=== PATIENT | male | born 1955 | race Caucasian/White ===

== ENCOUNTER 2019-12-06 12:25 | Emergency (ER) | payer BC, OTHER ==
--- OUTSIDE RECORDS SUMMARY | 2019-12-06 12:28 | XMS REPORT ---
:1955 [facility] Address [address] [place] [address] Care Team Providers Name Role Phone Unavailable Unavailable Unavailable Payers Payer Name Policy Type Policy Number Effective Date Expiration Date Problems This patient has no known problems. Allergies, Adverse Reactions, Alerts Allergy Name Allergy Status Severity Reaction(s) Onset Inactive Treating Comments Type Date Date Clinician Penicillins DA Active 2019-04 00:00:0 0 codeine DA Active MD 2019-04 00:00:0 0 levofloxacin DA Active MD 2019-04 00:00:0 0 Penicillins DA Active 2018-12 00:00:0 0 codeine DA Active MD 2018-12 00:00:0 0 levofloxacin DA Active MD 2018-12 00:00:0 0 Penicillins DA Active 2018-12 00:00:0 0 codeine DA Active MD 2018-12 00:00:0 0 levofloxacin DA Active MD 2018-08 00:00:0 0 Penicillins DA Active 2018-08 00:00:0 0 codeine DA Active MD 2018-08 00:00:0 0 Penicillins DA Active 2016-10 00:00:0 0 codeine DA Active MD 2016-10 00:00:0 0 levofloxacin DA Active MD 2016-10 00:00:0 0 Medications This patient has no known medications. Results Test Description Test Time Test Comments Text Results Atomic Results Result Comments - MRI L-SPINE W WO CON 2019-05-01 09:33:00 Patient Name: TAMIKA OBREGON Unit No: [id number] EXAMS: CPT CODE: [id number] MRI L-SPINE W WO CON 67557 MRI OF THE LUMBAR SPINE WITH AND WITHOUT CONTRAST DIAGNOSIS: 1. At L1-2, mild disc degeneration. No central canal stenosis. Moderate foraminal stenosis. 2. At L2-3, disc desiccation. Mild central canal stenosis. Mild to moderate bilateral facet arthropathy. Moderate bilateral foraminal stenosis. 3. At L3-4, disc desiccation. Moderate central canal stenosis. Moderate bilateral facet arthropathy. Mild to moderate bilateral foraminal stenosis. 4. At L4-5, patient status post anterior discectomy and laminectomy. Mild enhancing epidural fibrosis. Moderate bilateral bony foraminal stenosis more severe on the right. 5. At L5-S1, disc desiccation. 2 mm disc bulge with small posterior central annular tear. No central canal stenosis. Moderate facet arthropathy. Mild to moderate bilateral foraminal stenosis. COMMENT: COMPARISON: The current exam is compared to a previous exam dated September 27, 2016. Sagittal and axial T1 weighted pre- and postcontrast, sagittal and axial T2, sagittal STIR and coronal T2 sequences are obtained of the lumbar spine. The lumbar vertebrae are within normal limits in signal. The findings are as above. The conus is in the expected location. at 0933 Reported and signed by: Gonzalo Silvestre MD CC: Angel Chaidez M.D. Technologist: RT Janel(R) Transcribed D/ (932) JanetGVG [facility] NAME: TAMIKA OBREGON [address] [facility] PHYS: Angel Shah MD : 1955 AGE: 63 SEX: M [place], [place] [address] LOC: Y.MRI PHONE #: [phone] EXAM DATE: 04/30/2019 STATUS: DEP CLI FAX #: [phone] RAD #: D/C DT PAGE 1 Signed Report Patient Name: TAMIKA OBREOGN Unit No: [id number] EXAMS: CPT CODE: [id number] MRI L-SPINE W WO CON 34005 <Continued> Orig Print D/T: S: 05/01/2019 (0936) [facility] NAME: TAMIKA OBREGON [address] [facility] PHYS: Angel Shah MD : 1955 AGE: 63 SEX: M [place], [place] [address] LOC: Y.MRI PHONE #: [phone] EXAM DATE: 04/30/2019 STATUS: ANASTASIIA CLI FAX #: [phone] RAD #: D/C DT PAGE 2 Signed Report BLOOD UREA NITROGEN 2019-04-30 11:19:00 Test Item Value Reference Range Comments BLOOD UREA NITROGEN (test code=BUN) 13 mg/dL 7-18 CREATININE W ESTIMATED [id number] 11:19:00 Test Item Value Reference Range Comments GLOMERULAR FILTRATION RATE 70.3 >60 Unit of measure: (test code=GFR) mL/min/1.73 [id number] Range:Healthy Adults >90 mL/min/1.73 m2 For Chronic Kidney Disease: Stage II Mild Decrease in GFR 60-90 Stage III Moderate Decrease in GFR 30-59 Stage IV Severe Decrease in GFR 15-29 Stage V Kidney Failure <15 CREATININE (test code=CREAT) 1.06 mg/dL 0.55-1.30 - CT L-SPINE W/O [id number] 09:53:00 Patient Name: TAMIKA OBREGON Unit No: [id number] EXAMS: CPT CODE : [id number] CT L-SPINE W/O CONTRAST 97555 CT SCAN OF THE LUMBAR SPINE WITH RECONSTRUCTION. DIAGNOSES:PAIN 1. At L1-2,mild disc degeneration. Mild central canal stenosis. Moderate left foraminal and mild right foraminal stenosis. 2. At L2-3,no disc bulge or herniation. Mild central canal stenosis. Moderate bilateral foraminal stenosis. 3. At L3-4,no disc bulge or herniation. Moderate central canal stenosis. Mild facet arthropathy. Mild bilateral foraminal stenosis. 4. At L4-5,patient status post anterior discectomy and laminectomy. Solid interbody fusion. Moderate left foraminal stenosis. Pedicle screws are in good position. 5. At L5-S1,mild disc degeneration. The L5-S1 disc is partially calcified. 2 mm disc bulge. No central canal stenosis. Mild facet arthropathy. Mild right foraminal stenosis. COMMENT: COMPARISON: No prior exams available. 3 mm axial slices are obtained of the lumbar spine with reconstruction. Findings are as above. at 0953 Reported and signed by: Gonzalo Silvestre MD CC: Angel Tabares M.D. Technologist: RT Mike(R) CTDI: DLP: Trnscrpt : 03/27/2019 (0953) t.SUSAN.GVG [facility] NAME: TAMIKA OBREGON [address] [facility] PHYS: Sagar Shah MD : 1955 AGE: 63 SEX: M [place], [place] [address] LOC: Y.RAD PHONE #: [phone] EXAMDATE: 03/26/2019 STATUS: DEP CLI FAX #: [phone] RAD # : D/C DT PAGE 1 Signed Report Patient Name:TAMIKA OBREGON Unit No : [id number] EXAMS: CPT CODE: [id number] CT L-SPINE W/O CONTRAST [address]52<Continued> Orig Print D/T: S: 2018 (0956) [facility] NAME: TAMIKA OBREGON[address] [facility] PHYS: Angel Shah MD : 1955 AGE: 63 SEX: M [place], [place] [address] LOC: Y.RAD PHONE #: EXAM DATE: 03/26/2019 STATUS: DEP [place] #: [phone] RAD #: D/C DT PAGE 2 Signed ReportURINALYSIS [id number] 07:16:00 Test Item Value Reference Range Comments UA COLOR (test code=COLU) YELLOW YELLOW UA APPEARANCE (test code=APPU) CLEAR CLEAR UA GLUCOSE DIPSTICK (test code=DGLUU) NEGATIVE NEGATIVE UA BILIRUBIN DIPSTICK (test code=BILU) NEGATIVE NEGATIVE UA KETONE DIPSTICK (test code=KETU) NEGATIVE mg/dL NEGATIVE UA SPECIFIC GRAVITY (test code=SGU) 1.020 1.003-1.035 UA BLOOD DIPSTICK (test code=ROSA) NEGATIVE NEGATIVE UA PH DIPSTICK (test code=CHELLE) 8.0 >6.5 UA PROTEIN DIPSTICK (test code=PROU) NEGATIVE mg/dL NEG UA UROBILINIOGEN DIPSTICK (test code=URO) 0.2 mg/dL NORM UA NITRITE DIPSTICK (test code=AASHISH) NEGATIVE NEG UA LEUKOCYTE ESTERASE DIPSTICK (test NEGATIVE NEGATIVE code=LEUU) UA WBC (test code=WBCU) 0-2 /HPF 0-2 UA RBC (test code=RBCU) 0-2 /HPF 0-2 UA EPITHELIAL CELLS (test code=EPIU) RARE /HPF 0-2 UA BACTERIA (test code=BACU) FEW /HPF NONE UA AMORPHOUS SEDIMENT (test code=AMORU) TRACE /LPF NONE SEEN HGB [id number] 05:50:00 Test Item Value Reference Range Comments HEMOGLOBIN (test code=HGB) 12.0 g/dL 12-16 HEMATOCRIT (test code=HCT) 34.8 % 37-47 CBC W/AUTO [id number] 05:49:00 Test Item Value Reference Range Comments WHITE BLOOD CELL (test code=WBC) 13.8 K/mm3 5.7-10.5 RED BLOOD CELL (test code=RBC) 4.00 M/mm3 4.2-5.4 HEMOGLOBIN (test code=HGB) 12.0 g/dL 12-16 HEMATOCRIT (test code=HCT) 34.3 % 37-47 MEAN CELL VOLUME (test code=MCV) 86 fL 80-98 MEAN CELL HGB (test code=MCH) 30.0 pg 27-34 MEAN CELL HGB CONCENTRATION (test code=MCHC) 35.0 g/dL 30.8-34.1 RED CELL DISTRIBUTION WIDTH (test code=RDW) 13.2 % 11-16 PLT (test code=PLT) 114 K/mm3 130-400 MEAN PLATELET VOLUME (test code=MPV) 11.4 fL 8.9-12.1 NEUTROPHIL % (test code=NT%) 87.9 % 45-70 LYMPHOCYTE % (test code=LY%) 6.2 % 20-40 MONOCYTE % (test code=MO%) 5.0 % 3-10 EOSINOPHIL % (test code=EO%) 0.0 % 1-5 BASOPHIL % (test code=BA%) 0.1 % 0.0-1.1 NEUTROPHIL # (test code=NT#) 12.09 K/mm3 2.00-7.50 LYMPHOCYTE # (test code=LY#) 0.85 K/mm3 1.50-4.00 MONOCYTE # (test code=MO#) 0.69 K/mm3 0.2-0.8 EOSINOPHIL # (test code=EO#) 0.00 K/mm3 0.04-0.4 BASOPHIL # (test code=BA#) 0.01 K/mm3 0.02-0.10 MANUAL DIFF REQUIRED (test code=MDIFF) NO MANUAL DIFF NUCLEATED RED BLOOD CELL (test code=NRBC) 0 % 0-0 - XR SPINE 1 V SPEC [id number] 11:33:00 Patient Name: TAMIKA OBREGNO Unit No: [id number] EXAMS: CPT CODE: [id number] XR SPINE 1 V SPEC LEVEL 70464 3 LATERAL INTRAOPERATIVE VIEWS OF THE LUMBAR SPINE Image 1: Surgical markers are at the L3-L4 and L4-L5 levels. Image 2: Surgical instrumentation is at the L4 level Image 3: In progress L4-L5 posterior instrumented fusion without evidence of immediate complication. Interbody graft is well-positioned on lateral view. Electronically Signed by Christine Garcia on12/31/2018 at 1132 Reported and signed by: Patric Garcia M.D. CC: Angel Chaidez M.D. Technologist: RT MARCO ANTONIO(R) Transcribed D/ (9800) tNAJMA [facility] NAME: TAMIKA OBREGON [facility] PHYS: Angel Shah MD : [birth year] AGE: 63 SEX: M [place], [place] [address] LOC: YKo A PHONE #: [phone] EXAM DATE: STATUS: ADM IN FAX #: [phone] RAD #: D/C DT PAGE 1 Signed Report Patient Name: TAMIKA OBREGON Unit No: [id number] EXAMS: CPT CODE : [id number] XR SPINE 1 V SPEC LEVEL 42438 <Continued> Orig Print D/T: S: 12/31/2018 (4540) [facility] NAME: TAMIKA OBREGON [facility] PHYS:Angel Shah MD : 1955 AGE: 63 SEX: M [place], [place] [address] LOC: Y.505 A PHONE #: [phone] EXAM DATE: 12/30/2018 STATUS: ADM IN FAX #: [phone] RAD # : D/C DT PAGE 2 Signed Report- XR SPINE 1 V SPEC [id number] 11:33:00 Patient Name: TAMIKA OBREGON Unit No: [id number] EXAMS: CPT CODE: [id number] XR SPINE 1 V SPEC LEVEL 28929 3 LATERAL INTRAOPERATIVE VIEWS OF THE LUMBAR SPINE Image 1 : Surgical markers are at the L3-L4 and L4-L5 levels. Image 2: Surgical instrumentation is at the L4 level Image 3: In progress L4-L5 posterior instrumented fusion without evidence of immediate complication. Interbody graft is well-positioned on lateral view. Electronically Signed by Christine Garcia on12/31/2018 at 1133 Reported and signed by: Patric Garcia M.D. CC: Angel Chaidez M.D. Technologist: SHARATH CIFUENTES (RT.R) Transcribed D/ (5046) Astrid [facility] NAME: TAMIKA OBREGON [facility] PHYS: Angel Shah MD : [birth year] AGE: 63 SEX: M [place], [place] [address] LOC: Y.505 A PHONE #: [phone] EXAM DATE: STATUS: ADM IN FAX #: [phone] RAD #: D/C DT PAGE 1 Signed Report Patient Name: TAMIKA OBREGON Unit No: [id number] EXAMS: CPT CODE : [id number] XR SPINE 1 V SPEC LEVEL 27583 <Continued> Orig Print D/T: S: 12/31/2018 (0956) [facility] NAME: TAMIKA OBREGON [address] [facility] PHYS:Angel Shah MD : 1955 AGE: 63 SEX: M [place], [place] [address] LOC: Y.505 A PHONE #: [phone] EXAM DATE: 12/30/2018 STATUS: ADM IN FAX #: [phone] RAD # : D/C DT PAGE 2 Signed Report- XR SPINE 1 V SPEC [id number] 11:33:00 Patient Name: TAMIKA OBREGON Unit No: [id number] EXAMS: CPT CODE: [id number] XR SPINE 1 V SPEC LEVEL 04732 3 LATERAL INTRAOPERATIVE VIEWS OF THE LUMBAR SPINE Image 1 : Surgical markers are at the L3-L4 and L4-L5 levels. Image 2: Surgical instrumentation is at the L4 level Image 3: In progress L4-L5 posterior instrumented fusion without evidence of immediate complication. Interbody graft is well-positioned on lateral view. Electronically Signed by Christine Garcia on12/31/2018 at 1133 Reported and signed by: Patric Garcia M.D. CC: Angel Chaidez M.D. Technologist: SHARATH CIFUENTES (RT.R) Transcribed D/ (9127) tNAN.[email or web address] [facility] NAME: TAMIKA OBREGON [address] [facility] PHYS: Angel Shah MD : [birth year] AGE: 63 SEX: M [place], [place] [address] LOC: Y.505 A PHONE #: [phone] EXAM DATE: STATUS: ADM IN FAX #: [phone] RAD #: D/C DT PAGE 1 Signed Report Patient Name: TAMIKA OBREGON Unit No: [id number] EXAMS: CPT CODE : [id number] XR SPINE 1 V SPEC LEVEL 01719 <Continued> Orig Print D/T: S: 12/31/2018 (1136) [facility] NAME: TAMIKA OBREGON [address] [facility] PHYS:Angel Shah MD : 1955 AGE: 63 SEX: M [place] [id number] LOC: Y.505 A PHONE #: [phone] EXAM DATE: 12/30/2018 STATUS: ADM IN FAX #: [phone] RAD # : D/C DT PAGE 2 Signed [id number] 10:43:00 Test Item Value Reference Range Comments PLT (test code=PLT) 119 K/mm3 130-400 BASIC METABOLIC [id number] 06:35:00 Test Item Value Reference Range Comments SODIUM (test code=NA) 142 mmol/L 136-145 POTASSIUM (test code=K) 4.7 mmol/L 3.5-5.1 CHLORIDE (test code=CL) 106.0 mmol/L 98-107 CARBON DIOXIDE (test 27.0 mmol/L 21-32 code=CO2) GLUCOSE (test code=GLU) 135 mg/dL 70-110 BLOOD UREA NITROGEN (test 10 mg/dL 7-18 code=BUN) GLOMERULAR FILTRATION RATE 92.0 >60 Unit of measure: (test code=GFR) mL/min/1.73 [id number] Range:Healthy Adults >90 mL/min/1.73 m2 For Chronic Kidney Disease: Stage II Mild Decrease in GFR 60-90 Stage III Moderate Decrease in GFR 30-59 Stage IV Severe Decrease in GFR 15-29 Stage V Kidney Failure <15 CREATININE (test code=CREAT) 0.84 mg/dL 0.55-1.30 CALCIUM (test code=CA) 9.2 mg/dL 8.2-10.1 HGB [id number] 05:40:00 Test Item Value Reference Range Comments HEMOGLOBIN (test code=HGB) 12.7 g/dL 12-16 HEMATOCRIT (test code=HCT) 36.0 % 37-47 ACUTE HEPATITIS [id number] 17:53:00 Test Item Value Reference Range Comments AB HEPATITIS A IGM (test code=HAVMAB) NONREACTIVE NONREACTIVE AG HEPATITIS B SURFACE (test code=HBSAG) NONREACTIVE NONREACTIVE AB HEPATITIS B CORE IGM (test code=HBCMAB) NONREACTIVE NONREACTIVE AB HEPATITIS C (test code=HCVAB) NONREACTIVE NONREACTIVE SIGNAL TO CUTOFF (test code=CUTOFF) 0.04 <0.80 AB HIV 17:53:00 Test Item Value Reference Range Comments AB HIV 1 (test code=HIV1AB) NONREACTIVE NONREACTIVE Done by [email or web address] Gen HIV Ag/Ab Combo Screen ACUTE HEPATITIS [id number] 17:52:00 Test Item Value Reference Range Comments AB HEPATITIS A IGM (test code=HAVMAB) NONREACTIVE NONREACTIVE AG HEPATITIS B SURFACE (test code=HBSAG) NONREACTIVE NONREACTIVE AB HEPATITIS B CORE IGM (test code=HBCMAB) NONREACTIVE NONREACTIVE AB HEPATITIS C (test code=HCVAB) NONREACTIVE NONREACTIVE SIGNAL TO CUTOFF (test code=CUTOFF) 0.04 <0.80 AB HIV 1 17:52:00 Test Item Value Reference Range Comments AB HIV 1 2 (test NONREACTIVE NONREACTIVE Done by [employer] 4th code=[id number]) Gen HIV Ag/Ab Combo Screen ACUTE HEPATITIS [id number] 17:52:00 Test Item Value Reference Range Comments AB HEPATITIS A IGM (test code=HAVMAB) NONREACTIVE NONREACTIVE AG HEPATITIS B SURFACE (test code=HBSAG) NONREACTIVE AB HEPATITIS B CORE IGM (test code=HBCMAB) NONREACTIVE NONREACTIVE AB HEPATITIS C (test code=HCVAB) NONREACTIVE NONREACTIVE SIGNAL TO CUTOFF (test code=CUTOFF) 0.04 <0.80 AB HIV 17:52:00 Test Item Value Reference Range Comments AB HIV 1 (test code=HIV1AB) NONREACTIVE NONREACTIVE Done by [employer] 4th Gen HIV Ag/Ab Combo Screen ACUTE HEPATITIS [id number] 17:51:00 Test Item Value Reference Range Comments AB HEPATITIS A IGM (test code=HAVMAB) NONREACTIVE NONREACTIVE AG HEPATITIS B SURFACE (test code=HBSAG) NONREACTIVE AB HEPATITIS B CORE IGM (test code=HBCMAB) NONREACTIVE NONREACTIVE AB HEPATITIS C (test code=HCVAB) NONREACTIVE NONREACTIVE SIGNAL TO CUTOFF (test code=CUTOFF) 0.04 <0.80 AB HIV 1 17:51:00 Test Item Value Reference Range Comments AB HIV 1 2 (test NONREACTIVE NONREACTIVE Done by [employer] 4th code=[email or web address]) Gen HIV Ag/Ab Combo Screen CBC W/AUTO [id number] 09:49:00 Test Item Value Reference Range Comments WHITE BLOOD CELL (test 3.9 K/mm3 5.7-10.5 code=WBC) RED BLOOD CELL (test 4.72 M/mm3 4.2-5.4 code=RBC) HEMOGLOBIN (test code=HGB) 14.1 g/dL 12-16 HEMATOCRIT (test code=HCT) 40.5 % 37-47 MEAN CELL VOLUME (test 86 fL 80-98 code=MCV) MEAN CELL HGB (test code=MCH) 29.9 pg 27-34 MEAN CELL HGB CONCENTRATION 34.8 g/dL 30.8-34.1 (test code=MCHC) RED CELL DISTRIBUTION WIDTH 13.3 % 11-16 (test code=RDW) PLT (test code=PLT) 128 K/mm3 130-400 PLT ESTIMATE FROM SLIDE REVIEW: ADEQUATESLIGHT PLT CLUMPING PRESENT ON SLIDE MEAN PLATELET VOLUME (test 10.3 fL 8.9-12.1 code=MPV) NEUTROPHIL % (test code=NT%) 52.5 % 45-70 LYMPHOCYTE % (test code=LY%) 35.2 % 20-40 MONOCYTE % (test code=MO%) 8.4 % 3-10 EOSINOPHIL % (test code=EO%) 2.6 % 1-5 BASOPHIL % (test code=BA%) 0.8 % 0.0-1.1 NEUTROPHIL # (test code=NT#) 2.06 K/mm3 2.00-7.50 LYMPHOCYTE # (test code=LY#) 1.38 K/mm3 1.50-4.00 MONOCYTE # (test code=MO#) 0.33 K/mm3 0.2-0.8 EOSINOPHIL # (test code=EO#) 0.10 K/mm3 0.04-0.4 BASOPHIL # (test code=BA#) 0.03 K/mm3 0.02-0.10 MANUAL DIFF REQUIRED (test NO MANUAL DIFF code=MDIFF) NUCLEATED RED BLOOD CELL 0 % 0-0 (test code=NRBC) PROTHROMBIN [id number] 09:32:00 Test Item Value Reference Range Comments PROTHROMBIN TIME PATIENT 12.4 secs 10.1-12.5 (test code=PTP) INTERNATIONAL NORMAL RATIO 1.10 <2.0 RECOMMENDED THERAPEUTIC RANGE (test code=INR) FOR ORAL ANTICOAGULANTTREATMENT: CONDITION INRProphylaxis of venous thrombosis in 2.0 - 3.0 high-risk medical or surgical patientsTreatment of venous thrombosis 2.0 - 3.0Prevention of embolism 2.0 - 3.0Prevention of recurrent embolism, or 3.0 - 4.5 patients with mechanical prosthetic intravascular valves IS PATIENT ON ANTICOAGULANTS ? [facility] been notified if Patient is on Heparin Drip? NOIf Yes, orderCBC, OCCULT BLOOD, PT every other day NTHROMBOPLASTIN TIME [id number] 09:32:00 Test Item Value Reference Range Comments PTT ACTIVATED (test code=APTT) 28.7 secs 24.9-37.0 IS PATIENT ON ANTICOAGULANTS ? [facility] been notified if Patient is on Heparin Drip? NOIf Yes, orderCBC, OCCULT BLOOD, PT every other day NBASIC METABOLIC [id number] 09:32:00 Test Item Value Reference Range Comments SODIUM (test code=NA) 142 mmol/L 136-145 POTASSIUM (test code=K) 4.2 mmol/L 3.5-5.1 CHLORIDE (test code=CL) 103.0 mmol/L 98-107 CARBON DIOXIDE (test 31.1 mmol/L 21-32 code=CO2) GLUCOSE (test code=GLU) 81 mg/dL 70-110 BLOOD UREA NITROGEN (test 17 mg/dL 7-18 code=BUN) GLOMERULAR FILTRATION RATE 75.2 >60 Unit of measure: (test code=GFR) mL/min/1.73 [id number] Range:Healthy Adults >90 mL/min/1.73 m2 For Chronic Kidney Disease: Stage II Mild Decrease in GFR 60-90 Stage III Moderate Decrease in GFR 30-59 Stage IV Severe Decrease in GFR 15-29 Stage V Kidney Failure <15 CREATININE (test code=CREAT) 1.00 mg/dL 0.55-1.30 CALCIUM (test code=CA) 9.1 mg/dL 8.2-10.1
[2019-12-06] MEDS ORDERED: NA CHLORIDE 0.9% 1,000 ML ONE ×2 (13:16→14:18)
[2019-12-06 13:40] LABS: Absolute Lymphocytes (CBC) 1.1 K/uL (0.7-4.9); Basophils % 0.4 % (0-1.3); Hematocrit 42.9 % (39.6-49.0); Lymphocytes % 16.5 % (15.3-44.8); MPV 8.8 fL (7.6-11.3); RBC Red Blood Cell Count 4.95 M/uL (4.33-5.43)
[2019-12-06 13:44] LABS: Protime INR 1.15
[2019-12-06 13:44] LABS: Urine Blood NEGATIVE (NEG); Urine Glucose NEGATIVE (NEG); Urine Protein NEGATIVE (NEG)
--- NOTE | 2019-12-06 13:51 | RAD REPORT ---
EXAM DESCRIPTION: CT - Head Brain Wo Cont - 12/06/2019 1:43 pm CLINICAL HISTORY: Dizziness COMPARISON: 2015 TECHNIQUE: Computed axial tomography of the head was obtained. IV contrast was not requested. All CT scans are performed using dose optimization technique as appropriate and may include automated exposure control or mA/KV adjustment according to patient size. FINDINGS: Postsurgical changes of a aneurysm clip for cerebral aneurysm noted. No acute intracranial bleed is seen. The ventricles are normal in caliber. No extra-axial fluid collection is noted. 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 IMPRESSION: No acute intracranial abnormality is seen.
[2019-12-06 13:59] LABS: ALT/SGPT 27 U/L (12-78); AST/SGOT 20 U/L (15-37); Albumin 4.1 g/dL (3.4-5.0); Alkaline Phosphatase 94 U/L (45-117); BUN Blood Urea Nitrogen 15 mg/dL (7-18); Bicarbonate 28 mmol/L (21-32); Bilirubin Direct 0.2 mg/dL (0-0.2); Bilirubin Total 0.5 mg/dL (0.2-1.0); Glucose Level 79 mg/dL (74-106); NT PRO-BNP 388 pg/mL (<125); Protein, Total 7.3 g/dL (6.4-8.2); Sodium Level 139 mmol/L (136-145); Troponin (Emerg Dept Use Only) < 0.02 ng/mL (0.0-0.045)
--- NOTE | 2019-12-06 14:14 | RAD REPORT ---
EXAM DESCRIPTION: Nikia Single View12/06/2019 1:59 pm CLINICAL HISTORY: cough COMPARISON: 2017 FINDINGS: The lungs appear clear of acute infiltrate. The heart is normal size Postsurgical changes involve the chest. IMPRESSION: No acute abnormalities displayed
--- NOTE | 2019-12-06 15:21 | RAD REPORT ---
EXAM DESCRIPTION: USCarotid Artery Bilateral12/06/2019 2:49 pm CLINICAL HISTORY: Syncope COMPARISON: None FINDINGS: The velocity of the right internal carotid artery equals 91 cm/sec. The right ICA/CCA rati o 1.9 The velocity of the left internal carotid artery equals 111 cm/sec. The left ICA/CCA ratio 1 Mild to moderate plaque is present within the left carotid bulb, left external carotid artery. Mild p laque seen within the common carotid arteries and right internal carotid artery The vertebral arteries demonstrate antegrade flow IMPRESSION: Mild to moderate plaque within the left carotid bulb without evidence of a hemodynamical ly significant stenosis NASCET criteria used. Mild 0-49% stenosis Moderate 50-69% stenosis Severe 70-99% stenosis
--- NOTE | 2019-12-06 15:34 | ER ---
Nurse's Notes [facility] Name: William Osuna Age: 64 yrs Sex: Male : 1955 Arrival Date: 12/06/2019 Time: 12:28 Bed 15 Private MD: Diagnosis: Dizziness and giddiness;Essential (primary) hypertension;Hypoglycemia, unspecified;Volume depletion Presentation: 12/06 12:30 Presenting complaint: states: Dizziness for the past week. Intermittent headache aj1 for the past week. Denies CP, SOB. States that his blood pressures have been running higher than normal. Transition of care: patient was not received from another setting of care. Onset of symptoms was November 2019. Risk Assessment: Do you want to hurt yourself or someone else? Patient reports no desire to harm self or others. Initial Sepsis Screen: Does the patient meet any 2 criteria? No. Patient's initial sepsis screen is negative. Does the patient have a suspected source of infection? No. Patient's initial sepsis screen is negative. Care prior to arrival: None. 12:30 Method Of Arrival: Ambulatory aj1 12:30 Acuity: FARHAD 3 aj1 Triage Assessment: 12:38 Headache History: Denies prior headaches. General: Appears in no apparent distress. aj1 comfortable, Behavior is calm, cooperative, appropriate for age. Pain: Complains of pain in forehead Pain currently is 5 out of 10 on a pain scale. Also complains of no other associated symptoms. Pain: Pain began one week ago. Neuro: Level of Consciousness is awake, alert, obeys commands, Oriented to person, place, time, situation, Gait is steady, Speech is normal. Cardiovascular: Patient's skin is warm and dry. Respiratory: Airway is patent Respiratory effort is even, unlabored, Respiratory pattern is regular, symmetrical. 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 - Coronavirus screen:: The patient has NOT traveled to [place] in the past 14 days. - Social history:: Smoking status: Patient/guardian denies using tobacco. - Family history:: not pertinent. - Ebola Screening: : Patient denies travel to an Ebola-affected area in the 21 days before illness onset. Screenin:00 Abuse screen: Denies threats or abuse. Denies injuries from another. Nutritional jl7 screening: No deficits noted. Tuberculosis screening: No symptoms or risk factors identified. Fall Risk IV access (20 points). Total Chavez Fall Scale indicates No Risk (0-24 pts). Assessment: 13:00 General: Appears in no apparent distress. uncomfortable, Behavior is calm, cooperative, jl7 appropriate for age. Pain: Complains of pain in MORE Pain currently is 5 out of 10 on a pain scale. Neuro: Level of Consciousness is awake, alert, obeys commands, Oriented to person, place, time, situation, Moves all extremities. Full function Gait is steady, Speech is normal, Facial symmetry appears normal. Cardiovascular: Patient's skin is warm and dry. Respiratory: Airway is patent Respiratory effort is even, unlabored, Respiratory pattern is regular, symmetrical. Derm: Skin is pink, warm \\T\\ dry. 14:00 Reassessment: Patient appears in no apparent distress at this time. No changes from jl7 previously documented assessment. Patient and/or family updated on plan of care and expected duration. Pain level reassessed. Patient is alert, oriented x 3, equal unlabored respirations, skin warm/dry/pink. 15:00 Reassessment: Patient appears in no apparent distress at this time. No changes from jl7 previously documented assessment. Patient and/or family updated on plan of care and expected duration. Pain level reassessed. Patient is alert, oriented x 3, equal unlabored respirations, skin warm/dry/pink. 15:45 Reassessment: Pt will be discharged once ERD gives results and POC. jl7 Vital Signs: 12:38 BP 177 / 92; Pulse 78; Resp 18; Temp 97.2; Pulse Ox 100% on R/A; Weight 88.45 kg (R); aj1 Height 6 ft. 3 in. (190.50 cm) (R); Pain 5/10; 13:50 BP 175 / 82 LA Supine (auto/reg); Pulse 69; Resp 11; Pulse Ox 100% on R/A; jp3 13:53 BP 176 / 82 LA Sitting (auto/reg); Pulse 69; Resp 13 S; Pulse Ox 100% on R/A; jp3 13:57 BP 148 / 82 LA Standing (auto/reg); Pulse 80; Resp 15 S; Pulse Ox 100% on R/A; jp3 14:30 BP 156 / 74; Pulse 67; Resp 16 S; Pulse Ox 100% on R/A; jl7 15:00 BP 149 / 82; Pulse 62; Resp 16 S; Pulse Ox 100% on R/A; jl7 15:30 BP 165 / 76; Pulse 60; Resp 16 S; Pulse Ox 100% on R/A; jl7 12:38 Body Mass Index 24.37 (88.45 kg, 190.50 cm) aj1 13:50 patient stated "feel normal" jp3 13:53 pt stated "I feel dizzy" jp3 13:57 pt stated "I feel same dizziness as when I was sitting" jp3 ED Course: 12:28 Patient arrived in ED. rg4 12:33 Triage completed. aj1 12:35 Devaughn Avila MD is Attending Physician. gregory 12:38 Arm band placed on Patient placed in an exam room. aj1 12:42 Lluvia Da Silva, BRADLY is Primary Nurse. jl7 12:47 EKG done, by ED staff, reviewed by Devaughn Avila MD. jb1 13:30 Initial lab(s) drawn, by me, sent to lab. Urine collected: clean catch specimen, clear. jl7 Inserted saline lock: 20 gauge in right forearm, using aseptic technique. Blood collected. 14:02 Safety checks: Family/friend present: yes. Bed in low position. Call light in reach. jp3 Side rails up X 1. Warm blanket given. Verbal reassurance given. monitoring and evaluation advisor on. Pulse ox on. NIBP on. 14:40 Ultrasound completed. Patient tolerated well. sg3 15:32 Talib Grover MD is Referral Physician. gregory 16:11 No provider procedures requiring assistance completed. IV discontinued, intact, jl7 bleeding controlled, No redness/swelling at site. Pressure dressing applied. Administered Medications: 13:25 Drug: NS 0.9% 500 ml Route: IV; Rate: bolus; Site: right forearm; jl7 14:00 Follow up: Response: No adverse reaction; IV Status: Completed infusion; IV Intake: jl7 500ml 13:25 Drug: NS 0.9% 1000 ml Route: IV; Rate: 125 ml/hr; Site: right forearm; jl7 16:06 Follow up: Response: No adverse reaction; IV Status: Completed infusion jl7 14:18 Drug: NS 0.9% 500 ml Route: IV; Rate: bolus; Site: right forearm; jl7 15:04 Follow up: Response: No adverse reaction; IV Status: Completed infusion; IV Intake: jl7 500ml 15:10 Drug: Aspirin 81 mg Route: PO; jl7 16:10 Follow up: Response: No adverse reaction jl7 Intake: 14:00 IV: 500ml; Total: 500ml. jl7 15:04 IV: 500ml; Total: 1000ml. jl7 Outcome: 15:32 Discharge ordered by . gregory 16:12 Discharged to home ambulatory. jl7 16:12 Condition: stable 16:12 Discharge instructions given to patient, family, Instructed on discharge instructions, follow up and referral plans. medication usage, Demonstrated understanding of instructions, follow-up care, medications, Prescriptions given X 1. 16:14 Patient left the ED. jl7 Signatures: Jaden Rasheed jb1 Katie Villalba, RN RN aj1 Devaughn Avila MD MD cha Garcia, Rubi rg4 Lluvia Da Silva RN RN jl7 Malika Palafox sg3 Adryan Salas jp3
--- NOTE | 2019-12-06 15:34 | EDPHYS ---
Physician Documentation [facility] Name: William Osuna Age: 64 yrs Sex: Male : 1955 Arrival Date: 12/06/2019 Time: 12:28 Bed 15 Private MD: ED Physician Devaughn Avila HPI: 12/06 13:13 This 64 yrs old Male presents to ER via Ambulatory with complaints of gregory Dizziness, Headache. 13:13 The patient presents with dizziness. Onset: The symptoms/episode began/occurred 2 gregory day(s) ago. Context: occurred at home, occurred while the patient was standing. Modifying factors: The symptoms are alleviated by lying down. Associated signs and symptoms: Pertinent positives: headache. Severity of symptoms: At their worst the symptoms were mild in the emergency department the symptoms are unchanged. Patient's baseline: Neuro: alert and fully oriented. The patient has experienced similar episodes in the past, a few times. 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 - Coronavirus screen:: The patient has NOT traveled to [place] in the past 14 days. - Social history:: Smoking status: Patient/guardian denies using tobacco. - Family history:: not pertinent. - Ebola Screening: : Patient denies travel to an Ebola-affected area in the 21 days before illness onset. ROS: 13:13 Constitutional: Negative for fever, chills, and weight loss, Eyes: Negative for injury, gregory pain, redness, and discharge, ENT: Negative for injury, pain, and discharge, Neck: Negative for injury, pain, and swelling, Cardiovascular: Negative for chest pain, palpitations, and edema, Respiratory: Negative for shortness of breath, cough, wheezing, and pleuritic chest pain, Abdomen/GI: Negative for abdominal pain, nausea, vomiting, diarrhea, and constipation, Back: Negative for injury and pain, : Negative for injury, bleeding, discharge, and swelling, MS/Extremity: Negative for injury and deformity, Skin: Negative for injury, rash, and discoloration, Neuro: Negative for headache, weakness, numbness, tingling, and seizure, Psych: Negative for depression, anxiety, suicide ideation, homicidal ideation, and hallucinations, Allergy/Immunology: Negative for hives, rash, and allergies, Endocrine: Negative for neck swelling, polydipsia, polyuria, polyphagia, and marked weight changes, Hematologic/Lymphatic: Negative for swollen nodes, abnormal bleeding, and unusual bruising. Exam: 13:15 Constitutional: This is a well developed, well nourished patient who is awake, alert, gregory and in no acute distress. Head/Face: Normocephalic, atraumatic. Eyes: Pupils equal round and reactive to light, extra-ocular motions intact. Lids and lashes normal. Conjunctiva and sclera are non-icteric and not injected. Cornea within normal limits. Periorbital areas with no swelling, redness, or edema. ENT: Nares patent. No nasal discharge, no septal abnormalities noted. Tympanic membranes are normal and external auditory canals are clear. Oropharynx with no redness, swelling, or masses, exudates, or evidence of obstruction, uvula midline. Mucous membranes moist. Neck: Trachea midline, no thyromegaly or masses palpated, and no cervical lymphadenopathy. Supple, full range of motion without nuchal rigidity, or vertebral point tenderness. No Meningismus. Chest/axilla: Normal chest wall appearance and motion. Nontender with no deformity. No lesions are appreciated. Cardiovascular: Regular rate and rhythm with a normal S1 and S2. No gallops, murmurs, or rubs. Normal PMI, no JVD. No pulse deficits. Respiratory: Lungs have equal breath sounds bilaterally, clear to auscultation and percussion. No rales, rhonchi or wheezes noted. No increased work of breathing, no retractions or nasal flaring. Abdomen/GI: Soft, non-tender, with normal bowel sounds. No distension or tympany. No guarding or rebound. No evidence of tenderness throughout. Back: No spinal tenderness. No costovertebral tenderness. Full range of motion. Skin: Warm, dry with normal turgor. Normal color with no rashes, no lesions, and no evidence of cellulitis. MS/ Extremity: Pulses equal, no cyanosis. Neurovascular intact. Full, normal range of motion. Neuro: Awake and alert, GCS 15, oriented to person, place, time, and situation. Cranial nerves II-XII grossly intact. Motor strength 5/5 in all extremities. Sensory grossly intact. Cerebellar exam normal. Normal gait. Psych: Awake, alert, with orientation to person, place and time. Behavior, mood, and affect are within normal limits. Vital Signs: 12:38 BP 177 / 92; Pulse 78; Resp 18; Temp 97.2; Pulse Ox 100% on R/A; Weight 88.45 kg (R); aj1 Height 6 ft. 3 in. (190.50 cm) (R); Pain 5/10; 13:50 BP 175 / 82 LA Supine (auto/reg); Pulse 69; Resp 11; Pulse Ox 100% on R/A; jp3 13:53 BP 176 / 82 LA Sitting (auto/reg); Pulse 69; Resp 13 S; Pulse Ox 100% on R/A; jp3 13:57 BP 148 / 82 LA Standing (auto/reg); Pulse 80; Resp 15 S; Pulse Ox 100% on R/A; jp3 14:30 BP 156 / 74; Pulse 67; Resp 16 S; Pulse Ox 100% on R/A; jl7 15:00 BP 149 / 82; Pulse 62; Resp 16 S; Pulse Ox 100% on R/A; jl7 15:30 BP 165 / 76; Pulse 60; Resp 16 S; Pulse Ox 100% on R/A; jl7 12:38 Body Mass Index 24.37 (88.45 kg, 190.50 cm) aj1 13:50 patient stated "feel normal" jp3 13:53 pt stated "I feel dizzy" jp3 13:57 pt stated "I feel same dizziness as when I was sitting" jp3 MDM: 12:41 [facility] 13:15 Data reviewed: vital signs, nurses notes, lab test result(s), EKG, radiologic studies, [facility] scan, doppler, plain films. 12/06 13:09 Order name: Basic Metabolic Panel [facility] 12/06 13:09 Order name: CBC with Diff [facility] 12/06 13:09 Order name: LFT's [facility] 12/06 13:09 Order name: Magnesium [facility] 12/06 13:09 Order name: NT PRO-BNP [facility] 12/06 13:09 Order name: PT-INR [facility] 12/06 13:09 Order name: Troponin (emerg Dept Use Only) [facility] 12/06 13:28 Order name: Urine Dipstick--Ancillary (enter results) 12/06 13:45 Order name: CBC with Automated Diff; Complete Time: 14:09 EDTX 12/06 13:45 Order name: Protime (+INR); Complete Time: 14:09 EDTX 12/06 13:45 Order name: Urine Dipstick-Ancillary; Complete Time: 14:09 EDTX 12/06 14:02 Order name: Basic Metabolic Panel; Complete Time: 14:09 EDTX 12/06 14:02 Order name: Liver (Hepatic) Function; Complete Time: 14:09 EDTX 12/06 14:02 Order name: Troponin (Emerg Dept Use Only); Complete Time: 14:09 EDTX 12/06 13:09 Order name: XRAY Chest (1 view) [facility] 12/06 13:09 Order name: EKG; Complete Time: 13:10 [facility] 12/06 13:09 Order name: Cardiac monitoring; Complete Time: 14:08 [facility] 12/06 13:09 Order name: EKG - Nurse/Tech; Complete Time: 14:08 [facility] 12/06 13:09 Order name: IV Saline Lock; Complete Time: 13:37 [facility] 12/06 13:09 Order name: US Carotid Artery Bilateral [facility] 12/06 13:12 Order name: CT Head Brain wo Cont [facility] 12/06 14:00 Order name: CT; Complete Time: 14:09 EDTX 12/06 14:02 Order name: NT PRO-BNP; Complete Time: 14:09 EDTX 12/06 14:02 Order name: Magnesium; Complete Time: 14:09 EDTX 12/06 14:34 Order name: RAD; Complete Time: 14:48 [facility] 12/06 15:28 Order name: US; Complete Time: 15:31 [facility] 12/06 13:09 Order name: Labs collected and sent; Complete Time: 13:36 [facility] 12/06 13:09 Order name: O2 Per Protocol; Complete Time: 13:36 [facility] 12/06 13:09 Order name: O2 Sat Monitoring; Complete Time: 13:36 [facility] 12/06 13:09 Order name: Urine Dipstick-Ancillary (obtain specimen); Complete Time: 13:34 [facility] 12/06 13:11 Order name: Orthostatics; Complete Time: 14:03 [facility] 12/06 13:32 Order name: PO challenge: JUICE; Complete Time: 13:34 [facility] Administered Medications: 13:25 Drug: NS 0.9% 500 ml Route: IV; Rate: bolus; Site: right forearm; jl7 14:00 Follow up: Response: No adverse reaction; IV Status: Completed infusion; IV Intake: jl7 500ml 13:25 Drug: NS 0.9% 1000 ml Route: IV; Rate: 125 ml/hr; Site: right forearm; jl7 16:06 Follow up: Response: No adverse reaction; IV Status: Completed infusion jl 14:18 Drug: NS 0.9% 500 ml Route: IV; Rate: bolus; Site: right forearm; jl7 15:04 Follow up: Response: No adverse reaction; IV Status: Completed infusion; IV Intake: jl7 500ml 15:10 Drug: Aspirin 81 mg Route: PO; jl7 16:10 Follow up: Response: No adverse reaction [facility] Disposition: 12/06/19 15:32 Discharged to Home. Impression: Dizziness and giddiness, Essential (primary) hypertension, Hypoglycemia, unspecified, Volume depletion. - Condition is Stable. - Discharge Instructions: Dehydration, Adult, Dizziness, Hypertension, Hypoglycemia, Hypertension, Itix-yl-Gcsh, How to Take Your Blood Pressure, Rtnp-az-Rmix, Dehydration, Adult, Isdp-wu-Icno, Aspirin and Your Heart, Hypoglycemia, Acbl-ny-Gfbz, Dizziness, Zvtx-of-Zruy, Managing Your Hypertension. - Prescriptions for Meclizine 25 mg Oral Tablet - take 1 tablet by ORAL route every 8 hours As needed; 30 tablet. Lisinopril 10 mg Oral Tablet - take 1 tablet by ORAL route once daily; 20 tablet. - Medication Reconciliation Form, Thank You Letter, Antibiotic Education, Prescription Opioid Use form. - Follow up: Private Physician; When: 2 - 3 days; Reason: Recheck today's complaints, Continuance of care, Re-evaluation by your physician. Follow up: Talib Grover; When: 2 - 3 days; Reason: Recheck today's complaints, Continuance of care, Re-evaluation by your physician. - Problem is new. - Symptoms have improved. Signatures: Dispatcher [employer] EDKatie Steward RN RN aj1 Devaughn Avila MD MD cha Leal, Jahala, RN RN jl7 Corrections: (The following items were deleted from the chart) 16:14 15:32 12/06/2019 15:32 Discharged to Home. Impression: Dizziness and giddiness; jl7 Essential (primary) hypertension; Hypoglycemia, unspecified; Volume depletion. Condition is Stable. Discharge Instructions: Dizziness, Hypertension, Hypertension, Qmwa-pj-Olzt, How to Take Your Blood Pressure, Cunz-fn-Hgxa, Aspirin and Your Heart, Dizziness, Utsf-dw-Dmsl, Managing Your Hypertension, Dehydration, Adult, Hypoglycemia, Dehydration, Adult, Iyex-ab-Infv, Hypoglycemia, Xnby-le-Ivsz. Prescriptions for Meclizine 25 mg Oral Tablet - take 1 tablet by ORAL route every 8 hours As needed; 30 tablet. and Forms are Medication Reconciliation Form, Thank You Letter, Antibiotic Education, Prescription Opioid Use. Follow up: Private Physician; When: 2 - 3 days; Reason: Recheck today's complaints, Continuance of care, Re-evaluation by your physician. Follow up: Talib Grover; When: 2 - 3 days; Reason: Recheck today's complaints, Continuance of care, Re-evaluation by your physician. Problem is new. Symptoms have improved. gregory
[2019-12-06] MEDS ORDERED: ASPIRIN 81 MG CHEWABLE TABLET ONE (15:45)
[2019-12-06 16:33] VITALS: TEMP 97.2; O2SAT 100
[2019-12-06 16:41] VITALS: BP 165/76
--- NOTE | 2019-12-07 08:11 | EKG ---
Test Date: 2019-12-06 Test Time: 12:47:36 Client Success Specialist: RADHA MEASUREMENT RESULTS: Intervals: Rate: 74 CA: 150 QRSD: 98 QT: 386 QTc: 428 [place]: P: 10 CA: 150 QRS: 39 T: 63 INTERPRETIVE STATEMENTS: Normal sinus rhythm Normal ECG Compared to ECG 04/25/2014 18:49:49 Sinus bradycardia no longer present Electronically Signed On 12-07-19 08:09:37 CLASSROOM INSTRUCTOR by Bunny Cerna
== END 2019-12-06 16:14 | disposition home or self-care (01) ==
LOC: ER 12:25
DX: E86.9 Volume depletion, unspecified (principal); I10 Essential (primary) hypertension; E16.2 Hypoglycemia, unspecified; Z79.01 Long term (current) use of anticoagulants; Z88.0 Allergy status to penicillin; Z88.5 Allergy status to narcotic agent; Z95.818 Presence of other cardiac implants and grafts
CPT/HCPCS: 96361; 93005; 85025; 80048; 36415; 83735; 85610; 82947; 80076; 81003; 84484; 83880; 70450; 71045; 93880; 96360; 99284; J7030 ×2

== ENCOUNTER 2022-03-11 18:55 | Emergency (ER) | payer OTHER, BC ==
--- OUTSIDE RECORDS SUMMARY | 2022-03-11 18:59 | XMS REPORT | Continuity of Care Document ---
:1955 Author Organization [facility] t Address [address] [place] [address] Care Team Providers Name Role Phone Oxana PARKER Primary Care Physician Unavailable Oxana READ Attending Clinician Unavailable Marquis Chaidez Attending Clinician Unavailable Bettina NELSON, [facility] Attending Clinician Oxana READ Admitting Clinician Unavailable Marquis Chaidez Admitting Clinician Unavailable Physician, Primary or Family Admitting Clinician Unavailabl e Payers Payer Name Policy Type Policy Number Effective Date Expiration Date S [facility] MEDICARE PART A \T\ [id number] 2019 B 00:00:00 BCBS TRADITIONAL [id number] 2019 00:00:00 Problems Condition Condition Condition Status Onset Resolution Last Treating Co mments Source Name Details Category Date Date Treatment Clinician Date No known No known Disease Unive rs active active ity of problems problems [facility] Allergies, Adverse Reactions, Alerts Allergy Allergy Status Severity Reaction(s) Onset Inactive Treating Comm ents Source Name Type Date Date Clinician Penicill DA Active SV RASHES 2020-10 [facility] ins 11-22 [place] [facility] codeine DA Active ID RASHES, 2020-10 [facility] [place]USE[place] [facility] Penicill DA Active SV 2019-0 [facility] ins 7-11 [place] 00:[facility] [facility] codeine DA Active ID 2019-0 [facility] 7-11 [place] 00:[facility] [facility] levoflox DA Active ID 2019-0 [facility] acin 7-11 [place] 00:[facility]: [facility] 00 [facility] Penicill DA Active SV RASHES 2019-0 [facility] ins 7-11 [place] 00:[facility] codeine DA Active ID RASHES, 2019-0 [facility] [place] [facility] levoflox DA Active ID NAUSEA 2019-0 [facility] acin 7-11 [place] 00:[facility] 00 [facility] Penicill DA Active SV 2019-0 [facility] ins 3-12 [facility] [place] codeine DA Active ID 2019-0 [facility] 3-12 [facility] [place] levoflox DA Active ID 2019-0 [facility] acin 3-12 [facility] [place] codeine DA Active ID 2019-0 [facility] 3-11 [facility] [place] Penicill DA Active SV 2019-0 [facility] ins 3-11 [facility] [place] levoflox DA Active ID 2018-1 [facility] acin 1-27 [facility] [place] Penicill DA Active SV 2018-1 [facility] ins 1-27 [place] 00:[facility] 00 [facility] codeine DA Active ID 2018-1 [facility] 1-27 [place] 00:00[facility] 00 [facility] LEVOFLOX DRUG Active N/V 2018-0 [facility] ACIN INGREDI 8- ity of 00:00: [place] 00 Medical Branch PENICILL Drug Active Rash 2018-0 [facility] INS Class 8- ity of 00:00: [place] 00 Medical Branch Levoflox Propensi Active Nausea 2018-0 Univer s acin ty to and/or 05-23 ity of adverse Vomiting 00:00: [place] reaction 00 Medical s Branch Penicill Propensi Active Rash 2018-0 Univer s ins ty to 05-23 ity of adverse 00:00: [place] reaction 00 Medical s Branch Penicill DA Active SV [facility] ins 11-01 [place] 00:00: [facility] 00 [facility] codeine DA Active ID [facility] [place] 00:[facility] 00 [facility] levoflox DA Active ID [facility] acin 11-01 [place] 00:00: [facility] 00 [facility] Social History Social Habit Start Date Stop Date Quantity Comments Source Sex Assigned At [birth year] [facility] 00:00:00 00:00:00 Medical Branch Smoking Status Start Date Stop Date Source Unknown if ever smoked [facility] Medications Ordered Filled Start Stop Current Ordering Indication Dosage Frequency Signature Comments Components Source Medication Medication Date Date Medication? Clinician (SIG) Name Name diazePAM 5 2020-10 Yes [id number] 5mg Take 1 Univers mg tablet 2-01 tablet by ity o f 00:00: mouth as needed for Medical Anxiety Branch (take on tablet 30 minutes before procedure and then 1 tablet, if needed, when waiting to have procedure) . aspirin 81 2020-10 Yes 81mg Take 81 mg U nivers mg chewable 0-12 by mouth. ity of tablet 08:16: [address] Branch tamsulosin 2020-10 Yes Take by Uni vers 0.4 mg 24 0-12 mouth ity of hr capsule 08:16: daily. [address] amLODIPine 2020-10 Yes 5mg Take 5 mg Un jagdeep 5 mg tablet 0-06 by mouth 2 it y of 00:00: (two) [place] times Medical daily. Branch clopidogreL 2020-10 Yes 75mg Take 75 mg Univers 75 mg 0-06 by mouth ity of tablet 00:00: daily. [place] [facility] traMADoL Yes TAKE ONE Unive rs 100 mg Tab 8-23 TABLET BY ity of 00:00: MOUTH [place] 00 EVERY 4 TO Medical 6 HOURS Branch NEEDED FOR PAIN Procedures This patient has no known procedures. Encounters Start End Encounter Admission Attending Care Care Encounter Source Date/Time Date/Time Type Type Clinicians Facility Department ID 2021-10-27 Outpatient R CAILIN [facility] [id number] Univers 15:53:41 CRISTOBAL Medina [facility] 2021-09-21 Outpatient JOHNNY ChaidezTO [id number] [facility] 13:15:31 Angel 27 [place] [facility] 2021-11-07 2021-11-07 Outpatient R [facility] [id number] Univers 08:30:00 08:30:[id number] [facility] 2021-11-07 2021-11-07 Outpatient R CAILIN [facility] [id number] Univers 08:30:00 08:30:00 CRISTOBAL [place] [facility] 2021-09-21 2021-09-21 Outpatient OJHNNY Choe RADI [id number] [facility] 08:45:00 08:45:00 Angel [id number] [place] [facility] 2021-09-11 2021-09-11 Telephone Bettina [facility] [id number] [facility] 00:00:00 00:00:00 [facility] [id number] [facility] [place] [id number] Michael as CARLOS A?BLEA [phone] [place] [address] MEDICAL OFFICE BUILDING 2020-09-26 2020-09-26 Outpatient JOHNNY Chaidez RADI [id number] [facility] 08:30:00 08:30:00 Angel [place] [facility] 2020-08-22 2020-08-22 Outpatient JOHNNY Chaidez RADI [id number] [facility] 10:00:00 10:00:00 Angel [place] [facility] Results Test Description Test Time Test Comments Results Result [facility] e Comments - XR L-SPINE 2021-09-25 W/BEND VIEW 19:48:00 [facility] 1955 Sex: M Patient Name: TAMIKA OBREGON Unit No: [id number] EXAMS: CPT CODE: [id number] XR L-SPINE W/BEND VIEW 44940 COMPARISON: Concurrent MRI. IMAGES PROVIDED: 8 views of the lumbar spine FINDINGS: L4-L5 posterior instrumented fusion is demonstrated with intact hardware. No acute fracture. No pathologic motion with flexion/extension. Mild scattered disc degeneration is greatest at L5-S1. Mild lower lumbar facet hypertrophy. Cholecystectomy clips are present. Mild bilateral hip joint degenerative change. IMPRESSION: Postoperative lumbar spine without evidence of dynamic instability. at 1948 Reported and signed by: Patric Garcia M.D. CC: Angel Chaidez M.D. Technologist: RT. Neetu(R) Transcribed D/ (1947) JanetSLJ [facility] NAME: TAMIKA OBREGON [address] [place] [address] PHYS: Angel Shah MD : 1955 AGE: 65 SEX: M [place] [address] LOC: Y.MRI PHONE #: [phone] EXAM DATE: 09/21/2021 STATUS: DEP CLI FAX #: [phone] RAD #: D/C DT PAGE 1 Signed Report Patient Name: TAMIKA OBREGON Unit No: [id number] EXAMS: CPT CODE: [id number] XR L-SPINE W/BEND VIEW 89427 <Continued> Orig Print D/T: S: 09/25/2021 (1951) [facility] NAME: TAMIKA OBREGON [address] [place] [address] PHYS: Angel Shah MD : 1955 AGE: 65 SEX: M [place] [address] LOC: Y.MRI PHONE #: [phone] EXAM DATE: 09/21/2021 STATUS: DEP CLI FAX #: [phone] RAD #: D/C DT PAGE 2 Signed Report - MRI L-SPINE W WO 2021-09-21 [facility]:12[facility] 1955 Sex: M Patient Name: TAMIKA OBREGON Unit No: [id number] EXAMS: CPT CODE: [id number] MRI L-SPINE W [place] CON 16995 DIAGNOSIS: 1. At L1-2 there is no evidence for disc bulge or herniation, bony canal or foraminal stenosis. Comparison is made with the previous examination of August 22, 2020. 2. At L2-3 there is endplate spur formation and mild disc bulging in the foramina with mild to moderate bilateral foraminal narrowing. Mild narrowing of the central canal is seen with facet hypertrophy. 3. At L3-4 there is mild disc bulging foramina with moderate right and kegj-qn-[id number] left foraminal narrowing. Moderate central canal stenosis is seen with facet and ligamentum hypertrophic and degenerative change. 4. At L4-5 the patient is status post discectomy and graft with endplate spur formation. Mild to moderate left foraminal narrowing is seen with mild right-sided stenosis. Decompression of the canal has been performed. 5. At L5-S1 there is a mild retrolisthesis and disc bulging with annular fissuring. Mild foraminal narrowing is seen with facet hypertrophy. No canal stenosis is identified. COMMENT: COMPARISON: August 22, 2020 Scans were performed in the sagittal and axial planes utilizing T1, T2 and inversion recovery images precontrast and T1-weighted images postcontrast. Endplate and disc degeneration is seen at L1-2. The L2-3 and L5-S1 discs are desiccated. Abnormal enhancement is seen in annular fissuring at L2-3 and L5-S1. Disc configurations are as described. Spondylitic changes are as noted. The conus is in the expected location. The description of the levels of these findings is consistent with the prior exam. at 1312 Reported and signed by: Angel Gao MD CC: Angel Chaidez M.D. Technologist: EDGARDO SANCHEZ MRI Transcribed D/ (1312) Susan [facility] NAME: TAMIKA OBREGON [address] [facility] PHYS: Angel Shah MD : 1955 AGE: 65 SEX: M [place] [address] LOC: Y.MRI PHONE #: [phone] EXAM DATE: 09/21/2021 STATUS: REG CLI FAX #: [phone] RAD #: D/C DT PAGE 1 Signed Report Patient Name: TAMIKA OBREGON Unit No: [id number] EXAMS: CPT CODE: [id number] MRI L-SPINE W WO CON 22446 <Continued> Orig Print D/T: S: 09/21/2021 (1315) [facility] NAME: TAMIKA OBREGON [address] [place] [address] PHYS: Angel Shah MD : 1955 AGE: 65 SEX: M [place] [address] LOC: Y.MRI PHONE #: [phone] EXAM DATE: 09/21/2021 STATUS: REG CLI FAX #: [phone] RAD #: D/C DT PAGE 2 Signed Report - CT L-SPINE W/O 2020-09-26 CONTRAST 10:23:00 [facility] 1955 Sex: M Patient Name: TAMIKA OBREGON Unit No: [id number] EXAMS: CPT CODE: [id number] CT L-SPINE W/O CONTRAST 99612 DIAGNOSIS: 1. At L1-2 there is a mild retrolisthesis and associated with moderate to marked left and moderate right foraminal narrowing. Mild central canal stenosis is seen. 2. At L2-3 there is endplate spur formation and disc bulging with annular calcification. Scoliosis a mild retrolisthesis is seen and there is moderate bilateral foraminal narrowing. Moderate central canal stenosis is present with facet and ligamentum flavum hypertrophic and degenerative change. 3. At L3-4 there is endplate spur formation and disc bulging in the foramina with annular calcification. Moderate bilateral foraminal narrowing is present and there is moderate central canal stenosis with facet and ligamentum labrum hypertrophic and 4. At L4-5 the patient is status post discectomy and graft with solid fusion. Endplate spur formation is seen with moderate foraminal narrowing and decompression of the canal. 5. At L5-S1 there is a mild retrolisthesis with disc bulging and annular calcification. Moderate right and mild left foraminal narrowing is seen. Facet degeneration is present without canal stenosis. COMMENT: COMPARISON: March 26, 2019 Scans were performed from L1 to S1 without contrast and reconstructions were obtained. Endplate and disc degeneration is present at all levels. Postsurgical change is as described. Disc configurations are as described. Spondylitic changes are as noted. Extensive atherosclerotic calcification is seen in the aorta and iliac vessels without evidence for aneurysmal dilatation. The description these findings assumes a normal count of 5 lumbar type vertebra. at 1023 Reported and signed by: Angel Gao MD CC: Angel Chaidez M.D. Technologist: RT Mike(R) CTDI: DLP: Trnscrpt: 09/26/2020 (1023) t.[email or web address].L [facility] NAME: TAMIKA OBREGON [address] [facility] PHYS: Angel Shah MD : 1955 AGE: 64 SEX: M [place], [place] [address] LOC: Y.RAD PHONE #: [phone] EXAM DATE: 09/26/2020 STATUS: REG CLI FAX #: [phone] RAD #: D/C DT PAGE 1 Signed Report Patient Name: TAMIKA OBREGON Unit No: [id number] EXAMS: CPT CODE: [id number] CT L-SPINE W/O CONTRAST 77402 <Continued> Orig Print D/T: S: 09/26/2020 (1026) [facility] NAME: TAMIKA OBREGON [address] [facility] PHYS: Angel Shah MD : 1955 AGE: 64 SEX: M [place], [place] [address] LOC: Y.RAD PHONE #: [phone] EXAM DATE: 09/26/2020 STATUS: REG CLI FAX #: [phone] RAD #: D/C DT PAGE 2 Signed Report - XR L-SPINE 2020-08-22 W/BEND VIEW 11:44:00 [facility] : 1955 Sex: M Patient Name: TAMIKA OBREGON Unit No: [id number] EXAMS: CPT CODE: [id number] XR L-SPINE W/BEND VIEW 01115 MRI OF THE LUMBAR SPINE WITH AND WITHOUT CONTRAST DIAGNOSIS: 1. At L1-2, mild disc degeneration. Mild central canal stenosis. Mild facet arthropathy. Mild bilateral foraminal stenosis. 2. At L2-3, disc desiccation. Mild central canal stenosis. Mild to moderate bilateral facet arthropathy. Mild foraminal stenosis. 3. At L3-4, disc desiccation. Mild central canal stenosis. Moderate right facet and mild left facet arthropathy. Mild bilateral foraminal stenosis. 4. At L4-5, patient status post anterior discectomy and laminectomy. Moderate bilateral foraminal stenosis. 5. At L5-S1, mild disc degeneration. 2 mm disc bulge. There is a small posterior central annular tear. Mild central canal stenosis. Mild to moderate facet arthropathy. Mild to moderate bilateral foraminal stenosis. COMMENT: COMPARISON: The current exam is compared to a previous exam dated April 30, 2019. Sagittal and axial T1 weighted pre- and postcontrast, sagittal and axial T2 and sagittal STIR sequences are obtained of the lumbar spine. The lumbar vertebrae are within normal limits in signal. The findings are as above. The conus is in the expected location. 7 VIEW LUMBAR SPINE WITH FLEXION AND EXTENSION COMMENT: Patient status post anterior discectomy and laminectomy at the L4-5 level with interbody bone graft and pedicle screws. The visualized pedicles and transverse processes are intact. Mild degeneration the SI joints. No abnormal motion is seen on flexion or extension. No evidence of fracture. There is atherosclerotic calcification of the abdominal aorta. at 1144 Reported and signed by: Gonzalo Silvestre MD [facility] NAME: TAMIKA OBREGON [address] [facility] PHYS: Angel Shah MD : 1955 AGE: 64 SEX: Aryan [place], [place] [address] LOC: Y.MRI PHONE #: [phone] EXAM DATE: 08/22/2020 STATUS: REG CLI FAX #: [phone] RAD #: D/C DT PAGE 1 Signed Report (CONTINUED) Patient Name: TAMIKA OBREGON Unit No: [id number] EXAMS: CPT CODE: [id number] XR L-SPINE W/BEND VIEW 91636 <Continued> CC: Angel Chaidez M.D. Technologist: RT. Neetu(R) Transcribed D/ (6099) BrindaG [facility] NAME: TAMIKA OBREGON [address] [facility] PHYS: Angel Shah MD : 1955 AGE: 64 SEX: M [place] [address] LOC: Y.MRI PHONE #: [phone] EXAM DATE: 08/22/2020 STATUS: REG CLI FAX #: [phone] RAD #: D/C DT PAGE 2 Signed Report Patient Name: TAMIKA OBREGON Unit No: [id number] EXAMS: CPT CODE: [id number] XR L-SPINE W/BEND VIEW 11042 <Continued> Orig Print D/T: S: 08/22/2020 (9041) [facility] NAME: TAMIKA OBREGON [address] [place] [address] PHYS: Angel Shah MD : 1955 AGE: 64 SEX: M [place] [address] LOC: Y.MRI PHONE #: [phone] EXAM DATE: 08/22/2020 STATUS: REG CLI FAX #: [phone] RAD #: D/C DT PAGE 3 Signed Report - MRI L-SPINE W WO 2020-08-22 CON 11:44:00 [facility] 1955 Sex: M Patient Name: TAMIKA OBREGON Unit No: [id number] EXAMS: CPT CODE: [id number] MRI L-SPINE W WO CON 11493 MRI OF THE LUMBAR SPINE WITH AND WITHOUT CONTRAST DIAGNOSIS: 1. At L1-2, mild disc degeneration. Mild central canal stenosis. Mild facet arthropathy. Mild bilateral foraminal stenosis. 2. At L2-3, disc desiccation. Mild central canal stenosis. Mild to moderate bilateral facet arthropathy. Mild foraminal stenosis. 3. At L3-4, disc desiccation. Mild central canal stenosis. Moderate right facet and mild left facet arthropathy. Mild bilateral foraminal stenosis. 4. At L4-5, patient status post anterior discectomy and laminectomy. Moderate bilateral foraminal stenosis. 5. At L5-S1, mild disc degeneration. 2 mm disc bulge. There is a small posterior central annular tear. Mild central canal stenosis. Mild to moderate facet arthropathy. Mild to moderate bilateral foraminal stenosis. COMMENT: COMPARISON: The current exam is compared to a previous exam dated April 30, 2019. Sagittal and axial T1 weighted pre- and postcontrast, sagittal and axial T2 and sagittal STIR sequences are obtained of the lumbar spine. The lumbar vertebrae are within normal limits in signal. The findings are as above. The conus is in the expected location. 7 VIEW LUMBAR SPINE WITH FLEXION AND EXTENSION COMMENT: Patient status post anterior discectomy and laminectomy at the L4-5 level with interbody bone graft and pedicle screws. The visualized pedicles and transverse processes are intact. Mild degeneration the SI joints. No abnormal motion is seen on flexion or extension. No evidence of fracture. There is atherosclerotic calcification of the abdominal aorta. at 1144 Reported and signed by: Gonzalo Silvestre MD [facility] NAME: TAMIKA OBREGON [address] [facility] PHYS: Angel Shah MD : 1955 AGE: 64 SEX: M [place], [place] [address] LOC: Y.MRI PHONE #: [phone] EXAM DATE: 08/22/2020 STATUS: REG CLI FAX #: [phone] RAD #: D/C DT PAGE 1 Signed Report (CONTINUED) Patient Name: TAMIKA OBREGON Unit No: [id number] EXAMS: CPT CODE: [id number] MRI L-SPINE W [place] [address] <Continued> CC: Angel Chaidez M.D. Technologist: Jennifer Woodard(R) Transcribed D/ (1144) JanetGVG [facility] NAME: TAMIKA OBREGON [address] [place] [address] PHYS: Angel Shah MD : 1955 AGE: 64 SEX: M [place] [address] LOC: Y.MRI PHONE #: [phone] EXAM DATE: 08/22/2020 STATUS: REG CLI FAX #: [phone] RAD #: D/C DT PAGE 2 Signed Report Patient Name: TAMIKA OBREGON Unit No: [id number] EXAMS: CPT CODE: [id number] MRI L-SPINE W WO CON 14852 <Continued> Orig Print D/T: S: 08/22/2020 (1148) [facility] NAME: TAMIKA OBREGON LAURIE [address] [place] [address] PHYS: Angel Shah MD : 1955 AGE: 64 SEX: M [place] [address] LOC: Y.MRI PHONE #: [phone] EXAM DATE: 08/22/2020 STATUS: REG CLI FAX #: [phone] RAD #: D/C DT PAGE 3 Signed Report BLOOD UREA NITROGEN 2020-08-22 10:40:00 Test Item Value Reference Range Interpretation Comme nts BLOOD UREA NITROGEN (test code = BUN) 17 mg/dL 7-18 N SPECIMEN COMMENT: STATCREATININE W ESTIMATED [id number] 10:40:00 Test Item Value Reference Range Interpretation Comments GLOMERULAR FILTRATION 70.9 >60 Unit o f measure: RATE (test code = GFR) mL/mi n/1.73 [id number] Range:Healthy A dults >90 mL/min/1.73 m2 For Chronic Kidney Disease: St age II Mild Dec rease in GFR 6 0-90 Stage III Moderate Decrea se in GFR 30-59 Stage IV Se christofer Decrease in GFR 15-29 Stage V Kidney Failur e <15 CREATININE (test code = 1.05 mg/dL 0.55-1.30 N CREAT) SPECIMEN COMMENT: STAT- MRI L-SPINE W WO [id number] 09:33:00 Patient Name: TAMIKA OBREGON Unit No: [id number] EXAMS: CPT CODE: [id number] MRI L-SPINE W [place] 46931 MRI OF THE LUMBAR SPINE WITH AND [...] bilateral foraminal stenosis. 4. At L4-5, patient statuspost anterior discectomy and laminectomy. Mild enhancing epidural [...] Silvestre MD CC: Angel Chaidez M.D. Technologist: Karolyn Garza, RT(R) Transcribed D/ (0933) JanetGVG [facility] NAME: TAMIKA OBREGON [address] [facility] PHYS: Angel Shah MD : 1955 AGE: 63 SEX: Aryan [place], [place] [address] LOC: Y.MRI PHONE #: [phone] EXAM DATE: 04/30/2019 STATUS: DEP CLI FAX #: [phone] RAD #: D/CDT PAGE 1 Signed Report Patient Name: TAMIKA OBREGON Unit No: [id number] EXAMS: CPT CODE: [id number] MRI L-SPINE W WO CON 69581 <Continued> Orig Print D/T: S: 05/01/2019 (0936) [facility] NAME: TAMIKA OBREGON [address] [facility] PHYS: Angel Shah MD : 1955 AGE: 63 SEX: M [place], [place] [address] LOC: Y.MRI PHONE #: [phone] EXAM DATE: 04/30/2019 STATUS: DEP CLI FAX #: [phone] RAD #: D/C DT PAGE 2 Signed ReportBLOOD UREA [id number] 11:19:00 Test Item Value Reference Range Interpretation Comments BLOOD UREA NITROGEN (test code = 13 mg/dL 7-18 N BUN) CREATININE W ESTIMATED [id number] 11:19:00 Test Item Value Reference Range Interpretation Comments GLOMERULAR FILTRATION 70.3 >60 Unit o f measure: RATE (test code = GFR) mL/mi n/1.73 [id number] Range:Healthy A dults >90 mL/min/1.73 m2 For Chronic Kidney Disease: St age II Mild Dec rease in GFR 6 0-90 Stage III Moderate Decrea se in GFR 30-59 Stage IV Se christofer Decrease in GFR 15-29 Stage V Kidney Failur e <15 CREATININE (test code = 1.06 mg/dL 0.55-1.30 N CREAT) - CT L-SPINE W/O [id number] 09:53:00 Patient Name: TAMIKA OBREGON Unit No: [id number] EXAMS: CPT CODE: [id number] CT L-SPINE W/O CONTRAST [address]221 CT SCAN OF THE LUMBAR SPINE WITH [...] Tabares M.D. Technologist: RT Mike(R) CTDI: DLP: Trnscrpt: 03/27/2019 (0953) tBRENGVG [facility] NAME: TAMIKA OBREGON [address] [facility] PHYS: Sagar Shah MD : 1955 AGE: 63 SEX: M [place] [address] LOC: YLizRAD PHONE #: [phone] EXAM DATE: 03/26/2019 STATUS: DEP CLI FAX #: [phone] RAD #: D/C DT PAGE 1 Signed Report Patient Name:TAMIKA OBREGON Unit No: [id number] EXAMS: CPT CODE: [id number] CT L-SPINE W/O CONTRAST 44011<Continued> Orig Print D/T: S: 03/27/2019 (0956) [facility] NAME: TAMIKA OBREGON[address] [facility] PHYS: Angel Shah MD : 1955 AGE: 63 SEX: M [place], [place] [address] LOC: Y.RAD PHONE #: [phone] EXAM DATE: 03/26/2019 STATUS: DEP CLIFAX #: [phone] RAD #: D/C DT PAGE 2 Signed ReportURINALYSIS [id number] 07:16:00 Test Item Value Reference Range Interpretation Comments UA COLOR (test code = COLU) YELLOW YELLOW UA APPEARANCE (test code = CLEAR CLEAR APPU) UA GLUCOSE DIPSTICK (test code NEGATIVE NEGATIVE = DGLUU) UA BILIRUBIN DIPSTICK (test NEGATIVE NEGATIVE code = BILU) UA KETONE DIPSTICK (test code NEGATIVE mg/dL NEGATIVE = KETU) UA SPECIFIC GRAVITY (test code 1.020 1.003-1.035 = SGU) UA BLOOD DIPSTICK (test code = NEGATIVE NEGATIVE ROSA) UA PH DIPSTICK (test code = 8.0 >6.5 CHELLE) UA PROTEIN DIPSTICK (test code NEGATIVE mg/dL NEG = PROU) UA UROBILINIOGEN DIPSTICK 0.2 mg/dL NORM (test code = URO) UA NITRITE DIPSTICK (test code NEGATIVE NEG = AASHISH) UA LEUKOCYTE ESTERASE DIPSTICK NEGATIVE NEGATIVE (test code = LEUU) UA WBC (test code = WBCU) 0-2 /HPF 0-2 UA RBC (test code = RBCU) 0-2 /HPF 0-2 UA EPITHELIAL CELLS (test code RARE /HPF 0-2 = EPIU) UA BACTERIA (test code = BACU) FEW /HPF NONE UA AMORPHOUS SEDIMENT (test TRACE /LPF NONE SEEN code = AMORU) HGB [id number] 05:50:00 Test Item Value Reference Range Interpretation Comments HEMOGLOBIN (test code = HGB) 12.0 g/dL 12-16 N HEMATOCRIT (test code = HCT) 34.8 % 37-47 L CBC W/AUTO [id number] 05:49:00 Test Item Value Reference Range Interpretation Comments WHITE BLOOD CELL (test code = 13.8 K/mm3 5.7-10.5 H WBC) RED BLOOD CELL (test code = RBC) 4.00 M/mm3 4.2-5.4 L HEMOGLOBIN (test code = HGB) 12.0 g/dL 12-16 N HEMATOCRIT (test code = HCT) 34.3 % 37-47 L MEAN CELL VOLUME (test code = 86 fL 80-98 N MCV) MEAN CELL HGB (test code = MCH) 30.0 pg 27-34 N MEAN CELL HGB CONCENTRATION (test 35.0 g/dL 30.8-34.1 H code = MCHC) RED CELL DISTRIBUTION WIDTH (test 13.2 % 11-16 N code = RDW) PLT (test code = PLT) 114 K/mm3 130-400 L MEAN PLATELET VOLUME (test code = 11.4 fL 8.9-12.1 N MPV) NEUTROPHIL % (test code = NT%) 87.9 % 45-70 H LYMPHOCYTE % (test code = LY%) 6.2 % 20-40 L MONOCYTE % (test code = MO%) 5.0 % 3-10 N EOSINOPHIL % (test code = EO%) 0.0 % 1-5 L BASOPHIL % (test code = BA%) 0.1 % 0.0-1.1 N NEUTROPHIL # (test code = NT#) 12.09 K/mm3 2.00-7.50 H LYMPHOCYTE # (test code = LY#) 0.85 K/mm3 1.50-4.00 L MONOCYTE # (test code = MO#) 0.69 K/mm3 0.2-0.8 N EOSINOPHIL # (test code = EO#) 0.00 K/mm3 0.04-0.4 L BASOPHIL # (test code = BA#) 0.01 K/mm3 0.02-0.10 L MANUAL DIFF REQUIRED (test code = NO MANUAL DIFF MDIFF) NUCLEATED RED BLOOD CELL (test 0 % 0-0 N code = NRBC) - XR SPINE 1 V SPEC [id number] 11:33:00 Patient Name: TAMIKA OBREGON Unit No: [id number] EXAMS: CPT CODE: [id number] XR SPINE 1 V SPEC LEVEL 41858 3 LATERAL INTRAOPERATIVE VIEWS OF THE LUMBAR SPINE Image 1: Surgical markers are at the L3-L4 and L4-L5 levels. Image 2: Surgical instrumentation is at the L4 level Image 3: In progress L4-L5 posterior instrumented fusion without evidence of immediate complication. Interbody graft is well-positioned on lateral view. at 1133 Reported and signed by: Patric Garcia M.D. CC: Angel Chaidez M.D. Technologist: ZACHARIAH FESSAHAYE, RT(R) Transcribed D/ ([id number]) [facility] NAME: TAMIKA OBREGON [facility] PHYS: Angel Shah MD : 1955 AGE: 63 SEX: M [place], [place] [address] LOC: Y.505 A PHONE #: [phone] EXAM DATE: 12/30/2018 STATUS: ADM IN FAX #: [phone] RAD #: D/C DT PAGE 1 Signed Report Patient Name: TAMIKA OBREGON Unit No: [id number] EXAMS: CPT CODE: [id number] XR SPINE 1 V SPEC LEVEL 73078 <Continued> Orig Print D/T: S: 12/31/2018 (3743) [facility] NAME: TAMIKA OBREGON Leyla [facility] PHYS:Angel Shah MD : 1955 AGE: 63 SEX: M [place], [place] [address] LOC: Y.505 A PHONE #: [phone] EXAM DATE: 12/30/2018 STATUS: ADM IN FAX #: [phone] RAD #: D/C DT PAGE 2 Signed Report- XR SPINE 1 V SPEC LEVEL 2018-12-31 11:33:00 Patient Name: TAMIKA OBREGON Unit No: [id number] EXAMS: CPT CODE: [id number] XR SPINE 1 V SPEC LEVEL 41308 3 LATERAL INTRAOPERATIVE VIEWS OF THE LUMBAR SPINE Image 1: Surgical markers are at the L3-L4 and L4-L5 levels. Image 2: Surgical instrumentation is at the L4 level Image 3: In progress L4-L5 posterior instrumented fusion without evidence of immediate complication. Interbody graft is well-positioned on lateral view. at 1133 Reported and signed by: Patric Garcia M.D. CC: Angel Chaidez M.D. Technologist: SHARATH CIFUENTES (RT.R) Transcribed D/ (6689) [facility] NAME: TAMIKA OBREGON [address] [facility] PHYS: Angel Shah MD : 1955 AGE: 63 SEX: M [place], [place] [address] LOC: Y.505 A PHONE #: [phone] EXAM DATE: 12/30/2018 STATUS: ADM IN FAX #: [phone] RAD #: D/C DT PAGE 1 Signed Report Patient Name: TAMIKA OBREGON Unit No: [id number] EXAMS: CPT CODE: [id number] XR SPINE 1 V SPEC LEVEL 84259 <Continued> Orig Print D/T: S: 12/31/2018 (3039) [facility] NAME: TAMIKA OBREGON [address] [facility] PHYS:Angel Shah MD : 1955 AGE: 63 SEX: M [place], [place] [address] LOC: Y.505 A PHONE #: [phone] EXAM DATE: 12/30/2018 STATUS: ADM IN FAX #: [phone] RAD #: D/C DT PAGE 2 Signed Report- XR SPINE 1 V SPEC LEVEL 2018-12-31 11:33:00 Patient Name: TAMIKA OBREGON Unit No: [id number] EXAMS: CPT CODE: [id number] XR SPINE 1 V SPEC LEVEL 61596 3 LATERAL INTRAOPERATIVE VIEWS OF THE LUMBAR SPINE Image 1: Surgical markers are at the L3-L4 and L4-L5 levels. Image 2: Surgical instrumentation is at the L4 level Image 3: In progress L4-L5 posterior instrumented fusion without evidence of immediate complication. Interbody graft is well-positioned on lateral view. at 1133 Reported and signed by: Patric Garcia M.D. CC: Angel Chaidez M.D. Technologist: SHARATH CIFUENTES (RT.R) Transcribed D/ ([id number] MarinoJ [facility] NAME: TAMIKA OBREGON [address] [facility] PHYS: Angel Shah MD : 1955 AGE: 63 SEX: M [place], [place] [address] LOC: Y.505 A PHONE #: [phone] EXAM DATE: 12/30/2018 STATUS: ADM IN FAX #: [phone] RAD #: D/C DT PAGE 1 Signed Report Patient Name: TAMIKA OBREGON Unit No: [id number] EXAMS: CPT CODE: [id number] XR SPINE 1 V SPEC LEVEL 27575 <Continued> Orig Print D/T: S: 12/31/2018 (1136) [facility] NAME: TAMIKA OBREGON [address] [facility] PHYS:Angel Shah MD : 1955 AGE: 63 SEX: M [place], [place] [address] LOC: Y.505 A PHONE #: [phone] EXAM DATE: 12/30/2018 STATUS: ADM IN FAX #: [phone] RAD #: D/C DT PAGE 2 Signed [id number] 10:43:00 Test Item Value Reference Range Interpretation Comments PLT (test code = PLT) 119 K/mm3 130-400 L BASIC METABOLIC [id number] 06:35:00 Test Item Value Reference Range Interpretation Comments SODIUM (test code = 142 mmol/L 136-145 N NA) POTASSIUM (test code = 4.7 mmol/L 3.5-5.1 N K) CHLORIDE (test code = 106.0 mmol/L 98-107 N CL) CARBON DIOXIDE (test 27.0 mmol/L 21-32 N code = CO2) GLUCOSE (test code = 135 mg/dL 70-110 H GLU) BLOOD UREA NITROGEN 10 mg/dL 7-18 N (test code = BUN) GLOMERULAR FILTRATION 92.0 >60 Unit o f measure: RATE (test code = GFR) mL/mi n/1.73 [id number] Range:Healthy Adults >90 mL/min/1.73 m2 For Chronic Kidney Disease: St age II Mild Decrease in GFR 60-90 St age III Moderate Decrease in GFR 30-59 Stage IV Severe Decre ase in GFR 15- 29 Stage V Kidney Failure <15 CREATININE (test code 0.84 mg/dL 0.55-1.30 N = CREAT) CALCIUM (test code = 9.2 mg/dL 8.2-10.1 N CA) HGB [id number] 05:40:00 Test Item Value Reference Range Interpretation Comments HEMOGLOBIN (test code = HGB) 12.7 g/dL 12-16 N HEMATOCRIT (test code = HCT) 36.0 % 37-47 L ACUTE HEPATITIS [id number] 17:53:00 Test Item Value Reference Range Interpretation Comments AB HEPATITIS A IGM (test code = NONREACTIVE NONREACTIVE HAVMAB) AG HEPATITIS B SURFACE (test code NONREACTIVE NONREACTIVE = HBSAG) AB HEPATITIS B CORE IGM (test NONREACTIVE NONREACTIVE code = HBCMAB) AB HEPATITIS C (test code = NONREACTIVE NONREACTIVE HCVAB) SIGNAL TO CUTOFF (test code = 0.04 <0.80 CUTOFF) AB HIV 17:53:00 Test Item Value Reference Range Interpretation Comments AB HIV 1 (test code NONREACTIVE NONREACTIVE Done by [employer] = HIV1AB) 4th Gen HIV Ag/ Ab Combo Screen ACUTE HEPATITIS [id number] 17:52:00 Test Item Value Reference Range Interpretation Comments AB HEPATITIS A IGM (test code = NONREACTIVE NONREACTIVE HAVMAB) AG HEPATITIS B SURFACE (test code NONREACTIVE NONREACTIVE = HBSAG) AB HEPATITIS B CORE IGM (test NONREACTIVE NONREACTIVE code = HBCMAB) AB HEPATITIS C (test code = NONREACTIVE NONREACTIVE HCVAB) SIGNAL TO CUTOFF (test code = 0.04 <0.80 N CUTOFF) AB HIV 1 17:52:00 Test Item Value Reference Range Interpretation Comments AB HIV 1 2 (test NONREACTIVE NONREACTIVE Done by [employer] code = [id number]) 4th Gen HIV Ag/Ab Combo Screen ACUTE HEPATITIS [id number] 17:52:00 Test Item Value Reference Range Interpretation Comments AB HEPATITIS A IGM (test code = NONREACTIVE NONREACTIVE HAVMAB) AG HEPATITIS B SURFACE (test code NONREACTIVE = HBSAG) AB HEPATITIS B CORE IGM (test NONREACTIVE NONREACTIVE code = HBCMAB) AB HEPATITIS C (test code = NONREACTIVE NONREACTIVE HCVAB) SIGNAL TO CUTOFF (test code = 0.04 <0.80 CUTOFF) AB HIV 17:52:00 Test Item Value Reference Range Interpretation Comments AB HIV 1 (test code NONREACTIVE NONREACTIVE Done by [employer] = HIV1AB) 4th Gen HIV Ag/ Ab Combo Screen ACUTE HEPATITIS [id number] 17:51:00 Test Item Value Reference Range Interpretation Comments AB HEPATITIS A IGM (test code = NONREACTIVE NONREACTIVE HAVMAB) AG HEPATITIS B SURFACE (test code NONREACTIVE = HBSAG) AB HEPATITIS B CORE IGM (test NONREACTIVE NONREACTIVE code = HBCMAB) AB HEPATITIS C (test code = NONREACTIVE NONREACTIVE HCVAB) SIGNAL TO CUTOFF (test code = 0.04 <0.80 N CUTOFF) AB HIV 1 17:51:00 Test Item Value Reference Range Interpretation Comments AB HIV 1 2 (test NONREACTIVE NONREACTIVE Done by [employer] code = [id number]) 4th Gen HIV Ag/Ab Combo Screen CBC W/AUTO [id number] 09:49:00 Test Item Value Reference Range Interpretation Comments WHITE BLOOD CELL 3.9 K/mm3 5.7-10.5 L (test code = WBC) RED BLOOD CELL (test 4.72 M/mm3 4.2-5.4 N code = RBC) HEMOGLOBIN (test code 14.1 g/dL 12-16 N = HGB) HEMATOCRIT (test code 40.5 % 37-47 N = HCT) MEAN CELL VOLUME 86 fL 80-98 N (test code = MCV) MEAN CELL HGB (test 29.9 pg 27-34 N code = MCH) MEAN CELL HGB 34.8 g/dL 30.8-34.1 H CONCENTRATION (test code = MCHC) RED CELL DISTRIBUTION 13.3 % 11-16 N WIDTH (test code = RDW) PLT (test code = PLT) 128 K/mm3 130-400 L PLT ES TIMATE FROM SLIDE REVIEW: ADEQUATESLIGHT PLT CLUMPING PRESEN T ON SLIDE MEAN PLATELET VOLUME 10.3 fL 8.9-12.1 N (test code = MPV) NEUTROPHIL % (test 52.5 % 45-70 N code = NT%) LYMPHOCYTE % (test 35.2 % 20-40 N code = LY%) MONOCYTE % (test code 8.4 % 3-10 N = MO%) EOSINOPHIL % (test 2.6 % 1-5 N code = EO%) BASOPHIL % (test code 0.8 % 0.0-1.1 N = BA%) NEUTROPHIL # (test 2.06 K/mm3 2.00-7.50 N code = NT#) LYMPHOCYTE # (test 1.38 K/mm3 1.50-4.00 L code = LY#) MONOCYTE # (test code 0.33 K/mm3 0.2-0.8 N = MO#) EOSINOPHIL # (test 0.10 K/mm3 0.04-0.4 N code = EO#) BASOPHIL # (test code 0.03 K/mm3 0.02-0.10 N = BA#) MANUAL DIFF REQUIRED NO MANUAL DIFF (test code = MDIFF) NUCLEATED RED BLOOD 0 % 0-0 N CELL (test code = NRBC) PROTHROMBIN [id number] 09:32:00 Test Item Value Reference Range Interpretation Comments PROTHROMBIN TIME 12.4 secs 10.1-12.5 N PATIENT (test code = PTP) INTERNATIONAL NORMAL 1.10 <2.0 RECOMME NDED THERAPEUTIC RATIO (test code = RANGE FOR ORAL INR) ANTICOAGULANTTR EATMENT: CONDI TION INRProphylaxis of venous thrombos is in 2.0 - 3.0 high-risk medic al or surgical patientsTreatme nt of venous thrombos is 2.0 - 3.0Prevention o f embolism 2.0 - 3.0Prevention o f recurrent embol ism, or 3.0 - 4. 5 patients with mechanical pros thetic intravascular v nickerson IS PATIENT ON ANTICOAGULANTS ? NHas Lab been notified if Patient is on Heparin Drip? NOIf Yes, orderCBC, OCCULT BLOOD, PT every other day NTHROMBOPLASTIN TIME [id number] 09:32:00 Test Item Value Reference Range Interpretation Comments PTT ACTIVATED (test code = APTT) 28.7 secs 24.9-37.0 N IS PATIENT ON ANTICOAGULANTS ? NHas Lab been notified if Patient is on Heparin Drip? NOIf Yes, orderCBC, OCCULT BLOOD, PT every other day NBASIC METABOLIC [id number] 09:32:00 Test Item Value Reference Range Interpretation Comments SODIUM (test code = 142 mmol/L 136-145 N NA) POTASSIUM (test code = 4.2 mmol/L 3.5-5.1 N K) CHLORIDE (test code = 103.0 mmol/L 98-107 N CL) CARBON DIOXIDE (test 31.1 mmol/L 21-32 N code = CO2) GLUCOSE (test code = 81 mg/dL 70-110 N GLU) BLOOD UREA NITROGEN 17 mg/dL 7-18 N (test code = BUN) GLOMERULAR FILTRATION 75.2 >60 Unit o f measure: RATE (test code = GFR) mL/mi n/1.73 [id number] Range:Healthy Adults >90 mL/min/1.73 m2 For Chronic Kidney Disease: St age II Mild Decrease in GFR 60-90 St age III Moderate Decrease in GFR 30-59 Stage IV Severe Decre ase in GFR 15- 29 Stage V Kidney Failure <15 CREATININE (test code 1.00 mg/dL 0.55-1.30 N = CREAT) CALCIUM (test code = 9.1 mg/dL 8.2-10.1 N CA)
--- NOTE | 2022-03-11 20:39 | RAD REPORT ---
EXAM DESCRIPTION: CT - Head Brain Wo Cont - 03/11/2022 8:28 pm CLINICAL HISTORY: Dizziness, non-specific Headache, drowsiness COMPARISON: Sinus Wo Cont dated 08/23/2021; Head Brain Wo Cont dated 12/06/2019 TECHNIQUE: All CT scans are performed using dose optimization technique as appropriate and may inclu de automated exposure control or mA/KV adjustment according to patient size. 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 Vertebral atherosclerosis. The paranasal sinuses and mastoids are clear. The calvarium is intact. IMPRESSION: No acute intracranial abnormality.
[2022-03-11 21:12] LABS: Absolute Lymphocytes (CBC) 1.6 K/uL (0.7-4.9); Hematocrit 41.1 % (39.6-49.0); Lymphocytes % 24.2 % (15.3-44.8); MPV 7.6 fL (7.6-11.3); RBC Red Blood Cell Count 4.73 M/uL (4.33-5.43)
[2022-03-11 21:16] LABS: Urine Blood Trace-intact (Negative); Urine Glucose Negative (Negative); Urine Protein Negative (Negative)
[2022-03-11 21:17] LABS: Protime INR 1.17
[2022-03-11 21:20] LABS: Urine Bacteria <20 /HPF (NONE SEEN); Urine RBC NONE SEEN /HPF (NONE SEEN)
[2022-03-11 21:21] LABS: Urine Amorphous Sediment 1+ /HPF (NONE SEEN); Urine Mucus SLIGHT /HPF (NONE SEEN)
[2022-03-11 21:32] LABS: Potassium 3.5 mmol/L (3.5-5.1); Troponin High Sensitivity 8.4 pg/mL (<58.9)
--- NOTE | 2022-03-11 22:19 | ER ---
Nurse's Notes [facility] Name: William Osuna Age: 66 yrs Sex: Male : 1955 Arrival Date: 03/11/2022 Time: 18:57 Bed 17 Private MD: Diagnosis: Hypertensive heart disease without heart failure Presentation: 03/11 19:06 Chief complaint: Patient states: systolic of 184; denies chest pain, SOB, NV, or vg1 headache; states dizziness. Coronavirus screen: Vaccine status: Patient reports receiving the 2nd dose of the covid vaccine. Client denies travel out of the [place] in the last 14 days. Ebola Screen: Patient denies exposure to infectious person. Patient denies travel to an Ebola-affected area in the 21 days before illness onset. Initial Sepsis Screen: Does the patient meet any 2 criteria? No. Patient's initial sepsis screen is negative. Does the patient have a suspected source of infection? No. Patient's initial sepsis screen is negative. Risk Assessment: Do you want to hurt yourself or someone else? Patient reports no desire to harm self or others. Onset of symptoms was March 11, 2022. 19:06 Method Of Arrival: Ambulatory vg1 19:06 Acuity: FARHAD 3 vg1 Triage Assessment: 19:09 General: Appears uncomfortable, Behavior is calm, cooperative. Pain: Denies pain. vg1 Historical: - Allergies: 19:08 Codeine; vg1 19:08 PENICILLINS; vg1 - Home Meds: 19:09 amlodipine oral [Active]; tramadol 50 mg Oral tab 1 tab every 4 hours [Active]; vg1 tamsulosin 0.4 mg Oral cp24 1 cap once daily [Active]; clopidogrel oral [Active]; Aspirin Oral [Active]; Trulance [Active]; - PMHx: 19:08 cardiac stent; Hypertensive disorder; vg1 - PSHx: 19:08 CABG; Back x2; Cholecystectomy; Brain Aneurysm; vg1 - Immunization history:: Client reports receiving the 2nd dose of the Covid vaccine. - Social history:: Smoking status: Patient denies any tobacco usage or history of. Assessment: 22:36 Reassessment: Patient ambulated to bathroom independently, gait steady Patient states lp1 feeling better. Patient states symptoms have improved. Vital Signs: 19:06 BP 182 / 87; Pulse 85; Resp 18; Temp 98.1(TE); Pulse Ox 100% on R/A; Weight 82.55 kg; vg1 Height 6 ft. 3 in. (190.50 cm); Pain 0/10; 21:50 BP 151 / 64 LA Supine; Pulse 74; Pulse Ox 100% ; ke1 21:53 BP 139 / 68 LA Sitting; Pulse 82; Pulse Ox 100% ; ke1 21:56 BP 98 / 68 LA Standing; Pulse 95; Pulse Ox 100% ; ke1 22:30 BP 153 / 78; Pulse 84; lp1 19:06 Body Mass Index 22.75 (82.55 kg, 190.50 cm) vg1 ED Course: 18:57 Patient arrived in ED. ds1 19:08 Triage completed. vg1 19:09 Arm band placed on. EKG completed in triage. Results shown to MD. vg1 19:29 Devaughn Chadwick PA is PHCP. cp 19:29 Devaughn Avila MD is Attending Physician. cp 20:30 CT Head Brain wo Cont In Process Unspecified. EDFL 20:40 Froy Nathan, RN is Primary Nurse. ke1 21:03 Inserted saline lock: 22 gauge in right antecubital area, using aseptic technique. ke1 22:37 No provider procedures requiring assistance completed. IV discontinued, No lp1 redness/swelling at site. Pressure dressing applied. Administered Medications: No medications were administered Outcome: 22:18 Discharge ordered by MD. cp 22:37 Discharged to home ambulatory, with significant other. lp1 22:37 Condition: good 22:37 Discharge instructions given to patient, Instructed on discharge instructions, follow up and referral plans. Demonstrated understanding of instructions, follow-up care. 22:37 Patient left the ED. lp1 Signatures: Dispatcher [employer] [facility] Gale Guillen ds1 Tonie Pickard RN RN lp1 Devaughn Chadwick PA PA cp Garcia, Victoria, BRADLY ABDULLAHI vg1 Froy Nathan RN RN ke1
--- NOTE | 2022-03-11 22:19 | EDPHYS ---
Physician Documentation [facility] Name: William Osuna Age: 66 yrs Sex: Male : 1955 Arrival Date: 03/11/2022 Time: 18:57 Bed 17 Private MD: ED Physician Devaughn Avila HPI: 03/11 20:15 This 66 yrs old Male presents to ER via Ambulatory with complaints of High Blood cp Pressure. 20:15 The patient has elevated blood pressure and discovered this at home, with a home cp device. Onset: The symptoms/episode began/occurred today. 20:15 Severity of symptoms: At its worst the blood pressure was 184 mm Hg. cp 20:15 Patient reports helping neighbor outside this evening and after returning inside felt cp dizzy so he checked his blood pressure and measured it to be elevated. Patient reports he took 5 mg tablet of Amlodipine and came to ED. No complaints of headache, chest pain, weakness. Historical: - Allergies: 19:08 Codeine; vg1 19:08 PENICILLINS; vg1 - Home Meds: 19:09 amlodipine oral [Active]; tramadol 50 mg Oral tab 1 tab every 4 hours [Active]; vg1 tamsulosin 0.4 mg Oral cp24 1 cap once daily [Active]; clopidogrel oral [Active]; Aspirin Oral [Active]; Trulance [Active]; - PMHx: 19:08 cardiac stent; Hypertensive disorder; vg1 - PSHx: 19:08 CABG; Back x2; Cholecystectomy; Brain Aneurysm; vg1 - Immunization history:: Client reports receiving the 2nd dose of the Covid vaccine. - Social history:: Smoking status: Patient denies any tobacco usage or history of. ROS: 20:20 Constitutional: Negative for chills, fever, poor PO intake. cp 20:20 Eyes: Negative for injury, pain, redness, and discharge. cp 20:20 ENT: Negative for drainage from ear(s), ear pain, sore throat, difficulty swallowing, difficulty handling secretions. 20:20 Neck: Negative for pain with movement, pain at rest, stiffness. 20:20 Cardiovascular: Negative for chest pain, edema, palpitations. 20:20 Respiratory: Negative for cough, shortness of breath, wheezing. 20:20 Abdomen/GI: Negative for abdominal pain, nausea, vomiting, and diarrhea. 20:20 Neuro: Positive for dizziness, Negative for altered mental status, headache, numbness, syncope, weakness. 20:20 All other systems are negative. Exam: 19:06 ECG was reviewed by the Attending Physician. cp 20:25 Constitutional: The patient appears in no acute distress, alert, awake, cp non-diaphoretic, non-toxic, well developed, well nourished, anxious. 20:25 Head/Face: Normocephalic, atraumatic. cp 20:25 Eyes: Periorbital structures: appear normal, Pupils: equal, round, and reactive to light and accomodation, Extraocular movements: intact throughout, Conjunctiva: normal, no exudate, no injection, Sclera: no appreciated abnormality, Lids and lashes: appear normal, bilaterally. 20:25 ENT: External ear(s): are unremarkable, Ear canal(s): are normal, TM's: dullness, bilaterally, Nose: is normal, Mouth: Lips: moist, Oral mucosa: pink and intact, moist, Posterior pharynx: Airway: no evidence of obstruction, patent. 20:25 Neck: ROM/movement: is normal, is supple, without pain, no range of motions limitations. 20:25 Chest/axilla: Inspection: normal. 20:25 Cardiovascular: Rate: normal, Rhythm: regular, Edema: is not appreciated, JVD: is not appreciated. 20:25 Respiratory: the patient does not display signs of respiratory distress, Respirations: normal, no use of accessory muscles, no retractions, labored breathing, is not present, Breath sounds: are clear throughout, no decreased breath sounds, no stridor, no wheezing. 20:25 Abdomen/GI: Inspection: abdomen appears normal, Palpation: abdomen is soft and non-tender, in all quadrants. 20:25 Neuro: Orientation: to person, place \T\ time. Mentation: is normal, Cerebellar function: is grossly normal, Motor: moves all fours, strength is normal, Sensation: is normal. Vital Signs: 19:06 BP 182 / 87; Pulse 85; Resp 18; Temp 98.1(TE); Pulse Ox 100% on R/A; Weight 82.55 kg; vg1 Height 6 ft. 3 in. (190.50 cm); Pain 0/10; 21:50 BP 151 / 64 LA Supine; Pulse 74; Pulse Ox 100% ; ke1 21:53 BP 139 / 68 LA Sitting; Pulse 82; Pulse Ox 100% ; ke1 21:56 BP 98 / 68 LA Standing; Pulse 95; Pulse Ox 100% ; ke1 22:30 BP 153 / 78; Pulse 84; lp1 19:06 Body Mass Index 22.75 (82.55 kg, 190.50 cm) vg1 MDM: 20:08 Patient medically screened. cp 22:18 Data reviewed: vital signs, nurses notes, lab test result(s), EKG, radiologic studies, cp CT scan, and as a result, I will discharge patient. 22:18 Test interpretation: by ED physician or midlevel provider: ECG. Counseling: I had a cp detailed discussion with the patient and/or guardian regarding: the historical points, exam findings, and any diagnostic results supporting the discharge/admit diagnosis, lab results, radiology results, the need for outpatient follow up, a family practitioner, to return to the emergency department if symptoms worsen or persist or if there are any questions or concerns that arise at home. Response to treatment: VSS. Blood pressure improved. 03/11 20:09 Order name: Basic Metabolic Panel; Complete Time: 22:01 cp 03/11 22:01 Interpretation: Normal except: CRE 1.32; GFR 59. cp 03/11 20:09 Order name: CBC with Diff; Complete Time: 22:01 cp 03/11 20:09 Order name: PT-INR; Complete Time: 22:01 cp 03/11 20:09 Order name: Troponin HS; Complete Time: 22:01 cp 03/11 20:09 Order name: Urine Microscopic Only; Complete Time: 22:01 cp 03/11 21:16 Order name: Urine Dipstick-Ancillary; Complete Time: 22:01 EDMS 03/11 20:09 Order name: CT Head Brain wo Cont; Complete Time: 21:06 cp 03/11 20:09 Order name: EKG; Complete Time: 20:10 cp 03/11 20:09 Order name: Cardiac monitoring; Complete Time: 21:59 cp 03/11 20:09 Order name: EKG - Nurse/Tech; Complete Time: 20:24 cp 03/11 20:09 Order name: IV Saline Lock; Complete Time: 21:04 cp 03/11 20:09 Order name: Labs collected and sent; Complete Time: 21:04 cp 03/11 20:09 Order name: O2 Per Protocol; Complete Time: 21:04 cp 03/11 20:09 Order name: O2 Sat Monitoring; Complete Time: 21:04 cp 03/11 20:09 Order name: Urine Dipstick-Ancillary (obtain specimen); Complete Time: 21:59 cp 03/11 20:09 Order name: Orthostatics; Complete Time: 21:59 cp EC:06 Rate is 81 beats/min. Rhythm is regular. IA interval is normal. QRS interval is normal. cp QT interval is normal. T waves are Inverted in lead aVR. Interpreted by me. Reviewed by me. Administered Medications: No medications were administered Disposition Summary: 03/11/22 22:18 Discharge Ordered Location: Home cp Problem: new cp Symptoms: have improved cp Condition: Stable cp Diagnosis - Hypertensive heart disease without heart failure cp Followup: cp - With: Private Physician - When: 2 - 3 days - Reason: Recheck today's complaints Discharge Instructions: - Discharge Summary Sheet cp - High-Fiber Diet cp - Hypertension, Adult cp - Form - Blood Pressure Record Sheet cp - How to Take Your Blood Pressure cp Forms: - Medication Reconciliation Form cp - Thank You Letter cp - Antibiotic Education cp - Prescription Opioid Use cp Signatures: Dispatcher [employer] EDMS Devaughn Chadwick PA PA cp Garcia, Victoria, RN RN vg1
[2022-03-11 22:46] VITALS: O2SAT 100
[2022-03-11 22:50] VITALS: TEMP 98.1
[2022-03-11 22:52] VITALS: BP 153/78
--- NOTE | 2022-03-12 11:25 | EKG ---
Test Date: 2022-03-11 Test Time: 19:01:54 Director Digital Catalogue: HELADIO MEASUREMENT RESULTS: Intervals: Rate: 81 ME: 144 QRSD: 100 QT: 376 QTc: 436 [place]: P: 32 ME: 144 QRS: 19 T: 47 INTERPRETIVE STATEMENTS: Normal sinus rhythm Normal ECG Compared to ECG 12/06/2019 12:47:36 No significant changes Electronically Signed On 03-12-22 11:23:22 CDT by Talib Grover
== END 2022-03-11 22:37 | disposition home or self-care (01) ==
LOC: ER 18:55
DX: I11.9 Hypertensive heart disease without heart failure (principal); Z88.0 Allergy status to penicillin; Z88.6 Allergy status to analgesic agent
CPT/HCPCS: 36415; 70450; 80048; 81003; 81015; 84484; 85025; 85610; 93005; 99283

== ENCOUNTER 2022-04-14 17:26 | Emergency (ER) | payer OTHER, BC ==
--- OUTSIDE RECORDS SUMMARY | 2022-04-14 17:29 | XMS REPORT | Continuity of Care Document ---
:1955 Author Organization [facility] t Address [address] [place] [address] Care Team Providers Name Role Phone Oxana PARKER Primary Care Physician Unavailable Oxana READ Attending Clinician Unavailable Marquis Chaidez Attending Clinician Unavailable Bettina NELSON, [facility] Attending Clinician Oxana READ Admitting Clinician Unavailable Marquis Chaidez Admitting Clinician Unavailable Physician, Primary or Family Admitting Clinician Unavailabl e Payers Payer Name Policy Type Policy Number Effective Date Expiration Date S [facility] MEDICARE PART A \T\ [id number] 2019 B 00:00:00 BCBS TRADITIONAL [id number] 2019 00:00:00 Problems Condition Condition Condition Status Onset Resolution Last Treating Co mments Source Name Details Category Date Date Treatment Clinician Date No known No known Disease Unive rs active active ity of problems problems [facility] Allergies, Adverse Reactions, Alerts Allergy Allergy Status Severity Reaction(s) Onset Inactive Treating Comm ents Source Name Type Date Date Clinician Penicill DA Active [place] RASHES 2020-10 [facility] ins 11-22 [place] [facility] [place] RASHES, 2020-10 [facility] [place] [facility] Penicill DA Active SV 2019-0 [facility] ins 7-11 [place] 00:00[place] [facility] codeine DA Active [place] 2019-0 [facility] 7-11 [place] 00:00[place] [facility] levoflox DA Active [place] 2019-0 [facility] acin 7-11 [place] 00:00: [facility]ope 00 [facility] Penicill DA Active SV RASHES 2019-0 [facility] ins 7-11 [place] 00:00[facility] [place] RASHES, 2019-0 [facility] [place] [facility] levoflox [place] NAUSEA 2019-0 [facility] acin 7-11 [place] 00:00: [facility] 00 [facility] Penicill DA Active [place] 2019-0 [facility] ins 3-12 [facility] [place] codeine DA Active [place] 2019-0 [facility] 3-12 [facility] [place] levoflox DA Active [place] 2019-0 [facility] acin 3-12 [facility] [place] codeine DA Active [place] 2019-0 [facility] 3-11 [facility] 00:[facility]: [facility] [place] Penicill DA Active SV 2019-0 [facility] ins 3-11 [facility]: [facility] [place] levoflox DA Active [place] 2018-1 [facility] acin 1-27 [facility] [place] Penicill DA Active SV 2018-1 [facility] ins 1-27 [place] 00:00: [facility]ope 00 [facility] codeine DA Active [place] 2018-1 [facility] 1-27 [place] 00:00: [facility]ope 00 dic [facility]ospita [facility] LEVOFLOX [...] Penicill DA Active [place] [facility] ins 11-01 [place] 00:00: [facility] codeine DA Active [place] [facility] [place] 00:00: [facility] 00 [facility] levoflox DA Active [place] [facility] acin 11-01 [place] 00:00: [facility] 00 [facility] Social History Social Habit Start Date Stop Date Quantity Comments Source Sex Assigned At [birth year] [facility] 00:00:00 00:00:00 Medical Branch Smoking Status Start Date Stop Date Source Unknown if ever smoked [facility] Medications Ordered Filled Start Stop Current Ordering Indication Dosage Frequency Signature Comments Components Source Medication Medication Date Date Medication? Clinician (SIG) Name Name diazePAM 5 2020-10 Yes [id number] 5mg Take 1 [facility] mg tablet 2-01 tablet by ity o f 00:00: mouth as needed for Medical Anxiety Branch (take on tablet 30 minutes before procedure and then 1 tablet, if needed, when waiting to have procedure) . aspirin 81 2020-10 Yes 81mg Take 81 mg U nivers mg chewable 0-12 by mouth. ity of tablet 08:16: [address] Branch tamsulosin 2020-10 Yes Take by Uni vers 0.4 mg 24 0-12 mouth ity of hr capsule 08:16: daily. [address] amLODIPine 2020-10 Yes 5mg Take 5 mg Un jagdeep 5 mg tablet 0-06 by mouth 2 it y of 00:00: (two) [place] times Medical daily. Branch clopidogreL 2020-10 Yes 75mg Take 75 mg Univers 75 mg 0-06 by mouth ity of tablet 00:00: daily. [place] [facility] traMADoL Yes TAKE ONE Unive rs 100 mg Tab 8-23 TABLET BY ity of 00:00: MOUTH [place] 00 EVERY 4 TO Medical 6 HOURS Branch NEEDED FOR PAIN Procedures This patient has no known procedures. Encounters Start End Encounter Admission Attending Care Care Encounter Source Date/Time Date/Time Type Type Clinicians Facility Department ID 2021-10-27 Outpatient R CAILIN [facility] [id number] [facility] 15:53:41 CRISTOBAL [place] [facility] 2021-09-21 Outpatient JOHNNY ChaidezTO [id number] [facility] 13:15:31 Angel 27 [place] [facility] 2021-11-07 2021-11-07 Outpatient R [facility] [id number] Univers 08:30:00 08:30:00 [id number] [facility] 2021-11-07 2021-11-07 Outpatient R CAILIN [facility] [id number] Univers 08:30:00 08:30:00 [facility]AL [place] [facility] 2021-09-21 2021-09-21 Outpatient JOHNNY Choe RADI [id number] [facility] 08:45:00 08:45:00 Angel [id number] [place] [facility] 2021-09-11 2021-09-11 Telephone Bettina [facility] [id number] [facility] 00:00:00 00:00:00 [facility] [id number] [facility] [id number] Michael as CARLOS A?BLEA [phone] Wy dical [address] MEDICAL OFFICE BUILDING 2020-09-26 2020-09-26 Outpatient JOHNNY Chaidez RADI [id number] [facility] 08:30:00 08:30:00 Angel [place] [facility] 2020-08-22 2020-08-22 Outpatient JOHNNY Chaidez RADI [id number] [facility] 10:00:00 10:00:00 Angel [place] [facility] Results Test Description Test Time Test Comments Results Result [facility] e Comments - XR L-SPINE 2021-09-25 W/BEND VIEW 19:48:00 [facility] : 1955 Sex: M Patient Name: TAMIKA OBREGON Unit No: [id number] EXAMS: CPT CODE: [id number] XR L-SPINE W/BEND VIEW 58702 COMPARISON: Concurrent MRI. IMAGES PROVIDED: 8 views [...] Technologist: RT. Neetu(R) Transcribed D/ (1947) JanetSLJ [facility] NAME: TAMIKA OBREGON [address] [place] [address] PHYS: Angel Shah MD : 1955 AGE: 65 SEX: M [place] [address] LOC: Y.MRI PHONE #: [phone] EXAM DATE: 09/21/2021 STATUS: DEP CLI FAX #: [phone] RAD #: D/C DT PAGE 1 Signed Report Patient Name: TAMIKA OBREGON Unit No: [id number] EXAMS: CPT CODE: [id number] XR L-SPINE W/BEND VIEW 29246 <Continued> Orig Print D/T: S: 09/25/2021 (1950) [facility] NAME: TAMIKA OBREGON [address] [place] [address] PHYS: Angel Shah MD : 1955 AGE: 65 SEX: M [place] [address] LOC: Y.MRI PHONE #: [phone] EXAM DATE: 09/21/2021 STATUS: DEP CLI FAX #: [phone] RAD #: D/C DT PAGE 2 Signed Report - MRI L-SPINE W WO 2021-09-21 CON 13:12:00 [facility] 1955 Sex: M Patient Name: TAMIKA OBREGON Unit No: [id number] EXAMS: CPT CODE: [id number] MRI [place] 81420 DIAGNOSIS: 1. At L1-2 there is no [...] disc bulging foramina with moderate right and nhjf-cg-fxmpdmpl left foraminal narrowing. Moderate central canal stenosis [...] EDGARDO SANCHEZ MRI Transcribed D/ (1312) Susan [facility] NAME: TAMIKA OBREGON [address] [facility] PHYS: Angel Shah MD : 1955 AGE: 65 SEX: M [place] [address] LOC: Y.MRI PHONE #: [phone] EXAM DATE: 09/21/2021 STATUS: REG CLI FAX #: [phone] RAD #: D/C DT PAGE 1 Signed Report Patient Name: TAMIKA OBREGON Unit No: [id number] EXAMS: CPT CODE: [id number] MRI L-SPINE W [place] CON [address]45 <Continued> Orig Print D/T: S: 09/21/2021 (1315) [facility] NAME: TAMIKA OBREGON [address] [place] [address] PHYS: Angel Shah MD : 1955 AGE: 65 SEX: M [place] [address] LOC: Y.MRI PHONE #: [phone] EXAM DATE: 09/21/2021 STATUS: REG CLI FAX #: [phone] RAD #: D/C DT PAGE 2 Signed Report - CT L-SPINE W/O 2020-09-26 CONTRAST 10:23:00 [facility] : 1955 Sex: M Patient Name: TAMIKA OBREGON Unit No: [id number] EXAMS: CPT CODE: [id number] CT L-SPINE W/O CONTRAST 17082 DIAGNOSIS: 1. At L1-2 there is a [...] Mike(R) CTDI: DLP: Trnscrpt: 09/26/2020 (1023) t.DANIELLER.L [facility] NAME: TAMIKA OBREGON [address] [facility] PHYS: Angel Shah MD : 1955 AGE: 64 SEX: M [place], [place] [address] LOC: Y.RAD PHONE #: [phone] EXAM DATE: 09/26/2020 STATUS: REG CLI FAX #: [phone] RAD #: D/C DT PAGE 1 Signed Report Patient Name: TAMIKA OBREGON Unit No: [id number] EXAMS: CPT CODE: [id number] CT L-SPINE W/O CONTRAST 85557 <Continued> Orig Print D/T: S: 09/26/2020 (1026) [facility] NAME: TAMIKA OBREGON [address] [facility] PHYS: Angel Shah MD : 1955 AGE: 64 SEX: M [place], [place] [address] LOC: Y.RAD PHONE #: [phone] EXAM DATE: 09/26/2020 STATUS: REG CLI FAX #: [phone] RAD #: D/C DT PAGE 2 Signed Report - XR L-SPINE 2020-08-22 W/BEND VIEW 11:44:00 [facility] : 1955 Sex: M Patient Name: TAMIKA OBREGON Unit No: [id number] EXAMS: CPT CODE: [id number] XR L-SPINE W/BEND VIEW 46779 MRI OF THE LUMBAR SPINE WITH AND [...] Reported and signed by: Gonzalo Silvestre MD [facility] NAME: TAMIKA OBREGON [address] [facility] PHYS: Angel Shah MD : 1955 AGE: 64 SEX: Aryan [place], [place] [address] LOC: Y.MRI PHONE #: [phone] EXAM DATE: 08/22/2020 STATUS: REG CLI FAX #: [phone] RAD #: D/C DT PAGE 1 Signed Report (CONTINUED) Patient Name: TAMIKA OBREGON Unit No: [id number] EXAMS: CPT CODE: [id number] XR L-SPINE W/BEND VIEW 08349 <Continued> CC: Angel Chaidez M.D. Technologist: RT. Neetu(R) Transcribed D/ (3949) BrindaG [facility] NAME: TAMIKA OBREGON [address] [facility] PHYS: Angel Shah MD : 1955 AGE: 64 SEX: M [place] [address] LOC: Y.MRI PHONE #: [phone] EXAM DATE: 08/22/2020 STATUS: REG CLI FAX #: [phone] RAD #: D/C DT PAGE 2 Signed Report Patient Name: TAMIKA OBREGON Unit No: [id number] EXAMS: CPT CODE: [id number] XR L-SPINE W/BEND VIEW 99297 <Continued> Orig Print D/T: S: 08/22/2020 (3693) [facility] NAME: TAMIKA OBREGON [address] [place] [address] PHYS: Angel Shah MD : 1955 AGE: 64 SEX: M [place] [address] LOC: Y.MRI PHONE #: [phone] EXAM DATE: 08/22/2020 STATUS: REG CLI FAX #: [phone] RAD #: D/C DT PAGE 3 Signed Report - MRI L-SPINE W WO 2020-08-22 CON 11:44:00 [facility] : 1955 Sex: M Patient Name: TAMIKA OBREGON Unit No: [id number] EXAMS: CPT CODE: [id number] MRI L-SPINE W WO CON 23184 MRI OF THE LUMBAR SPINE WITH AND [...] Reported and signed by: Gonzalo Silvestre MD [facility] NAME: TAMIKA OBREGON [address] [facility] PHYS: Angel Shah MD : 1955 AGE: 64 SEX: M [place], [place] [address] LOC: Y.MRI PHONE #: [phone] EXAM DATE: 08/22/2020 STATUS: REG CLI FAX #: [phone] RAD #: D/C DT PAGE 1 Signed Report (CONTINUED) Patient Name: TAMIKA OBREGON Unit No: [id number] EXAMS: CPT CODE: [id number] MRI L-SPINE W WO CON 81177 <Continued> CC: Angel Chaidez M.D. Technologist: Jennifer Woodard(R) Transcribed D/ (1144) JanetGVG [facility] NAME: TAMIKA OBREGON [address] [place] [address] PHYS: Angel Shah MD : 1955 AGE: 64 SEX: M [place] [address] LOC: Y.MRI PHONE #: [phone] EXAM DATE: 08/22/2020 STATUS: REG CLI FAX #: [phone] RAD #: D/C DT PAGE 2 Signed Report Patient Name: TAMIKA OBREGON Unit No: [id number] EXAMS: CPT CODE: [id number] MRI L-[place]INE [place] [address]109 <Continued> Orig Print D/T: S: 08/22/2020 (1148) [facility] NAME: TAMIKA OBREGON LAURIE [address] [place] [address] PHYS: Angel Shah MD : 1955 AGE: 64 SEX: M [place] [address] LOC: Y.MRI PHONE #: [phone] EXAM DATE: 08/22/2020 STATUS: REG CLI FAX #: [phone] RAD #: D/C DT PAGE 3 Signed Report BLOOD UREA NITROGEN 2020-08-22 10:40:00 Test Item Value Reference Range Interpretation Comme nts BLOOD UREA NITROGEN (test code = BUN) 17 mg/dL 7-18 N SPECIMEN COMMENT: STATCREATININE W ESTIMATED [id number] 10:40:00 Test Item Value Reference Range Interpretation Comments GLOMERULAR FILTRATION 70.9 >60 Unit o f measure: RATE (test code = GFR) mL/mi n/1.73 m2Xsflyjgox Range:Healthy A dults >90 mL/min/1.73 m2 For Chronic Kidney Disease: St age II Mild Dec rease in GFR 6 0-90 Stage III Moderate Decrea se in GFR 30-59 Stage IV Se christofer Decrease in GFR 15-29 Stage V Kidney Failur e <15 CREATININE (test code = 1.05 mg/dL 0.55-1.30 N CREAT) SPECIMEN COMMENT: STAT- MRI L-SPINE W WO [id number] 09:33:00 Patient Name: TAMIKA OBREGON Unit No: [id number] EXAMS: CPT CODE: [id number] MRI L-SPINE W [place] CON [address]80 MRI OF THE LUMBAR SPINE WITH AND [...] Karolyn Garza, RT(R) Transcribed D/ (0933) JanetGVG [facility] NAME: TAMIKA OBREGON [address] [facility] PHYS: Angel Shah MD : 1955 AGE: 63 SEX: [place], [place] [address] LOC: Y.MRI PHONE #: [phone] EXAM DATE: 04/30/2019 STATUS: DEP CLI FAX #: [phone] RAD #: D/CDT PAGE 1 Signed Report Patient Name: TAMIKA OBREGON Unit No: [id number] EXAMS: CPT CODE: [id number] MRI L-SPINE W WO CON 92269 <Continued> Orig Print D/T: S: 05/01/2019 (0936) [facility] NAME: TAMIKA OBREGON [address] [facility] PHYS: Angel Shah MD : 1955 AGE: 63 SEX: M [place], [place] [address] LOC: Y.MRI PHONE #: [phone] EXAM DATE: 04/30/2019 STATUS: DEP CLI FAX #: [phone] RAD #: D/C DT PAGE 2 Signed ReportBLOOD UREA [id number] 11:19:00 Test Item Value Reference Range Interpretation Comments BLOOD UREA NITROGEN (test code = 13 mg/dL 7-18 N BUN) CREATININE W ESTIMATED [id number] 11:19:00 Test Item Value Reference Range Interpretation Comments GLOMERULAR FILTRATION 70.3 >60 Unit o f measure: RATE (test code = GFR) mL/mi n/1.73 s0Jlaxhkrdt Range:Healthy A dults >90 mL/min/1.73 m2 For Chronic Kidney Disease: St age II Mild Dec rease in GFR 6 0-90 Stage III Moderate Decrea se in GFR 30-59 Stage IV Se christofer Decrease in GFR 15-29 Stage V Kidney Failur e <15 CREATININE (test code = 1.06 mg/dL 0.55-1.30 N CREAT) - CT L-SPINE W/O [id number] 09:53:00 Patient Name: TAMIKA OBREGON Unit No: [id number] EXAMS: CPT CODE: [id number] CT L-SPINE W/O CONTRAST [address]351 CT SCAN OF THE LUMBAR SPINE WITH [...] Mike(R) CTDI: DLP: Trnscrpt: 03/27/2019 (0953) tBRENGVG [facility] NAME: TAMIKA OBREGON [address] [facility] PHYS: Sagar Shah MD : 1955 AGE: 63 SEX: M [place] [address] LOC: YLizRAD PHONE #: [phone] EXAM DATE: 03/26/2019 STATUS: DEP CLI FAX #: [phone] RAD #: D/C DT PAGE 1 Signed Report Patient Name:TAMIKA OBREGON Unit No: [id number] EXAMS: CPT CODE: [id number] CT L-SPINE W/O CONTRAST 06297<Continued> Orig Print D/T: S: 03/27/2019 (0956) [facility] NAME: TAMIKA OBREGON[address] [facility] PHYS: Angel Shah MD : 1955 AGE: 63 SEX: M [place], [place] [address] LOC: Y.RAD PHONE #: [phone] EXAM DATE: 03/26/2019 STATUS: DEP CLIFAX #: [phone] RAD #: D/C DT PAGE 2 Signed ReportURINALYSIS [id number] 07:16:00 Test Item Value Reference Range Interpretation [...] /LPF NONE SEEN code = AMORU) HGB [id number] 05:50:00 Test Item Value Reference Range Interpretation Comments HEMOGLOBIN (test code = HGB) 12.0 g/dL 12-16 N HEMATOCRIT (test code = HCT) 34.8 % 37-47 L CBC W/AUTO [id number] 05:49:00 Test Item Value Reference Range Interpretation [...] NRBC) - XR SPINE 1 V SPEC [id number] 11:33:00 Patient Name: TAMIKA OBREGON Unit No: [id number] EXAMS: CPT CODE: [id number] XR SPINE 1 V SPEC LEVEL 70862 3 LATERAL INTRAOPERATIVE VIEWS OF THE LUMBAR [...] M.D. Technologist: ZACHARIAH FESSAHAYE, RT(R) Transcribed D/ (4649) Astrid [facility] NAME: TAMIKA OBREGON [facility] PHYS: Angel Shah MD : 1955 AGE: 63 SEX: M [place], [place] [address] LOC: Y.505 A PHONE #: [phone] EXAM DATE: 12/30/2018 STATUS: ADM IN FAX #: [phone] RAD #: D/C DT PAGE 1 Signed Report Patient Name: TAMIKA OBREGON Unit No: [id number] EXAMS: CPT CODE: [id number] XR SPINE 1 V SPEC LEVEL 21291 <Continued> Orig Print D/T: S: 12/31/2018 (0201) [facility] NAME: TAMIKA OBREGON Leyla [facility] PHYS:Angel Shah MD : 1955 AGE: 63 SEX: M [place], [place] [address] LOC: Y.505 A PHONE #: [phone] EXAM DATE: 12/30/2018 STATUS: ADM IN FAX #: [phone] RAD #: D/C DT PAGE 2 Signed Report- XR SPINE 1 V SPEC LEVEL 2018-12-31 11:33:00 Patient Name: TAMIKA OBREGON Unit No: [id number] EXAMS: CPT CODE: [id number] XR SPINE 1 V SPEC LEVEL 59502 3 LATERAL INTRAOPERATIVE VIEWS OF THE LUMBAR [...] M.D. Technologist: SHARATH CIFUENTES (RT.R) Transcribed D/ (7117) Astrid [facility] NAME: TAMIKA OBREGON [address] [facility] PHYS: Angel Shah MD : 1955 AGE: 63 SEX: M [place], [place] [address] LOC: Y.505 A PHONE #: [phone] EXAM DATE: 12/30/2018 STATUS: ADM IN FAX #: [phone] RAD #: D/C DT PAGE 1 Signed Report Patient Name: TAMIKA OBREGON Unit No: [id number] EXAMS: CPT CODE: [id number] XR SPINE 1 V SPEC LEVEL 26378 <Continued> Orig Print D/T: S: 12/31/2018 (8503) [facility] NAME: TAMIKA OBREGON [address] [facility] PHYS:Angel Shah MD : 1955 AGE: 63 SEX: M [place], [place] [address] LOC: Y.505 A PHONE #: [phone] EXAM DATE: 12/30/2018 STATUS: ADM IN FAX #: [phone] RAD #: D/C DT PAGE 2 Signed Report- XR SPINE 1 V SPEC LEVEL 2018-12-31 11:33:00 Patient Name: TAMIKA OBREGON Unit No: [id number] EXAMS: CPT CODE: [id number] XR SPINE 1 V SPEC LEVEL 90362 3 LATERAL INTRAOPERATIVE VIEWS OF THE LUMBAR [...] M.D. Technologist: SHARATH CIFUENTES (RT.R) Transcribed D/ (6453Rei MarinoJ [facility] NAME: TAMIKA OBREGON [address] [facility] PHYS: Angel Shah MD : 1955 AGE: 63 SEX: M [place], [place] [address] LOC: Y.505 A PHONE #: [phone] EXAM DATE: 12/30/2018 STATUS: ADM IN FAX #: [phone] RAD #: D/C DT PAGE 1 Signed Report Patient Name: TAMIKA OBREGON Unit No: [id number] EXAMS: CPT CODE: [id number] XR SPINE 1 V SPEC LEVEL 17258 <Continued> Orig Print D/T: S: 12/31/2018 (1136) [facility] NAME: TAMIKA OBREGON [address] [facility] PHYS:Angel Shah MD : 1955 AGE: 63 SEX: M [place], [place] [address] LOC: Y.505 A PHONE #: [phone] EXAM DATE: 12/30/2018 STATUS: ADM IN FAX #: [phone] RAD #: D/C DT PAGE 2 Signed [id number] 10:43:00 Test Item Value Reference Range Interpretation Comments PLT (test code = PLT) 119 K/mm3 130-400 L BASIC METABOLIC [id number] 06:35:00 Test Item Value Reference Range Interpretation [...] RATE (test code = GFR) mL/mi n/1.73 x0Xdojowipu Range:Healthy Adults >90 mL/min/1.73 m2 For Chronic Kidney Disease: St age II Mild Decrease in GFR 60-90 St age III Moderate Decrease in GFR 30-59 Stage IV Severe Decre ase in GFR 15- 29 Stage V Kidney Failure <15 CREATININE (test code 0.84 mg/dL 0.55-1.30 N = CREAT) CALCIUM (test code = 9.2 mg/dL 8.2-10.1 N CA) HGB [id number] 05:40:00 Test Item Value Reference Range Interpretation Comments HEMOGLOBIN (test code = HGB) 12.7 g/dL 12-16 N HEMATOCRIT (test code = HCT) 36.0 % 37-47 L ACUTE HEPATITIS [id number] 17:53:00 Test Item Value Reference Range Interpretation [...] 1 (test code NONREACTIVE NONREACTIVE Done by [employer] = HIV1AB) 4th Gen HIV Ag/ Ab Combo Screen ACUTE HEPATITIS [id number] 17:52:00 Test Item Value Reference Range Interpretation [...] 1 2 (test NONREACTIVE NONREACTIVE Done by [employer] code = [id number]) 4th Gen HIV Ag/Ab Combo Screen ACUTE HEPATITIS [id number] 17:52:00 Test Item Value Reference Range Interpretation [...] 1 (test code NONREACTIVE NONREACTIVE Done by [employer] = HIV1AB) 4th Gen HIV Ag/ Ab Combo Screen ACUTE HEPATITIS [id number] 17:51:00 Test Item Value Reference Range Interpretation [...] 1 2 (test NONREACTIVE NONREACTIVE Done by [employer] code = XBF22ZL) 4th Gen HIV Ag/Ab Combo Screen CBC W/AUTO [id number] 09:49:00 Test Item Value Reference Range Interpretation [...] N CELL (test code = NRBC) PROTHROMBIN [id number] 09:32:00 Test Item Value Reference Range Interpretation [...] BLOOD, PT every other day NTHROMBOPLASTIN TIME [id number] 09:32:00 Test Item Value Reference Range Interpretation Comments PTT ACTIVATED (test code = APTT) 28.7 secs 24.9-37.0 N IS PATIENT ON ANTICOAGULANTS ? NHas Lab been notified if Patient is on Heparin Drip? NOIf Yes, orderCBC, OCCULT BLOOD, PT every other day NBASIC METABOLIC [id number] 09:32:00 Test Item Value Reference Range Interpretation [...] RATE (test code = GFR) mL/mi n/1.73 p2Euzchnsqb Range:Healthy Adults >90 mL/min/1.73 m2 For Chronic [...]
[2022-04-14 18:00] LABS: Urine Blood Negative (Negative); Urine Glucose Negative (Negative); Urine Protein Negative (Negative); Urine Specific Gravity 1.015 (1.005-1.030)
[2022-04-14] MEDS ORDERED: FENTANYL CITR 100 MCG/2 ML ONE (18:11)
[2022-04-14] MEDS ORDERED: NA CHLORIDE 0.9% 1,000 ML ONE (18:11)
[2022-04-14] MEDS ORDERED: ONDANSETRON 4 MG/2 ML VIAL ONE (18:11)
[2022-04-14 18:13] LABS: Absolute Lymphocytes (CBC) 1.9 K/uL (0.7-4.9); Hematocrit 43.2 % (39.6-49.0); Lymphocytes % 29.9 % (15.3-44.8); MPV 8.1 fL (7.6-11.3); RBC Red Blood Cell Count 4.93 M/uL (4.33-5.43)
[2022-04-14 18:19] LABS: Urine Amorphous Sediment 2+ /HPF (NONE SEEN); Urine Bacteria <20 /HPF (NONE SEEN); Urine Mucus 2+ /HPF (NONE SEEN); Urine RBC <5 /HPF (NONE SEEN)
[2022-04-14 18:31] LABS: Albumin 4.1 g/dL (3.4-5.0); Bilirubin Total 0.3 mg/dL (0.2-1.0); Potassium 3.9 mmol/L (3.5-5.1); Protein, Total 7.7 g/dL (6.4-8.2)
--- NOTE | 2022-04-14 19:02 | RAD REPORT ---
EXAM DESCRIPTION: CTAbdomen Pelvis W Contrast - 04/14/2022 6:51 pm CLINICAL HISTORY: r/o diverticulitis COMPARISON: No comparisons TECHNIQUE: CT of the abdomen and pelvis was performed with contrast. All CT scans are performed using dose optimization technique as appropriate and may include automated exposure control or mA/KV adjustment according to patient size. FINDINGS: Lower chest: No acute abnormality. Coronary artery calcifications. Liver: No acute abnormality or suspicious lesions. Biliary: Cholecystectomy Stomach: No significant focal abnormality. Duodenum: No significant focal abnormality. Pancreas: No significant abnormality. Spleen: No significant abnormality. Adrenal: No suspicious lesions. Kidney/ureter: No hydronephrosis. Nonobstructing stones in the left kidney. Too small to characterize bilateral renal lesions Retroperitoneum: No retroperitoneal adenopathy. Vascular: No aneurysm. Atherosclerosis. Bowel: No appendicitis.. Moderate stool in the colon. No bowel obstruction. Peritoneum: No ascites or free air. Bladder: Grossly unremarkable. Reproductive: No adnexal masses. Bones: No acute fracture. L4-5 fusion. Scattered degenerative changes. Other: n/a IMPRESSION: No acute intra-abdominal or pelvic finding. Incidental findings as noted above.
--- NOTE | 2022-04-14 19:37 | EDPHYS ---
Physician Documentation [facility] Name: William Osuna Age: 66 yrs Sex: Male : 1955 Arrival Date: 04/14/2022 Time: 17:32 Bed 20 Private MD: ED Physician Jessica Grewal HPI: 04/14 17:35 This 66 yrs old Male presents to ER via Ambulatory with complaints of Abdominal Pain. jh7 17:35 The patient presents with abdominal pain right lower quadrant, in the left lower jh7 quadrant. Onset: The symptoms/episode began/occurred 1 month(s) ago, and became worse today. Associated signs and symptoms: Pertinent positives: constipation, Pertinent negatives: nausea and vomiting, blood in stools, fever, headache. Patient presents with intermittent lower abdominal pain for the past month. States that the pain worsened today. States that he has been seeing Dr. Brennan for abdominal pain and has had a CT and multiple upper and lower GI series. States that he had a bleeding ulcer 1 month ago that was cauterized. Denies nausea, vomiting, diarrhea, and fever.. Historical: - Allergies: 17:34 Codeine; ld1 17:34 PENICILLINS; ld1 - PMHx: 17:34 Hypertensive disorder; cardiac stent; ld1 - PSHx: 17:34 brain aneurysm; CABG; Back x2; Cholecystectomy; ld1 - Immunization history:: Adult Immunizations up to date, Client reports receiving the 2nd dose of the Covid vaccine. - Social history:: Smoking status: Patient denies any tobacco usage or history of. Patient/guardian denies using alcohol. ROS: 17:35 Constitutional: Negative for fever, chills, and weight loss, Neck: Negative for injury, jh7 pain, and swelling, Cardiovascular: Negative for chest pain, palpitations, and edema, Respiratory: Negative for shortness of breath, cough, wheezing, and pleuritic chest pain, Back: Negative for injury and pain, Skin: Negative for injury, rash, and discoloration, Neuro: Negative for headache, weakness, numbness, tingling, and seizure. 17:35 Abdomen/GI: Positive for abdominal pain, constipation, Negative for nausea and vomiting, rectal pain, rectal bleeding. 17:35 All other systems are negative. Exam: 17:35 Constitutional: This is a well developed, well nourished patient who is awake, alert, jh7 and in no acute distress. Neck: Trachea midline, no thyromegaly or masses palpated, and no cervical lymphadenopathy. Supple, full range of motion without nuchal rigidity, or vertebral point tenderness. No Meningismus. Cardiovascular: Regular rate and rhythm with a normal S1 and S2. No gallops, murmurs, or rubs. Normal PMI, no JVD. No pulse deficits. Respiratory: Lungs have equal breath sounds bilaterally, clear to auscultation and percussion. No rales, rhonchi or wheezes noted. No increased work of breathing, no retractions or nasal flaring. Back: No spinal tenderness. No costovertebral tenderness. Full range of motion. Skin: Warm, dry with normal turgor. Normal color with no rashes, no lesions, and no evidence of cellulitis. MS/ Extremity: Pulses equal, no cyanosis. Neurovascular intact. Full, normal range of motion. Neuro: Awake and alert, GCS 15, oriented to person, place, time, and situation. Motor strength 5/5 in all extremities. Sensory grossly intact. Normal gait. 17:35 Abdomen/GI: Inspection: abdomen appears normal, Bowel sounds: normal, Palpation: soft, mild abdominal tenderness, in the left lower quadrant and right lower quadrant, Liver: no appreciated palpable abnormalities. Vital Signs: 17:34 BP 176 / 86; Pulse 85; Resp 18; Temp 98.6(TE); Pulse Ox 100% on R/A; Weight 81.65 kg; ld1 Height 6 ft. 2 in. (187.96 cm); Pain 8/10; 18:40 BP 158 / 73; Pulse 66; Resp 18; Pulse Ox 99% ; ww 17:34 Body Mass Index 23.11 (81.65 kg, 187.96 cm) ld1 MDM: 17:38 Patient medically screened. [facility] 19:35 Differential diagnosis: appendicitis, bowel obstruction, diverticulitis, Irritable jh7 bowel syndrome, non-specific abd pain, pancreatitis. Data reviewed: vital signs, nurses notes, lab test result(s), radiologic studies, CT scan. Data interpreted: Pulse oximetry: is 99 %. Interpretation: normal. 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 ED course: Reviewed the patient's nonacute CT findings and lab results. Advised for him to continue to take stool softeners to help with constipation and increase fluid intake. Encouraged him to follow-up with Dr. Brennan. His pain significantly improved after fluids and pain medication. 04/14 17:41 Order name: CBC with Diff; Complete Time: 19:00 [facility] 04/14 17:41 Order name: CMP; Complete Time: 19:00 [facility] 04/14 17:41 Order name: Lipase; Complete Time: 19:00 [facility] 04/14 17:41 Order name: Urine Microscopic Only; Complete Time: 19:00 [facility] 04/14 17:41 Order name: CT Abd/Pelvis - IV Contrast Only; Complete Time: 19:28 [facility] 04/14 18:00 Order name: Urine Dipstick-Ancillary; Complete Time: 19:00 EDMS 04/14 17:41 Order name: IV Saline Lock; Complete Time: 17:55 [facility] 04/14 17:41 Order name: Labs collected and sent; Complete Time: 17:55 [facility] 04/14 17:41 Order name: Urine Dipstick-Ancillary (obtain specimen); Complete Time: 17:55 [facility] Administered Medications: 18:00 Drug: NS 0.9% 1000 ml Route: IV; Rate: 1 bolus; Site: left antecubital; ww 18:02 Drug: Zofran (Ondansetron) 4 mg Route: IVP; Site: left antecubital; ww 18:05 Drug: fentaNYL (PF) 50 mcg Route: IVP; Site: left antecubital; ww Disposition: 04/15 18:01 Co-signature as Attending Physician, Jessica Grewal MD. ma2 Disposition Summary: 04/14/22 19:37 Discharge Ordered Location: Home [facility] Problem: chronic [facility] Symptoms: have improved [facility] Condition: Stable [facility] Diagnosis - Abdominal pain, unspecified jh7 Followup: [facility] - With: Jayleen Nugent MD - When: 2 - 3 days - Reason: Recheck today's complaints Discharge Instructions: - Discharge Summary Sheet [facility] - Abdominal Pain, Adult [facility] Forms: - Medication Reconciliation Form 7 - Thank You Letter [facility] Signatures: Dispatcher [employer] Jessica Buenrostro MD MD ma2 Tammy Tolentino RN RN ld1 Aditi Richards RN RN Glenna Bateman, [employer]TER [employer] [facility]
--- NOTE | 2022-04-14 19:37 | ER ---
Nurse's Notes [facility] Name: William Osuna Age: 66 yrs Sex: Male : 1955 Arrival Date: 04/14/2022 Time: 17:32 Bed 20 Private MD: Diagnosis: Abdominal pain, unspecified Presentation: 04/14 17:34 Chief complaint: Patient states: lower abdominal pain - Intermittent X 1 month. ld1 Coronavirus screen: At this time, the client does not indicate any symptoms associated with coronavirus-19. Ebola Screen: No symptoms or risks identified at this time. Initial Sepsis Screen: Does the patient meet any 2 criteria? No. Patient's initial sepsis screen is negative. Does the patient have a suspected source of infection? No. Patient's initial sepsis screen is negative. Risk Assessment: Do you want to hurt yourself or someone else? Patient reports no desire to harm self or others. Onset of symptoms was April 14, 2022 at 17:36. 17:34 Method Of Arrival: Ambulatory ld1 17:34 Acuity: FARHAD 3 ld1 Triage Assessment: 17:36 General: Appears in no apparent distress. comfortable, Behavior is calm, cooperative, ld1 appropriate for age. Pain: Complains of pain in right lower quadrant and left lower quadrant Pain does not radiate. Pain currently is 8 out of 10 on a pain scale. Quality of pain is described as burning, throbbing, Pain began 1 month. EENT: No signs and/or symptoms were reported regarding the EENT system. Neuro: Level of Consciousness is awake, alert, obeys commands, Oriented to person, place, time, situation. Cardiovascular: Capillary refill < 3 seconds Patient's skin is warm and dry. Respiratory: Airway is patent Respiratory effort is even, unlabored. GI: Abdomen is flat, non-distended, Reports lower abdominal pain. : No signs and/or symptoms were reported regarding the genitourinary system. Derm: No signs and/or symptoms reported regarding the dermatologic system. Musculoskeletal: No signs and/or symptoms reported regarding the musculoskeletal system. Historical: - Allergies: 17:34 Codeine; ld1 17:34 PENICILLINS; ld1 - PMHx: 17:34 Hypertensive disorder; cardiac stent; ld1 - PSHx: 17:34 brain aneurysm; CABG; Back x2; Cholecystectomy; ld1 - Immunization history:: Adult Immunizations up to date, Client reports receiving the 2nd dose of the Covid vaccine. - Social history:: Smoking status: Patient denies any tobacco usage or history of. Patient/guardian denies using alcohol. Screenin:39 Abuse screen: Denies threats or abuse. Denies injuries from another. Nutritional ww screening: No deficits noted. Tuberculosis screening: No symptoms or risk factors identified. Fall Risk None identified. Assessment: 18:05 General: Appears in no apparent distress. Behavior is calm, cooperative. Pain: ww Complains of pain in right lower quadrant and left lower quadrant. Neuro: Gutierrez Agitation-Sedation Scale (RASS): 0 - Alert and Calm Level of Consciousness is awake, alert, obeys commands, Oriented to person, place, time, situation, Moves all extremities. Speech is normal. Cardiovascular: Capillary refill < 3 seconds Patient's skin is warm and dry. Chest pain is denied. Respiratory: Airway is patent Respiratory effort is even, unlabored, Respiratory pattern is regular, symmetrical. GI: Abdomen is non-distended, Abd is soft X 4 quads Abdomen is tender to palpation in right lower quadrant and left lower quadrant Reports lower abdominal pain. : Urine is clear. Derm: No signs and/or symptoms reported regarding the dermatologic system. Skin is intact, is healthy with good turgor, Skin is pink, warm \T\ dry. 19:49 GI: ll3 19:50 Reassessment: No changes from previously documented assessment. Patient and/or family ll3 updated on plan of care and expected duration. Pain level reassessed. Patient is alert, oriented x 3, equal unlabored respirations, skin warm/dry/pink. Vital Signs: 17:34 BP 176 / 86; Pulse 85; Resp 18; Temp 98.6(TE); Pulse Ox 100% on R/A; Weight 81.65 kg; ld1 Height 6 ft. 2 in. (187.96 cm); Pain 8/10; 18:40 BP 158 / 73; Pulse 66; Resp 18; Pulse Ox 99% ; ww 17:34 Body Mass Index 23.11 (81.65 kg, 187.96 cm) ld1 ED Course: 17:32 Patient arrived in ED. as 17:36 Triage completed. ld1 17:36 Arm band placed on left wrist. ld1 17:38 Glenna Parker FNP is [facility] 7 17:38 Jessica Grewal MD is Attending Physician. [facility] 17:40 Aditi Richards, RN is Primary Nurse. ww 17:50 Inserted saline lock: 20 gauge in left antecubital area, using aseptic technique. ww 18:39 Patient has correct armband on for positive identification. Bed in low position. Call ww light in reach. Side rails up X 1. Adult w/ patient. Pulse ox on. NIBP on. 18:53 CT Abd/Pelvis - IV Contrast Only In Process Unspecified. EDMS 19:14 Primary Nurse role handed off by Aditi Richards, RN mw2 19:36 Jayleen Nugent MD is Referral Physician. [facility] 19:49 No provider procedures requiring assistance completed. IV discontinued, intact, ll3 bleeding controlled, No redness/swelling at site. Pressure dressing applied. Administered Medications: 18:00 Drug: NS 0.9% 1000 ml Route: IV; Rate: 1 bolus; Site: left antecubital; ww 18:02 Drug: Zofran (Ondansetron) 4 mg Route: IVP; Site: left antecubital; 18:05 Drug: fentaNYL (PF) 50 mcg Route: IVP; Site: left antecubital; Medication: 19:49 VIS not applicable for this client. ll3 Outcome: 19:37 Discharge ordered by . [facility] 19:49 Discharged to home ambulatory, with significant other. ll3 19:49 Condition: stable 19:49 Discharge instructions given to patient, significant other, Instructed on discharge instructions, follow up and referral plans. Demonstrated understanding of instructions, follow-up care. 19:50 Patient left the ED. ll3 Signatures: Dispatcher [employer] EDMS Liz Dodson MyKena mw2 Tammy Tolentino RN RN ld1 Andreas Jacobson RN RN ll3 Aditi Richards RN RN Glenna Parker FNP [employer] [facility] Corrections: (The following items were deleted from the chart) 17:36 17:34 Pulse 85bpm; Resp 18bpm; Pulse Ox 100% RA; Temp 98.6F Temporal; 81.65 kg; Height ld1 6 ft. 2 in.; BMI: 23.1; Pain 8/10; ld1
[2022-04-14 20:34] VITALS: TEMP 98.6
[2022-04-14 20:36] VITALS: BP 158/73; O2SAT 99
== END 2022-04-14 19:50 | disposition home or self-care (01) ==
LOC: ER 17:26
DX: R10.30 Lower abdominal pain, unspecified (principal); K59.00 Constipation, unspecified; I10 Essential (primary) hypertension; Z95.818 Presence of other cardiac implants and grafts; Z95.1 Presence of aortocoronary bypass graft; Z88.0 Allergy status to penicillin; Z88.5 Allergy status to narcotic agent
CPT/HCPCS: 85025; 36415; 83690; 80053; 74177; Q9967; J3010; J7030; J2405; 81003; 81015; 96374; 96375; 99284

== ENCOUNTER 2022-07-01 11:14 | Emergency (ER) | payer OTHER, BC ==
--- OUTSIDE RECORDS SUMMARY | 2022-07-01 11:17 | XMS REPORT | Continuity of Care Document ---
:1955 Author Organization [facility] t Address [address] [place] [address] Care Team Providers Name Role Phone CARINA PARKER Primary Care Physician Unavailable CRISTOBAL READ Attending Clinician Unavailable Angel Chaidez Attending Clinician Unavailable Pablo Dunbar MD Attending Clinician CRISTOBAL READ Admitting Clinician Unavailable Angel Chaidez Admitting Clinician Unavailable Physician, No Primary or Family Admitting Clinician Unavaila ble Payers Payer Name Policy Type Policy Number Effective Date Expiration Date S our MEDICARE PART A \T\ [id number] 2019 B 00:00:00 BCBS TRADITIONAL [id number] 2019 00:00:00 Problems Condition Condition Condition Status Onset Resolution Last Treating Co mments Source Name Details Category Date Date Treatment Clinician Date No known No known Disease Unive rs active active ity of problems problems [facility] Allergies, Adverse Reactions, Alerts Allergy Allergy Status Severity Reaction(s) Onset Inactive Treating Comm ents Source Name Type Date Date Clinician Penicill DA Active SV RASHES 2021-1 [facility] ins 2- [place] 00[facility] [place] RASH[place], 2020- [facility] [place] Penicill DA Active SV 2019-0 [facility] ins 7-11 [place] 00:00: [facility]ope 00 [facility] codeine DA Active [place] 2019-0 [facility] 7-11 [place] 00:00: [facility]ope 00 [facility] levoflox DA Active [place] 2019-0 [facility] acin 7-11 [place] 00:00: [facility]ope 00 [facility] Penicill DA Active SV RASHES 2019-0 [facility] ins 7-11 [place] 00:00[place] [facility] 00 [facility] [place]ine [place] R[place], 2019-0 [facility] [place] levoflox DA Active [place] NAUSEA 2019-0 [facility] acin 7-11 [place] 00:00: [facility] 00 [facility] Penicill DA Active SV 2019-0 [facility] ins 3-12 [facility] [place] codeine DA Active [place] 2019-0 [facility] 3-12 [facility] 00:[facility] [place] levoflox DA Active [place] 2019-0 [facility] acin 3-12 [facility] 00:[facility]: [facility] [place] codeine DA Active [place] 2019-0 [facility] 3-11 [facility] 00:[facility]: [facility] [place] Penicill DA Active SV 2019-0 [facility] ins 3-11 [facility] 00:[facility]: [facility] [place] levoflox DA Active [place] 2018-1 [facility] acin 1-27 [facility] 00:[facility]: [facility] [place] Penicill DA Active SV 2018-1 [facility] ins 1-27 [place] 00:00: [facility] 00 [facility] codeine DA Active [place] 2018-1 [facility] 1-27 [place] 00:00: [facility] 00 dic [facility]ospita l LEVOFLOX DRUG Active N/V 2018-0 [facility] ACIN INGREDI 05-23 ity of 00:00: [place] 00 Medical Branch PENICILL Drug Active Rash 2018-0 [facility] INS Class 05-23 ity of 00:00: [place] 00 Medical Branch Levoflox Propensi Active Nausea 2018-0 Univer s acin ty to and/or 05-23 ity of adverse Vomiting 00:00: [place] reaction 00 Medical s Branch Penicill Propensi Active Rash Univer s ins ty to 803 ity of adverse 00:00: [place] reaction 00 Medical s Branch Penicill DA Active SV [facility] ins 11-01 00:00: [facility] 00 [facility] codeine DA Active [place] [facility] 11-01 [place] 00:00: [facility] 00 [facility] levoflox DA Active [place] [facility] acin 11-01 [place] 00:00: [facility]ope 00 dic Hospita [facility] Social History Social Habit Start Date Stop Date Quantity Comments Source Sex Assigned At [birth year] [facility] 00:00:00 00:00:00 Medical Branch Smoking Status Start Date Stop Date Source Unknown if ever smoked [facility] Medications Ordered Filled Start Stop Current Ordering Indication Dosage Frequency Signature Comments Components Source Medication Medication Date Date Medication? Clinician (SIG) Name Name diazePAM 5 2020-10 Yes [id number] 5mg Take 1 [facility] mg tablet 2-01 tablet by ity o f 00:00: mouth as needed for Medical Anxiety Branch (take on tablet 30 minutes before procedure and then 1 tablet, if needed, when waiting to have procedure) . aspirin 81 2020-10 Yes 81mg Take 81 mg U nivers mg chewable 0-12 by mouth. ity of tablet 08:16: Medical Branch tamsulosin 2020-10 Yes Take by Univ ers 0.4 mg 24 0-12 mouth ity of hr capsule 08:16: daily. [place] [facility] amLODIPine 2020-10 Yes 5mg Take 5 mg Un jagdeep 5 mg tablet 0-06 by mouth 2 it y of 00:00: (two) times Medical daily. Branch clopidogreL 2020-10 Yes 75mg Take 75 mg Univers 75 mg 0-06 by mouth ity of tablet 00:00: daily. Medical Branch traMADoL Yes TAKE ONE Unive rs 100 mg Tab 8 TABLET BY ity of 00:00: MOUTH 00 EVERY 4 TO Medical 6 HOURS Branch NEEDED FOR PAIN Procedures This patient has no known procedures. Encounters Start End Encounter Admission Attending Care Care Encounter Source Date/Time Date/Time Type Type Clinicians Facility Department ID 2021-10-27 Outpatient R CAILIN [facility] [id number] Univers 15:53:41 ECRISTOBAL ity [facility] 2021-11-07 2021-11-07 Outpatient R [facility] [id number] Univers 08:30:00 08:30:00 [id number] itjayme [facility] 2021-11-07 2021-11-07 Outpatient R CAILIN [facility] [id number] Univers 08:30:00 08:30:00 CRISTOBAL Medina o f [facility] 2021-09-21 2021-09-21 Outpatient EL JOHNNY Chaidez RADI [id number] [facility] 08:45:00 08:45:00 Angel 27 [place] [facility] 2021-09-11 2021-09-11 Telephone Bettina [facility] [id number] [facility] 00:00:00 00:00:00 [facility] [id number] [facility] [id number] Michael as CARLOS A?BLEA [phone] [place] dical [address] MEDICAL OFFICE BUILDING 2020-09-26 2020-09-26 Outpatient JOHNNY Chaidez RADI [id number] [facility] 08:30:00 08:30:00 Angel 00 [place] [facility] 2020-08-22 2020-08-22 Outpatient JOHNNY Chaidez RADI [id number] [facility] 10:00:00 10:00:00 Angel 75 [place] [facility] Results Test Description Test Time Test Comments Results Result [facility] e Comments - XR L-SPINE 2021-09-25 W/BEND VIEW 19:48:00 [facility] 1955 Sex: M Patient Name: TAMIKA OBREGON Unit No: [id number] EXAMS: CPT CODE: [id number] XR L-SPINE W/BEND VIEW 54203 COMPARISON: Concurrent MRI. IMAGES PROVIDED: 8 views [...] Technologist: RT. Neetu(R) Transcribed D/ (1947) JanetSLJ [facility] NAME: TAMIKA OBREGON [address] [place] [address] PHYS: Angel Shah MD : 1955 AGE: 65 SEX: M [place] [address] LOC: Y.MRI PHONE #: [phone] EXAM DATE: 09/21/2021 STATUS: DEP CLI FAX #: [phone] RAD #: D/C DT PAGE 1 Signed Report Patient Name: TAMIKA OBREGON Unit No: [id number] EXAMS: CPT CODE: [id number] XR L-SPINE W/BEND VIEW 46425 (Continued) Orig Print D/T: S: 09/25/2021 (1950) [facility] NAME: TAMIKA OBREGON [address] [place] [address] PHYS: Angel Shah MD : 1955 AGE: 65 SEX: M [place] [address] LOC: Y.MRI PHONE #: [phone] EXAM DATE: 09/21/2021 STATUS: DEP CLI FAX #: [phone] RAD #: D/C DT PAGE 2 Signed Report - MRI L-SPINE W WO 2021-09-21 CON 13:12:00 [facility] 1955 Sex: M Patient Name: TAMIKA OBREGON Unit No: [id number] EXAMS: CPT CODE: [id number] MRI L-SPINE W WO CON 69000 DIAGNOSIS: 1. At L1-2 there is no [...] disc bulging foramina with moderate right and apfw-yq-ebgwknld left foraminal narrowing. Moderate central canal stenosis [...] EDGARDO SANCHEZ MRI Transcribed D/ (1312) Susan [facility] NAME: TAMIKA OBREGON [address] [facility] PHYS: Angle Shah MD : 1955 AGE: 65 SEX: M [place] [address] LOC: Y.MRI PHONE #: [phone] EXAM DATE: 09/21/2021 STATUS: REG CLI FAX #: [phone] RAD #: D/C DT PAGE 1 Signed Report Patient Name: TAMIKA OBREGON Unit No: [id number] EXAMS: CPT CODE: [id number] MRI L-SPINE W WO CON 40401 (Continued) Orig Print D/T: S: 09/21/2021 (1315) [facility] NAME: TAMIKA OBREGON [address] [place] [address] PHYS: Angel Shah MD : 1955 AGE: 65 SEX: M [place] [address] LOC: Y.MRI PHONE #: [phone] EXAM DATE: 09/21/2021 STATUS: REG CLI FAX #: [phone] RAD #: D/C DT PAGE 2 Signed Report - CT L-SPINE W/O 2020-09-26 CONTRAST 10:23:00 [facility] : 1955 Sex: M Patient Name: TAMIKA OBREGON Unit No: [id number] EXAMS: CPT CODE: [id number] CT L-SPINE W/O CONTRAST 93374 DIAGNOSIS: 1. At L1-2 there is a [...] RT Mike(R) CTDI: DLP: Trnscrpt: 09/26/2020 (1023) t.DANIELLER.[place] [facility] NAME: TAMIKA OBREGON [address] [facility] PHYS: Angel Shah MD : 1955 AGE: 64 SEX: M [place], [place] [address] LOC: YLizRAD PHONE #: [phone] EXAM DATE: 09/26/2020 STATUS: REG CLI FAX #: [phone] RAD #: D/C DT PAGE 1 Signed Report Patient Name: TAMIKA OBREGON Unit No: [id number] EXAMS: CPT CODE: [id number] CT L-SPINE W/O CONTRAST 94853 (Continued) Orig Print D/T: S: 09/26/2020 (1026) [facility] NAME: TAMIKA OBREGON [address] [facility] PHYS: Angel Shah MD : 1955 AGE: 64 SEX: M [place], [place] [address] LOC: Y.RAD PHONE #: [phone] EXAM DATE: 09/26/2020 STATUS: REG CLI FAX #: [phone] RAD #: D/C DT PAGE 2 Signed Report - XR L-SPINE 2020-08-22 W/BEND VIEW 11:44:00 [facility] : 1955 Sex: M Patient Name: TAMIKA OBREGON Unit No: [id number] EXAMS: CPT CODE: [id number] XR L-SPINE W/BEND VIEW 14303 MRI OF THE LUMBAR SPINE WITH AND [...] Reported and signed by: Gonzalo Silvestre MD [facility] NAME: TAMIKA OBREGON [address] [facility] PHYS: Angel Shah MD : 1955 AGE: 64 SEX: M [place], [place] [address] LOC: Y.MRI PHONE #: [phone] EXAM DATE: 08/22/2020 STATUS: REG CLI FAX #: [phone] RAD #: D/C DT PAGE 1 Signed Report (CONTINUED) Patient Name: TAMIKA OBREGON Unit No: [id number] EXAMS: CPT CODE: [id number] XR L-SPINE W/BEND VIEW 35216 (Continued) CC: Angel Chaidez M.D. Technologist: RT. Neetu(R) Transcribed D/ (114) JanetGVG [facility] NAME: TAMIKA OBREGON [address] [place] [address] PHYS: Angel Shah MD : 1955 AGE: 64 SEX: M [place] [address] LOC: Y.MRI PHONE #: [phone] EXAM DATE: 08/22/2020 STATUS: REG CLI FAX #: [phone] RAD #: D/C DT PAGE 2 Signed Report Patient Name: TAMIKA OBREGON Unit No: [id number] EXAMS: CPT CODE: [id number] XR L-SPINE W/BEND VIEW 37338 (Continued) Orig Print D/T: S: 08/22/2020 (1148) [facility] NAME: TAMIKA OBREGON [address] [place] [address] PHYS: Angel Shah MD : 1955 AGE: 64 SEX: M [place] [address] LOC: Y.MRI PHONE #: [phone] EXAM DATE: 08/22/2020 STATUS: REG CLI FAX #: [phone] RAD #: D/C DT PAGE 3 Signed Report - MRI L-SPINE W WO 2020-08-22 CON 11:44:00 [facility] : 1955 Sex: M Patient Name: TAMIKA OBREGON Unit No: [id number] EXAMS: CPT CODE: [id number] MRI L-SPINE W WO CON 72108 MRI OF THE LUMBAR SPINE WITH AND [...] Reported and signed by: Gonzalo Silvestre MD [facility] NAME: TAMIKA OBREGON [address] [facility] PHYS: Angel Shah MD : 1955 AGE: 64 SEX: M [place], [place] [address] LOC: Y.MRI PHONE #: [phone] EXAM DATE: 08/22/2020 STATUS: REG CLI FAX #: [phone] RAD #: D/C DT PAGE 1 Signed Report (CONTINUED) Patient Name: TAMIKA OBREGON Unit No: [id number] EXAMS: CPT CODE: [id number] MRI L-SPINE W WO CON 33036 (Continued) CC: Angel Chaidez M.D. Technologist: Jennifer Woodard(R) Transcribed D/ (1144) BrindaG [facility] NAME: TAMIKA OBREGON [address] [place] [address] PHYS: Angel Shah MD : 1955 AGE: 64 SEX: M [place] [address] LOC: Y.MRI PHONE #: [phone] EXAM DATE: 08/22/2020 STATUS: REG CLI FAX #: [phone] RAD #: D/C DT PAGE 2 Signed Report Patient Name: TAMIKA OBREGON Unit No: [id number] EXAMS: CPT CODE: [id number] MRI L-SPINE W WO CON 47593 (Continued) Orig Print D/T: S: 08/22/2020 (1148) [facility] NAME: TAMIKA OBREGON [address] [place] [address] PHYS: Angel Shah MD : 1955 AGE: 64 SEX: M [place] [address] LOC: Y.MRI PHONE #: [phone] EXAM DATE: 08/22/2020 STATUS: REG CLI FAX #: [phone] RAD #: D/C DT PAGE 3 Signed Report BLOOD UREA NITROGEN 2020-08-22 10:40:00 Test Item Value Reference Range Interpretation Comme nts BLOOD UREA NITROGEN (test code = BUN) 17 mg/dL 7-18 N SPECIMEN COMMENT: STATCREATININE W ESTIMATED [id number] 10:40:00 Test Item Value Reference Range Interpretation Comments GLOMERULAR FILTRATION 70.9 >60 Unit o f measure: RATE (test code = GFR) mL/mi n/1.73 [id number] Range:Healthy A dults >90 mL/min/1.73 m2 For Chronic Kid alfonso Disease: Stage II Mild Decrease i n GFR 60-90 Stage III Moderate Decrea se in GFR 30-59 Stage IV Severe Decrease in GFR 15-29 Stage V Kidney Failure <15 CREATININE (test code = 1.05 mg/dL 0.55-1.30 N CREAT) SPECIMEN COMMENT: STAT- MRI L-SPINE W WO [id number] 09:33:00 Patient Name: TAMIKA OBREGON Unit No: [id number] EXAMS: CPT CODE: [id number] MRI L-SPINE W WO CON 36378 MRI OF THE LUMBAR SPINE WITH AND [...] epidural fibrosis. Moderate bilateral bony foraminal stenosis moresevere on the right. 5. At L5-S1, disc [...] Karolyn Garza, RT(R) Transcribed D/ (0933) JanetGVG [facility] NAME: TAMIKA OBREGON [address] [facility] PHYS: Angel Shah MD : 1955 AGE: 63 SEX: [place], [place] [address] LOC: Y.MRI PHONE #: [phone] EXAM DATE: 04/30/2019 STATUS: DEP CLI FAX #: [phone] RAD #: D/C DT PAGE 1 Signed Report Patient Name: TAMIKA OBREGON Unit No: [id number] EXAMS: CPT CODE: [id number] MRI L-SPINE W WO CON 72885 (Continued) Orig Print D/T: S: 05/01/2019 (0936) [facility] NAME: TAMIKA OBREGON [address] [facility] PHYS: Angel Shah MD : 1955 AGE: 63 SEX: M [place], [place] [address] LOC: Y.MRI PHONE #: [phone] EXAM DATE: 04/30/2019 STATUS: ANASTASIIA CLI FAX #: [phone] RAD #: D/C DT PAGE 2 Signed ReportBLOOD UREA [id number] 11:19:00 Test Item Value Reference Range Interpretation Comments BLOOD UREA NITROGEN (test code = 13 mg/dL 7-18 N BUN) CREATININE W ESTIMATED [id number] 11:19:00 Test Item Value Reference Range Interpretation Comments GLOMERULAR FILTRATION 70.3 >60 Unit o f measure: RATE (test code = GFR) mL/mi n/1.73 [id number] Range:Healthy A dults >90 mL/min/1.73 m2 For Chronic Kid alfonso Disease: Stage II Mild Decrease i n GFR 60-90 Stage III Moderate Decrea se in GFR 30-59 Stage IV Severe Decrease in GFR 15-29 Stage V Kidney Failure <15 CREATININE (test code = 1.06 mg/dL 0.55-1.30 N CREAT) - CT L-SPINE W/O [id number] 09:53:00 Patient Name: TAMIKA OBREGON Unit No: [id number] EXAMS: CPT CODE: [id number] CT L-SPINE W/O CONTRAST 05236 CT SCAN OF THE LUMBAR SPINE WITH RECONSTRUCTION. DIAGNOSES: PAIN 1. At L1-2,mild disc degeneration. Mild central canal stenosis. Moderate left foraminal and mild right foraminal stenosis. 2.At L2-3,no disc bulge or herniation. Mild central [...] RT Mike(R) CTDI: DLP: Trnscrpt: 03/27/2019 (0953) JanetGVG [facility] NAME: TAMIKA OBREGON [address] [facility] PHYS: Angel Shah MD : 1955 AGE: 63 SEX: M [place] [address] LOC: Y.RAD PHONE #: [phone] EXAM DATE: 03/26/2019 STATUS: DEP CLI FAX #: [phone] RAD #: D/C DT PAGE 1 Signed Report Patient Name: TAMIKA OBREGON Unit No: [id number] EXAMS: CPTCODE: [id number] CT L-SPINE W/O CONTRAST 96826 (Continued) Orig Print D/T: S: 03/27/2019 (0956) [facility] NAME: TAMIKA OBREGON [address] [facility] PHYS: Angel Shah MD : 1955 AGE: 63 SEX: [place] [address] LOC: Y.RAD PHONE #: [phone] EXAM DATE: 03/26/2019 STATUS: DEP CLI FAX #: [phone] RAD #: D/C DT PAGE 2 Signed ReportURINALYSIS [id number] 07:16:00 Test Item Value Reference Range Interpretation [...] /LPF NONE SEEN code = AMORU) HGB [id number] 05:50:00 Test Item Value Reference Range Interpretation Comments HEMOGLOBIN (test code = HGB) 12.0 g/dL 12-16 N HEMATOCRIT (test code = HCT) 34.8 % 37-47 L CBC W/AUTO [id number] 05:49:00 Test Item Value Reference Range Interpretation [...] NRBC) - XR SPINE 1 V SPEC [id number] 11:33:00 Patient Name: TAMIKA OBREGON Unit No: [id number] EXAMS: CPT CODE: [id number] XR SPINE 1 V SPEC LEVEL 01193 3 LATERAL INTRAOPERATIVE VIEWS OF THE LUMBAR SPINE Image 1: Surgical markers are at the L3-L4 and L4-L5 levels. Image 2: Surgical instrumentation is at the L4 level Image 3: In progress L4-L5 posterior instrumented fusion without evidence of immediate complication. Interbody graft is well-positioned on lateral view. at 1133 Reported and signed by: Patric Garcia M.D. CC: Angel Chaidez M.D. Technologist: RT MIROSLAVA(R) Transcribed D/ (4383) Astrid [facility] NAME: TAMIKA OBREGON [address] [facility] PHYS: Angel Shah MD : 1955 AGE: 63 SEX: M [place], [place] [address] LOC: Y.505 A PHONE #: [phone] EXAM DATE: 12/30/2018 STATUS: ADM IN FAX #: [phone] RAD #: D/C DT PAGE 1 Signed Report Patient Name: TAMIKA OBREGON Unit No: [id number] EXAMS: CPT CODE: [id number] XR SPINE 1 V SPEC LEVEL 47892 (Continued) Orig Print D/T: S: 12/31/2018 (9586) [facility] NAME: TAMIKA OBREGON [facility] PHYS: Angel Shah MD : 1955 AGE: 63 SEX: M [place], [place] [address] LOC: Y.505 A PHONE #: [phone] EXAM DATE: 12/30/2018 STATUS: ADM IN FAX #: [phone] RAD #: D/C DT PAGE 2 Signed Report- XR SPINE 1 V SPEC [id number] 11:33:00 Patient Name: TAMIKA OBREGON Unit No: [id number] EXAMS: CPT CODE: [id number] XR SPINE 1 V SPEC LEVEL 11955 3 LATERAL INTRAOPERATIVE VIEWS OF THE LUMBAR SPINE Image 1: Surgical markers are at the L 3-L4 and L4-L5 levels. Image 2: Surgical instrumentation is at the L4 level Image 3: In progress L4-L5 posterior instrumented fusion without evidence of immediate complication. Interbody graft is well-positioned on lateral view. at 1133 Reported and signed by: Patric Garcia M.D. CC: Angel Chaidez M.D. Technologist: SHARATH CIFUENTES (RT.R) Transcribed D/ (4788) Astrid [facility] NAME: TAMIKA OBREGON [facility] PHYS: Angel Shah MD : 1955 AGE: 63 SEX: M [place], [place] [address] LOC: Y.505 A PHONE #: [phone] EXAM DATE: 12/30/2018 STATUS: ADM IN FAX #: [phone] RAD #: D/C DT PAGE 1 Signed Report Patient Name: TAMIKA OBREGON UnitNo: [id number] EXAMS: CPT CODE: [id number] XR SPINE 1 V SPEC LEVEL 19824 (Continued) Orig Print D/T: S: 12/31/2018 (1136) [facility] NAME: TAMIKA OBREGON [facility] PHYS: Angel Shah MD : 1955 AGE: 63 SEX: M [place], [place] [address] LOC: Y.505 A PHONE #: [phone] EXAM DATE: 12/30/2018 STATUS: ADM IN FAX #: [phone] RAD #: D/C DT PAGE 2 Signed Report- XR SPINE 1 V SPEC [id number] 11:33:00 Patient Name: TAMIKA OBREGON Unit No: [id number] EXAMS: CPT CODE: [id number] XR SPINE 1 V SPEC LEVEL 51959 3 LATERAL INTRAOPERATIVE VIEWS OF THE LUMBAR SPINE Image 1: Surgical markers are at the L3 -L4 and L4-L5 levels. Image 2: Surgical instrumentation is at the L4 level Image 3: In progress L4-L5 posterior instrumented fusion without evidence of immediate complication. Interbody graft is well-positioned on lateral view. at 1133 Reported and signed by: Patric Garcia M.D. CC: Angel Chaidez M.D. Technologist: STEVEN (RT.R) Transcribed D/ (8493) Astrid [facility] NAME: TAMIKA OBREGON [facility] PHYS: Angel Shah MD : 1955 AGE: 63 SEX: M [place], [place] [address] LOC: Y.505 A PHONE #: [phone] EXAM DATE: 12/30/2018 STATUS: ADM IN FAX #: [phone] RAD #: D/C DT PAGE 1 Signed Report Patient Name: TAMIKA OBREGON Unit No: [id number] EXAMS: CPT CODE: [id number] XR SPINE 1 V SPEC LEVEL 96119 (Continued) Orig Print D/T: S: 12/31/2018 (1136) [facility] [place] [facility] NAME: TAMIKA OBREGON [address] [facility] PHYS: Angel Shah MD : 1955 AGE: 63 SEX: M [place], [place] [address] LOC: Y.505 A PHONE #: [phone] EXAM DATE: 12/30/2018 STATUS: ADM IN FAX #: [phone] RAD #: D/C DT PAGE 2 Signed [id number] 10:43:00 Test Item Value Reference Range Interpretation Comments PLT (test code = PLT) 119 K/mm3 130-400 L BASIC METABOLIC [id number] 06:35:00 Test Item Value Reference Range Interpretation [...] RATE (test code = GFR) mL/mi n/1.73 m9Sjroqnbqj Range:Healthy Adults >90 mL/min/1.73 m2 For Chronic Kidney Disease: Stage II Mild Decrease i n GFR 60-90 Stage III Moderate Decrea se in GFR 30-59 St age IV Severe Decre ase in GFR 15-29 St age V Kidney Failur e <15 CREATININE (test code 0.84 mg/dL 0.55-1.30 N = CREAT) CALCIUM (test code = 9.2 mg/dL 8.2-10.1 N CA) HGB [id number] 05:40:00 Test Item Value Reference Range Interpretation Comments HEMOGLOBIN (test code = HGB) 12.7 g/dL 12-16 N HEMATOCRIT (test code = HCT) 36.0 % 37-47 L ACUTE HEPATITIS [id number] 17:53:00 Test Item Value Reference Range Interpretation [...] 1 (test code NONREACTIVE NONREACTIVE Done by [employer] = HIV1AB) 4th Gen HIV Ag/ Ab Combo Screen ACUTE HEPATITIS [id number] 17:52:00 Test Item Value Reference Range Interpretation [...] 1 2 (test NONREACTIVE NONREACTIVE Done by [employer] code = [id number]) 4th Gen HIV Ag/Ab Combo Screen ACUTE HEPATITIS [id number] 17:52:00 Test Item Value Reference Range Interpretation [...] 1 (test code NONREACTIVE NONREACTIVE Done by [employer] = HIV1AB) 4th Gen HIV Ag/ Ab Combo Screen ACUTE HEPATITIS [id number] 17:51:00 Test Item Value Reference Range Interpretation [...] 1 2 (test NONREACTIVE NONREACTIVE Done by [employer] code = [id number]) 4th Gen HIV Ag/Ab Combo Screen CBC W/AUTO [id number] 09:49:00 Test Item Value Reference Range Interpretation [...] N CELL (test code = NRBC) PROTHROMBIN [id number] 09:32:00 Test Item Value Reference Range Interpretation Comments PROTHROMBIN TIME 12.4 secs 10.1-12.5 N PATIENT (test code = PTP) INTERNATIONAL NORMAL 1.10 <2.0 RECOMME NDED THERAPEUTIC RATIO (test code = RANGE FOR ORAL INR) ANTICOAGULANTTR EATMENT: CONDITION INRPr ophylaxis of venous throm bosis in 2.0 - 3.0 high- risk medical or surg ical patientsTreatme nt of venous thrombos is 2.0 - 3.0Prevention o f embolism 2.0 - 3.0Prevention o f recurrent embol ism, or 3.0 - 4.5 patie nts with mechanical pros thetic intravascular v nickerson IS PATIENT ON ANTICOAGULANTS ? MTas Lab been notified if Patient is on Heparin Drip? NOIf Yes, orderCBC, OCCULT BLOOD, PT every other day NTHROMBOPLASTIN TIME [id number] 09:32:00 Test Item Value Reference Range Interpretation Comments PTT ACTIVATED (test code = APTT) 28.7 secs 24.9-37.0 N IS PATIENT ON ANTICOAGULANTS ? NHas Lab been notified if Patient is on Heparin Drip? NOIf Yes, orderCBC, OCCULT BLOOD, PT every other day NBASIC METABOLIC [id number] 09:32:00 Test Item Value Reference Range Interpretation [...] RATE (test code = GFR) mL/mi n/1.73 [id number] Range:Healthy Adults >90 mL/min/1.73 m2 For Chronic Kidney Disease: Stage II Mild Decrease i n GFR 60-90 Stage III Moderate Decrea se in GFR 30-59 St age IV Severe Decre ase in GFR 15-29 St age V Kidney Failur e <15 CREATININE (test code 1.00 mg/dL 0.55-1.30 N = CREAT) CALCIUM (test code = 9.1 mg/dL 8.2-10.1 N CA)
[2022-07-01] MEDS ORDERED: NA CHLORIDE 0.9% 0 ML ONE (12:01)
[2022-07-01] MEDS ORDERED: NA CHLORIDE 0.9% 1,000 ML ONE (12:06)
[2022-07-01 12:14] LABS: Absolute Lymphocytes (CBC) 1.4 K/uL (0.7-4.9); Hematocrit 42.6 % (39.6-49.0); Lymphocytes % 26.9 % (15.3-44.8); MCV 87.7 fL (80-100); MPV 8.2 fL (7.6-11.3); RBC Red Blood Cell Count 4.86 M/uL (4.33-5.43)
[2022-07-01 12:16] LABS: Protime INR 1.07
[2022-07-01 12:24] LABS: SARS-CoV-2 Antigen Rapid Res Negative (Negative)
[2022-07-01 12:27] LABS: Magnesium 2.6 mg/dL (1.8-2.4); Potassium 3.9 mmol/L (3.5-5.1)
[2022-07-01 12:36] LABS: Bilirubin Direct 0.1 mg/dL (0-0.2); Bilirubin Total 0.3 mg/dL (0.2-1.0); Protein, Total 7.4 g/dL (6.4-8.2); Troponin High Sensitivity 5.6 pg/mL (<58.9)
--- NOTE | 2022-07-01 12:45 | RAD REPORT ---
EXAM DESCRIPTION: RAD - Chest Single View - 07/01/2022 12:32 pm CLINICAL HISTORY: ABDOMINAL DISTENTION Chest pain. COMPARISON: Chest Pa And Lat (2 Views) dated 04/18/2022; Chest Single View dated 12/06/2019; Chest Pa And Lat (2 Views) dated 09/25/2017; CHEST PA AND LAT 2 VIEW dated 07/07/2014 FINDINGS: Portable technique limits examination quality. The lungs are grossly clear. The heart is normal in size. No displaced fractures.Sternotomy wires. IMPRESSION: No acute intrathoracic process suspected.
[2022-07-01 12:48] LABS: Urine Blood Negative (Negative); Urine Glucose Negative (Negative); Urine Protein Negative (Negative)
[2022-07-01 13:24] LABS: Urine Bacteria <20 /HPF (<20); Urine Mucus Slight /HPF (None Seen); Urine RBC <5 /HPF (None Seen)
--- NOTE | 2022-07-01 14:06 | RAD REPORT ---
EXAM DESCRIPTION: CT - CT ANGIO ABD/PELVIS W CONTRAST - 07/01/2022 1:52 pm CLINICAL HISTORY: Abdominal pain COMPARISON: None. TECHNIQUE: Dynamically enhanced 3 mm thick images of the abdomen and pelvis were obtained during adm inistration of approximately 150mL Isovue 370 IV contrast. Sagittal and coronal reconstruction images were generated and reviewed. Exam utilizes a protocol to evaluate abdominal and pelvic vasculature. All CT scans are performed using dose optimization technique as appropriate and may include automated exposure control or mA/KV adjustment according to patient size. FINDINGS: Abdominal aorta is normal in diameter with no dissection or other acute aortic findings. R econstruction images show no significant findings. Atherosclerosis, moderately severe seen at the origin of the SMA and YOANDY. Moderate atherosclerotic os tial plaquing is seen origin of both renal arteries. Accessory left renal artery is present. Moderate atherosclerosis seen inferior abdominal aorta and both iliac vessels. Inferior lung deleon appear clear. Cholecystectomy clips. The liver, spleen, pancreas, adrenal glands kidneys are within normal limits. No bowel obstruction seen. No free air or free fluid collections. Moderate stool is present throughout the colon. Orthopedic hardware is present in the lower lumbar spine. IMPRESSION: Moderate atherosclerotic vascular calcification is seen of the abdominal aorta in origin of the major visceral arteries. There is no large vessel occlusion seen. No findings that raise susp icion for ischemic bowel. No acute vascular finding.
--- NOTE | 2022-07-01 14:23 | EDPHYS ---
Physician Documentation [facility] Name: William Osuna Age: 66 yrs Sex: Male : 1955 Arrival Date: 07/01/2022 Time: 11:15 Bed 7 Private MD: Marquis Mackenzie C ED Physician Devaughn Avila HPI: 07/01 13:12 This 66 yrs old Male presents to ER via Ambulatory with complaints of gregory Abdominal Pain. 13:12 The patient presents with abdominal pain in the upper abdomen, in the lower abdomen. gregory Onset: The symptoms/episode began/occurred 3 day(s) ago. The symptoms do not radiate. Associated signs and symptoms: Pertinent positives:. The symptoms are described as crampy. Modifying factors: The symptoms are alleviated by remaining still, the symptoms are aggravated by movement. Severity of pain: At its worst the pain was mild in the emergency department the pain is unchanged. The patient has not experienced similar symptoms in the past. Historical: - Allergies: 11:36 Codeine; ll1 11:36 PENICILLINS; ll1 - PMHx: 11:36 cardiac stent; Hypertensive disorder; ll1 - PSHx: 11:36 Back x2; brain aneurysm; CABG; Cholecystectomy; ll1 - Immunization history:: Adult Immunizations up to date. - Family history:: not pertinent. - Social history:: Smoking status: Patient denies any tobacco usage or history of. ROS: 13:12 Constitutional: Negative for fever, chills, and weight loss, Eyes: Negative for injury, gregory pain, redness, and discharge, ENT: Negative for injury, pain, and discharge, Neck: Negative for injury, pain, and swelling, Cardiovascular: Negative for chest pain, palpitations, and edema, Respiratory: Negative for shortness of breath, cough, wheezing, and pleuritic chest pain, Back: Negative for injury and pain, : Negative for injury, bleeding, discharge, and swelling, MS/Extremity: Negative for injury and deformity, Skin: Negative for injury, rash, and discoloration, Neuro: Negative for headache, weakness, numbness, tingling, and seizure, Psych: Negative for depression, anxiety, suicide ideation, homicidal ideation, and hallucinations, Allergy/Immunology: Negative for hives, rash, and allergies, Endocrine: Negative for neck swelling, polydipsia, polyuria, polyphagia, and marked weight changes. 13:12 Abdomen/GI: Positive for abdominal pain, constipation, of the right upper quadrant, left upper quadrant, right lower quadrant and left lower quadrant. Exam: 13:12 Constitutional: This is a well developed, well nourished patient who is awake, alert, gregory and in no acute distress. Head/Face: Normocephalic, atraumatic. Eyes: Pupils equal round and reactive to light, extra-ocular motions intact. Lids and lashes normal. Conjunctiva and sclera are non-icteric and not injected. Cornea within normal limits. Periorbital areas with no swelling, redness, or edema. ENT: Nares patent. No nasal discharge, no septal abnormalities noted. Tympanic membranes are normal and external auditory canals are clear. Oropharynx with no redness, swelling, or masses, exudates, or evidence of obstruction, uvula midline. Mucous membranes moist. Neck: Trachea midline, no thyromegaly or masses palpated, and no cervical lymphadenopathy. Supple, full range of motion without nuchal rigidity, or vertebral point tenderness. No Meningismus. Chest/axilla: Normal chest wall appearance and motion. Nontender with no deformity. No lesions are appreciated. Cardiovascular: Regular rate and rhythm with a normal S1 and S2. No gallops, murmurs, or rubs. Normal PMI, no JVD. No pulse deficits. Respiratory: Lungs have equal breath sounds bilaterally, clear to auscultation and percussion. No rales, rhonchi or wheezes noted. No increased work of breathing, no retractions or nasal flaring. Back: No spinal tenderness. No costovertebral tenderness. Full range of motion. Male : Normal genitalia with no discharge or lesions. Skin: Warm, dry with normal turgor. Normal color with no rashes, no lesions, and no evidence of cellulitis. MS/ Extremity: Pulses equal, no cyanosis. Neurovascular intact. Full, normal range of motion. Neuro: Awake and alert, GCS 15, oriented to person, place, time, and situation. Cranial nerves II-XII grossly intact. Motor strength 5/5 in all extremities. Sensory grossly intact. Cerebellar exam normal. Normal gait. Psych: Awake, alert, with orientation to person, place and time. Behavior, mood, and affect are within normal limits. 13:12 sinus, pvc, no st changes 13:12 Abdomen/GI: Inspection: abdomen appears normal, Bowel sounds: active, Palpation: nontender, Liver: no appreciated palpable abnormalities, Hernia: not appreciated. Vital Signs: 11:37 BP 166 / 77; Pulse 92; Resp 16; Pulse Ox 100% on R/A; kr3 15:22 BP 161 / 68; Pulse 92; Resp 17; Temp 98.0; Pain 0/10; ll1 MDM: 11:32 [address] [facility] 13:16 Differential diagnosis: diverticulitis, gastritis, gastroesophageal reflux disease, gregory non-specific abd pain, pancreatitis, Peptic Ulcer Disease, Pyelonephritis, urinary tract infection. Data reviewed: vital signs, nurses notes, lab test result(s), EKG, radiologic studies, CT scan, plain films. Data interpreted: distribution tech: rate is 92 beats/min, rhythm is regular, Pulse oximetry: on room air is 100 %. Test interpretation: by ED physician or midlevel provider: ECG, plain radiologic studies. Counseling: I had a detailed discussion with the patient and/or guardian regarding: the historical points, exam findings, and any diagnostic results supporting the discharge/admit diagnosis, lab results, radiology results. 07/01 11:44 Order name: Basic Metabolic Panel; Complete Time: 13: [facility] 07/01 11:44 Order name: CBC with Diff; Complete Time: 12:[address] [facility] 07/01 11:44 Order name: LFT's; Complete Time: 13: [facility] 07/01 11:44 Order name: Magnesium; Complete Time: 13: [facility] 07/01 11:44 Order name: NT PRO-BNP; Complete Time: 13: [facility] 07/01 11:44 Order name: PT-INR; Complete Time: 12:[address] [facility] 07/01 11:44 Order name: Troponin HS; Complete Time: 13: [facility] 07/01 11:44 Order name: XRAY Chest (1 view); Complete Time: 13: [facility] 07/01 11:44 Order name: Lipase; Complete Time: 13: [facility] 07/01 11:44 Order name: Lactate; Complete Time: 12:[address] [facility] 07/01 11:44 Order name: Urine Microscopic Only; Complete Time: 13:[address] [facility] 07/01 11:45 Order name: SARS RAPID; Complete Time: 12:[address] [facility] 07/01 12:48 Order name: Urine Dipstick-Ancillary; Complete Time: 13:09 EDMS 07/01 11:44 Order name: EKG; Complete Time: 11:[address] [facility] 07/01 11:44 Order name: Cardiac monitoring; Complete Time: 11:[address] [facility] 07/01 11:44 Order name: EKG - Nurse/Tech; Complete Time: 11:[address] [facility] 07/01 11:44 Order name: IV Saline Lock; Complete Time: 12:[address] [facility] 07/01 11:44 Order name: Labs collected and sent; Complete Time: 12:[address] [facility] 07/01 11:44 Order name: O2 Per Protocol; Complete Time: 11:[address] [facility] 07/01 11:44 Order name: O2 Sat Monitoring; Complete Time: 11:[address] [facility] 07/01 11:44 Order name: Urine Dipstick-Ancillary (obtain specimen); Complete Time: 12:[address] [facility] 07/01 13:28 Order name: CT ANGIO ABD/PELVIS W CONTRAST; Complete Time: 14:20 EDMS Administered Medications: 12:11 Drug: NS 0.9% 1000 ml Route: IV; Rate: 125 ml/hr; Site: right antecubital; kr3 15:28 Follow up: Response: No adverse reaction; IV Status: Completed infusion; IV Intake: ll1 125ml 13:20 Drug: NS 0.9% 1000 ml Route: IV; Rate: 1 bolus; Site: right forearm; kr3 15:28 Follow up: Response: No adverse reaction; IV Status: Completed infusion; IV Intake: ll1 1000ml Disposition Summary: 07/01/22 14:22 Discharge Ordered Location: Home gregory Problem: new gregory Symptoms: have improved gregory Condition: Stable gregory Diagnosis - Abdominal pain, Generalized gregory - Constipation gregory Followup: gregory - With: - When: 2 - 3 days - Reason: Recheck today's complaints, Continuance of care, Re-evaluation by your physician Followup: gregory - With: - When: 2 - 3 days - Reason: Recheck today's complaints, Continuance of care, Re-evaluation by your physician Discharge Instructions: - Discharge Summary Sheet gregory - Abdominal Pain, Adult gregory - Abdominal Pain, Adult, [id number] gregory Forms: - Medication Reconciliation Form gregory - Thank You Letter gregory - Antibiotic Education gregory - Prescription Opioid Use gregory Prescriptions: - Pepcid 20 mg Oral Tablet - take 1 tablet by ORAL route every 12 hours for 10 days; 20 tablet; Refills: 0, [facility] Product Selection Permitted - Zofran 4 mg Oral Tablet - take 1 tablet by ORAL route every 12 hours As needed; 20 tablet; Refills: 0, [facility] Product Selection Permitted - dicyclomine 20 mg Oral Tablet - take 1 tablet by ORAL route 4 times per day; 28 tablet; Refills: 0, Product [facility] Selection Permitted Signatures: Dispatcher [employer] Devaughn Martinez MD MD cha Lewis, Lynsay RN RN ll1 Estee Harrison RN RN kr3 Corrections: (The following items were deleted from the chart) 13:28 13:22 Abdomen Angio+CT.RAD.BRZ ordered. EDRI EDMS
--- NOTE | 2022-07-01 14:23 | ER ---
Nurse's Notes [facility] Name: William Osuna Age: 66 yrs Sex: Male : 1955 Arrival Date: 07/01/2022 Time: 11:15 Bed 7 Private MD: Marquis Mackenzie C Diagnosis: Abdominal pain, Generalized;Constipation Presentation: 07/01 11:36 Ebola Screen: Patient denies travel to an Ebola-affected area in the 21 days before ll1 illness onset. Risk Assessment: Do you want to hurt yourself or someone else? Patient reports no desire to harm self or others. 11:36 Acuity: FARHAD 3 ll1 11:36 Method Of Arrival: Ambulatory ll1 11:37 Chief complaint: Patient states: abdominal pain last 2 months that was worse this kr3 morning. Coronavirus screen: Vaccine status: Patient reports receiving the 2nd dose of the covid vaccine. Client denies travel out of the [place] in the last 14 days. Ebola Screen: Patient denies travel to an Ebola-affected area in the 21 days before illness onset. Initial Sepsis Screen: Does the patient meet any 2 criteria? No. Patient's initial sepsis screen is negative. Does the patient have a suspected source of infection? Yes: Acute abdominal pain. Onset of symptoms was July 01, 2022. Triage Assessment: 11:39 General: Appears in no apparent distress. comfortable, Behavior is calm, cooperative, kr3 appropriate for age. Pain: Complains of pain in abdomen. GI: Abdomen is round non-distended. Historical: - Allergies: 11:36 Codeine; ll1 11:36 PENICILLINS; ll1 - PMHx: 11:36 cardiac stent; Hypertensive disorder; ll1 - PSHx: 11:36 Back x2; brain aneurysm; CABG; Cholecystectomy; ll1 - Immunization history:: Adult Immunizations up to date. - Family history:: not pertinent. - Social history:: Smoking status: Patient denies any tobacco usage or history of. Screenin:20 Abuse screen: Denies threats or abuse. Nutritional screening: No deficits noted. ll1 Tuberculosis screening: No symptoms or risk factors identified. Fall Risk IV access (20 points). Total Chavez Fall Scale indicates No Risk (0-24 pts). Assessment: 12:30 Reassessment: No changes from previously documented assessment. Patient and/or family ll1 updated on plan of care and expected duration. Pain level reassessed. 13:05 Reassessment: No changes from previously documented assessment. Dr. Avila at ll1 going over results. 13:42 Reassessment: No changes from previously documented assessment. to CT via wheelchair. ll1 14:00 GI: Bowel sounds present X 4 quads. Abd is soft and non tender X 4 quads. ll1 14:35 Reassessment: No changes from previously documented assessment. Patient and/or family ll1 updated on plan of care and expected duration. Pain level reassessed. 15:20 Reassessment: No changes from previously documented assessment. Patient and/or family ll1 updated on plan of care and expected duration. Pain level reassessed. Vital Signs: 11:37 BP 166 / 77; Pulse 92; Resp 16; Pulse Ox 100% on R/A; kr3 15:22 BP 161 / 68; Pulse 92; Resp 17; Temp 98.0; Pain 0/10; ll1 ED Course: 11:15 Patient arrived in ED. rg4 11:15 Marquis Mackenzie MD is Private Physician. rg4 11:32 Devaughn Avila MD is Attending Physician. gregory 11:35 Arm band placed on Patient placed in an exam room, on a stretcher. ll1 11:36 Triage completed. ll1 11:37 Estee Harrison, RN is Primary Nurse. kr3 12:09 Inserted saline lock: 20 gauge in right antecubital area, using aseptic technique. kr3 Blood collected. 12:10 SARS RAPID Sent. kr3 12:11 Lactate Sent. kr3 12:12 Basic Metabolic Panel Sent. kr3 12:12 CBC with Diff Sent. kr3 12:12 LFT's Sent. kr3 12:12 Magnesium Sent. kr3 12:12 NT PRO-BNP Sent. kr3 12:12 PT-INR Sent. kr3 12:12 Troponin HS Sent. kr3 12:12 Lipase Sent. kr3 12:15 Bed in low position. Call light in reach. Side rails up X 1. kr3 12:34 XRAY Chest (1 view) In Process Unspecified. EDMS 13:54 CT ANGIO ABD/PELVIS W CONTRAST In Process Unspecified. EDMS 14:21 Marquis Mackenzie MD is Referral Physician. gregory 14:21 Jayleen Nugent MD is Referral Physician. [facility] 15:27 No provider procedures requiring assistance completed. IV discontinued, intact, ll1 bleeding controlled, No redness/swelling at site. Pressure dressing applied. Administered Medications: 12:11 Drug: NS 0.9% 1000 ml Route: IV; Rate: 125 ml/hr; Site: right antecubital; kr3 15:28 Follow up: Response: No adverse reaction; IV Status: Completed infusion; IV Intake: ll1 125ml 13:20 Drug: NS 0.9% 1000 ml Route: IV; Rate: 1 bolus; Site: right forearm; kr3 15:28 Follow up: Response: No adverse reaction; IV Status: Completed infusion; IV Intake: ll1 1000ml Medication: 15:30 VIS not applicable for this client. ll1 Intake: 15:28 IV: 1000ml; Total: 1000ml. ll1 15:28 IV: 125ml; Total: 1125ml. ll1 Outcome: 14:22 Discharge ordered by MD. gregory 15:23 Patient left the ED. kr3 15:23 Discharged to home ambulatory. ll1 15:23 Condition: stable 15:23 Discharge instructions given to patient, family, Instructed on discharge instructions, follow up and referral plans. medication usage, Demonstrated understanding of instructions, follow-up care, medications, Prescriptions given X 3. Signatures: Dispatcher [employer] EDMS Devaughn Avila MD MD cha Garcia, Rubi rg4 Garett Streeter RN RN ll1 Estee Harrison, BRADLY RN kr3 Corrections: (The following items were deleted from the chart) 12:15 12:13 Inserted saline lock: 20 gauge in right antecubital area, using aseptic kr3 technique. Blood collected. kr3 15:28 15:22 BP 161 / 68; Pulse 92bpm; Resp 17bpm; Pain 0/10; ll1 ll1
--- NOTE | 2022-07-02 05:39 | EKG ---
Test Date: 2022-07-01 Test Time: 11:55:50 Photographic Developer And Printer: ABELARDO MEASUREMENT RESULTS: Intervals: Rate: 82 NJ: 148 QRSD: 104 QT: 380 QTc: 443 Irons: P: 31 NJ: 148 QRS: 48 T: 63 INTERPRETIVE STATEMENTS: Sinus rhythm with frequent premature ventricular complexes Otherwise normal ECG Compared to ECG 03/11/2022 19:01:54 Ventricular premature complex(es) now present Electronically Signed On 07-02-22 05:37:51 CDT by Talib Grover
== END 2022-07-01 15:23 | disposition home or self-care (01) ==
LOC: ER 11:14
DX: K59.00 Constipation, unspecified (principal); Z20.822 Contact with and (suspected) exposure to COVID-19
CPT/HCPCS: 96361; 93005; 85025; 80048; 36415; 83735; 85610; 80076; 83605; 84484; 83690; 83880; 71045; 74174; 96360; 99284; 87811; Q9967; J7030; 81003; 81015

== ENCOUNTER 2022-07-02 08:41 | Emergency (ER) | payer OTHER, BC ==
--- OUTSIDE RECORDS SUMMARY | 2022-07-02 08:45 | XMS REPORT | Continuity of Care Document ---
:1955 Author Organization [facility] t Address [address] [place] [address] Care Team Providers Name Role Phone CARINA PARKER Primary Care Physician Unavailable CRISTOBAL READ Attending Clinician Unavailable Angel Chaidez Attending Clinician Unavailable Pablo Dunbar MD Attending Clinician CRISTOBAL READ Admitting Clinician Unavailable Angel Chaidez Admitting Clinician Unavailable Physician, No Primary or Family Admitting Clinician Unavaila ble Payers Payer Name Policy Type Policy Number Effective Date Expiration Date S our MEDICARE PART A \T\ [id number] 2019 B 00:00:00 BCBS TRADITIONAL [id number] 2019 00:00:00 Problems Condition Condition Condition Status Onset Resolution Last Treating Co mments Source Name Details Category Date Date Treatment Clinician Date No known No known Disease Unive rs active active ity of problems problems [facility] Allergies, Adverse Reactions, Alerts Allergy Allergy Status Severity Reaction(s) Onset Inactive Treating Comm ents Source Name Type Date Date Clinician Penicill DA Active SV RASHES 2021-1 [facility] ins [facility]- [place] [facility] [place] 2020- [facility] [place] [facility] Penicill DA Active SV 2019-0 [facility] ins 7-11 [place] 00:[facility]: [facility] [place] 2019-0 [facility] 7-11 [place] 00:[place] [facility] levoflox [place] Active [place] 2019-0 [facility] acin 7-11 [place] 00:00: [facility] 00 [facility] Penicill DA Active SV RASHES 2019-0 [facility] ins 7-11 [place] 00:00: [facility] 00 [facility] codeine DA Active [place] RASHES, 2019-0 [facility] [place] [facility] levoflox [place] NAUSEA 2019-0 [facility] acin 7-11 [place] 00:00: [facility] 00 [facility] Penicill DA Active SV 2019-0 [facility] ins 3-12 [facility] [place] codeine [place] 2019-0 [facility] 3-12 [facility] [place] lev[place]ox [place] 2019-0 [facility] acin 3-12 [facility]: [facility] [place] Penicill DA Active SV 2019-0 [facility] ins 3-11 [facility]: [facility] [place] codeine [place] 2019-0 [facility] 3-11 [facility] [place] levoflox DA Active [place] 2018-1 [facility] acin 1-27 [facility] [place] Penicill DA Active SV 2018-1 [facility] ins 1-27 [place] 00:00: [facility] 00 [facility] codeine [place] 2018-1 [facility] 1-27 [place] 00:00: [facility] 00 [facility] LEVOFLOX DRUG Active N/V 2017-0 [facility] ACIN INGREDI 05-23 ity of 00:00: [...] Penicill DA Active SV [facility] ins 11-01 [place] 00:00: [facility] 00 [facility] [place]ine [place] [facility] 11-01 [place] 00:[place]: [facility] 00 [facility] levoflox DA Active [place] [facility] acin 11-01 [place] 00:00: [facility] 00 [facility] Social History Social Habit Start Date Stop Date Quantity Comments Source Sex Assigned At [birth year] [facility] 00:00:00 00:00:00 Medical Branch Smoking Status Start Date Stop Date Source Unknown if ever smoked [facility] Medications Ordered Filled Start Stop Current Ordering Indication Dosage Frequency Signature Comments Components Source Medication Medication Date Date Medication? Clinician (SIG) Name Name diazePAM 5 2020-10 Yes [id number] 5mg Take 1 [facility] mg tablet 2-01 tablet by ity o f 00:00: mouth as needed for Medical Anxiety Branch (take on tablet 30 minutes before procedure and then 1 tablet, if needed, when waiting to have procedure) . aspirin 81 2020-10 Yes 81mg Take 81 mg U nivers mg chewable 0-12 by mouth. ity of tablet 08:16: [place] [facility] tamsulosin 2020-10 Yes Take by Univ ers 0.4 mg 24 0-12 mouth ity of hr capsule 08:16: daily. [place] [facility] amLODIPine 2020-10 Yes 5mg Take 5 mg Un jagdeep 5 mg tablet 0-06 by mouth 2 it y of 00:00: (two) [place] times Medical daily. Branch clopidogreL 2020-10 Yes [...] Facility Department ID 2021-10-27 Outpatient R [facility] [id number] Univers 15:53:41 ECRISTOBAL ity of [facility] 2021-11-07 2021-11-07 Outpatient R [facility] [id number] Univers 08:30:00 08:30:00 [id number] ity [facility] 2021-11-07 2021-11-07 Outpatient R CAIL[facility] [id number] Univers 08:30:00 08:30:00 CRISTOBAL [place] o f [facility] 2021-09-21 2021-09-21 Outpatient LEV ChoeANTOINE RADI [id number] [facility] 08:45:00 08:45:00 Angel 27 [place] [facility] 2021-09-11 2021-09-11 Telephone Bettina [facility] [id number] [facility] 00:00:00 00:00:00 [id number] [id number] Michael as CARLOS A?BLEA [phone] Sd dical [place] [id number] [facility] 2020-09-26 2020-09-26 Outpatient LEV ChaidezANTOINE RADI [id number] 199 [facility] 08:30:00 08:30:00 Angel 00 [place] [facility] 2020-08-22 2020-08-22 Outpatient JOHNNY Chaidez RADI [id number] [facility] 10:00:00 10:00:00 Angel 75 [place] [facility] Results Test Description Test Time Test Comments Results Result [facility] e Comments - XR L-SPINE 2021-09-25 W/BEND VIEW 19:48:00 [facility] : 1955 Sex: M Patient Name: TAMIKA OBREGON Unit No: [id number] EXAMS: CPT CODE: [id number] XR L-SPINE W/BEND VIEW 19960 COMPARISON: Concurrent MRI. IMAGES PROVIDED: 8 views [...] M.D. Technologist: RT. Neetu(R) Transcribed D/ (1947) JanetJ [facility] [place] [facility] NAME: TAMIKA OBREGON [address] [place] [address] PHYS: Angel Shah MD : 1955 AGE: 65 SEX: M [place] [address] LOC: Y.MRI PHONE #: [phone] EXAM DATE: 09/21/2021 STATUS: DEP CLI FAX #: [phone] RAD #: D/C DT PAGE 1 Signed Report Patient Name: TAMIKA OBREGON Unit No: [id number] EXAMS: CPT CODE: [id number] XR L-SPINE W/BEND VIEW 06205 (Continued) Orig Print D/T: S: 09/25/2021 (1950) [facility] [place] [facility] NAME: TAMIKA OBREGON [address] [place] [address] PHYS: Angel Shah MD : 1955 AGE: 65 SEX: M [place] [address] LOC: Y.MRI PHONE #: [phone] EXAM DATE: 09/21/2021 STATUS: DEP CLI FAX #: [phone] RAD #: D/C DT PAGE 2 Signed Report - MRI L-SPINE W WO 2021-09-21 [facility] 13:12:00 [facility] 1955 Sex: M Patient Name: TAMIKA OBREGON Unit No: [id number] EXAMS: CPT CODE: [id number] MRI L-SPINE W [place] 71845 DIAGNOSIS: 1. At L1-2 there is no [...] disc bulging foramina with moderate right and xscb-sx-vivogcfa left foraminal narrowing. Moderate central canal stenosis [...] EDGARDO SANCHEZ MRI Transcribed D/ (1312) Susan [facility] [place] [facility] NAME: TAMIKA OBREGON [address] [facility] PHYS: Angel Shah MD : 1955 AGE: 65 SEX: M [place] [address] LOC: Y.MRI PHONE #: [phone] EXAM DATE: 09/21/2021 STATUS: REG CLI FAX #: [phone] RAD #: D/C DT PAGE 1 Signed Report Patient Name: TAMIKA OBREGON Unit No: [id number] EXAMS: CPT CODE: [id number] MRI L-SPINE W WO CON 63052 (Continued) Orig Print D/T: S: 09/21/2021 (1315) [facility] [place] [facility] NAME: TAMIKA OBREGON [address] [place] [address] PHYS: Angel Shah MD : 1955 AGE: 65 SEX: M [place] [address] LOC: Y.MRI PHONE #: [phone] EXAM DATE: 09/21/2021 STATUS: REG CLI FAX #: [phone] RAD #: D/C DT PAGE 2 Signed Report - CT L-SPINE W/O 2020-09-26 CONTRAST 10:23:00 [facility] : 1955 Sex: M Patient Name: TAMIKA OBREGON Unit No: [id number] EXAMS: CPT CODE: [id number] CT L-SPINE W/O CONTRAST 45767 DIAGNOSIS: 1. At L1-2 there is a [...] MD CC: Angel Chaidez M.D. Technologist: RT iMke(R) CTDI: DLP: Trnscrpt: 09/26/2020 (1023) t.SUSAN.[facility] NAME: TAMIKA OBREGON [address] [facility] PHYS: Angel Shah MD : 1955 AGE: 64 SEX: M [place], [place] [address] LOC: YLizRAD PHONE #: [phone] EXAM DATE: 09/26/2020 STATUS: REG CLI FAX #: [phone] RAD #: D/C DT PAGE 1 Signed Report Patient Name: TAMIKA OBREGON Unit No: [id number] EXAMS: CPT CODE: [id number] CT L-SPINE W/O CONTRAST 64863 (Continued) Orig Print D/T: S: 09/26/2020 (1026) [facility] NAME: TAMIKA OBREGON [address] [facility] PHYS: Angel Shah MD : 1955 AGE: 64 SEX: M [place], [place] [address] LOC: Y.RAD PHONE #: [phone] EXAM DATE: 09/26/2020 STATUS: REG CLI FAX #: [phone] RAD #: D/C DT PAGE 2 Signed Report - XR L-SPINE 2020-08-22 W/BEND VIEW 11:44:00 [facility] : 1955 Sex: M Patient Name: TAMIKA OBREGON Unit No: [id number] EXAMS: CPT CODE: [id number] XR L-SPINE W/BEND VIEW 63064 MRI OF THE LUMBAR SPINE WITH AND [...] Reported and signed by: Gonzalo Silvestre MD [facility] NAME: TAMIKA OBREGON [address] [facility] PHYS: Angel Shah MD : 1955 AGE: 64 SEX: M [place], [place] [address] LOC: Y.MRI PHONE #: [phone] EXAM DATE: 08/22/2020 STATUS: REG CLI FAX #: [phone] RAD #: D/C DT PAGE 1 Signed Report (CONTINUED) Patient Name: TAMIKA OBREGON Unit No: [id number] EXAMS: CPT CODE: [id number] XR L-SPINE W/BEND VIEW 33434 (Continued) CC: Angel Chaidez M.D. Technologist: RT. Neetu(R) Transcribed D/ (114) JanetGVG [facility] [place] [facility] NAME: TAMIKA OBREGON [address] [place] [address] PHYS: Angel Shah MD : 1955 AGE: 64 SEX: M [place] [address] LOC: Y.MRI PHONE #: [phone] EXAM DATE: 08/22/2020 STATUS: REG CLI FAX #: [phone] RAD #: D/C DT PAGE 2 Signed Report Patient Name: TAMIKA OBREGON Unit No: [id number] EXAMS: CPT CODE: [id number] XR L-SPINE W/BEND VIEW 61034 (Continued) Orig Print D/T: S: 08/22/2020 (1148) [facility] [place] [facility] NAME: TAMIKA OBREGON [address] [place] [address] PHYS: Angel Shah MD : 1955 AGE: 64 SEX: M [place] [address] LOC: Y.MRI PHONE #: [phone] EXAM DATE: 08/22/2020 STATUS: REG CLI FAX #: [phone] RAD #: D/C DT PAGE 3 Signed Report - MRI L-SPINE W WO 2020-08-22 CON 11:44:00 [facility] : 1955 Sex: M Patient Name: TAMIKA OBREGON Unit No: [id number] EXAMS: CPT CODE: [id number] MRI L-SPINE W WO CON 73195 MRI OF THE LUMBAR SPINE WITH AND [...] Reported and signed by: Gonzalo Silvestre MD [facility] NAME: TAMIKA OBREGON [address] [facility] PHYS: Angel Shah MD : 1955 AGE: 64 SEX: M [place], [place] [address] LOC: Y.MRI PHONE #: [phone] EXAM DATE: 08/22/2020 STATUS: REG CLI FAX #: [phone] RAD #: D/C DT PAGE 1 Signed Report (CONTINUED) Patient Name: TAMIKA OBREGON Unit No: [id number] EXAMS: CPT CODE: [id number] MRI L-SPINE W WO CON 61849 (Continued) CC: Angel Chaidez M.D. Technologist: Jennifer Woodard(R) Transcribed D/ (1144) JanetGVG [facility] [place] [facility] NAME: TAMIKA OBREGON [address] [place] [address] PHYS: Angel Shah MD : 1955 AGE: 64 SEX: M [place] [address] LOC: Y.MRI PHONE #: [phone] EXAM DATE: 08/22/2020 STATUS: REG CLI FAX #: [phone] RAD #: D/C DT PAGE 2 Signed Report Patient Name: TAMIKA OBREGON Unit No: [id number] EXAMS: CPT CODE: [id number] MRI L-SPINE W [place] CON 32144 (Continued) Orig Print D/T: S: 08/22/2020 (1148) [facility] [place] [facility] NAME: TAMIKA OBREGON [address] [place] [address] PHYS: Angel Shah MD : 1955 AGE: 64 SEX: M [place] [address] LOC: Y.MRI PHONE #: [phone] EXAM DATE: 08/22/2020 STATUS: REG CLI FAX #: [phone] RAD #: D/C DT PAGE 3 Signed Report BLOOD UREA NITROGEN 2020-08-22 10:40:00 Test Item Value Reference Range Interpretation Comme nts BLOOD UREA NITROGEN (test code = BUN) 17 mg/dL 7-18 N SPECIMEN COMMENT: STATCREATININE W ESTIMATED [id number] 10:40:00 Test Item Value Reference Range Interpretation Comments GLOMERULAR FILTRATION 70.9 >60 Unit o f measure: RATE (test code = GFR) mL/mi n/1.73 [id number] Range:Healthy A dults >90 mL/min/1.73 m2 For Chronic Kid alfonso Disease: Stage II Mild Decrease i n GFR 60-90 Stage III Moderate Decrea se in GFR 30-59 Stage IV Severe Decrease in GFR 15-29 Stage V Kidney Failure <15 CREATININE (test code = 1.05 mg/dL 0.55-1.30 N CREAT) SPECIMEN COMMENT: STAT- MRI L-SPINE W WO [id number] 09:33:00 Patient Name: TAMIKA OBREGON Unit No: [id number] EXAMS: CPT CODE: [id number] MRI L-SPINE W WO CON 51379 MRI OF THE LUMBAR SPINE WITH AND [...] Moderate facet arthropathy. Mild to moderate bilateral foraminalstenosis. COMMENT: COMPARISON: The current exam is compared to a previous exam dated September 27, 2016. Sagittal and axial T1 weighted pre- and postcontrast, sagittal and axial T2, sagittal STIR and coronal T2 sequences are obtained of the lumbar spine. The lumbar vertebrae are within normal limits insignal. The findings are as above. The conus is in the expected location. at 0933 Reported and signed by: Gonzalo Silvestre MD CC: Angel Chaidez M.D. Technologist: Karolyn Garza, RT(R) Transcribed D/ (0933) JanetGVG [facility] NAME: TAMIKA OBREGON [address] [facility] PHYS: Angel Shah MD : 1955 AGE: 63 SEX: Aryan [place], [place] [address] LOC: Y.MRI PHONE #: [phone] EXAM DATE: 04/30/2019 STATUS: DEP CLI FAX #: [phone] RAD #: D/C DT PAGE 1 Signed Report Patient Name: TAMIKA OBREGON Unit No: [id number] EXAMS: CPT CODE: [id number] MRI L- SPINE W WO CON 86557 (Continued) Orig Print D/T: S: 05/01/2019 (0936) [facility] NAME: TAMIKA OBREGON [address] [facility] [address] [facility] [address] PHYS: Angel Shah MD : 1955 AGE: 63 SEX: M [place], [place] [address] LOC: Y.MRI PHONE #: [phone] EXAM DATE: 04/30/2019 STATUS: DEP CLI FAX #:[phone] RAD #: D/C DT PAGE 2 Signed ReportBLOOD UREA [id number] 11:19:00 Test Item Value Reference Range Interpretation Comments BLOOD UREA NITROGEN (test code = 13 mg/dL 7-18 N BUN) CREATININE W ESTIMATED [id number] 11:19:00 Test Item Value Reference Range Interpretation Comments GLOMERULAR FILTRATION 70.3 >60 Unit o f measure: RATE (test code = GFR) mL/mi n/1.73 [id number] Range:Healthy A dults >90 mL/min/1.73 m2 For Chronic Kid alfonso Disease: Stage II Mild Decrease i n GFR 60-90 Stage III Moderate Decrea se in GFR 30-59 Stage IV Severe Decrease in GFR 15-29 Stage V Kidney Failure <15 CREATININE (test code = 1.06 mg/dL 0.55-1.30 N CREAT) - CT L-SPINE W/O [id number] 09:53:00 Patient Name: TAMIKA OBREGON Unit No: [id number] EXAMS: CPT CODE: [id number] CT L-SPINE W/O CONTRAST 34787 CT SCAN OF THE LUMBAR SPINE WITH [...] partially calcified. 2 mm disc bulge. No centralcanal stenosis. Mild facet arthropathy. Mild right foraminal stenosis. COMMENT: COMPARISON: No priorexams available. 3 mm axial slices are obtained of the lumbar spine with reconstruction. Findings are as above. at 0953 Reported and signedby: Gonzalo Silvestre MD CC: Angel Chaidez M.D. Technologist: RT Mike(R) CTDI: DLP: Trnscrpt: 03/27/2019 (0953) JanetGVG [facility] NAME: TAMIKA OBREGON [address] [facility] PHYS: Angel Shah MD : 1955 AGE: 63 SEX: M [place] [address] LOC: Y.RAD PHONE #: [phone] EXAM DATE: 03/26/2019 STATUS: DEP CLI FAX #: [phone] #: D/C DT PAGE 1 Signed Report Patient Name: TAMIKA OBREGON Unit No: [id number] EXAMS: CPTCODE: [id number] CT L-SPINE W/O CONTRAST 42333 (Continued) Orig Print D/T: S: 03/27/2019 (0956) [facility] NAME: TAMIKA OBREGON [address] [place] [address] PHYS: Angel Shah MD : 1955 AGE: 63 SEX: M [place] [address] LOC: Y.RAD PHONE #: EXAM DATE: 03/26/2019 STATUS: DEP CLI FAX #: [phone] RAD #: D/C DT PAGE 2 Signed ReportURINALYSIS [id number] 07:16:00 Test Item Value Reference Range Interpretation [...] /LPF NONE SEEN code = AMORU) HGB [id number] 05:50:00 Test Item Value Reference Range Interpretation Comments HEMOGLOBIN (test code = HGB) 12.0 g/dL 12-16 N HEMATOCRIT (test code = HCT) 34.8 % 37-47 L CBC W/AUTO [id number] 05:49:00 Test Item Value Reference Range Interpretation [...] NRBC) - XR SPINE 1 V SPEC [id number] 11:33:00 Patient Name: TAMIKA OBREGON Unit No: [id number] EXAMS: CPT CODE: [id number] XR SPINE 1 V SPEC LEVEL 16466 3 LATERAL INTRAOPERATIVE VIEWS OF THE LUMBAR [...] M.D. Technologist: RT MARCO ANTONIO(R) Transcribed D/ (1133) t.SUSAN.MATHEWJ [facility] NAME: TAMIKA OBREGON [address] [facility] PHYS: Angel Shah MD : 1955 AGE: 63 SEX: M [place], [place] [address] LOC: Y.505 A PHONE #: [phone] EXAM DATE: 12/30/2018 STATUS: ADM IN FAX #: [phone] RAD #: D/C DT PAGE 1 Signed Report Patient Name: TAMIKA OBREGON Unit No: [id number] EXAMS: CPT CODE: [id number] XR SPINE 1 V SPEC LEVEL 07154 (Continued) Orig Print D/T: S: 12/31/2018 (2783) [facility] NAME: TAMIKA OBREGON [facility] PHYS:Angel Shah MD : 1955 AGE: 63 SEX: M [place], [place] [address] : Y.505 A PHONE #: [phone] EXAM DATE: 12/30/2018 STATUS: ADM IN FAX #: [phone] RAD #: D/C DT PAGE 2 Signed Report- XR SPINE 1 V SPEC [id number] 11:33:00 Patient Name: TAMIKA OBREGON Unit No: [id number] EXAMS: CPT CODE: [id number] XR SPINE 1 V SPEC LEVEL 48329 3 LATERAL INTRAOPERATIVE VIEWS OF THE LUMBAR [...] M.D. Technologist: SHARATH CIFUENTES (RT.R) Transcribed D/ (2981) Astrid [facility] NAME: TAMIKA OBREGON [facility] PHYS: Angel Shah MD : 1955 AGE: 63 SEX: M [place], [place] [address] LOC: Y.505 A PHONE #: [phone] EXAM DATE: 12/30/2018 STATUS: ADM IN FAX #: [phone] RAD #: D/C DT PAGE 1 Signed Report Patient Name: TAMIKA OBREGON Unit No: [id number] EXAMS: CPT CODE: [id number] XR SPINE 1 V SPEC LEVEL 94592 (Continued) Orig Print D/T: S: 12/31/2018 (1136) [facility] NAME: TAMIKA OBREGON [facility] PHYS: Angel Shah MD : 1955 AGE: 63 SEX: M [place], [place] [address] LOC: Y.505 A PHONE #: [phone] EXAM DATE: 12/30/2018 STATUS: ADM IN FAX #: [phone] RAD #: D/C DT PAGE 2 Signed Report- XR SPINE 1 V SPEC [id number] 11:33:00 Patient Name: TAMIKA OBREGON Unit No: [id number] EXAMS: CPT CODE: [id number] XR SPINE 1 V SPEC LEVEL 60916 3 LATERAL INTRAOPERATIVE VIEWS OF THE LUMBAR [...] Chaidez M.D. Technologist: STEVEN (RT.R) Transcribed D/ (6353) Astrid [facility] NAME: TAMIKA OBREGON [facility] PHYS: KOAngel Carrington MD : 1955 AGE: 63 SEX: M [place], [place] [address] LOC: Y.505 A PHONE #: [phone] EXAM DATE: 12/30/2018 STATUS: ADM IN FAX #: [phone] RAD #: D/C DT PAGE 1 Signed Report Patient Name: TAMIKA OBREGON Unit No: [id number] EXAMS: CPT CODE: [id number] XR SPINE 1 V SPEC LEVEL 43186 (Continued) Orig Print D/T: S: 12/31/2018 (1136) [facility] NAME: TAMIKA OBREGON [address] [facility] [address] PHYS: Angel Shah MD : 1955 AGE: 63 SEX: M [place], [place] [address] LOC:Y.505 A PHONE #: [phone] EXAM DATE: 12/30/2018 STATUS: ADM IN FAX #: [phone] RAD #: D/C DTPAGE 2 Signed [id number] 10:43:00 Test Item Value Reference Range Interpretation Comments PLT (test code = PLT) 119 K/mm3 130-400 L BASIC METABOLIC [id number] 06:35:00 Test Item Value Reference Range Interpretation [...] RATE (test code = GFR) mL/mi n/1.73 [id number] Range:Healthy Adults >90 mL/min/1.73 m2 For Chronic Kidney Disease: Stage II Mild Decrease i n GFR 60-90 Stage III Moderate Decrea se in GFR 30-59 St age IV Severe Decre ase in GFR 15-29 St age V Kidney Failur e <15 CREATININE (test code 0.84 mg/dL 0.55-1.30 N = CREAT) CALCIUM (test code = 9.2 mg/dL 8.2-10.1 N CA) HGB [id number] 05:40:00 Test Item Value Reference Range Interpretation Comments HEMOGLOBIN (test code = HGB) 12.7 g/dL 12-16 N HEMATOCRIT (test code = HCT) 36.0 % 37-47 L ACUTE HEPATITIS [id number] 17:53:00 Test Item Value Reference Range Interpretation [...] 1 (test code NONREACTIVE NONREACTIVE Done by [employer] = HIV1AB) 4th Gen HIV Ag/ Ab Combo Screen ACUTE HEPATITIS [id number] 17:52:00 Test Item Value Reference Range Interpretation [...] 1 (test code NONREACTIVE NONREACTIVE Done by [employer] = HIV1AB) 4th Gen HIV Ag/ Ab Combo Screen ACUTE HEPATITIS [id number] 17:52:00 Test Item Value Reference Range Interpretation [...] 1 2 (test NONREACTIVE NONREACTIVE Done by [employer] code = MQW35AB) 4th Gen HIV Ag/Ab Combo Screen ACUTE HEPATITIS [id number] 17:51:00 Test Item Value Reference Range Interpretation [...] 1 2 (test NONREACTIVE NONREACTIVE Done by [employer] code = [id number]) 4th Gen HIV Ag/Ab Combo Screen CBC W/AUTO [id number] 09:49:00 Test Item Value Reference Range Interpretation [...] N CELL (test code = NRBC) PROTHROMBIN [id number] 09:32:00 Test Item Value Reference Range Interpretation [...] v nickerson IS PATIENT ON ANTICOAGULANTS ? IAas Lab been notified if Patient is on Heparin Drip? NOIf Yes, orderCBC, OCCULT BLOOD, PT every other day NTHROMBOPLASTIN TIME [id number] 09:32:00 Test Item Value Reference Range Interpretation Comments PTT ACTIVATED (test code = APTT) 28.7 secs 24.9-37.0 N IS PATIENT ON ANTICOAGULANTS ? IAas Lab been notified if Patient is on Heparin Drip? NOIf Yes, orderCBC, OCCULT BLOOD, PT every other day NBASIC METABOLIC [id number] 09:32:00 Test Item Value Reference Range Interpretation [...] RATE (test code = GFR) mL/mi n/1.73 [id number] Range:Healthy Adults >90 mL/min/1.73 m2 For Chronic [...]
[2022-07-02 09:19] LABS: Absolute Lymphocytes (CBC) 1.3 K/uL (0.7-4.9); Hematocrit 41.8 % (39.6-49.0); Lymphocytes % 28.1 % (15.3-44.8); MCV 87.2 fL (80-100); MPV 7.8 fL (7.6-11.3); RBC Red Blood Cell Count 4.79 M/uL (4.33-5.43)
[2022-07-02 09:24] LABS: Protime INR 1.11
[2022-07-02] MEDS ORDERED: ONDANSETRON 4 MG/2 ML VIAL ONE (09:25)
[2022-07-02] MEDS ORDERED: MORPHINE 2 MG/ML SYR ONE (09:25)
[2022-07-02] MEDS ORDERED: NA CHLORIDE 0.9% 500 ML ONE ×2 (09:26→11:04)
--- NOTE | 2022-07-02 09:49 | RAD REPORT ---
EXAM DESCRIPTION: CT - CTHCSPWOC - 07/02/2022 9:29 am CLINICAL HISTORY: Trauma, head and neck injury. pain COMPARISON: Soft Tissue Neck Wo Contr dated 04/25/2022; Head Brain Wo Cont dated 03/11/2022 TECHNIQUE: Axial 5 mm thick images of the head were obtained. Axial 2 mm thick images of the cervical spine were obtained with sagittal and coronal reconstruction images generated and reviewed. All CT scans are performed using dose optimization technique as appropriate and may include automated exposure control or mA/KV adjustment according to patient size. FINDINGS: CT HEAD WITHOUT CONTRAST: No acute hemorrhage, hydrocephalus or extra-axial collection is identified.Mild brain atrophy.No area s of brain edema or midline shift. 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 The paranasal sinuses and mastoids are essentially clear.Postoperative changes are seen in the left t emporal lobe related to prior aneurysm clipping and craniotomy. Vertebral atherosclerosis. CT CERVICAL SPINE WITHOUT CONTRAST: No fracture or subluxation.Mild lower cervical degenerative changes.No prevertebral soft tissues swel ling is identified. Carotid stent on the right. Heavy atherosclerosis of both carotid systems. IMPRESSION: No acute intracranial or cervical spine findings.
--- NOTE | 2022-07-02 09:51 | RAD REPORT ---
EXAM DESCRIPTION: RAD - Chest Single View - 07/02/2022 9:38 am CLINICAL HISTORY: CHEST PAIN Chest pain. COMPARISON: Chest Single View dated 07/01/2022; Chest Pa And Lat (2 Views) dated 04/18/2022; Chest Sin gle View dated 12/06/2019; Chest Pa And Lat (2 Views) dated 09/25/2017 FINDINGS: Portable technique limits examination quality. The lungs are emphysematous but grossly clear. The heart is normal in size. No displaced fractures.St ernotomy wires. IMPRESSION: COPD.
[2022-07-02 10:06] LABS: ALT/SGPT 46 U/L (12-78); BUN Blood Urea Nitrogen 12 mg/dL (7-18); Bicarbonate 28 mmol/L (21-32); Glomerular Filtration Rate 60 ml/min (=/>90); Magnesium 2.6 mg/dL (1.8-2.4); Potassium 3.7 mmol/L (3.5-5.1); Sodium Level 139 mmol/L (136-145)
[2022-07-02 10:07] LABS: Bilirubin Direct < 0.1 mg/dL (0-0.2)
[2022-07-02] MEDS ORDERED: DIAZEPAM 5 MG TABLET ONE (10:09)
--- NOTE | 2022-07-02 11:05 | RAD REPORT ---
EXAM DESCRIPTION: CT - Head angio - 07/02/2022 10:55 am CLINICAL HISTORY: Headache, new or worsening Headache, drowsiness COMPARISON: Ct Low Dose Chest Screening dated 02/11/2018; Chest Pa And Lat (2 Views) dated 06/11/2022H ead Brain Wo Cont dated 03/11/2022; Sinus Wo Cont dated 08/23/2021 TECHNIQUE: CT angiography of the head was performed with MIPs. All CT scans are performed using dose optimization technique as appropriate and may include automated exposure control or mA/KV adjustment according to patient size. FINDINGS: No evidence of aneurysm is detected. No flow-limiting stenosis or vascular malformation id entified. Postsurgical changes of prior clipping noted left anterior temporal lobe. Antegrade flow is seen in the vertebral arteries. Mild atherosclerosis of both vertebral arteries, gr eater on the left. The visualized dural venous sinuses are patent. IMPRESSION: No significant flow abnormality is detected. 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
--- NOTE | 2022-07-02 11:08 | RAD REPORT ---
EXAM DESCRIPTION: CT - Neck Angio - 07/02/2022 10:55 am CLINICAL HISTORY: pain Headache, neck pain, drowsiness COMPARISON: Head C Spine Mpr Wo Con dated 07/02/2022; Soft Tissue Neck Wo Contr dated 04/25/2022 TECHNIQUE: CT angiography of the neck vessels was performed with MIPs. All CT scans are performed using dose optimization technique as appropriate and may include automated exposure control or mA/KV adjustment according to patient size. FINDINGS: A left aortic arch is identified with normal three vessel configuration of the great vesse ls. Moderate atherosclerosis is present of the right distal common carotid artery resulting in moderate s tenosis. There is a stent noted involving proximal right internal carotid artery. The stent appears p atent. Moderate hard plaquing is present involving distal left common carotid artery and proximal left inter nal carotid artery. Stenosis of the proximal left ICA is estimated at 70-80% based on NASCET criteria . Normal flow is seen within both vertebral arteries. IMPRESSION: Patent right internal carotid artery stent. Moderate stenosis of the distal right common carotid artery estimated at 50%. Moderate to significant stenosis proximal left internal carotid artery estimated at 70-80% based on N ASCET criteria. The findings are a result of significant bilateral carotid hard plaque burden.
[2022-07-02] MEDS ORDERED: HYDROMORPHONE HCL 1 MG/ML INJ ONE (11:10)
[2022-07-02] MEDS ORDERED: ACETYLCYST 6,000 MG/30 ML VIAL ONE (11:48)
--- NOTE | 2022-07-02 12:16 | EDPHYS ---
Physician Documentation [facility] Name: William Osuna Age: 66 yrs Sex: Male : 1955 Arrival Date: 07/02/2022 Time: 08:43 Bed 5 Private MD: ED Physician Devaughn Avila HPI: 07/02 12:06 This 66 yrs old Male presents to ER via Ambulatory with complaints of gregory Abdominal Pain, Headache, Neck Pain, <24hrs Old. 12:06 The patient complains of pain to the top of head, forehead, left frontal area, left gregory side of the back of head, right frontal area and right side of the back of head. The patient describes the headache as aching, constant. Onset: The symptoms/episode began/occurred just prior to arrival, this morning. Associated signs and symptoms: Pertinent positives: nausea. Severity of symptoms: At its worst the pain was moderate, in the emergency department the pain is unchanged. Headache History: The patient has had previous headaches and this one is similar to previous episodes. The symptoms are alleviated by nothing. the symptoms are aggravated by alcohol. The patient has experienced similar episodes in the past, several times. Historical: - Allergies: 08:51 Codeine; iw 08:51 PENICILLINS; iw - PMHx: 08:51 cardiac stent; Hypertensive disorder; iw - PSHx: 08:51 Back x2; brain aneurysm; CABG; Cholecystectomy; iw - Immunization history:: Client reports receiving the 2nd dose of the Covid vaccine. - Social history:: Smoking status: Patient denies any tobacco usage or history of. - Family history:: not pertinent. ROS: 12:06 Constitutional: Negative for fever, chills, and weight loss, Eyes: Negative for injury, gregory pain, redness, and discharge, ENT: Negative for injury, pain, and discharge, Neck: Negative for injury, pain, and swelling, Cardiovascular: Negative for chest pain, palpitations, and edema, Respiratory: Negative for shortness of breath, cough, wheezing, and pleuritic chest pain, Abdomen/GI: Negative for abdominal pain, nausea, vomiting, diarrhea, and constipation, Back: Negative for injury and pain, : Negative for injury, bleeding, discharge, and swelling, MS/Extremity: Negative for injury and deformity, Skin: Negative for injury, rash, and discoloration, Psych: Negative for depression, anxiety, suicide ideation, homicidal ideation, and hallucinations, Allergy/Immunology: Negative for hives, rash, and allergies, Endocrine: Negative for neck swelling, polydipsia, polyuria, polyphagia, and marked weight changes, Hematologic/Lymphatic: Negative for swollen nodes, abnormal bleeding, and unusual bruising. 12:06 Neuro: Positive for headache. Exam: 12:06 Constitutional: This is a well developed, well nourished patient who is awake, alert, gregory and in no acute distress. Head/Face: Normocephalic, atraumatic. Eyes: Pupils equal round and reactive to light, extra-ocular motions intact. Lids and lashes normal. Conjunctiva and sclera are non-icteric and not injected. Cornea within normal limits. Periorbital areas with no swelling, redness, or edema. ENT: Nares patent. No nasal discharge, no septal abnormalities noted. Tympanic membranes are normal and external auditory canals are clear. Oropharynx with no redness, swelling, or masses, exudates, or evidence of obstruction, uvula midline. Mucous membranes moist. Neck: Trachea midline, no thyromegaly or masses palpated, and no cervical lymphadenopathy. Supple, full range of motion without nuchal rigidity, or vertebral point tenderness. No Meningismus. Chest/axilla: Normal chest wall appearance and motion. Nontender with no deformity. No lesions are appreciated. Cardiovascular: Regular rate and rhythm with a normal S1 and S2. No gallops, murmurs, or rubs. Normal PMI, no JVD. No pulse deficits. Respiratory: Lungs have equal breath sounds bilaterally, clear to auscultation and percussion. No rales, rhonchi or wheezes noted. No increased work of breathing, no retractions or nasal flaring. Abdomen/GI: Soft, non-tender, with normal bowel sounds. No distension or tympany. No guarding or rebound. No evidence of tenderness throughout. Back: No spinal tenderness. No costovertebral tenderness. Full range of motion. Male : Normal genitalia with no discharge or lesions. Skin: Warm, dry with normal turgor. Normal color with no rashes, no lesions, and no evidence of cellulitis. MS/ Extremity: Pulses equal, no cyanosis. Neurovascular intact. Full, normal range of motion. Neuro: Awake and alert, GCS 15, oriented to person, place, time, and situation. Cranial nerves II-XII grossly intact. Motor strength 5/5 in all extremities. Sensory grossly intact. Cerebellar exam normal. Normal gait. Psych: Awake, alert, with orientation to person, place and time. Behavior, mood, and affect are within normal limits. 12:06 Neck: External neck: is normal, no acute changes, C-spine: appears grossly normal, no acute changes, Thyroid: appears normal, no acute changes, Trachea: is midline with no obvious abnormalities, no acute changes, ROM/movement: is normal, no acute changes, Lymph nodes: no appreciated lymphadenopathy. 12:06 ECG was reviewed by the Attending Physician. Vital Signs: 08:51 BP 155 / 70; Pulse 87; Resp 18 S; Temp 98.4; Pulse Ox 99% on R/A; Weight 81.65 kg; Pain iw 10/10; 09:45 BP 151 / 71; Pulse 81; Resp 12 S; Pulse Ox 98% on R/A; Pain 8/10; jg9 10:00 BP 135 / 66; Pulse 82; Resp 20 S; Pulse Ox 98% on R/A; jg9 10:00 BP 142 / 69; Pulse 83; Resp 13 S; Pulse Ox 98% ; jg9 12:00 BP 137 / 73; Pulse 87; Resp 17 S; Pulse Ox 99% on R/A; jg9 Spencer Coma Score: 12:10 Eye Response: spontaneous(4). Verbal Response: oriented(5). Motor Response: obeys gregory commands(6). Total: 15. MDM: 08:53 Patient medically screened. gregory 12:10 Differential diagnosis: cerebral vascular accident, neoplasm, sinusitis, subarachnoid gregory bleed, temporal arteritis, tension headache, uremia. Data reviewed: vital signs, nurses notes, lab test result(s), EKG, radiologic studies, CT scan, plain films. Data interpreted: telemetry monitor: rate is 81 beats/min, rhythm is regular, Pulse oximetry: on room air is 98 %. Test interpretation: by ED physician or midlevel provider: ECG, plain radiologic studies. Counseling: I had a detailed discussion with the patient and/or guardian regarding: the historical points, exam findings, and any diagnostic results supporting the discharge/admit diagnosis, lab results, radiology results, the need for outpatient follow up, for definitive care, a hand splitter, a family practitioner, a finishing inspector, a neurologist. 07/02 08:58 Order name: Basic Metabolic Panel [facility] 07/02 08:58 Order name: CBC with Diff; Complete Time: 09:50 [facility] 07/02 08:58 Order name: LFT's [facility] 07/02 08:58 Order name: Magnesium [facility] 07/02 08:58 Order name: NT PRO-BNP [facility] 07/02 08:58 Order name: PT-INR; Complete Time: 09:50 [facility] 07/02 08:58 Order name: Troponin HS [facility] 07/02 08:58 Order name: XRAY Chest (1 view); Complete Time: 10:07 [facility] 07/02 08:58 Order name: CT Head C Spine; Complete Time: 09:51 [facility] 07/02 09:29 Order name: US Carotid Artery Bilateral [facility] 07/02 10:12 Order name: CT Head Angio; Complete Time: 11:56 [facility] 07/02 10:13 Order name: CT Neck Angio; Complete Time: 11:56 [facility] 07/02 08:58 Order name: EKG; Complete Time: 08:59 [facility] 07/02 08:58 Order name: Cardiac monitoring; Complete Time: 09:16 [facility] 07/02 08:58 Order name: EKG - Nurse/Tech; Complete Time: 09:19 [facility] 07/02 08:58 Order name: IV Saline Lock; Complete Time: 09:16 [facility] 07/02 08:58 Order name: Labs collected and sent; Complete Time: 09:16 [facility] 07/02 08:58 Order name: O2 Per Protocol; Complete Time: 09:28 [facility] 07/02 08:58 Order name: O2 Sat Monitoring; Complete Time: 09:16 [facility] EC:06 Rate is 91 beats/min. Rhythm is regular. QRS [place] is Normal. CA interval is normal. QRS gregory interval is normal. QT interval is normal. No Q waves. T waves are Normal. No ST changes noted. Clinical impression: Abnormal EKG without significant change and No evidence of ischemia. Interpreted by me. Reviewed by me. Administered Medications: 09:25 Drug: NS 0.9% 500 ml Route: IV; Rate: bolus; Site: left antecubital; jg9 10:30 Follow up: IV Status: Completed infusion; IV Intake: 500ml jg9 09:25 Drug: morphine 2 mg {Note: RASS-0, 8/10 left sided neck/head pain.} Route: IVP; Infused jg9 Over: 4 mins; Site: left antecubital; 09:48 Follow up: Response: No adverse reaction; Pain is unchanged, physician notified; RASS: jg9 Alert and Calm (0) 09:25 Drug: Zofran (Ondansetron) 4 mg {Note: RASS-0, 8/10 right sided neck/head pain.} Route: jg9 IVP; Site: left antecubital; 09:52 Follow up: Response: No adverse reaction jg9 09:51 Drug: morphine 2 mg {Note: RASS-0, 8/10 head pain.} Route: IVP; Infused Over: 4 mins; jg9 Site: left antecubital; 10:30 Follow up: Response: No adverse reaction; No change in condition jg9 10:01 Drug: Valium (diazepam) 10 mg {Note: RASS-0 .} Route: PO; jg9 11:00 Follow up: Response: No adverse reaction; No change in condition jg9 11:03 Drug: Dilaudid (HYDROmorphone) 1 mg {Note: RASS-0, 8/10 head pain.} Route: IVP; Site: j9 left antecubital; 11:45 Follow up: Response: No adverse reaction; Pain is unchanged, physician notified jg9 11:05 Drug: NS 0.9% 500 ml Route: IV; Rate: bolus; Site: left antecubital; jg9 12:00 Follow up: IV Status: Completed infusion; IV Intake: 500ml jg9 11:44 Not Given (Patient Refused): Zofran (Ondansetron) 4 mg IVP once; over 2 minutes jg9 11:45 Drug: Mucomyst - Acetylcysteine 600 mg Route: PO; jg9 12:34 Follow up: Response: No adverse reaction jg9 12:34 Drug: Aspirin 81 mg Route: PO; jg9 12:47 Follow up: Response: Medication administered at discharge. jg9 Disposition Summary: 07/02/22 12:16 Discharge Ordered Location: Home gregory Problem: new gregory Symptoms: have improved gregory Condition: Stable gregory Diagnosis - Headache gregory - Essential (primary) hypertension gregory - Occlusion and stenosis of bilateral carotid arteries - 50% right distal right gregory common carotid, left internal carotidat 70-80% Followup: gregory - With: Private Physician - When: 2 - 3 days - Reason: Recheck today's complaints, Continuance of care, Re-evaluation by your physician Followup: gregory - With: Marquis Mackenzie MD - When: 2 - 3 days - Reason: Recheck today's complaints, Continuance of care, Re-evaluation by your physician Followup: gregory - With: Jay Xiao MD - When: 2 - 3 days - Reason: Recheck today's complaints, Continuance of care, Re-evaluation by your physician Followup: gregory - With: Jayleen Nugent MD - When: Today - Reason: Recheck today's complaints, Continuance of care, Re-evaluation by your physician Followup: gregory - With: Talib Grover MD - When: 2 - 3 days - Reason: Recheck today's complaints, Re-evaluation by your physician Discharge Instructions: - Discharge Summary Sheet gregory - Hypertension, Adult gregory - Hypertension, Adult, [id number] gregory - How to Take Your Blood Pressure, [id number] gregory - Aspirin and Your Heart gregory - Managing Your Hypertension gregory - Carotid Artery Disease gregory - Carotid Artery Disease, [id number] gregory Forms: - Medication Reconciliation Form gregory - Thank You Letter gregory - Antibiotic Education gregory - Prescription Opioid Use gregory Prescriptions: - Tylenol 325 mg Oral Tablet - take 2 tablets by ORAL route every 6 hours as needed; 1 bottle; Refills: 0, gregory Product Selection Permitted Signatures: Dispatcher [employer] Devaughn Martinez MD MD cha Williams, Irene, RN Glenna Currie RN RN jg9
--- NOTE | 2022-07-02 12:16 | ER ---
Nurse's Notes [facility] Name: William Osuna Age: 66 yrs Sex: Male : 1955 Arrival Date: 07/02/2022 Time: 08:43 Bed 5 Private MD: Diagnosis: Headache;Essential (primary) hypertension;Occlusion and stenosis of bilateral carotid arteries-50% right distal right common carotid, left internal carotidat 70-80% Presentation: 07/02 08:50 Chief complaint: Patient states: this morning having real bad neck pain and headache , iw pain is on right side of neck. Coronavirus screen: At this time, the client does not indicate any symptoms associated with coronavirus-19. Ebola Screen: Patient negative for fever greater than or equal to 101.5 degrees Fahrenheit, and additional compatible Ebola Virus Disease symptoms Patient denies exposure to infectious person. Patient denies travel to an Ebola-affected area in the 21 days before illness onset. No symptoms or risks identified at this time. Initial Sepsis Screen: Does the patient meet any 2 criteria? No. Patient's initial sepsis screen is negative. Does the patient have a suspected source of infection? No. Patient's initial sepsis screen is negative. Risk Assessment: Do you want to hurt yourself or someone else? Patient reports no desire to harm self or others. Onset of symptoms was July 02, 2022. 08:50 Method Of Arrival: Ambulatory iw 08:50 Acuity: FARHAD 3 iw Triage Assessment: 09:00 General: Appears uncomfortable, Behavior is calm, cooperative. jg9 Historical: - Allergies: 08:51 Codeine; iw 08:51 PENICILLINS; iw - PMHx: 08:51 cardiac stent; Hypertensive disorder; iw - PSHx: 08:51 Back x2; brain aneurysm; CABG; Cholecystectomy; iw - Immunization history:: Client reports receiving the 2nd dose of the Covid vaccine. - Social history:: Smoking status: Patient denies any tobacco usage or history of. - Family history:: not pertinent. Screenin:31 Abuse screen: Denies threats or abuse. Denies injuries from another. Tuberculosis jg9 screening: No symptoms or risk factors identified. Fall Risk None identified. 09:33 Nutritional screening:. Nutritional screening: Nutritional screening: patient reports jg9 significant weight loss unintentional over the last year over 50+ lbs. Assessment: 09:00 Reassessment: No changes from previously documented assessment. Patient and/or family jg9 updated on plan of care and expected duration. Pain level reassessed. Patient is alert, oriented x 3, equal unlabored respirations, skin warm/dry/pink. Pain: Complains of pain in right ear, right congregational, right jaw, right submandibular area and right sternocleidomastoid Pain currently is 8 out of 10 on a pain scale. Neuro: No deficits noted. Cardiovascular: Rhythm is sinus rhythm with multifocal PVCs. Respiratory: No deficits noted. GI: Bowel sounds present X 4 quads. Abd is soft and non tender X 4 quads. : No deficits noted. EENT: No deficits noted. Derm: No deficits noted. Musculoskeletal: Reports pain in right ear, right congregational, right jaw, right submandibular area and right sternocleidomastoid since this morning. 10:00 Reassessment: No changes from previously documented assessment. Patient and/or family jg9 updated on plan of care and expected duration. Pain level reassessed. Patient is alert, oriented x 3, equal unlabored respirations, skin warm/dry/pink. Patient states symptoms have not improved. 11:00 Reassessment: No changes from previously documented assessment. Patient and/or family jg9 updated on plan of care and expected duration. Pain level reassessed. Patient is alert, oriented x 3, equal unlabored respirations, skin warm/dry/pink. 12:00 Reassessment: Patient and/or family updated on plan of care and expected duration. Pain jg9 level reassessed. Patient is alert, oriented x 3, equal unlabored respirations, skin warm/dry/pink. Patient states feeling better. Vital Signs: 08:51 BP 155 / 70; Pulse 87; Resp 18 S; Temp 98.4; Pulse Ox 99% on R/A; Weight 81.65 kg; Pain iw 07/30; 09:45 BP 151 / 71; Pulse 81; Resp 12 S; Pulse Ox 98% on R/A; Pain 8; jg9 10:00 BP 135 / 66; Pulse 82; Resp 20 S; Pulse Ox 98% on R/A; jg9 10:00 BP 142 / 69; Pulse 83; Resp 13 S; Pulse Ox 98% ; jg9 12:00 BP 137 / 73; Pulse 87; Resp 17 S; Pulse Ox 99% on R/A; jg9 Spencer Coma Score: 12:10 Eye Response: spontaneous(4). Verbal Response: oriented(5). Motor Response: obeys gregory commands(6). Total: 15. ED Course: 08:43 Patient arrived in ED. rg4 08:51 Triage completed. iw 08:51 Arm band placed on. iw 08:52 Glenna Norman, BRADLY is Primary Nurse. jg9 08:53 Devaughn Avila MD is Attending Physician. gregory 09:10 Missed attempt(s): 20 gauge in right antecubital area. jg9 09:13 Inserted saline lock: 20 gauge in left antecubital area, using aseptic technique. Blood jg9 collected. 09:19 EKG done, by ED staff, reviewed by Devaughn Avila MD. em1 09:31 CT Head C Spine In Process Unspecified. EDMS 09:34 Patient has correct armband on for positive identification. Bed in low position. Call jg9 light in reach. Side rails up X 1. 09:40 XRAY Chest (1 view) In Process Unspecified. EDMS 10:10 No apparent distress. Resting quietly. Awaiting bed assignment, Awaiting lab results, jg9 Await[address] CT Scan. 10:44 US Carotid Artery Bilateral In Process Unspecified. EDMS 10:46 CT Head Angio In Process Unspecified. EDMS 10:56 CT Neck Angio In Process Unspecified. EDMS 12:12 Marquis Macknezie MD is Referral Physician. gregory 12:12 Jay Xiao MD is Referral Physician. gregory 12:12 Jayleen Nugent MD is Referral Physician. gregory 12:12 Talib Grover MD is Referral Physician. gregory 12:48 No provider procedures requiring assistance completed. jg9 12:48 IV discontinued. jg9 Administered Medications: 09:25 Drug: NS 0.9% 500 ml Route: IV; Rate: bolus; Site: left antecubital; jg9 10:30 Follow up: IV Status: Completed infusion; IV Intake: 500ml jg9 09:25 Drug: morphine 2 mg {Note: RASS-0, 8/10 left sided neck/head pain.} Route: IVP; Infused jg9 Over: 4 mins; Site: left antecubital; 09:48 Follow up: Response: No adverse reaction; Pain is unchanged, physician notified; RASS: jg9 Alert and Calm (0) 09:25 Drug: Zofran (Ondansetron) 4 mg {Note: RASS-0, 8/10 right sided neck/head pain.} Route: jg9 IVP; Site: left antecubital; 09:52 Follow up: Response: No adverse reaction jg9 09:51 Drug: morphine 2 mg {Note: RASS-0, 8/10 head pain.} Route: IVP; Infused Over: 4 mins; jg9 Site: left antecubital; 10:30 Follow up: Response: No adverse reaction; No change in condition jg9 10:01 Drug: Valium (diazepam) 10 mg {Note: RASS-0 .} Route: PO; jg9 11:00 Follow up: Response: No adverse reaction; No change in condition jg9 11:03 Drug: Dilaudid (HYDROmorphone) 1 mg {Note: RASS-0, 8/10 head pain.} Route: IVP; Site: j9 left antecubital; 11:45 Follow up: Response: No adverse reaction; Pain is unchanged, physician notified jg9 11:05 Drug: NS 0.9% 500 ml Route: IV; Rate: bolus; Site: left antecubital; jg9 12:00 Follow up: IV Status: Completed infusion; IV Intake: 500ml jg9 11:44 Not Given (Patient Refused): Zofran (Ondansetron) 4 mg IVP once; over 2 minutes jg9 11:45 Drug: Mucomyst - Acetylcysteine 600 mg Route: PO; jg9 12:34 Follow up: Response: No adverse reaction jg9 12:34 Drug: Aspirin 81 mg Route: PO; jg9 12:47 Follow up: Response: Medication administered at discharge. jg9 Medication: 12:48 VIS not applicable for this client. jg9 Intake: 10:30 IV: 500ml; Total: 500ml. jg9 12:00 IV: 500ml; Total: 1000ml. jg9 Outcome: 12:16 Discharge ordered by MD. jenkins 12:48 Discharged to home ambulatory. jg9 12:48 Condition: stable 12:48 Discharge instructions given to patient, Instructed on discharge instructions, follow up and referral plans. Demonstrated understanding of instructions, follow-up care, Prescriptions given X 1. 12:49 Patient left the ED. jg9 Signatures: Dispatcher [employer] Devaughn Martinez MD MD cha Williams, Irene, RN Torsten Lowery Rubi 4 Glenna Norman RN RN jg9 Corrections: (The following items were deleted from the chart) 09:34 09:31 Nutritional screening: No deficits noted. jg9 jg9
[2022-07-02 12:49] LABS: AST/SGOT 26 U/L (15-37); Alkaline Phosphatase 106 U/L (45-117); Bilirubin Total 0.4 mg/dL (0.2-1.0); Glucose Level 134 mg/dL (74-106); NT PRO-BNP 730 pg/mL (<125); Protein, Total 7.5 g/dL (6.4-8.2); Troponin High Sensitivity 7.9 pg/mL (<58.9)
[2022-07-02] MEDS ORDERED: ASPIRIN EC 81 MG TAB PO ONE (12:50)
--- NOTE | 2022-07-02 12:54 | RAD REPORT ---
EXAM DESCRIPTION: US - CP - 07/02/2022 10:55 am CLINICAL HISTORY: DIZZINESS Headache, drowsiness COMPARISON: Head C Spine Mpr Wo Con dated 07/02/2022 TECHNIQUE: Real-time sonographic evaluation of both carotid systems was performed. Doppler interroga tion was performed with waveform tracing bilaterally. FINDINGS: Normal high resistance waveforms are noted in both external carotid arteries. The common c arotid arteries and internal carotid arteries show normal low resistance waveforms. Right internal carotid artery/bulb stent is in place. The stent is patent. There is moderate hard gayatri quing is seen in the mid to distal right common carotid artery. This plaquing is somewhat irregular r esults in 50% stenosis based on NASCET criteria at minimum. Moderate to heavy atherosclerotic plaque is present involving the left common carotid artery and prox imal left internal carotid artery. This results in 70-80% stenosis at minimum in the mid and distal a spect of the left internal carotid artery. There is elevated peak systolic velocity of the distal ICA 414 centimeters/second with elevated ICA/CCA ratio of 3.2. This would indicate a hemodynamically sig nificant stenosis on the left is present. Antegrade flow seen in the vertebral arteries. IMPRESSION: A hemodynamically significant stenosis of the left internal carotid artery as detailed i s suspected caused by heavy hard plaque burden. Patent right internal carotid artery stent.
[2022-07-02 13:29] VITALS: TEMP 98.4
[2022-07-02 13:43] VITALS: BP 137/73; O2SAT 99
--- NOTE | 2022-07-03 15:42 | EKG ---
Test Date: 2022-07-02 Test Time: 09:12:28 Instructional Interventionist: YOMAIRA MEASUREMENT RESULTS: Intervals: Rate: 91 MO: 146 QRSD: 94 QT: 372 QTc: 457 [place]: P: 40 MO: 146 QRS: 57 T: 64 INTERPRETIVE STATEMENTS: Sinus rhythm with frequent premature ventricular complexes in a pattern of bigeminy Otherwise normal ECG Compared to ECG 07/01/2022 11:55:50 No significant changes Electronically Signed On 07-03-22 15:39:38 CDT by Aristeo Guillermo
== END 2022-07-02 12:49 | disposition home or self-care (01) ==
LOC: ER 08:41
DX: R51.9 Headache, unspecified (principal); I10 Essential (primary) hypertension; M54.2 Cervicalgia
CPT/HCPCS: 96361; 93005; 85025; 80048; 36415; 83735; 85610; 80076; 84484; 83880; 70450; 72125; 70496; 70498; 71045; 93880; 96375; 96374; 99284; Q9967; J2270; J1170; J7040 ×2; J2405

== ENCOUNTER 2022-07-08 18:20 | Emergency (ER) | payer OTHER, BC ==
--- OUTSIDE RECORDS SUMMARY | 2022-07-08 18:23 | XMS REPORT | Continuity of Care Document ---
:1955 Author Organization [facility] t Address [address] [place] [address] Care Team Providers Name Role Phone CARINA PARKER Primary Care Physician Unavailable CRISTOBAL READ Attending Clinician Unavailable Angel Chaidez Attending Clinician Unavailable Pablo Dunbar MD Attending Clinician CRISTOBAL READ Admitting Clinician Unavailable Angel Chaidez Admitting Clinician Unavailable Physician, No Primary or Family Admitting Clinician Unavaila ble Payers Payer Name Policy Type Policy Number Effective Date Expiration Date S our MEDICARE PART A \T\ [id number] 2019 B 00:00:00 BCBS TRADITIONAL [id number] 2019 00:00:00 Problems Condition Condition Condition Status Onset Resolution Last Treating Co mments Source Name Details Category Date Date Treatment Clinician Date No known No known Disease Unive rs active active ity of problems problems [facility] Allergies, Adverse Reactions, Alerts Allergy Allergy Status Severity Reaction(s) Onset Inactive Treating Comm ents Source Name Type Date Date Clinician Penicill DA Active SV RASHES 2021-1 [facility]- [place] [facility] codeine DA Active MD RASHES, 2020- [facility] [place] [facility] Penicill DA Active SV 2019-0 [facility] ins 7-11 [place] 00:[facility] codeine DA Active MD 2019-0 [facility] 7-11 [place] 00:[facility] levoflox DA Active MD 2019-0 [facility] acin 7-11 [place] 00:00: [facility] Penicill DA Active SV RASHES 2019-0 [facility] ins 7-11 [place] 00:00: [facility] codeine DA Active MD RASHES, 2019-0 [facility] [place] [facility] levoflox DA Active MD NAUSEA 2019-0 [facility] acin 7-11 [place] 00[facility]00: [facility] Penicill DA Active SV 2019-0 [facility] 3[facility]12 [facility] [place] codeine DA Active MD 2019-0 [facility] 3[facility]12 [facility] [place] levoflox DA Active MD 2019-0 [facility] acin 3-12 [facility] [place] codeine DA Active MD 2019-0 [facility] 3-11 [facility] [place] Penicill DA Active SV 2019-0 [facility] ins 3-11 [facility] [place] levoflox DA Active MD 2018-1 [facility] acin 1-27 [facility] [place] Penicill DA Active SV 2018-1 [facility] ins 1-27 [place] 00:00: [facility] 00 [facility] codeine DA Active MD 2018-1 [facility] 1-27 [place] 00:00: Orthope 00 [...] 00 dic Hospita [facility] codeine DA Active MD [facility] 11-01 [place] 00:00: [facility] 00 [facility] levoflox DA Active MD [facility] acin 11-01 [place] 00:00: [facility] Social History Social Habit Start Date Stop Date Quantity Comments Source Sex Assigned At [birth year] [facility] 00:00:00 00:00:00 [facility] Smoking Status Start Date Stop Date Source Unknown if ever smoked [facility] Medications Ordered Filled Start Stop Current Ordering Indication Dosage Frequency Signature Comments Components Source Medication Medication Date Date Medication? Clinician (SIG) Name Name diazePAM 5 2020-10 Yes [id number] 5mg Take 1 [facility] mg tablet 2-01 [...] mouth ity of hr capsule 08:16: daily. [place] [facility] amLODIPine 2020-10 Yes 5mg Take [...] Facility Department ID 2021-10-27 Outpatient R [facility] [id number] [facility] 15:53:41 ECRISTOBAL ity [facility] 2021-11-07 2021-11-07 Outpatient R [facility] [id number] [facility] 08:30:00 08:30:00 [id number] itjayme [facility] 2021-11-07 2021-11-07 Outpatient R [facility] [id number] [facility] 08:30:00 08:30:00 CRISTOBAL [place] o f [facility] 2021-09-21 2021-09-21 Outpatient EL JOHNNY Chaidez RADI [id number] [facility] 08:45:00 08:45:00 Angel [facility] [place] [facility] 2021-09-11 2021-09-11 Telephone [facility] [id number] [facility] 00:00:00 00:00:00 [facility] [id number] [facility] [id number] Michael as CARLOSA ?BLEA [id number] Sc dical [address] MEDICAL OFFICE BUILDING 2020-09-26 2020-09-26 Outpatient JOHNNY Chaidez RADI [id number] [facility] 08:30:00 08:30:00 Angel 00 [place] [facility] 2020-08-22 2020-08-22 Outpatient JOHNNY Chaidez RADI [id number] [facility] 10:00:00 10:00:00 Angel 75 [place] [facility] Results Test Description Test Time Test Comments Results Result [facility] Comments - XR L-SPINE 2021-09-25 W/BEND VIEW 19:48:00 [facility] : 1955 Sex: M Patient Name: TAMIKA OBREGON Unit No: [id number] EXAMS: CPT CODE: [id number] XR L-SPINE W/BEND VIEW 85574 COMPARISON: Concurrent MRI. IMAGES PROVIDED: 8 views [...] RT. Neetu(R) Transcribed D/ (1947) JanetSLJ [facility] NAME: TAMIKA OBREGON [address] [place] [address] PHYS: Angel Shah MD : 1955 AGE: 65 SEX: M [place] [address] LOC: Y.MRI PHONE #: [phone] EXAM DATE: 09/21/2021 STATUS: DEP CLI FAX #: [phone] RAD #: D/C DT PAGE 1 Signed Report Patient Name: TAMIKA OBREGON Unit No: [id number] EXAMS: CPT CODE: [id number] XR L-SPINE W/BEND VIEW 19679 (Continued) Orig Print D/T: S: 09/25/2021 (1951) [facility] NAME: TAMIKA OBREGON [address] [place] [address] PHYS: Angel Shah MD : 1955 AGE: 65 SEX: M [place] [address] LOC: Y.MRI PHONE #: [phone] EXAM DATE: 09/21/2021 STATUS: DEP CLI FAX #: [phone] RAD #: D/C DT PAGE 2 Signed Report - MRI L-SPINE W WO 2021-09-21 CON 13:12:00 [facility] 1955 Sex: M Patient Name: TAMIKA OBREGON Unit No: [id number] EXAMS: CPT CODE: [id number] MRI L-SPINE W [place] 84245 DIAGNOSIS: 1. At L1-2 there is no [...] disc bulging foramina with moderate right and qrnw-kd-csvvguow left foraminal narrowing. Moderate central canal stenosis [...] SANCHEZ MRI Transcribed D/ (1312) Susan [facility] NAME: TAMIKA OBREGON [address] [facility] PHYS: Angel Shah MD : 1955 AGE: 65 SEX: M [place] [address] LOC: Y.MRI PHONE #: [phone] EXAM DATE: 09/21/2021 STATUS: REG CLI FAX #: [phone] RAD #: D/C DT PAGE 1 Signed Report Patient Name: TAMIKA OBREGON Unit No: [id number] EXAMS: CPT CODE: [id number] MRI L-SPINE W [place] CON 99335 (Continued) Orig Print D/T: S: 09/21/2021 (1315) [facility] NAME: TAMIKA OBREGON [address] [place] [address] PHYS: Angel Shah MD : 1955 AGE: 65 SEX: M [place] [address] LOC: Y.MRI PHONE #: [phone] EXAM DATE: 09/21/2021 STATUS: REG CLI FAX #: [phone] RAD #: D/C DT PAGE 2 Signed Report - CT L-SPINE W/O 2020-09-26 CONTRAST 10:23:00 [facility] Name: TAMIKA OBREGON : 1955 Sex: M Patient Name: TAMIKA OBREGON Unit No: [id number] EXAMS: CPT CODE: [id number] CT L-SPINE W/O CONTRAST 39511 DIAGNOSIS: 1. At L1-2 there is a [...] RT Mike(R) CTDI: DLP: Trnscrpt: 09/26/2020 (1023) t.DANIELLER.[facility] NAME: TAMIKA OBREGON [address] [facility] PHYS: Angel Shah MD : 1955 AGE: 64 SEX: M [place], [place] [address] LOC: YLizRAD PHONE #: [phone] EXAM DATE: 09/26/2020 STATUS: REG CLI FAX #: [phone] RAD #: D/C DT PAGE 1 Signed Report Patient Name: TAMIKA OBREGON Unit No: [id number] EXAMS: CPT CODE: [id number] CT L-SPINE W/O CONTRAST 14554 (Continued) Orig Print D/T: S: 09/26/2020 (1026) [facility] NAME: TAMIKA OBREGON [address] [facility] PHYS: Angel Shah MD : 1955 AGE: 64 SEX: M [place], [place] [address] LOC: Y.RAD PHONE #: [phone] EXAM DATE: 09/26/2020 STATUS: REG CLI FAX #: [phone] RAD #: D/C DT PAGE 2 Signed Report - XR L-SPINE 2020-08-22 W/BEND VIEW 11:44:00 [facility] : 1955 Sex: M Patient Name: TAMIKA OBREGON Unit No: [id number] EXAMS: CPT CODE: [id number] XR L-SPINE W/BEND VIEW 21033 MRI OF THE LUMBAR SPINE WITH AND [...] and signed by: Gonzalo Silvestre MD [facility] NAME: TAMIKA OBREGON [address] [facility] PHYS: Angel Shah MD : 1955 AGE: 64 SEX: M [place], [place] [address] LOC: Y.MRI PHONE #: [phone] EXAM DATE: 08/22/2020 STATUS: REG CLI FAX #: [phone] RAD #: D/C DT PAGE 1 Signed Report (CONTINUED) Patient Name: ATMIKA OBREGON Unit No: [id number] EXAMS: CPT CODE: [id number] XR L-SPINE W/BEND VIEW 32196 (Continued) CC: Angel Chaidez M.D. Technologist: RT. Neetu(R) Transcribed D/ (114) JanetGVG [facility] NAME: TAMIKA OBREGON [address] [place] [address] PHYS: Angel Shah MD : 1955 AGE: 64 SEX: M [place] [address] LOC: Y.MRI PHONE #: [phone] EXAM DATE: 08/22/2020 STATUS: REG CLI FAX #: [phone] RAD #: D/C DT PAGE 2 Signed Report Patient Name: TAMIKA OBREGON Unit No: [id number] EXAMS: CPT CODE: [id number] XR L-SPINE W/BEND VIEW 27929 (Continued) Orig Print D/T: S: 08/22/2020 (1148) [facility] NAME: TAMIKA OBREGON [address] [place] [address] PHYS: Angel Shah MD : 1955 AGE: 64 SEX: M [place] [address] LOC: Y.MRI PHONE #: [phone] EXAM DATE: 08/22/2020 STATUS: REG CLI FAX #: [phone] RAD #: D/C DT PAGE 3 Signed Report - MRI L-SPINE W WO 2020-08-22 CON 11:44:00 [facility] : 1955 Sex: M Patient Name: TAMIKA OBREGON Unit No: [id number] EXAMS: CPT CODE: [id number] MRI L-SPINE W WO CON 21460 MRI OF THE LUMBAR SPINE WITH AND [...] Reported and signed by: Gonzalo Silvestre MD [place] [facility] NAME: TAMIKA OBREGON [address] [facility] PHYS: Angel Shah MD : 1955 AGE: 64 SEX: M [place], [place] [address] LOC: Y.MRI PHONE #: [phone] EXAM DATE: 08/22/2020 STATUS: REG CLI FAX #: [phone] RAD #: D/C DT PAGE 1 Signed Report (CONTINUED) Patient Name: TAMIKA OBREGON Unit No: [id number] EXAMS: CPT CODE: [id number] MRI L-SPINE W WO CON 97843 (Continued) CC: Angel Chaidez M.D. Technologist: Jennifer Woodard(R) Transcribed D/ (1144) BrindaG [facility] NAME: TAMIKA OBREGON [address] [place] [address] PHYS: Angel Shah MD : 1955 AGE: 64 SEX: M [place] [address] LOC: Y.MRI PHONE #: [phone] EXAM DATE: 08/22/2020 STATUS: REG CLI FAX #: [phone] RAD #: D/C DT PAGE 2 Signed Report Patient Name: TAMIKA OBREGON Unit No: [id number] EXAMS: CPT CODE: [id number] MRI L-SPINE W WO CON 00979 (Continued) Orig Print D/T: S: 08/22/2020 (1148) [facility] NAME: TAMIKA OBREGON [address] [place] [address] PHYS: Angel Shah MD : 1955 AGE: 64 SEX: M [place] [address] LOC: Y.MRI PHONE #: [phone] EXAM DATE: 08/22/2020 STATUS: REG CLI FAX #: [phone] RAD #: D/C DT PAGE 3 Signed Report BLOOD UREA NITROGEN 2020-08-22 10:40:00 Test Item Value Reference Range Interpretation Comme nts BLOOD UREA NITROGEN (test code = BUN) 17 mg/dL 7-18 N SPECIMEN COMMENT: STATCREATININE W ESTIMATED [id number] 10:40:00 Test Item Value Reference Range Interpretation Comments GLOMERULAR FILTRATION 70.9 >60 Unit o f measure: RATE (test code = GFR) mL/mi n/1.73 [id number] Range:Healthy A dults >90 mL/min/1.73 m2 For Chronic Kid alfonso Disease: Stage II Mild Decrease i n GFR 60-90 Stage III Moderate Decrea se in GFR 30-59 Stage IV Severe Decrease in GFR 15-29 Stage V Kidney Failure <15 CREATININE (test code = 1.05 mg/dL 0.55-1.30 N CREAT) SPECIMEN COMMENT: STAT- MRI L-SPINE W WO [id number] 09:33:00 Patient Name: TAMIKA OBREGON Unit No: [id number] EXAMS: CPT CODE: [id number] MRI L-SPINE W WO CON 03672 MRI OF THE LUMBAR SPINE WITH AND [...] Karolyn Garza, RT(R) Transcribed D/ (0933) JanetGVG [facility] NAME: TAMIKA OBREGON [address] [facility] PHYS: Angel Shah MD : 1955 AGE: 63 SEX: [place], [place] [address] LOC: Y.MRI PHONE #: [phone] EXAM DATE: 04/30/2019 STATUS: DEP CLI FAX #: [phone] RAD #: D/C DT PAGE 1 Signed Report Patient Name: TAMIKA OBREGON Unit No: [id number] EXAMS: CPT CODE: [id number] MRI L-SPINE W WO CON 30133 (Continued) Orig Print D/T: S: 05/01/2019 (0936) [facility] NAME: TAMIKA OBREGON [address] [facility] PHYS: Angel Shah MD : 1955 AGE: 63 SEX: M [place], [place] [address] LOC: Y.MRI PHONE #: [phone] EXAM DATE: 04/30/2019 STATUS: ANASTASIIA CLI FAX #: [phone] RAD #: D/C DT PAGE 2 Signed ReportBLOOD UREA [id number] 11:19:00 Test Item Value Reference Range Interpretation Comments BLOOD UREA NITROGEN (test code = 13 mg/dL 7-18 N BUN) CREATININE W ESTIMATED [id number] 11:19:00 Test Item Value Reference Range Interpretation Comments GLOMERULAR FILTRATION 70.3 >60 Unit o f measure: RATE (test code = GFR) mL/mi n/1.73 [id number] Range:Healthy A dults >90 mL/min/1.73 m2 For Chronic Kid alfonso Disease: Stage II Mild Decrease i n GFR 60-90 Stage III Moderate Decrea se in GFR 30-59 Stage IV Severe Decrease in GFR 15-29 Stage V Kidney Failure <15 CREATININE (test code = 1.06 mg/dL 0.55-1.30 N CREAT) - CT L-SPINE W/O [id number] 09:53:00 Patient Name: TAMIKA OBREGON Unit No: [id number] EXAMS: CPT CODE: [id number] CT L-SPINE W/O CONTRAST [address] CT SCAN OF THE LUMBAR SPINE WITH [...] Mike(R) CTDI: DLP: Trnscrpt: 03/27/2019 (0953) JanetGVG [facility] NAME: TAMIKA OBREGON [address] [facility] PHYS: Angel Shah MD : 1955 AGE: 63 SEX: M [place] [address] LOC: Y.RAD PHONE #: [phone] EXAM DATE: 03/26/2019 STATUS: DEP CLI FAX #: [phone] RAD #: D/C DT PAGE 1 Signed Report Patient Name: TAMIKA OBREGON Unit No: [id number] EXAMS: CPTCODE: [id number] CT L-SPINE W/O CONTRAST 11993 (Continued) Orig Print D/T: S: 03/27/2019 (0956) [facility] NAME: TAMIKA OBREGON [address] [facility] PHYS: Angel Shah MD : 1955 AGE: 63 SEX: M [place] [address] LOC: Y.RAD PHONE #: [phone] EXAM DATE: 03/26/2019 STATUS: DEP CLI FAX #: [phone] RAD #: D/C DT PAGE 2 Signed ReportURINALYSIS [id number] 07:16:00 Test Item Value Reference Range Interpretation [...] /LPF NONE SEEN code = AMORU) HGB [id number] 05:50:00 Test Item Value Reference Range Interpretation Comments HEMOGLOBIN (test code = HGB) 12.0 g/dL 12-16 N HEMATOCRIT (test code = HCT) 34.8 % 37-47 L CBC W/AUTO [id number] 05:49:00 Test Item Value Reference Range Interpretation [...] NRBC) - XR SPINE 1 V SPEC [id number] 11:33:00 Patient Name: TAMIKA OBREGON Unit No: [id number] EXAMS: CPT CODE: [id number] XR SPINE 1 V SPEC LEVEL 18588 3 LATERAL INTRAOPERATIVE VIEWS OF THE LUMBAR [...] Chaidez M.D. Technologist: RT MIROSLAVA(R) Transcribed D/ (2463) [facility] NAME: TAMIKA OBREGON [address] [facility] PHYS: Angel Shah MD : 1955 AGE: 63 SEX: M [place], [place] [address] LOC: Y.505 A PHONE #: [phone] EXAM DATE: 12/30/2018 STATUS: ADM IN FAX #: [phone] RAD #: D/C DT PAGE 1 Signed Report Patient Name: TAMIKA OBREGON Unit No: [id number] EXAMS: CPT CODE: [id number] XR SPINE 1 V SPEC LEVEL 57227 (Continued) Orig Print D/T: S: 12/31/2018 (6796) [facility] NAME: TAMIKA OBREGON [facility] PHYS: Angel Shah MD : 1955 AGE: 63 SEX: M [place], [place] [address] LOC: Y.505 A PHONE #: [phone] EXAM DATE: 12/30/2018 STATUS: ADM IN FAX #: [phone] RAD #: D/C DT PAGE 2 Signed Report- XR SPINE 1 V SPEC [id number] 11:33:00 Patient Name: TAMIKA OBREGON Unit No: [id number] EXAMS: CPT CODE: [id number] XR SPINE 1 V SPEC LEVEL 64513 3 LATERAL INTRAOPERATIVE VIEWS OF THE LUMBAR [...] M.D. CC: Angel Chaidez M.D. Technologist: SHARATH CIUFENTES (RT.R) Transcribed D/ (0760) [facility] NAME: TAMIKA OBREGON [facility] PHYS: Angel Shah MD : 1955 AGE: 63 SEX: M [place], [place] [address] LOC: Y.505 A PHONE #: [phone] EXAM DATE: 12/30/2018 STATUS: ADM IN FAX #: [phone] RAD #: D/C DT PAGE 1 Signed Report Patient Name: TAMIKA OBREGON UnitNo: [id number] EXAMS: CPT CODE: [id number] XR SPINE 1 V SPEC LEVEL 53288 (Continued) Orig Print D/T: S: 12/31/2018 (1136) [facility] NAME: TAMIKA OBREGON [facility] PHYS: Angel Shah MD : 1955 AGE: 63 SEX: M [place], [place] [address] LOC: Y.505 A PHONE #: [phone] EXAM DATE: 12/30/2018 STATUS: ADM IN FAX #: [phone] RAD #: D/C DT PAGE 2 Signed Report- XR SPINE 1 V SPEC [id number] 11:33:00 Patient Name: TAMIKA OBREGON Unit No: [id number] EXAMS: CPT CODE: [id number] XR SPINE 1 V SPEC LEVEL 77512 3 LATERAL INTRAOPERATIVE VIEWS OF THE LUMBAR [...] Chaidez M.D. Technologist: STEVEN (RT.R) Transcribed D/ (9453) [facility] NAME: TAMIKA OBREGON [facility] PHYS: Angel Shah MD : 1955 AGE: 63 SEX: M [place], [place] [address] LOC: Y.505 A PHONE #: [phone] EXAM DATE: 12/30/2018 STATUS: ADM IN FAX #: [phone] RAD #: D/C DT PAGE 1 Signed Report Patient Name: TAMIKA OBREGON Unit No: [id number] EXAMS: CPT CODE: [id number] XR SPINE 1 V SPEC LEVEL 15252 (Continued) Orig Print D/T: S: 12/31/2018 (1136) [facility] NAME: TAMIKA OBREGON [address] [facility] PHYS: Angel Shah MD : 1955 AGE: 63 SEX: M [place], [place] [address] LOC: Y.505 A PHONE #: [phone] EXAM DATE: 12/30/2018 STATUS: ADM IN FAX #: [phone] RAD #: D/C DT PAGE 2 Signed [id number] 10:43:00 Test Item Value Reference Range Interpretation Comments PLT (test code = PLT) 119 K/mm3 130-400 L BASIC METABOLIC [id number] 06:35:00 Test Item Value Reference Range Interpretation [...] RATE (test code = GFR) mL/mi n/1.73 [id number] Range:Healthy Adults >90 mL/min/1.73 m2 For Chronic Kidney Disease: Stage II Mild Decrease i n GFR 60-90 Stage III Moderate Decrea se in GFR 30-59 St age IV Severe Decre ase in GFR 15-29 St age V Kidney Failur e <15 CREATININE (test code 0.84 mg/dL 0.55-1.30 N = CREAT) CALCIUM (test code = 9.2 mg/dL 8.2-10.1 N CA) HGB [id number] 05:40:00 Test Item Value Reference Range Interpretation Comments HEMOGLOBIN (test code = HGB) 12.7 g/dL 12-16 N HEMATOCRIT (test code = HCT) 36.0 % 37-47 L ACUTE HEPATITIS [id number] 17:53:00 Test Item Value Reference Range Interpretation [...] 1 (test code NONREACTIVE NONREACTIVE Done by [employer] = HIV1AB) 4th Gen HIV Ag/ Ab Combo Screen ACUTE HEPATITIS [id number] 17:52:00 Test Item Value Reference Range Interpretation [...] 1 2 (test NONREACTIVE NONREACTIVE Done by [employer] code = ARG61LY) 4th Gen HIV Ag/Ab Combo Screen ACUTE HEPATITIS [id number] 17:52:00 Test Item Value Reference Range Interpretation [...] 1 (test code NONREACTIVE NONREACTIVE Done by [employer] = HIV1AB) 4th Gen HIV Ag/ Ab Combo Screen ACUTE HEPATITIS [id number] 17:51:00 Test Item Value Reference Range Interpretation [...] 1 2 (test NONREACTIVE NONREACTIVE Done by [employer] code = QCR05HT) 4th Gen HIV Ag/Ab Combo Screen CBC W/AUTO [id number] 09:49:00 Test Item Value Reference Range Interpretation [...] N CELL (test code = NRBC) PROTHROMBIN [id number] 09:32:00 Test Item Value Reference Range Interpretation [...] v nickerson IS PATIENT ON ANTICOAGULANTS ? MAas Lab been notified if Patient is on Heparin Drip? NOIf Yes, orderCBC, OCCULT BLOOD, PT every other day NTHROMBOPLASTIN TIME [id number] 09:32:00 Test Item Value Reference Range Interpretation Comments PTT ACTIVATED (test code = APTT) 28.7 secs 24.9-37.0 N IS PATIENT ON ANTICOAGULANTS ? NHas Lab been notified if Patient is on Heparin Drip? NOIf Yes, orderCBC, OCCULT BLOOD, PT every other day NBASIC METABOLIC [id number] 09:32:00 Test Item Value Reference Range Interpretation [...] RATE (test code = GFR) mL/mi n/1.73 [id number] Range:Healthy Adults >90 mL/min/1.73 m2 For Chronic [...]
[2022-07-08 19:23] LABS: Absolute Lymphocytes (CBC) 1.8 K/uL (0.7-4.9); Hematocrit 43.3 % (39.6-49.0); Lymphocytes % 25.1 % (15.3-44.8); MCV 89.1 fL (80-100); MPV 8.3 fL (7.6-11.3); Protime INR 1.05; RBC Red Blood Cell Count 4.85 M/uL (4.33-5.43)
--- NOTE | 2022-07-08 19:26 | RAD REPORT ---
EXAM DESCRIPTION: RAD - Chest Single View - 07/08/2022 7:15 pm CLINICAL HISTORY: ams, hypertension COMPARISON: Portable 07/02/2022 TECHNIQUE: AP portable chest image was obtained 07/08/2022 7:15 pm . FINDINGS: Lungs are clear. Interstitial pattern matches comparison. Sternotomy wires are in place. H eart and vasculature are normal. No measurable pleural effusion and no pneumothorax. No acute bony ab normality seen. No acute aortic findings suspected. IMPRESSION: No acute cardiopulmonary process. No significant change from comparison study.
[2022-07-08 19:32] LABS: ALT/SGPT 31 U/L (12-78); AST/SGOT 18 U/L (15-37); Albumin 4.2 g/dL (3.4-5.0); Alkaline Phosphatase 118 U/L (45-117); BUN Blood Urea Nitrogen 14 mg/dL (7-18); Bicarbonate 30 mmol/L (21-32); Bilirubin Total 0.3 mg/dL (0.2-1.0); Glomerular Filtration Rate 61 ml/min (=/>90); Glucose Level 112 mg/dL (74-106); NT PRO-BNP 458 pg/mL (<125); Protein, Total 7.6 g/dL (6.4-8.2); Troponin High Sensitivity 9.9 pg/mL (<58.9)
[2022-07-08 19:37] LABS: Bilirubin Direct < 0.1 mg/dL (0-0.2)
[2022-07-08 20:01] LABS: Potassium 3.5 mmol/L (3.5-5.1); Sodium Level 140 mmol/L (136-145)
[2022-07-08 20:06] LABS: Urine Blood Negative (Negative); Urine Glucose Negative (Negative); Urine Protein Negative (Negative)
[2022-07-08] MEDS ORDERED: DIAZEPAM 10 MG/2 ML INJ SYRINGE ONE (20:08)
--- NOTE | 2022-07-08 20:52 | ER ---
Nurse's Notes [facility] Name: William Osuna Age: 66 yrs Sex: Male : 1955 Arrival Date: 07/08/2022 Time: 18:22 Bed 13 Private MD: Diagnosis: Adjustment disorder with depressed mood;Weakness;Insomnia Presentation: 07/08 18:37 Chief complaint: reports anxiety and confusion x 4 days, concerned it was his hb sertraline so she has not given it to him since . Pt reports feeling anxious and "just not myself.". Coronavirus screen: At this time, the client does not indicate any symptoms associated with coronavirus-19. Ebola Screen: No symptoms or risks identified at this time. Risk Assessment: Do you want to hurt yourself or someone else? Patient reports no desire to harm self or others. Onset of symptoms was July 08, 2022. 18:37 Method Of Arrival: Ambulatory hb 18:37 Acuity: FARHAD 3 hb 18:38 Initial Sepsis Screen: Does the patient meet any 2 criteria? No. Patient's initial hb sepsis screen is negative. Does the patient have a suspected source of infection? No. Patient's initial sepsis screen is negative. Historical: - Allergies: 18:39 Codeine; hb 18:39 PENICILLINS; hb - PMHx: 18:39 cardiac stent; Hypertensive disorder; hb - PSHx: 18:39 Back x2; brain aneurysm; CABG; Cholecystectomy; hb - Immunization history:: Adult Immunizations up to date. - Social history:: Smoking status: Patient denies any tobacco usage or history of. Screenin:13 Abuse screen: Denies threats or abuse. Denies injuries from another. Nutritional lg3 screening: No deficits noted. Tuberculosis screening: No symptoms or risk factors identified. Fall Risk None identified. Assessment: 19:13 General: Appears in no apparent distress. uncomfortable, Behavior is cooperative, lg3 anxious, fussy. Pain: Complains of pain in back. Neuro: No deficits noted. Level of Consciousness is awake, alert, obeys commands, Oriented to person, place, time, situation. Cardiovascular: No deficits noted. Denies chest pain, shortness of breath, Capillary refill < 3 seconds Clubbing of nail beds is absent JVD is absent Patient's skin is warm and dry. Respiratory: No deficits noted. Airway is patent Trachea midline Respiratory effort is even, unlabored, Respiratory pattern is regular, symmetrical, Breath sounds are clear bilaterally. GI: No deficits noted. No signs and/or symptoms were reported involving the gastrointestinal system. Abdomen is flat, non-distended. : No deficits noted. No signs and/or symptoms were reported regarding the genitourinary system. EENT: No deficits noted. No signs and/or symptoms were reported regarding the EENT system. Derm: No deficits noted. No signs and/or symptoms reported regarding the dermatologic system. Skin is intact, is healthy with good turgor, Skin is dry, Skin is normal, Skin temperature is warm. Musculoskeletal: No deficits noted. Circulation, motion, and sensation intact. Range of motion: intact in all extremities. 21:06 Reassessment: Patient appears in no apparent distress at this time. No changes from lg3 previously documented assessment. Patient and/or family updated on plan of care and expected duration. Pain level reassessed. Patient is alert, oriented x 3, equal unlabored respirations, skin warm/dry/pink. Patient states symptoms have improved. Vital Signs: 18:37 BP 180 / 84; Pulse 95; Resp 16; Temp 97.9; Pulse Ox 100% on R/A; Weight 81.65 kg; hb Height 6 ft. 3 in. (190.50 cm); Pain 10/10; 20:11 BP 174 / 72; Pulse 82; Resp 17 S; Pulse Ox 100% on R/A; lg3 21:15 BP 164 / 71; Pulse 68; Resp 16; Pulse Ox 99% on R/A; lg3 18:37 Body Mass Index 22.50 (81.65 kg, 190.50 cm) hb NIH Stroke Scale Scores: 20:47 NIHSS Score: 0 gregory ED Course: 18:22 Patient arrived in ED. as 18:39 Triage completed. hb 18:39 Arm band placed on. hb 18:51 Remington Hong, RN is Primary Nurse. bp 19:00 Inserted saline lock: 20 gauge in right antecubital area, using aseptic technique. bp Blood collected. 19:13 Patient has correct armband on for positive identification. Placed in gown. Bed in low lg3 position. Call light in reach. Side rails up X 1. Client placed on continuous cardiac and pulse oximetry monitoring. NIBP monitoring applied. Door closed. Noise minimized. Warm blanket given. Pillow given. Family accompanied patient. 19:21 Devaughn Avila MD is Attending Physician. gregory 19:22 Troponin HS Sent. lg3 19:22 PT-INR Sent. lg3 19:22 NT PRO-BNP Sent. lg3 19:22 Magnesium Sent. lg3 19:22 LFT's Sent. lg3 19:22 CBC with Diff Sent. lg3 19:22 Basic Metabolic Panel Sent. lg3 19:32 EKG done, by ED staff, reviewed by Devaughn Avila MD. [facility] 19:42 Adult w/ patient. quality assurance monitor body on. Pulse ox on. NIBP on. [facility] 19:42 Initial lab(s) drawn, by ED staff, sent to lab. COVID swab sent to lab. [facility] 20:07 RAD In Process Unspecified. EDMS 20:51 Marquis Mackenzie MD is Referral Physician. gregory 21:16 No provider procedures requiring assistance completed. IV discontinued, intact, lg3 bleeding controlled, No redness/swelling at site. Pressure dressing applied. Administered Medications: 19:56 Not Given (Physician Discretion): Ativan (LORazepam) 1 mg IVP once kl 20:11 Drug: Valium (diazepam) 2 mg Route: IVP; Site: right antecubital; lg3 21:05 Follow up: Response: No adverse reaction; Marked relief of symptoms lg3 20:54 CANCELLED (Duplicate Order): Restoril (temazepam) 15 mg PO once gregory 20:54 CANCELLED (Duplicate Order): Restoril (temazepam) 15 mg PO once gregory 21:05 Drug: Solu-CORTEF (hyrdoCORTISONE) 100 mg Route: IVP; Site: right antecubital; lg3 21:05 Follow up: Response: No adverse reaction lg3 21:05 Drug: Restoril (temazepam) 30 mg Route: PO; lg3 21:05 Follow up: Response: No adverse reaction lg3 Medication: 21:16 VIS not applicable for this client. lg3 Outcome: 20:51 Discharge ordered by . gregory 21:16 Discharged to home ambulatory, with family. lg3 21:16 Condition: stable 21:16 Discharge instructions given to patient, family, Instructed on discharge instructions, follow up and referral plans. medication usage, Demonstrated understanding of instructions, follow-up care, medications, Prescriptions given X 1. 21:16 Patient left the ED. lg3 NIH Stroke Scale - NIH Stroke Score Date: 07/08/2022 Time: 20:47 Total Score = 0 1a. Level of Consciousness (LOC) - 0(Alert) 1b. Level of Consciousness (LOC) (Month \\T\\ Age) - 0(Both) 1c. LOC Commands (Open \\T\\ Closes Eyes/Honey Extractor) - 0(Both) 2. Best Gaze (Lateral Gaze Paresis) - 0(Normal) 3. Visual Field Loss - 0(No visual loss) 4. Facial Palsy - 0(Normal) 5a. Left Arm: Motor (10-second hold) - 0(No drift) 5b. Right Arm: Motor (10-second hold) - 0(No drift) 6a. Left Leg: Motor (5-second hold - always test supine) - 0(No drift) 6b. Right Leg: Motor (5-second hold - always test supine) - 0(No drift) 7. Limb Ataxia (finger/nose \\T\\ heel/emanuel - test with eyes open) - 0(Absent) 8. Sensory Loss (pinprick arms/legs/face) - 0(Normal) 9. Best Language: Aphasia (description/naming/reading) - 0(No aphasia) 10. Dysarthria (speech clarity - read or repeat words) - 0(Normal) 11. Extinction and Inattention (visual/tactile/auditory/spatial/personal) - 0(No abnormality) Initials: gregory Signatures: Dispatcher [employer] EDMS Devaughn Avila MD MD cha Martinez, Amelia as Baxter, Heather, RN RN hb Martinez, Maria 5 Remington Hong RN RN bp Tanya Pacheco, BRADLY RN lg3 Yesenia Streeter RN Corrections: (The following items were deleted from the chart) 18:39 18:37 Chief complaint: reports anxiety and confusion x 4 days, concerned hb it was his sertraline so she has not given it to him since. hb 18:40 18:37 Chief complaint: reports anxiety and confusion x 4 days, concerned hb it was his sertraline so she has not given it to him since. Pt reports feeling anxious and "just not myself." hb 18:45 18:37 BP 084 / 89; Pulse 95bpm; Resp 16bpm; Pulse Ox 100% RA; Temp 97.9F; 81.65 hb kg; Height 6 ft. 3 in.; BMI: 22.5; Pain 07/30; hb 19:39 18:37 Chief complaint: reports anxiety and confusion x 4 days, concerned hb it was his sertraline so she has not given it to him since. Pt reports feeling anxious and "just not myself." hb
--- NOTE | 2022-07-08 20:52 | EDPHYS ---
Physician Documentation [facility] Name: William Osuna Age: 66 yrs Sex: Male : 1955 Arrival Date: 07/08/2022 Time: 18:22 Bed 13 Private MD: ED Physician Devaughn Avila HPI: 07/08 20:44 This 66 yrs old Male presents to ER via Ambulatory with complaints of gregory medication reaction. 20:44 The patient presents to the emergency department with depression, over unknown gregory circumstances. Onset: The symptoms/episode began/occurred 21 day(s) ago. Past psychiatric history: Prior diagnosis: no previous psychiatric diagnosis known. weak, depressed, cant sleep. Associated signs and symptoms: Pertinent positives; depression, tremor. Onset: The symptoms/episode began/occurred 3 week(s) ago. Severity of symptoms: At their worst the symptoms were mild in the emergency department the symptoms are unchanged. The patient has not experienced similar symptoms in the past. Historical: - Allergies: 18:39 Codeine; hb 18:39 PENICILLINS; hb - PMHx: 18:39 cardiac stent; Hypertensive disorder; hb - PSHx: 18:39 Back x2; brain aneurysm; CABG; Cholecystectomy; hb - Immunization history:: Adult Immunizations up to date. - Social history:: Smoking status: Patient denies any tobacco usage or history of. ROS: 20:47 Constitutional: Negative for fever, chills, and weight loss, Eyes: Negative for injury, gregory pain, redness, and discharge, ENT: Negative for injury, pain, and discharge, Neck: Negative for injury, pain, and swelling, Cardiovascular: Negative for chest pain, palpitations, and edema, Respiratory: Negative for shortness of breath, cough, wheezing, and pleuritic chest pain, Abdomen/GI: Negative for abdominal pain, nausea, vomiting, diarrhea, and constipation, Back: Negative for injury and pain, : Negative for injury, bleeding, discharge, and swelling, MS/Extremity: Negative for injury and deformity, Skin: Negative for injury, rash, and discoloration, Allergy/Immunology: Negative for hives, rash, and allergies, Endocrine: Negative for neck swelling, polydipsia, polyuria, polyphagia, and marked weight changes, Hematologic/Lymphatic: Negative for swollen nodes, abnormal bleeding, and unusual bruising. 20:47 Psych: Positive for depression, insomnia. Exam: 20:47 Constitutional: This is a well developed, well nourished patient who is awake, alert, gregory and in no acute distress. Head/Face: Normocephalic, atraumatic. Eyes: Pupils equal round and reactive to light, extra-ocular motions intact. Lids and lashes normal. Conjunctiva and sclera are non-icteric and not injected. Cornea within normal limits. Periorbital areas with no swelling, redness, or edema. ENT: Nares patent. No nasal discharge, no septal abnormalities noted. Tympanic membranes are normal and external auditory canals are clear. Oropharynx with no redness, swelling, or masses, exudates, or evidence of obstruction, uvula midline. Mucous membranes moist. Neck: Trachea midline, no thyromegaly or masses palpated, and no cervical lymphadenopathy. Supple, full range of motion without nuchal rigidity, or vertebral point tenderness. No Meningismus. Chest/axilla: Normal chest wall appearance and motion. Nontender with no deformity. No lesions are appreciated. Cardiovascular: Regular rate and rhythm with a normal S1 and S2. No gallops, murmurs, or rubs. Normal PMI, no JVD. No pulse deficits. Respiratory: Lungs have equal breath sounds bilaterally, clear to auscultation and percussion. No rales, rhonchi or wheezes noted. No increased work of breathing, no retractions or nasal flaring. Abdomen/GI: Soft, non-tender, with normal bowel sounds. No distension or tympany. No guarding or rebound. No evidence of tenderness throughout. Back: No spinal tenderness. No costovertebral tenderness. Full range of motion. Male : Normal genitalia with no discharge or lesions. Skin: Warm, dry with normal turgor. Normal color with no rashes, no lesions, and no evidence of cellulitis. MS/ Extremity: Pulses equal, no cyanosis. Neurovascular intact. Full, normal range of motion. Neuro: Awake and alert, GCS 15, oriented to person, place, time, and situation. Cranial nerves II-XII grossly intact. Motor strength 5/5 in all extremities. Sensory grossly intact. Cerebellar exam normal. Normal gait. 20:47 Psych: Behavior/mood is depressed, Affect is flat, Oriented to person, place, time, Patient has no thoughts/intents to harm self or others. Judgement / Insight is normal. Memory is normal. Delusions/hallucinations are not present. 20:53 ECG was reviewed by the Attending Physician. gregory Vital Signs: 18:37 BP 180 / 84; Pulse 95; Resp 16; Temp 97.9; Pulse Ox 100% on R/A; Weight 81.65 kg; hb Height 6 ft. 3 in. (190.50 cm); Pain 10/10; 20:11 BP 174 / 72; Pulse 82; Resp 17 S; Pulse Ox 100% on R/A; lg3 21:15 BP 164 / 71; Pulse 68; Resp 16; Pulse Ox 99% on R/A; lg3 18:37 Body Mass Index 22.50 (81.65 kg, 190.50 cm) hb NIH Stroke Scale Scores: 20:47 NIHSS Score: 0 gregory MDM: 18:49 Patient medically screened. [facility] 19:22 Patient medically screened. gregory 20:48 Differential diagnosis: depression. Differential Diagnosis altered mental status. Data gregory reviewed: vital signs, nurses notes, lab test result(s), EKG, radiologic studies, plain films. Data interpreted: awake overnight monitor: rate is 82 beats/min, rhythm is regular. Test interpretation: by ED physician or midlevel provider: ECG, plain radiologic studies. 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 07/08 18:49 Order name: Basic Metabolic Panel [facility] 07/08 18:49 Order name: CBC with Diff [facility] 07/08 18:49 Order name: LFT's [facility] 07/08 18:49 Order name: Magnesium [facility] 07/08 18:49 Order name: NT PRO-BNP [facility] 07/08 18:49 Order name: PT-INR [facility] 07/08 18:49 Order name: Troponin HS [facility] 07/08 19:24 Order name: Protime (+INR) [facility] 07/08 19:25 Order name: CBC with Automated Diff [facility] 07/08 19:38 Order name: Basic Metabolic Panel [facility] 07/08 19:38 Order name: Liver (Hepatic) Function [facility] 07/08 19:38 Order name: Troponin High Sensitivity [facility] 07/08 19:38 Order name: NT PRO-BNP [facility] 07/08 18:49 Order name: XRAY Chest (1 view) [facility] 07/08 18:49 Order name: EKG; Complete Time: 18:50 [facility] 07/08 18:49 Order name: Cardiac monitoring; Complete Time: 19:32 [facility] 07/08 18:49 Order name: EKG - Nurse/Tech; Complete Time: 19:31 [facility] 07/08 19:27 Order name: RAD [facility] 07/08 19:38 Order name: Magnesium [facility] 07/08 20:06 Order name: Urine Dipstick-Ancillary [facility] 07/08 20:44 Order name: Cortisol [facility] 07/08 20:44 Order name: TSH [facility] 07/08 18:49 Order name: IV Saline Lock; Complete Time: 18:58 [facility] 07/08 18:49 Order name: Labs collected and sent; Complete Time: 18:58 [facility] 07/08 18:49 Order name: O2 Per Protocol; Complete Time: 18:58 [facility] 07/08 18:49 Order name: O2 Sat Monitoring; Complete Time: 18:58 [facility] 07/08 18:50 Order name: Urine Dipstick-Ancillary (obtain specimen); Complete Time: 20:05 jm EC:53 Rate is 74 beats/min. Rhythm is regular. QRS [place] is Normal. FL interval is normal. QRS gregory interval is normal. QT interval is normal. No Q waves. T waves are Normal. No ST changes noted. Clinical impression: Normal ECG and No evidence of ischemia. Interpreted by me. Reviewed by me. Administered Medications: 19:56 Not Given (Physician Discretion): Ativan (LORazepam) 1 mg IVP once kl 20:11 Drug: Valium (diazepam) 2 mg Route: IVP; Site: right antecubital; lg3 21:05 Follow up: Response: No adverse reaction; Marked relief of symptoms lg3 20:54 CANCELLED (Duplicate Order): Restoril (temazepam) 15 mg PO once gregory 20:54 CANCELLED (Duplicate Order): Restoril (temazepam) 15 mg PO once gregory 21:05 Drug: Solu-CORTEF (hyrdoCORTISONE) 100 mg Route: IVP; Site: right antecubital; lg3 21:05 Follow up: Response: No adverse reaction lg3 21:05 Drug: Restoril (temazepam) 30 mg Route: PO; lg3 21:05 Follow up: Response: No adverse reaction lg3 Disposition Summary: 07/08/22 20:51 Discharge Ordered Location: Home gregory Problem: new gregory Symptoms: have improved gregory Condition: Stable gregory Diagnosis - Adjustment disorder with depressed mood gregory - Weakness gregory - Insomnia gregory Followup: gregory - With: Private Physician - When: 1 - 2 days - Reason: Recheck today's complaints, Continuance of care, Re-evaluation by your physician Followup: gregory - With: Marquis Mackenzie MD - When: 2 - 3 days - Reason: Recheck today's complaints, Continuance of care, Re-evaluation by your physician Discharge Instructions: - Discharge Summary Sheet gregory - Adjustment Disorder, Adult gregory - Weakness gregory - Fatigue gregory - Weakness, [id number] gregory - Insomnia gregory - Deconditioning gregory Forms: - Medication Reconciliation Form gregory - Thank You Letter gregory - Antibiotic Education gregory - Prescription Opioid Use gregory Prescriptions: - Restoril 7.5 mg Oral Capsule - take 2 capsule by ORAL route At bedtime As needed; 20 capsule; Refills: 0, gregory Product Selection Permitted NIH Stroke Scale - NIH Stroke Score Date: 07/08/2022 Time: 20:47 Total Score = 0 1a. Level of Consciousness (LOC) - 0(Alert) 1b. Level of Consciousness (LOC) (Month \T\ Age) - 0(Both) 1c. LOC Commands (Open \T\ Closes Eyes/Director Imaging) - 0(Both) 2. Best Gaze (Lateral Gaze Paresis) - 0(Normal) 3. Visual Field Loss - 0(No visual loss) 4. Facial Palsy - 0(Normal) 5a. Left Arm: Motor (10-second hold) - 0(No drift) 5b. Right Arm: Motor (10-second hold) - 0(No drift) 6a. Left Leg: Motor (5-second hold - always test supine) - 0(No drift) 6b. Right Leg: Motor (5-second hold - always test supine) - 0(No drift) 7. Limb Ataxia (finger/nose \T\ heel/emanuel - test with eyes open) - 0(Absent) 8. Sensory Loss (pinprick arms/legs/face) - 0(Normal) 9. Best Language: Aphasia (description/naming/reading) - 0(No aphasia) 10. Dysarthria (speech clarity - read or repeat words) - 0(Normal) 11. Extinction and Inattention (visual/tactile/auditory/spatial/personal) - 0(No abnormality) Initials: gregory Signatures: Dispatcher [employer] EDMS Yesenia Streeter RN RN kl Anderson, Corey, MD MD cha Mickail, Joel, PA PA jmm Baxter, Heather, RN RN Tanya Pacheco RN RN lg3 Corrections: (The following items were deleted from the chart) 20:35 18:51 SARS-COV-2 Antigen Rapid+I.LAB.BRZ ordered. EDMS EDMS 20:42 18:54 Head Brain Wo Cont+CT.RAD.BRZ ordered. EDMS EDMS 20:54 20:44 Restoril (temazepam) 15 mg PO once ordered. gregory gregory 20:54 20:44 Restoril (temazepam) 15 mg PO once ordered. gregory gregory
[2022-07-08] MEDS ORDERED: HYDROCORTISONE SUC 100 MG INJ ONE (20:58)
[2022-07-08] MEDS ORDERED: TEMAZEPAM 15 MG CAP ONE (21:09)
[2022-07-08 22:00] LABS: Thyroid Stimulating Hormone 4.99 uIU/mL (0.360-3.740)
[2022-07-10 05:39] VITALS: TEMP 97.9
[2022-07-10 05:45] VITALS: BP 164/71; O2SAT 99
--- NOTE | 2022-07-11 06:40 | EKG ---
Test Date: 2022-07-08 Test Time: 19:40:23 Psychotherapist Counselor: JOSÉ MIGUEL MEASUREMENT RESULTS: Intervals: Rate: 74 WV: 154 QRSD: 96 QT: 382 QTc: 424 [place]: P: 39 WV: 154 QRS: 36 T: 60 INTERPRETIVE STATEMENTS: Normal sinus rhythm Normal ECG Compared to ECG 07/02/2022 09:12:28 Ventricular premature complex(es) no longer present Electronically Signed On 07-11-22 06:32:29 CDT by Talib Grover
== END 2022-07-08 21:16 | disposition home or self-care (01) ==
LOC: ER 18:20
DX: F43.21 Adjustment disorder with depressed mood (principal); G47.00 Insomnia, unspecified; R53.1 Weakness; I10 Essential (primary) hypertension; Z95.1 Presence of aortocoronary bypass graft; Z88.0 Allergy status to penicillin; Z88.5 Allergy status to narcotic agent
CPT/HCPCS: 93005; 85025; 80048; 36415; 83735; 85610; 80076; 84443; 81003; 84484; 84439; 82533; 83880; 71045; 96375; 96374; 99284; J3360; J1720

== ENCOUNTER 2022-07-12 06:30 | Day surgery (SDC) | payer OTHER, BC ==
[2022-07-11 10:36] LABS: SARS-CoV-2 Antigen Rapid Res Negative (Negative)
[2022-07-12] MEDS ORDERED: NA CHLORIDE 0.9% 500 ML ONE (06:58)
[2022-07-12] MEDS ORDERED: LIDOCAINE 1% MPF 30 ML VIAL ONE (07:02)
[2022-07-12] MEDS ORDERED: HEPA 1000U/500MLS 2,000 UNIT/1,000 ML BAG IV ONE (07:02)
[2022-07-12] MEDS ORDERED: MIDAZOLAM HCL 2 MG/2 ML INJ ONE (07:06)
[2022-07-12] MEDS ORDERED: ATROPINE SULF 1 MG/10 ML SYR IV ONE (07:06)
[2022-07-12] MEDS ORDERED: FENTANYL CITR 100 MCG/2 ML ONE (07:06)
--- NOTE | 2022-07-12 09:19 | OP ---
Surgeon: Talib Grover MD Project Lead: Ms. Malika Rebolledo. The patient was admitted to the laboratory engineer. Procedures Performed: He underwent selective bilateral carotid angiogram and common femoral artery a ngiogram. Indications: Cerebrovascular disease and abnormal carotid Doppler. Procedure In Detail: Mr. Osuna, in the laboratory engineer, was prepped and draped in routine sterile fashio n and given Versed and fentanyl for sedation. 10 cc of Xylocaine was injected in the right common fe moral artery area. A 6-Chinese sheath was introduced in the right common femoral artery successfully. Angiography there was normal. Angio-Seal was used to close the case. A JR4 catheter was used to s elect the common carotid artery on the right and then the left. He was found to have normal bilatera l common carotid, patent right ICA stent, 99% occlusion of the right external carotid artery, normal left external carotid artery, and a 50% stenosis in the left internal carotid. There were no complic ations or blood loss. Total conscious sedation was 30 minutes. Postoperative Diagnoses: Moderate cerebrovascular disease, 50% left internal carotid artery, patent right internal carotid artery stent. Plan: Medical therapy Disposition: The patient will be in the hospital for another 2 hours of bedrest. After his Angio-Se al, he will go home. I will see him in the office in 2 weeks. MELODY/PRASANNA Voice ID: [id number] Report ID: [id number]
[2022-07-12 09:31] VITALS: BP 124/59; TEMP 98; O2SAT 99
== END 2022-07-12 09:50 | disposition home or self-care (01) ==
LOC: CCL 06:30
DX: I65.23 Occlusion and stenosis of bilateral carotid arteries (principal); I10 Essential (primary) hypertension; Z95.828 Presence of other vascular implants and grafts; Z95.1 Presence of aortocoronary bypass graft; Z88.0 Allergy status to penicillin; Z88.3 Allergy status to other anti-infective agents; Z88.5 Allergy status to narcotic agent; Z20.822 Contact with and (suspected) exposure to COVID-19
CPT/HCPCS: 36415; 85730; 36222; 87811; C1893; C1760; G0269; J2250; J3010; J7040; J1644

== ENCOUNTER 2022-07-16 16:14 | Emergency (ER) | payer OTHER, BC ==
--- OUTSIDE RECORDS SUMMARY | 2022-07-16 16:17 | XMS REPORT | Continuity of Care Document ---
:1955 Author Organization [facility] t Address [address] [place] [address] Care Team Providers Name Role Phone CARINA PARKER Primary Care Physician Unavailable CRISTOBAL READ Attending Clinician Unavailable Angel Chaidez Attending Clinician Unavailable Pablo Dunbar MD Attending Clinician CRISTOBAL READ Admitting Clinician Unavailable Angel Chaidez Admitting Clinician Unavailable Physician, No Primary or Family Admitting Clinician Unavaila ble Payers Payer Name Policy Type Policy Number Effective Date Expiration Date S our MEDICARE PART A \T\ [id number] 2019 B 00:00:00 BCBS TRADITIONAL [id number] 2019 00:00:00 Problems Condition Condition Condition Status Onset Resolution Last Treating Co mments Source Name Details Category Date Date Treatment Clinician Date No known No known Disease Unive rs active active ity of problems problems [facility] [place] [facility] Allergies, Adverse Reactions, Alerts Allergy Allergy Status Severity Reaction(s) Onset Inactive Treating Comm ents Source Name Type Date Date Clinician Penicill DA Active SV RASHES 2021-1 [facility]- [place] [facility] [place] Active [place], 2020- [facility] [place] [facility] Penicill DA Active SV 2019-0 [facility] ins 7-11 [place] 00:[facility]: [facility] codeine DA Active [place] 2019-0 [facility] 7-11 [place] 00:00[facility] levoflox DA Active [place] 2019-0 [facility] acin 7-11 [place] 00:00: [facility] 00 [facility] Penicill DA Active SV RASHES 2019-0 [facility] ins 7-11 [place] 00:00: [facility] codeine DA Active [place], 2019-0 [facility] [place] [facility] levoflox DA Active [place] NAUSEA 2019-0 [facility] acin 7-11 [place] 00:00: [facility] 00 [facility] Penicill DA Active SV 2019-0 [facility] ins 3-12 [facility] [place] codeine DA Active [place] 2019-0 [facility] 3-12 [facility] [place] levoflox DA Active [place] 2019-0 [facility] acin 3-12 [facility] [place] codeine DA Active [place] 2019-0 [facility] 3-11 [facility] [place] Penicill DA Active SV 2019-0 [facility] ins 3-11 [facility] [place] levoflox DA Active [place] 2018-1 [facility] acin 1-27 [facility] [place] Penicill DA Active SV 2018-1 [facility] ins 1-27 [place] 00:00: [facility]ope 00 [facility] codeine DA Active [place] 2018-1 [facility] 1-27 [place] 00:00: Orthope 00 [...] 00 dic Hospita [facility] codeine DA Active [place] [facility] 11-01 [place] 00:00: [facility] levoflox DA Active [place] [facility] acin 11-01 [place] 00:00: [facility] 00 [facility] Social History Social Habit Start Date Stop Date Quantity Comments Source Sex Assigned At [birth year] [facility] 00:00:00 00:00:00 [facility] Smoking Status Start Date Stop Date Source Unknown if ever smoked [facility] Medications Ordered Filled Start Stop Current Ordering Indication Dosage Frequency Signature Comments Components Source Medication Medication Date Date Medication? Clinician (SIG) Name Name diazePAM 5 2020-10 Yes [id number] 5mg Take 1 [facility] mg tablet 2-01 [...] ity of hr capsule 08:16: daily. [place] [facility] amLODIPine 2020-10 Yes 5mg Take [...] Facility Department ID 2021-10-27 Outpatient R CAILIN [facility] [id number] [facility] 15:53:41 ECRISTOBAL ity [facility] 2021-11-07 2021-11-07 Outpatient R [facility] [id number] [facility] 08:30:00 08:30:00 [id number] itjayme [facility] 2021-11-07 2021-11-07 Outpatient R CAILIN [facility] [id number] Univers 08:30:00 08:30:00 CRISTOBAL Medina o f [facility] [place] [facility] 2021-09-21 2021-09-21 Outpatient EL JOHNNY Chaidez RADI [id number] [facility] 08:45:00 08:45:00 Angel 27 [place] [facility] 2021-09-11 2021-09-11 Telephone Bettina [facility] [id number] [facility] [place] 00:00:00 00:00:00 [facility] [id number] [facility] [id number] Michael as CARLOS A?BLEA [phone] Mo dical [address] MEDICAL OFFICE BUILDING 2020-09-26 2020-09-26 Outpatient JOHNNY Chaidez RADI [id number] [facility] 08:30:00 08:30:00 Angel 00 [place] [facility] 2020-08-22 2020-08-22 Outpatient JOHNNY Chaidez RADI [id number] [facility] 10:00:00 10:00:00 Angel 75 [place] [facility] Results Test Description Test Time Test Comments Results Result [facility] e Comments - XR L-SPINE 2021-09-25 W/BEND VIEW 19:48:00 [facility] : 1955 Sex: M Patient Name: TAMIKA OBREGON Unit No: [id number] EXAMS: CPT CODE: [id number] XR L-SPINE W/BEND VIEW 42727 COMPARISON: Concurrent MRI. IMAGES PROVIDED: 8 views [...] Technologist: RT. Neetu(R) Transcribed D/ (1947) JanetSLJ [facility] NAME: TAMIKA OBREGON [address] [place] [address] PHYS: Angel Shah MD : 1955 AGE: 65 SEX: M [place] [address] LOC: Y.MRI PHONE #: [phone] EXAM DATE: 09/21/2021 STATUS: DEP CLI FAX #: [phone] RAD #: D/C DT PAGE 1 Signed Report Patient Name: TAMIKA OBREGON Unit No: [id number] EXAMS: CPT CODE: [id number] XR L-SPINE W/BEND VIEW 37375 (Continued) Orig Print D/T: S: 09/25/2021 (1950) [facility] NAME: TAMIKA OBREGON [address] [place] [address] PHYS: Angel Shah MD : 1955 AGE: 65 SEX: M [place] [address] LOC: Y.MRI PHONE #: [phone] EXAM DATE: 09/21/2021 STATUS: DEP CLI FAX #: [phone] RAD #: D/C DT PAGE 2 Signed Report - MRI L-SPINE W WO 2021-09-21 [facility]:12[facility] 1955 Sex: M Patient Name: TAMIKA OBREGON Unit No: [id number] EXAMS: CPT CODE: [id number] MRI [place] [address]91 DIAGNOSIS: 1. At L1-2 there is no [...] disc bulging foramina with moderate right and fquo-ri-aucjimei left foraminal narrowing. Moderate central canal stenosis [...] EDGARDO SANCHEZ MRI Transcribed D/ (1312) [facility] NAME: TAMIKA OBREGON [address] [facility] PHYS: Angel Shah MD : 1955 AGE: 65 SEX: M [place] [address] LOC: Y.MRI PHONE #: [phone] EXAM DATE: 09/21/2021 STATUS: REG CLI FAX #: [phone] RAD #: D/C DT PAGE 1 Signed Report Patient Name: TAMIKA OBREGON Unit No: [id number] EXAMS: CPT CODE: [id number] MRI L-SPINE W [place] 52245 (Continued) Orig Print D/T: S: 09/21/2021 (1315) [facility] NAME: TAMIKA OBREGON [address] [place] [address] PHYS: Angel Shah MD : 1955 AGE: 65 SEX: M [place] [address] LOC: Y.MRI PHONE #: [phone] EXAM DATE: 09/21/2021 STATUS: REG CLI FAX #: [phone] RAD #: D/C DT PAGE 2 Signed Report - CT L-SPINE W/O 2020-09-26 CONTRAST 10:23:00 [facility] : 1955 Sex: M Patient Name: TAMIKA OBREGON Unit No: [id number] EXAMS: CPT CODE: [id number] CT L-SPINE W/O CONTRAST 31715 DIAGNOSIS: 1. At L1-2 there is a [...] RT Mike(R) CTDI: DLP: Trnscrpt: 09/26/2020 (1023) t.DANIELLER.[facility] NAME: TAMIKA OBREGON [address] [facility] PHYS: Angel Shah MD : 1955 AGE: 64 SEX: M [place], [place] [address] LOC: YLizRAD PHONE #: [phone] EXAM DATE: 09/26/2020 STATUS: REG CLI FAX #: [phone] RAD #: D/C DT PAGE 1 Signed Report Patient Name: TAMIKA OBREGON Unit No: [id number] EXAMS: CPT CODE: [id number] CT L-SPINE W/O CONTRAST 70897 (Continued) Orig Print D/T: S: 09/26/2020 (1026) [facility] NAME: TAMIKA OBREGON [address] [facility] PHYS: Angel Shah MD : 1955 AGE: 64 SEX: M [place], [place] [address] LOC: Y.RAD PHONE #: [phone] EXAM DATE: 09/26/2020 STATUS: REG CLI FAX #: [phone] RAD #: D/C DT PAGE 2 Signed Report - XR L-SPINE 2020-08-22 W/BEND VIEW 11:44:00 [facility] : 1955 Sex: M Patient Name: TAMIKA OBREGON Unit No: [id number] EXAMS: CPT CODE: [id number] XR L-SPINE W/BEND VIEW 00530 MRI OF THE LUMBAR SPINE WITH AND [...] Reported and signed by: Gonzalo Silvestre MD [facility] NAME: TAMIKA OBREGON [address] [facility] PHYS: Angel Shah MD : 1955 AGE: 64 SEX: M [place], [place] [address] LOC: Y.MRI PHONE #: [phone] EXAM DATE: 08/22/2020 STATUS: REG CLI FAX #: [phone] RAD #: D/C DT PAGE 1 Signed Report (CONTINUED) Patient Name: TAMIKA OBREGON Unit No: [id number] EXAMS: CPT CODE: [id number] XR L-SPINE W/BEND VIEW 52956 (Continued) CC: Angel Chaidez M.D. Technologist: RT. Neetu(R) Transcribed D/ (1149) JanetGVG [facility] NAME: TAMIKA OBREGON [address] [place] [address] PHYS: Angel Shah MD : 1955 AGE: 64 SEX: M [place] [address] LOC: Y.MRI PHONE #: [phone] EXAM DATE: 08/22/2020 STATUS: REG CLI FAX #: [phone] RAD #: D/C DT PAGE 2 Signed Report Patient Name: TAMIKA OBREGON Unit No: [id number] EXAMS: CPT CODE: [id number] XR L-SPINE W/BEND VIEW 47097 (Continued) Orig Print D/T: S: 08/22/2020 (1148) [facility] NAME: TAMIKA OBREGON [address] [place] [address] PHYS: Angel Shah MD : 1955 AGE: 64 SEX: M [place] [address] LOC: Y.MRI PHONE #: [phone] EXAM DATE: 08/22/2020 STATUS: REG CLI FAX #: [phone] RAD #: D/C DT PAGE 3 Signed Report - MRI L-SPINE W WO 2020-08-22 CON 11:44:00 [facility] 1955 Sex: M Patient Name: TAMIKA OBREGON Unit No: [id number] EXAMS: CPT CODE: [id number] MRI L-SPINE W WO CON 58638 MRI OF THE LUMBAR SPINE WITH AND [...] signed by: Gonzalo Silvestre MD [facility] NAME: TAMIKA OBREGON [address] [facility] PHYS: Angel Shah MD : 1955 AGE: 64 SEX: M [place], [place] [address] LOC: Y.MRI PHONE #: [phone] EXAM DATE: 08/22/2020 STATUS: REG CLI FAX #: [phone] RAD #: D/C DT PAGE 1 Signed Report (CONTINUED) Patient Name: TAMIKA OBREGON Unit No: [id number] EXAMS: CPT CODE: [id number] MRI L-SPINE W WO CON 12399 (Continued) CC: Angel Chaidez M.D. Technologist: Jennifer Woodard(R) Transcribed D/ (1144) BrindaG [facility] NAME: TAMIKA OBREGON [address] [place] [address] PHYS: Angel Shah MD : 1955 AGE: 64 SEX: M [place] [address] LOC: Y.MRI PHONE #: [phone] EXAM DATE: 08/22/2020 STATUS: REG CLI FAX #: [phone] RAD #: D/C DT PAGE 2 Signed Report Patient Name: TAMIKA OBREGON Unit No: [id number] EXAMS: CPT CODE: [id number] MRI L-SPINE W [place] CON 13564 (Continued) Orig Print D/T: S: 08/22/2020 (1148) [facility] NAME: TAMIKA OBREGON [address] [place] [address] PHYS: Angel Shah MD : 1955 AGE: 64 SEX: M [place] [address] LOC: Y.MRI PHONE #: [phone] EXAM DATE: 08/22/2020 STATUS: REG CLI FAX #: [phone] RAD #: D/C DT PAGE 3 Signed Report BLOOD UREA NITROGEN 2020-08-22 10:40:00 Test Item Value Reference Range Interpretation Comme nts BLOOD UREA NITROGEN (test code = BUN) 17 mg/dL 7-18 N SPECIMEN COMMENT: STATCREATININE W ESTIMATED [id number] 10:40:00 Test Item Value Reference Range Interpretation Comments GLOMERULAR FILTRATION 70.9 >60 Unit o f measure: RATE (test code = GFR) mL/mi n/1.73 l5Ucrzaiktl Range:Healthy A dults >90 mL/min/1.73 m2 For Chronic Kid alfonso Disease: Stage II Mild Decrease i n GFR 60-90 Stage III Moderate Decrea se in GFR 30-59 Stage IV Severe Decrease in GFR 15-29 Stage V Kidney Failure <15 CREATININE (test code = 1.05 mg/dL 0.55-1.30 N CREAT) SPECIMEN COMMENT: STAT- MRI L-SPINE W WO [id number] 09:33:00 Patient Name: TAMIKA OBREGON Unit No: [id number] EXAMS: CPT CODE: [id number] MRI L-SPINE W WO CON 63867 MRI OF THE LUMBAR SPINE WITH AND [...] Karolyn Garza, RT(R) Transcribed D/ (0933) JanetGVG [facility] NAME: TAMIKA OBREGON [address] [facility] PHYS: Angel Shah MD : 1955 AGE: 63 SEX: A[place], [place] [address] LOC: Y.MRI PHONE #: [phone] EXAM DATE: 04/30/2019 STATUS: DEP CLI FAX #: [phone] RAD #: D/C DT PAGE 1 Signed Report Patient Name: TAMIKA OBREGON Unit No: [id number] EXAMS: CPT CODE: [id number] MRI L-SPINE W WO CON 03446 (Continued) Orig Print D/T: S: 05/01/2019 (0936) [facility] NAME: TAMIKA OBREGON [address] [facility] PHYS: Angel Shah MD : 1955 AGE: 63 SEX: M [place], [place] [address] LOC: Y.MRI PHONE #: [phone] EXAM DATE: 04/30/2019 STATUS: ANASTASIIA CLI FAX #: [phone] RAD #: D/C DT PAGE 2 Signed ReportBLOOD UREA [id number] 11:19:00 Test Item Value Reference Range Interpretation Comments BLOOD UREA NITROGEN (test code = 13 mg/dL 7-18 N BUN) CREATININE W ESTIMATED [id number] 11:19:00 Test Item Value Reference Range Interpretation Comments GLOMERULAR FILTRATION 70.3 >60 Unit o f measure: RATE (test code = GFR) mL/mi n/1.73 f6Psliicatr Range:Healthy A dults >90 mL/min/1.73 m2 For Chronic Kid alfonso Disease: Stage II Mild Decrease i n GFR 60-90 Stage III Moderate Decrea se in GFR 30-59 Stage IV Severe Decrease in GFR 15-29 Stage V Kidney Failure <15 CREATININE (test code = 1.06 mg/dL 0.55-1.30 N CREAT) - CT L-SPINE W/O [id number] 09:53:00 Patient Name: TAMIKA OBREGON Unit No: [id number] EXAMS: CPT CODE: [id number] CT L-SPINE W/O CONTRAST 04131 CT SCAN OF THE LUMBAR SPINE WITH [...] Mike(R) CTDI: DLP: Trnscrpt: 03/27/2019 (0953) JanetGVG [facility] NAME: TAMIKA OBREGON [address] [facility] PHYS: Angel Shah MD : 1955 AGE: 63 SEX: M [place] [address] LOC: Y.RAD PHONE #: [phone] EXAM DATE: 03/26/2019 STATUS: DEP CLI FAX #: [phone] RAD #: D/C DT PAGE 1 Signed Report Patient Name: TAMIKA OBREGON Unit No: [id number] EXAMS: CPTCODE: [id number] CT L-SPINE W/O CONTRAST 76897 (Continued) Orig Print D/T: S: 03/27/2019 (0956) [facility] NAME: TAMIKA OBREGON [address] [facility] PHYS: Angel Shah MD : 1955 AGE: 63 SEX: M [place] [address] LOC: Y.RAD PHONE #: [phone] EXAM DATE: 03/26/2019 STATUS: DEP CLI FAX #: [phone] RAD #: D/C DT PAGE 2 Signed ReportURINALYSIS [id number] 07:16:00 Test Item Value Reference Range Interpretation [...] /LPF NONE SEEN code = AMORU) HGB [id number] 05:50:00 Test Item Value Reference Range Interpretation Comments HEMOGLOBIN (test code = HGB) 12.0 g/dL 12-16 N HEMATOCRIT (test code = HCT) 34.8 % 37-47 L CBC W/AUTO [id number] 05:49:00 Test Item Value Reference Range Interpretation [...] NRBC) - XR SPINE 1 V SPEC [id number] 11:33:00 Patient Name: TAMIKA OBREGON Unit No: [id number] EXAMS: CPT CODE: [id number] XR SPINE 1 V SPEC LEVEL 40901 3 LATERAL INTRAOPERATIVE VIEWS OF THE LUMBAR SPINE Image 1: Surgical markers are at the L3-L4 and L4-L5 levels. Image 2: Surgical instrumentation is at the L4 level Image 3: In progress L4-L5 posterior instrumented fusion without evidence of immediate complication. Interbody graft is well-positioned on lateral view. at 1133 Reported and signed by: Patric Garica M.D. CC: Angel Chaidez M.D. Technologist: RT MIROSLAVA(R) Transcribed D/ (6043) Astrid [facility] NAME: TAMIKA OBREGON [address] [facility] PHYS: Angel Shah MD : 1955 AGE: 63 SEX: M [place], [place] [address] LOC: Y.505 A PHONE #: [phone] EXAM DATE: 12/30/2018 STATUS: ADM IN FAX #: [phone] RAD #: D/C DT PAGE 1 Signed Report Patient Name: TAMIKA OBREGON Unit No: [id number] EXAMS: CPT CODE: [id number] XR SPINE 1 V SPEC LEVEL 91063 (Continued) Orig Print D/T: S: 12/31/2018 (4546) [facility] NAME: TAMIKA OBREGON [facility] PHYS: Angel Shah MD : 1955 AGE: 63 SEX: M [place], [place] [address] LOC: Y.505 A PHONE #: [phone] EXAM DATE: 12/30/2018 STATUS: ADM IN FAX #: [phone] RAD #: D/C DT PAGE 2 Signed Report- XR SPINE 1 V SPEC [id number] 11:33:00 Patient Name: TAMIKA OBREGON Unit No: [id number] EXAMS: CPT CODE: [id number] XR SPINE 1 V SPEC LEVEL 56258 3 LATERAL INTRAOPERATIVE VIEWS OF THE LUMBAR [...] M.D. Technologist: SHARATH CIFUENTES (RT.R) Transcribed D/ (2133) Astr[facility] NAME: TAMIKA OBREGON [facility] PHYS: Anegl Shah MD : 1955 AGE: 63 SEX: M [place], [place] [address] LOC: Y.505 A PHONE #: [phone] EXAM DATE: 12/30/2018 STATUS: ADM IN FAX #: [phone] RAD #: D/C DT PAGE 1 Signed Report Patient Name: TAMIKA OBREGON UnitNo: [id number] EXAMS: CPT CODE: [id number] XR SPINE 1 V SPEC LEVEL 91744 (Continued) Orig Print D/T: S: 12/31/2018 (1136) [facility] NAME: TAMIKA OBREGON [facility] PHYS: Angel Shah MD : 1955 AGE: 63 SEX: M [place], [place] [address] LOC: Y.505 A PHONE #: [phone] EXAM DATE: 12/30/2018 STATUS: ADM IN FAX #: [phone] RAD #: D/C DT PAGE 2 Signed Report- XR SPINE 1 V SPEC [id number] 11:33:00 Patient Name: TAMIKA OBREGON Unit No: [id number] EXAMS: CPT CODE: [id number] XR SPINE 1 V SPEC LEVEL 86817 3 LATERAL INTRAOPERATIVE VIEWS OF THE LUMBAR [...] Chaidez M.D. Technologist: STEVEN (RT.R) Transcribed D/ (3283) Astrid [facility] NAME: TAMIKA ORBEGON [facility] PHYS: Angel Shah MD : 1955 AGE: 63 SEX: M [place], [place] [address] LOC: Y.505 A PHONE #: [phone] EXAM DATE: 12/30/2018 STATUS: ADM IN FAX #: [phone] RAD #: D/C DT PAGE 1 Signed Report Patient Name: TAMIKA OBREGON Unit No: [id number] EXAMS: CPT CODE: [id number] XR SPINE 1 V SPEC LEVEL 15941 (Continued) Orig Print D/T: S: 12/31/2018 (1136) [facility] NAME: TAMIKA OBREGON [address] [facility] PHYS: Angel Shah MD : 1955 AGE: 63 SEX: M [place], [place] [address] LOC: Y.505 A PHONE #: [phone] EXAM DATE: 12/30/2018 STATUS: ADM IN FAX #: [phone] RAD #: D/C DT PAGE 2 Signed [id number] 10:43:00 Test Item Value Reference Range Interpretation Comments PLT (test code = PLT) 119 K/mm3 130-400 L BASIC METABOLIC [id number] 06:35:00 Test Item Value Reference Range Interpretation [...] RATE (test code = GFR) mL/mi n/1.73 q3Ijxrrzjen Range:Healthy Adults >90 mL/min/1.73 m2 For Chronic Kidney Disease: Stage II Mild Decrease i n GFR 60-90 Stage III Moderate Decrea se in GFR 30-59 St age IV Severe Decre ase in GFR 15-29 St age V Kidney Failur e <15 CREATININE (test code 0.84 mg/dL 0.55-1.30 N = CREAT) CALCIUM (test code = 9.2 mg/dL 8.2-10.1 N CA) HGB [id number] 05:40:00 Test Item Value Reference Range Interpretation Comments HEMOGLOBIN (test code = HGB) 12.7 g/dL 12-16 N HEMATOCRIT (test code = HCT) 36.0 % 37-47 L ACUTE HEPATITIS [id number] 17:53:00 Test Item Value Reference Range Interpretation [...] 1 (test code NONREACTIVE NONREACTIVE Done by [employer] = HIV1AB) 4th Gen HIV Ag/ Ab Combo Screen ACUTE HEPATITIS [id number] 17:52:00 Test Item Value Reference Range Interpretation [...] 1 2 (test NONREACTIVE NONREACTIVE Done by [employer] code = [id number]) 4th Gen HIV Ag/Ab Combo Screen ACUTE HEPATITIS [id number] 17:52:00 Test Item Value Reference Range Interpretation [...] 1 (test code NONREACTIVE NONREACTIVE Done by [employer] = HIV1AB) 4th Gen HIV Ag/ Ab Combo Screen ACUTE HEPATITIS [id number] 17:51:00 Test Item Value Reference Range Interpretation [...] 1 2 (test NONREACTIVE NONREACTIVE Done by [employer] code = [id number]) 4th Gen HIV Ag/Ab Combo Screen CBC W/AUTO [id number] 09:49:00 Test Item Value Reference Range Interpretation [...] N CELL (test code = NRBC) PROTHROMBIN [id number] 09:32:00 Test Item Value Reference Range Interpretation [...] v nickerson IS PATIENT ON ANTICOAGULANTS ? NJas Lab been notified if Patient is on Heparin Drip? NOIf Yes, orderCBC, OCCULT BLOOD, PT every other day NTHROMBOPLASTIN TIME [id number] 09:32:00 Test Item Value Reference Range Interpretation Comments PTT ACTIVATED (test code = APTT) 28.7 secs 24.9-37.0 N IS PATIENT ON ANTICOAGULANTS ? NHas Lab been notified if Patient is on Heparin Drip? NOIf Yes, orderCBC, OCCULT BLOOD, PT every other day NBASIC METABOLIC [id number] 09:32:00 Test Item Value Reference Range Interpretation [...] RATE (test code = GFR) mL/mi n/1.73 f2Lgvtuqwvu Range:Healthy Adults >90 mL/min/1.73 m2 For Chronic [...]
[2022-07-16] MEDS ORDERED: NA CHLORIDE 0.9% 1,000 ML ONE ×2 (17:33→18:39)
[2022-07-16] MEDS ORDERED: DIAZEPAM 10 MG/2 ML INJ SYRINGE ONE (17:33)
[2022-07-16 18:03] LABS: Absolute Lymphocytes (CBC) 1.6 K/uL (0.7-4.9); Hematocrit 41.8 % (39.6-49.0); Lymphocytes % 21.5 % (15.3-44.8); MCV 88.7 fL (80-100); MPV 8.4 fL (7.6-11.3); RBC Red Blood Cell Count 4.72 M/uL (4.33-5.43)
[2022-07-16 18:10] LABS: Albumin 4.1 g/dL (3.4-5.0); Bilirubin Total 0.3 mg/dL (0.2-1.0); Protein, Total 7.5 g/dL (6.4-8.2)
--- NOTE | 2022-07-16 18:34 | ER ---
Nurse's Notes [facility] Name: William Osuna Age: 66 yrs Sex: Male : 1955 Arrival Date: 07/16/2022 Time: 16:15 Bed 3 Private MD: Marquis Mackenzie C Diagnosis: Other malaise and fatigue;Volume depletion, unspecified Presentation: 07/16 16:35 Chief complaint: Patient states: Did bowel prep yesterday, swallowed the camera this jl7 morning for the test and reports nausea, Dr. Nugent sent to be evaluated for dehydration. Coronavirus screen: At this time, the client does not indicate any symptoms associated with coronavirus-19. Ebola Screen: No symptoms or risks identified at this time. Initial Sepsis Screen: Does the patient meet any 2 criteria? No. Patient's initial sepsis screen is negative. Does the patient have a suspected source of infection? No. Patient's initial sepsis screen is negative. Risk Assessment: Do you want to hurt yourself or someone else? Patient reports no desire to harm self or others. Onset of symptoms was July 16, 2022. 16:35 Method Of Arrival: Ambulatory [facility] 16:35 Acuity: FARHAD 3 jl7 Triage Assessment: 16:37 General: Appears in no apparent distress. uncomfortable, Behavior is calm, cooperative, jl7 appropriate for age. Pain: Complains of pain in abdomen Pain currently is 7 out of 10 on a pain scale. Historical: - Allergies: 16:37 Codeine; jl7 16:37 PENICILLINS; jl7 - Home Meds: 16:37 amlodipine oral [Active]; clopidogrel oral [Active]; Omeprazole Oral [Active]; jl7 - PMHx: 16:37 cardiac stent; Hypertensive disorder; jl7 - PSHx: 16:37 Back x2; brain aneurysm; CABG; Cholecystectomy; jl7 - Immunization history:: Client reports receiving the 2nd dose of the Covid vaccine. - Social history:: Smoking status: Patient denies any tobacco usage or history of. Screenin:54 Abuse screen: Denies threats or abuse. Nutritional screening: No deficits noted. tw2 Tuberculosis screening: No symptoms or risk factors identified. Fall Risk None identified. Assessment: 16:50 General: Appears in no apparent distress. Behavior is cooperative. Pain: Complains of em6 pain in back Pain does not radiate. Pain currently is 4 out of 10 on a pain scale. Quality of pain is described as sharp. Neuro: Gutierrez Agitation-Sedation Scale (RASS): 0 - Alert and Calm Level of Consciousness is awake, alert, obeys commands, Oriented to person, place, time, situation. Cardiovascular: Heart tones present Patient's skin is warm and dry. Respiratory: Airway is patent Respiratory effort is even, unlabored, Respiratory pattern is regular, symmetrical. GI: Abdomen is non-distended, Abd is soft and non tender X 4 quads. : No signs and/or symptoms were reported regarding the genitourinary system. EENT: No signs and/or symptoms were reported regarding the EENT system. Derm: Musculoskeletal: Circulation, motion, and sensation intact. Range of motion: intact in all extremities. 17:50 Reassessment: Patient appears in no apparent distress at this time. No changes from em6 previously documented assessment. Patient and/or family updated on plan of care and expected duration. Pain level reassessed. Patient is alert, oriented x 3, equal unlabored respirations, skin warm/dry/pink. Neuro: Gutierrez Agitation-Sedation Scale (RASS): 0 - Alert and Calm Level of Consciousness is awake, alert, obeys commands, Oriented to person, place, time, situation. Respiratory: Airway is patent. Vital Signs: 16:35 BP 177 / 83; Pulse 73; Resp 17; Temp 98.4; Pulse Ox 99% ; Weight 79.83 kg; Height 6 ft. jl7 3 in. (190.50 cm); Pain 7/10; 17:48 BP 169 / 75; Pulse 70; Resp 17; Pulse Ox 98% on R/A; tw2 18:08 BP 151 / 65; Pulse 66; Resp 17; Pulse Ox 100% on R/A; tw2 16:35 Body Mass Index 22.00 (79.83 kg, 190.50 cm) jl7 ED Course: 16:15 Patient arrived in ED. rg4 16:15 Marquis Mackenzie MD is Private Physician. rg4 16:37 Triage completed. jl7 16:37 Arm band placed on right wrist. jl7 16:40 Bed in low position. Call light in reach. Side rails up X2. Adult w/ patient. Pulse ox tw2 on. NIBP on. Warm blanket given. Pillow given. 16:46 Amanda Umanzor FNP-C is [facility]. snw 16:54 Luisa Mayo, RN is Primary Nurse. tw2 17:40 Inserted saline lock: 22 gauge in right antecubital area, using aseptic technique. tw2 Blood collected. Administered Medications: 17:40 Drug: NS 0.9% 1000 ml Route: IV; Rate: 1 bolus; Site: right antecubital; tw2 17:40 Drug: Valium (diazepam) 5 mg Route: IVP; Site: right antecubital; tw2 Medication: 17:47 VIS not applicable for this client. tw2 Outcome: 18:33 Discharge ordered by . snw Signatures: Amanda Umanzor FNP-C [employer] COVER INSPECTOR-Csnw Luisa Mayo, RN RN tw2 Milla Wayne rg4 Lluvia Da Silva, RN RN jl7 Haley Dodson RN RN em6
--- NOTE | 2022-07-16 18:35 | EDPHYS ---
Physician Documentation [facility] Name: William Osuna Age: 66 yrs Sex: Male : 1955 Arrival Date: 07/16/2022 Time: 16:15 Bed 3 Private MD: Marquis Mackenzie C ED Physician HPI: 07/16 17:59 This 66 yrs old Male presents to ER via Ambulatory with complaints of Dehydration. snw 17:59 Pt has been having lower abd pain x several months. Had bowel prep yesterday and snw swallowed the camera at Dr. Nugent's today. Pt had positive orthostatic vs at his office and was sent to ED for eval.. Onset: The symptoms/episode began/occurred gradually. Severity of symptoms: At their worst the symptoms were moderate in the emergency department the symptoms are unchanged. The patient has experienced similar episodes in the past. as noted. Historical: - Allergies: 16:37 Codeine; jl7 16:37 PENICILLINS; jl7 - Home Meds: 16:37 amlodipine oral [Active]; clopidogrel oral [Active]; Omeprazole Oral [Active]; jl7 - PMHx: 16:37 cardiac stent; Hypertensive disorder; jl7 - PSHx: 16:37 Back x2; brain aneurysm; CABG; Cholecystectomy; jl7 - Immunization history:: Client reports receiving the 2nd dose of the Covid vaccine. - Social history:: Smoking status: Patient denies any tobacco usage or history of. ROS: 17:56 Eyes: Negative for injury, pain, redness, and discharge, ENT: Negative for injury, snw pain, and discharge, Neck: Negative for injury, pain, and swelling, Cardiovascular: Negative for chest pain, palpitations, and edema, Respiratory: Negative for shortness of breath, cough, wheezing, and pleuritic chest pain, Abdomen/GI: Negative for abdominal pain, vomiting, diarrhea, and constipation, positive nausea Back: Negative for injury. Positive chronic pain, MS/Extremity: Negative for injury and deformity, Skin: Negative for injury, rash, and discoloration, Neuro: Negative for headache, weakness, numbness, tingling, and seizure. 17:56 Constitutional: Positive for fatigue, malaise. Exam: 17:53 Head/Face: Normocephalic, atraumatic. Eyes: Pupils equal round and reactive to light, snw extra-ocular motions intact. Lids and lashes normal. Conjunctiva and sclera are non-icteric and not injected. Cornea within normal limits. Periorbital areas with no swelling, redness, or edema. ENT: Nares patent. No nasal discharge, no septal abnormalities noted. Tympanic membranes are normal and external auditory canals are clear. Oropharynx with no redness, swelling, or masses, exudates, or evidence of obstruction, uvula midline. Mucous membranes moist. Neck: Trachea midline, no thyromegaly or masses palpated, and no cervical lymphadenopathy. Supple, full range of motion without nuchal rigidity, or vertebral point tenderness. No Meningismus. Chest/axilla: Normal chest wall appearance and motion. Nontender with no deformity. No lesions are appreciated. Cardiovascular: Regular rate and rhythm with a normal S1 and S2. No gallops, murmurs, or rubs. Normal PMI, no JVD. No pulse deficits. 17:53 Respiratory: Lungs have equal breath sounds bilaterally, clear to auscultation and percussion. No rales, rhonchi or wheezes noted. No increased work of breathing, no retractions or nasal flaring. 17:53 MS/ Extremity: Pulses equal, no cyanosis. Neurovascular intact. Full, normal range of motion. Neuro: Awake and alert, GCS 15, oriented to person, place, time, and situation. Cranial nerves II-XII grossly intact. Motor strength 5/5 in all extremities. Sensory grossly intact. Cerebellar exam normal. Normal gait. 17:53 Constitutional: The patient appears alert, awake, anxious, listless, uncomfortable. 17:53 Abdomen/GI: Inspection: abdomen appears normal, Bowel sounds: normal, Palpation: abdomen is soft and non-tender, in all quadrants. 17:53 Back: pain, that is moderate, of the low back area. 17:53 Skin: Appearance: Temperature: warm, Moisture: dry. Vital Signs: 16:35 BP 177 / 83; Pulse 73; Resp 17; Temp 98.4; Pulse Ox 99% ; Weight 79.83 kg; Height 6 ft. jl7 3 in. (190.50 cm); Pain 7/10; 17:48 BP 169 / 75; Pulse 70; Resp 17; Pulse Ox 98% on R/A; tw2 18:08 BP 151 / 65; Pulse 66; Resp 17; Pulse Ox 100% on R/A; tw2 16:35 Body Mass Index 22.00 (79.83 kg, 190.50 cm) jl7 MDM: 17:17 Patient medically screened. snw 07/16 17:31 Order name: IV; Complete Time: 17:47 tw2 07/16 17:20 Order name: CMP; Complete Time: 18:12 snw 07/16 17:20 Order name: CBC with Diff; Complete Time: 18:13 snw Administered Medications: 17:40 Drug: NS 0.9% 1000 ml Route: IV; Rate: 1 bolus; Site: right antecubital; tw2 17:40 Drug: Valium (diazepam) 5 mg Route: IVP; Site: right antecubital; tw2 Disposition Summary: 07/16/22 18:33 Discharge Ordered Location: Home snw Condition: Stable snw Diagnosis - Other malaise and fatigue snw - Volume depletion, unspecified snw Followup: snw - With: Emergency Department - When: As needed - Reason: Worsening of condition Followup: snw - With: Private Physician - When: 2 - 3 days - Reason: Recheck today's complaints, Continuance of care, Re-evaluation by your physician Discharge Instructions: - Discharge Summary Sheet snw - Dehydration, Adult snw - Fatigue snw - Rehydration, Adult snw Forms: - Medication Reconciliation Form snw - Thank You Letter snw - Antibiotic Education snw - Prescription Opioid Use snw Signatures: Dispatcher [employer] Amanda Hanson FNP-[place] CHILD PSYCHOLOGIST-Csnw Luisa Mayo RN RN tw2 Lluvia Da Silva RN RN jl7
[2022-07-16] MEDS ORDERED: FENTANYL CITR 100 MCG/2 ML ONE (18:38)
== END 2022-07-16 19:57 | disposition home or self-care (01) ==
LOC: ER 16:14
DX: E86.9 Volume depletion, unspecified (principal); R53.81 Other malaise; R53.83 Other fatigue; I10 Essential (primary) hypertension; Z88.0 Allergy status to penicillin; Z88.5 Allergy status to narcotic agent; Z95.1 Presence of aortocoronary bypass graft
CPT/HCPCS: 85025; 36415; 80053; J3360; J3010; J7030 ×2; 96361; 96374; 96375; 99284

== ENCOUNTER 2022-08-30 20:30 | Emergency (ER) | payer OTHER, BC ==
--- OUTSIDE RECORDS SUMMARY | 2022-08-30 20:35 | XMS REPORT | Continuity of Care Document ---
:1955 Author Organization [facility] t Address [address] [place] [address] Care Team Providers Name Role Phone RONI MCGEE Primary Care Physician Unavailable CRISTOBAL READ Attending Clinician Unavailable PABLO DUNBAR Attending Clinician Unavailable PABLO DUNBAR Attending Clinician Unavailable Doctor Unassigned, [place] Attending Clinician Unavailable Roni Mcgee MD Attending Clinician RONI MCGEE Attending Clinician Unavailable Pablo Dunbar MD Attending Clinician PURNIMA CHRISTIANSEN Attending Clinician Unavailable Angel Chaidez Attending Clinician Unavailable CRISTOBAL READ Admitting Clinician Unavailable PURNIMA CHRISTIANSEN Admitting Clinician Unavailable Angel Chaidez Admitting Clinician Unavailable Physician, No Primary or Family Admitting Clinician Unavaila ble Payers Payer Name Policy Type Policy Number Effective Date Expiration Date S ource MEDICARE PART A \T\ [id number] 2019 B 00:00:00 [employer] TRADITIONAL [id number] 2019 00:00:00 Problems Condition Condition Condition Status Onset Resolution Last Treating Co mments Source Name Details Category Date Date Treatment Clinician Date No known No known Disease Unive rs active active ity of problems problems [place] [facility] Allergies, Adverse Reactions, Alerts Allergy Allergy Status Severity Reaction(s) Onset Inactive Treating Comm ents Source Name Type Date Date Clinician CODEINE DRUG Active Low N/V 2021-10 [facility] INGREDI 0-11 ity of 00:00: [place] 00 [facility] Codeine Propensi Active Nausea 2021-10 [facility] ty to and/or 0-11 ity of adverse Vomiting 00:00: [place] reaction 00 Medical s Branch Penicill DA Active SV RASHES 2020-10 [facility] ins 2 [place] [facility] codeine DA Active [place] RASHES, 2020-10 [facility] NAUSE[place] [facility] Penicill DA Active SV 2018-0 [facility] ins 7 [place] 00:[facility] codeine DA Active NV 2018-0 [facility] 7-11 [place] 00:[facility] levoflox DA Active NV 2019-0 [facility] acin 7 [place] 00:00: [facility] Penicill DA Active SV RASHES 2018-0 [facility] ins 7 [place] 00:00: [facility] codeine DA Active [place] RASHES, 2018-0 [facility] [place] [facility] levoflox DA Active [place] NAUSEA 2018-0 [facility] acin 711 [place] 00:00: [facility] 00 [facility] Penicill DA Active SV 2019-0 [facility] ins 3-12 [facility] [place] codeine DA Active NV 2019-0 [facility] 3-12 [facility] [place] levoflox DA Active NV 2019-0 [facility] acin 3-12 [facility] [place] codeine DA Active NV 2019-0 [facility] 3-11 [facility] [place] Penicill DA Active SV 2019-0 [facility] ins 3-11 [facility] [place] levoflox DA Active NV 2017-1 [facility] acin 11-16 [facility] 00:[facility]: [facility] [place] Penicill DA Active SV 2017-1 [facility] ins 11-16 [place] 00:[facility]: [facility] codeine DA Active NV 2017- [facility] 1 [place] 00:00: [facility] LEVOFLOX DRUG Active N/V 2017- Univers ACIN INGREDI 8- ity of 00:00: [place] 00 Medical Branch PENICILL Drug Active Rash 2017- Univers INS Class 05-23 ity of 00:00: [place] 00 [facility] Branch Penicill Propensi Active Rash 2017- Univer s ins ty to 05-23 ity of adverse 00:00: [place] reaction 00 Medical s Branch Levoflox Propensi Active Nausea Univer s acin ty to and/or 05-23 ity of adverse Vomiting 00:00: [place] reaction Medical s Branch Penicill Propensi Active Rash 2017- Univer s ins ty to 05-23 ity of adverse 00:00: [place] reaction 00 Medical s Branch Penicill DA Active SV 2016- [facility] ins 11-01 [place] 00:00: [facility] codeine DA Active NV 2016- [facility] 1 [place] 00:00: [facility] levoflox DA Active NV 2016- [facility] acin 11-01 [place] 00:00: [facility] 00 [facility] Social History Social Habit Start Date Stop Date Quantity Comments Source Tobacco use and 2022-08-02 2022-08-02 Smokeless tobacco Un iversity of exposure 00:00:00 00:00:00 non-user [facility] Exposure to 2022-07-21 2022-07-31 Not sure [facility] SARS-CoV-2 00:00:00 15:51:00 [facility] (event) Branch Sex Ass[birth year] Univers[facility] of 00:00:00 00:00:00 [facility] Smoking Status Start Date Stop Date Source Tobacco smoking consumption [facility] unknown Branch Never smoked tobacco [facility] Medications Ordered Filled Start Stop Current Ordering Indication Dosage Frequency Signature Comments Components Source Medication Medication Date Date Medication? Clinician (SIG) Name Name aspirin 81 2021-10 Yes 81mg Take 81 mg U nivers mg chewable 0-13 by mouth. ity of tablet 14:59: [place] 14 Medical Branch aspirin 81 2021-10 Yes 81mg Take 81 mg U nivers mg chewable 0-13 by mouth. ity of tablet 14:59: [address] Branch aspirin 81 2021-10 Yes 81mg Take 81 mg U nivers mg chewable 0-13 by mouth. ity of tablet 14:59: [address] Branch aspirin 81 2021-10 Yes 81mg Take 81 mg U nivers mg chewable 0-13 by mouth. ity of tablet 14:59: [address] Branch busPIRone 5 2021-10 Yes [id number] Take 1 Univers mg tablet 0-13 tablet by ity o f 00:00: mouth [place] 00 daily x 1 Medical week and Branch then increase to 1 tab twice per day. dicyclomine 2021-10 Yes [id number] 20mg Take 2 Univers 10 mg 0-13 capsules ity of capsule 00:00: [place] 4 [place] (four) Medical times Branch daily. ondansetron 2021-10 Yes [id number] 8mg Take 1 Univers 8 mg tablet 0-13 tablet by ity of 00:00: mouth [place] 00 every 8 Medical (eight) Branch hours. busPIRone 5 2021-10 Yes [id number] Take 1 Univers mg tablet 0-13 tablet by ity o f 00:00: mouth [place] 00 daily x 1 Medical week and Branch then increase to 1 tab twice per day. dicyclomine 2021-10 Yes [id number] 20mg Take 2 [facility] 10 mg 0-13 capsules ity of capsule 00:00: [place] mouth 4 [place] (four) Medical times Branch daily. ondansetron 2021-10 Yes [id number] 8mg Take 1 [facility] 8 mg tablet 0-13 tablet by ity of 00:00: mouth [place] 00 every 8 Medical (eight) Branch hours. busPIRone 5 2021-10 Yes [id number] Take 1 Univers mg tablet 0-13 tablet by ity o f 00:00: mouth [place] 00 daily x 1 Medical week and Branch then increase to 1 tab twice per day. dicyclomine 2021-10 Yes [id number] 20mg Take 2 Univers 10 mg 0-13 capsules ity of capsule 00:00: [place] 4 [place] (four) Medical times Branch daily. ondansetron 2021-10 Yes [id number] 8mg Take 1 Univers 8 mg tablet 0-13 tablet by ity of 00:00: mouth [place] 00 every 8 Medical (eight) Branch hours. ondansetron 2021-10 No 4mg 4 mg, Slow Univers (ZOFRAN 008-01 IV Push, ity of (PF)) 01:45: 01:40 ONCE, 1 [place] injection 4 00 :00 dose, On Medi jamaal mg [facility] Branch 07/31/22 at 2045, CHAS iopamidol 2021-10- No [id number] 70mL 70 mL, U nivers (ISOVUE 008-01 Intravenou ity o f 300-500 mL) 01:15: 01:15 s, ONCE, 1 [place] injection 00 :00 dose, On Medica l 70 mL [facility] Branch 07/31/22 at 2015, Routine pantoprazol 2021-10 Yes 40mg 40 mg, Univ ers e 0-12 Slow IV ity of (PROTONIX) 01:00: Push, [place] injection 00 Q12H, Medical 40 mg First dose Branch on [facility] 07/31/22 at 2000, Until Discontinu ed traMADoL 2021-10 No 50mg 50 mg, Univer s (ULTRAM) 0-08-01 Oral, ity of tablet 50 00:45: 00:02 ONCE, 1 [place] mg 00 :[place] dose, On [facility] 07/31/22 at 1945, Routine morpHINE (4 2021-10 No 4mg 4 mg, Slow Univers mg/mL) 008-01 IV Push, ity of injection 4 22:00: 01:40 ONCE[place] 1 [place] 00 :[place] dose, On [facility] Branch 07/31/22 at 1700, STAT ondansetron 2021-10- No 4mg 4 mg, Slow Univers (ZOFRAN 0-07-31 IV Push, ity of (PF)) 22:00: 22:00 ONCE, 1 [place] injection 4 00 :00 dose, On Medi jamaal mg [facility] Branch 07/31/22 at 1700, CHAS SERTraline 2021-10 Yes Univers 50 mg 0-05 ity of tablet 00:00: [place] 00 [facility] Branch SERTraline 2021-10 Yes Univers 50 mg 0-05 ity of tablet 00:00: [place] 00 Medical Branch SERTraline 2021-10 Yes Univers 50 mg 0-05 ity of tablet 00:00: [place] 00 Medical Branch SERTraline 2021-10 Yes Univers 50 mg 0-05 ity of tablet 00:00: [place] 00 Medical Branch SERTraline 2021-10 Yes Univers 50 mg 0-05 ity of tablet 00:00: [place] 00 Medical Branch SERTraline 2021-10 Yes Univers 50 mg 0-05 ity of tablet 00:00: [place] 00 Medical Branch SERTraline 2021-10 Yes Univers 50 mg 0-05 ity of tablet 00:00: [place] 00 Medical Branch SERTraline 2021-10- No Univer s 50 mg 0-05 10-13 ity of tablet 00:00: 00:00 [place] 00 :00 Medical Branch SERTraline 2021-10- No Univer s 50 mg 0-05 10-13 ity of tablet 00:00: 00:00 [place] 00 :00 Medical Branch SERTraline 2021-10- No Univer s 50 mg 0-05 10-13 ity of tablet 00:00: 00:00 [place] 00 :00 [facility] Branch mirtazapine 2-0 Yes [id number] 7.5mg Take 1 Univers 7.5 mg 9-30 tablet by ity of tablet 00:00: mouth at [place] 00 bedtime. Medical After 10 Branch days, take 2 in the evening. mirtazapine 2-0 Yes [id number] 7.5mg Take 1 Univers 7.5 mg 9-30 tablet by ity of tablet 00:00: mouth at [place] 00 bedtime. Medical After 10 Branch days, take 2 in the evening. mirtazapine 2-0 Yes [id number] 7.5mg Take 1 Univers 7.5 mg 9-30 tablet by ity of tablet 00:00: mouth at [place] 00 bedtime. Medical After 10 Branch days, take 2 in the evening. mirtazapine 2022-0 Yes [id number] 7.5mg Take 1 Univers 7.5 mg 9-30 tablet by ity of tablet 00:00: mouth at [place] 00 bedtime. Medical After 10 Branch days, take 2 in the evening. mirtazapine 2-0 Yes [id number] 7.5mg Take 1 Univers 7.5 mg 9-30 tablet by ity of tablet 00:00: mouth at [place] 00 bedtime. Medical After 10 Branch days, take 2 in the evening. mirtazapine 2022-0 Yes [id number] 7.5mg Take 1 Univers 7.5 mg 9-30 tablet by ity of tablet 00:00: mouth at [place] 00 bedtime. Medical After 10 Branch days, take 2 in the evening. mirtazapine 2022-0 Yes [id number] 7.5mg Take 1 Univers 7.5 mg 9-30 tablet by ity of tablet 00:00: mouth at [place] 00 bedtime. Medical After 10 Branch days, take 2 in the evening. mirtazapine 2022-0 Yes [id number] 7.5mg Take 1 Univers 7.5 mg 9-30 tablet by ity of tablet 00:00: mouth at [place] 00 bedtime. Medical After 10 Branch days, take 2 in the evening. mirtazapine 2022-0 Yes [id number] 7.5mg Take 1 Univers 7.5 mg 9-30 tablet by ity of tablet 00:00: mouth at [place] 00 bedtime. Medical After 10 Branch days, take 2 in the evening. mirtazapine 2022-0 Yes [id number] 7.5mg Take 1 Univers 7.5 mg 9-30 tablet by ity of tablet 00:00: mouth at [place] 00 bedtime. Medical After 10 Branch days, take 2 in the evening. mirtazapine 2022-0 Yes [id number] 7.5mg Take 1 Univers 7.5 mg 9-30 tablet by ity of tablet 00:00: mouth at [place] 00 bedtime. Medical After 10 Branch days, take 2 in the evening. mirtazapine 2022-0 Yes [id number] 7.5mg Take 1 Univers 7.5 mg 9-30 tablet by ity of tablet 00:00: mouth at [place] 00 bedtime. Medical After 10 Branch days, take 2 in the evening. mirtazapine 2022-0 Yes [id number] 7.5mg Take 1 Univers 7.5 mg 9-30 tablet by ity of tablet 00:00: mouth at [place] 00 bedtime. Medical After 10 Branch days, take 2 in the evening. mirtazapine 2022-0 Yes [id number] 7.5mg Take 1 Univers 7.5 mg 9-30 tablet by ity of tablet 00:00: mouth at [place] 00 bedtime. Medical After 10 Branch days, take 2 in the evening. mirtazapine 2022-0 Yes [id number] 7.5mg Take 1 Univers 7.5 mg 9-30 tablet by ity of tablet 00:00: mouth at [place] 00 bedtime. Medical After 10 Branch days, take 2 in the evening. mirtazapine 2022-0 Yes [id number] 7.5mg Take 1 Univers 7.5 mg 9-30 tablet by ity of tablet 00:00: mouth at [place] 00 bedtime. Medical After 10 Branch days, take 2 in the evening. mirtazapine 2022-0 2022- No [id number] 7.5mg Take 1 Univers 7.5 mg 9-30 10-13 tablet by ity of tablet 00:00: 00:00 mouth at [place] 00 :00 bedtime. Medical After 10 Branch days, take 2 in the evening. mirtazapine 2022-0 2022- No [id number] 7.5mg Take 1 Univers 7.5 mg 9-30 10-13 tablet by ity of tablet 00:00: 00:00 mouth at [place] 00 :00 bedtime. Medical After 10 Branch days, take 2 in the evening. mirtazapine 2022-0 2022- No [id number] 7.5mg Take 1 Univers 7.5 mg 9-30 10-13 tablet by ity of tablet 00:00: 00:00 mouth at [place] 00 :00 bedtime. Medical After 10 Branch days, take 2 in the evening. ondansetron 2022-0 Yes 4mg Take 4 mg U nivers 4 mg tablet 9-29 by mouth ity of 00:00: every 8 [place] [address] (eight) Medical hours. Branch ondansetron 2022-0 Yes 4mg Take 4 mg U nivers 4 mg tablet 9-29 by mouth ity of 00:00: every 8 [place] [address] (eight) Medical hours. Branch ondansetron 2022-0 Yes 4mg Take 4 mg U nivers 4 mg tablet 9-29 by mouth ity of 00:00: every 8 [place] [address] (eight) Medical hours. Branch ondansetron 2022-0 Yes 4mg Take 4 mg U nivers 4 mg tablet 9-29 by mouth ity of 00:00: every 8 [place] 00 (eight) Medical hours. Branch ondansetron 2022-0 Yes 4mg Take 4 mg U nivers 4 mg tablet 9-29 by mouth ity of 00:00: every 8 [place] 00 (eight) Medical hours. Branch ondansetron 2022-0 Yes 4mg Take 4 mg U nivers 4 mg tablet 9-29 by mouth ity of 00:00: every 8 [place] 00 (eight) Medical hours. Branch ondansetron 2022-0 Yes 4mg Take 4 mg U nivers 4 mg tablet 9-29 by mouth ity of 00:00: every 8 [place] 00 (eight) Medical hours. Branch ondansetron 2022-0 2022- No 4mg Take 4 mg Univers 4 mg tablet 9- 10-13 by mouth ity of 00:00: 00:00 every 8 [place] 00 :00 (eight) Medical hours. Branch ondansetron 2022-0 2022- No 4mg Take 4 mg Univers 4 mg tablet 9- 10-13 by mouth ity of 00:00: 00:00 every 8 [place] 00 :00 (eight) Medical hours. Branch ondansetron 2022-0 2022- No 4mg Take 4 mg Univers 4 mg tablet 9- 10-13 by mouth ity of 00:00: 00:00 every 8 [place] 00 :00 (eight) Medical hours. Branch dicyclomine 2022-0 Yes Univer s 10 mg 9-24 ity of capsule 00:00: [place] 00 Medical Branch dicyclomine 2022-0 Yes Univer s 10 mg 9-24 ity of capsule 00:00: [place] 00 Medical Branch dicyclomine 2022-0 Yes Univer s 10 mg 9-24 ity of capsule 00:00: [place] 00 Medical Branch dicyclomine 2022-0 Yes Univer s 10 mg 9-24 ity of capsule 00:00: [place] 00 Medical Branch dicyclomine 2022-0 Yes Univer s 10 mg 9-24 ity of capsule 00:00: [place] 00 Medical Branch dicyclomine 2022-0 Yes Univer s 10 mg 9-24 ity of capsule 00:00: [place] 00 Medical Branch dicyclomine 2022-0 Yes Univer s 10 mg 9-24 ity of capsule 00:00: [place] 00 Medical Branch dicyclomine 2022-0 Yes Univer s 10 mg 9-24 ity of capsule 00:00: [place] 00 Medical Branch dicyclomine 2-0 Yes Univer s 10 mg 9-24 ity of capsule 00:00: [place] 00 Medical Branch dicyclomine 2022-0 Yes Univer s 10 mg 9-24 ity of capsule 00:00: [place] 00 Medical Branch dicyclomine 2-0 Yes Univer s 10 mg 9-24 ity of capsule 00:00: [place] 00 Medical Branch dicyclomine 2-0 Yes Univer s 10 mg 9-24 ity of capsule 00:00: [place] 00 Medical Branch dicyclomine 2-0 Yes Univer s 10 mg 9-24 ity of capsule 00:00: [place] 00 Medical Branch dicyclomine 2-0 Yes Univer s 10 mg 9-24 ity of capsule 00:00: [place] [address] Medical Branch dicyclomine 2-0 Yes Univer s 10 mg 9-24 ity of capsule 00:00: [place] 00 Medical Branch dicyclomine 2-0 Yes Univer s 10 mg 9-24 ity of capsule 00:00: [place] 00 Medical Branch dicyclomine 2-0 2022- No Unive rs 10 mg 9-24 10-13 ity of capsule 00:00: 00:00 [place] 00 :00 Medical Branch dicyclomine 2022-0 2022- No Unive rs 10 mg 9-24 10-13 ity of capsule 00:00: 00:00 [place] 00 :00 Medical Branch dicyclomine 2022-0 2022- No Unive rs 10 mg 9-24 10-13 ity of capsule 00:00: 00:00 [place] 00 :00 Medical Branch temazepam 2-0 Yes TAKE 2 Univer s 7.5 mg 9-19 CAPSULE BY ity of capsule 00:00: MOUTH AT [place] [address] BEDTIME Medical NEEDED FOR Branch SLEEP propranoloL 2-0 Yes 10mg Take 10 mg Univers 10 mg 9-19 by mouth ity of tablet 00:00: in the [place] 00 morning Medical and 10 mg Branch in the evening. temazepam 2-0 Yes TAKE 2 Univer s 7.5 mg 9-19 CAPSULE BY ity of capsule 00:00: MOUTH AT [place] 00 BEDTIME Medical NEEDED FOR Branch SLEEP propranoloL 2-0 Yes 10mg Take 10 mg Univers 10 mg 9-19 by mouth ity of tablet 00:00: in the [place] morning Medical and 10 mg Branch in the evening. temazepam 2-0 Yes TAKE 2 Univer s 7.5 mg 9-19 CAPSULE BY ity of capsule 00:00: MOUTH AT [place] [address] BEDTIME Medical NEEDED FOR Branch SLEEP propranoloL 2-0 Yes 10mg Take 10 mg Univers 10 mg 9-19 by mouth ity of tablet 00:00: in the [place] morning Medical and 10 mg Branch in the evening. temazepam 2-0 Yes TAKE 2 Univer s 7.5 mg 9-19 CAPSULE BY ity of capsule 00:00: MOUTH AT [place] [address] BEDTIME Medical NEEDED FOR Branch SLEEP propranoloL 2-0 Yes 10mg Take 10 mg Univers 10 mg 9-19 by mouth ity of tablet 00:00: in the [place] morning Medical and 10 mg Branch in the evening. temazepam 2-0 Yes TAKE 2 Univer s 7.5 mg 9-19 CAPSULE BY ity of capsule 00:00: MOUTH AT [place] [address] BEDTIME Medical NEEDED FOR Branch SLEEP temazepam 2-0 Yes TAKE 2 Univer s 7.5 mg 9-19 CAPSULE BY ity of capsule 00:00: MOUTH AT [place] [address] BEDTIME Medical NEEDED FOR Branch SLEEP temazepam 2-0 Yes TAKE 2 Univer s 7.5 mg 9-19 CAPSULE BY ity of capsule 00:00: MOUTH AT [place] [address] BEDTIME Medical NEEDED FOR Branch SLEEP propranoloL 2-0 Yes 10mg Take 10 mg Univers 10 mg 9-19 by mouth ity of tablet 00:00: in the [place] morning Medical and 10 mg Branch in the evening. temazepam 2022-0 Yes TAKE 2 Univer s 7.5 mg 9-19 CAPSULE BY ity of capsule 00:00: MOUTH AT [place] [address] BEDTIME Medical NEEDED FOR Branch SLEEP propranoloL 2022-0 Yes 10mg Take 10 mg Univers 10 mg 9-19 by mouth ity of tablet 00:00: in the [place] morning Medical and 10 mg Branch in the evening. temazepam 2022-0 Yes TAKE 2 Univer s 7.5 mg 9-19 CAPSULE BY ity of capsule 00:00: MOUTH AT [place] [address] BEDTIME Medical NEEDED FOR Branch SLEEP propranoloL 2022-0 Yes 10mg Take 10 mg Univers 10 mg 9-19 by mouth ity of tablet 00:00: in the [place] morning Medical and 10 mg Branch in the evening. temazepam 2022-0 Yes TAKE 2 Univer s 7.5 mg 9-19 CAPSULE BY ity of capsule 00:00: MOUTH AT [place] [address] BEDTIME Medical NEEDED FOR Branch SLEEP propranoloL 2022-0 Yes 10mg Take 10 mg Univers 10 mg 9-19 by mouth ity of tablet 00:00: in the [place] morning Medical and 10 mg Branch in the evening. temazepam 2022-0 Yes TAKE 2 Univer s 7.5 mg 9-19 CAPSULE BY ity of capsule 00:00: MOUTH AT [place] [address] BEDTIME Medical NEEDED FOR Branch SLEEP propranoloL 2-0 Yes 10mg Take 10 mg Univers 10 mg 9-19 by mouth ity of tablet 00:00: in the [place] morning Medical and 10 mg Branch in the evening. temazepam 2-0 Yes TAKE 2 Univer s 7.5 mg 9-19 CAPSULE BY ity of capsule 00:00: MOUTH AT [place] [address] BEDTIME Medical NEEDED FOR Branch SLEEP propranoloL 2-0 Yes 10mg Take 10 mg Univers 10 mg 9-19 by mouth ity of tablet 00:00: in the [place] morning Medical and 10 mg Branch in the evening. temazepam 2-0 Yes TAKE 2 Univer s 7.5 mg 9-19 CAPSULE BY ity of capsule 00:00: MOUTH AT [place] [address] BEDTIME Medical NEEDED FOR Branch SLEEP propranoloL 2-0 Yes 10mg Take 10 mg Univers 10 mg 9-19 by mouth ity of tablet 00:00: in the [place] morning Medical and 10 mg Branch in the evening. temazepam 2022-0 Yes TAKE 2 Univer s 7.5 mg 9-19 CAPSULE BY ity of capsule 00:00: MOUTH AT [place] [address] BEDTIME Medical NEEDED FOR Branch SLEEP propranoloL 2022-0 Yes 10mg Take 10 mg Univers 10 mg 9-19 by mouth ity of tablet 00:00: in the [place] morning Medical and 10 mg Branch in the evening. temazepam 2022-0 Yes TAKE 2 Univer s 7.5 mg 9-19 CAPSULE BY ity of capsule 00:00: MOUTH AT [place] [address] BEDTIME Medical NEEDED FOR Branch SLEEP propranoloL 2022-0 Yes 10mg Take 10 mg Univers 10 mg 9-19 by mouth ity of tablet 00:00: in the [place] 00 morning Medical and 10 mg Branch in the evening. temazepam Yes TAKE 2 Univer s 7.5 mg 9-19 CAPSULE BY ity of capsule 00:00: MOUTH AT [place] [address] BEDTIME Medical NEEDED FOR Branch SLEEP propranoloL 2021-0 Yes 10mg Take 10 mg Univers 10 mg 9-19 by mouth ity of tablet 00:00: in the [place] [address] morning Medical and 10 mg Branch in the evening. temazepam 2021-2021- No TAKE 2 Unive rs 7.5 mg 9-19 10-13 CAPSULE BY ity of capsule 00:00: 00:00 MOUTH AT [place] 00 :00 BEDTIME Medical NEEDED FOR Branch SLEEP propranoloL 2021-2021- No 10mg Take 10 mg Univers 10 mg 9-19 10-13 by mouth ity of tablet 00:00: 00:00 in the [place] 00 :00 morning Medical and 10 mg Branch in the evening. temazepam 2021-2021- No TAKE 2 Unive rs 7.5 mg 9-19 10-13 CAPSULE BY ity of capsule 00:00: 00:00 MOUTH AT [place] 00 :00 BEDTIME Medical NEEDED FOR Branch SLEEP propranoloL 2021-0 2021- No 10mg Take 10 mg Univers 10 mg 9-19 10-13 by mouth ity of tablet 00:00: 00:00 in the [place] 00 :00 morning Medical and 10 mg Branch in the evening. temazepam 2021-2021- No TAKE 2 Unive rs 7.5 mg 9-19 10-13 CAPSULE BY ity of capsule 00:00: 00:00 MOUTH AT [place] 00 :00 BEDTIME Medical NEEDED FOR Branch SLEEP propranoloL 2021- No 10mg Take 10 mg Univers 10 mg 9-19 10-13 by mouth ity of tablet 00:00: 00:00 in the [place] 00 :00 morning Medical and 10 mg Branch in the evening. pantoprazol Yes 40mg Take 40 mg Univers e 40 mg EC 9-18 by mouth ity o f tablet 00:00: every [place] [address] morning. Medical Branch pantoprazol 2021-0 Yes 40mg Take 40 mg Univers e 40 mg EC 9-18 by mouth ity o f tablet 00:00: every [place] 00 morning. Medical Branch pantoprazol 0 Yes 40mg Take 40 mg Univers e 40 mg EC 9-18 by mouth ity o f tablet 00:00: every morning. Medical Branch hydrALAZINE 2021-0 Yes TAKE 1 Univ ers 50 mg 9-08 TABLET BY ity of tablet 00:00: MOUTH WITH FOOD TWICE Medical DAILY Branch hydrALAZINE 2021-0 Yes TAKE 1 Univ ers 50 mg 9-08 TABLET BY ity of tablet 00:00: MOUTH WITH FOOD TWICE Medical DAILY Branch hydrALAZINE 2021-0 Yes TAKE 1 Univ ers 50 mg 9-08 TABLET BY ity of tablet 00:00: MOUTH WITH FOOD TWICE Medical DAILY Branch hydrALAZINE 0 Yes TAKE 1 Univ ers 50 mg 9-08 TABLET BY ity of tablet 00:00: MOUTH WITH FOOD TWICE Medical DAILY Branch hydrALAZINE 2021-0 Yes TAKE 1 Univ ers 50 mg 9-08 TABLET BY ity of tablet 00:00: MOUTH WITH FOOD TWICE Medical DAILY Branch hydrALAZINE 2021-0 Yes TAKE 1 Univ ers 50 mg 9-08 TABLET BY ity of tablet 00:00: MOUTH WITH FOOD TWICE Medical DAILY Branch hydrALAZINE 2021-0 Yes TAKE 1 Univ ers 50 mg 9-08 TABLET BY ity of tablet 00:00: MOUTH WITH FOOD TWICE Medical DAILY Branch hydrALAZINE 2021-0 Yes TAKE 1 Univ ers 50 mg 9-08 TABLET BY ity of tablet 00:00: MOUTH WITH FOOD TWICE Medical DAILY Branch hydrALAZINE 2021-0 Yes TAKE 1 Univ ers 50 mg 9-08 TABLET BY ity of tablet 00:00: MOUTH WITH FOOD TWICE Medical DAILY Branch hydrALAZINE 2021-0 Yes TAKE 1 Univ ers 50 mg 9-08 TABLET BY ity of tablet 00:00: MOUTH WITH FOOD TWICE Medical DAILY Branch hydrALAZINE 2021-0 Yes TAKE 1 Univ ers 50 mg 9-08 TABLET BY ity of tablet 00:00: MOUTH WITH FOOD TWICE Medical DAILY Branch hydrALAZINE 2021-0 Yes TAKE 1 Univ ers 50 mg 9-08 TABLET BY ity of tablet 00:00: MOUTH WITH FOOD TWICE Medical DAILY Branch hydrALAZINE 2021-0 Yes TAKE 1 Univ ers 50 mg 9-08 TABLET BY ity of tablet 00:00: MOUTH WITH FOOD TWICE Medical DAILY Branch hydrALAZINE 0 Yes TAKE 1 Univ ers 50 mg 9-08 TABLET BY ity of tablet 00:00: MOUTH WITH FOOD TWICE Medical DAILY Branch hydrALAZINE 0 Yes TAKE 1 Univ ers 50 mg 9-08 TABLET BY ity of tablet 00:00: MOUTH WITH FOOD TWICE Medical DAILY Branch hydrALAZINE 0 Yes TAKE 1 Univ ers 50 mg 9-08 TABLET BY ity of tablet 00:00: MOUTH WITH FOOD TWICE Medical DAILY Branch hydrALAZINE 0 Yes TAKE 1 Univ ers 50 mg 9-08 TABLET BY ity of tablet 00:00: MOUTH WITH FOOD TWICE Medical DAILY Branch hydrALAZINE 0 Yes TAKE 1 Univ ers 50 mg 9-08 TABLET BY ity of tablet 00:00: MOUTH WITH FOOD TWICE Medical DAILY Branch hydrALAZINE 0 Yes TAKE 1 Univ ers 50 mg 9-08 TABLET BY ity of tablet 00:00: MOUTH WITH FOOD TWICE Medical DAILY Branch hydrALAZINE 0 Yes TAKE 1 Univ ers 50 mg 9-08 TABLET BY ity of tablet 00:00: MOUTH WITH FOOD TWICE Medical DAILY Branch SERTraline 2021- No 50mg Take 50 mg Univers 50 mg 06-18 by mouth ity of tablet 00:00: 00:00 [place] breakfast. [facility] SERTraline 2021- No 50mg Take 50 mg [facility] 50 mg 06-18- by mouth [facility] [facility] SERTraline 2021- No 50mg Take 50 mg [facility] 50 mg 06-18- by mouth it[facility] tablet 00:00: 00:[place] breakfast. [facility] SERTraline 2021- No 50mg Take 50 mg [facility] 50 mg 06-18 by mouth it[facility] of tablet 00:00: 00:[place] breakfast. [facility] SERTraline 2021- No 50mg Take 50 mg [facility] 50 mg 07-23 by mouth it[facility] of tablet 00:00: 00:[place] :[place] breakfast. [facility] fluticasone Yes 2{spray Use 2 [facility] propionate 8-23 } Sprays in ity of 50 00:00: each [place] mcg/actuati 00 nostril in Me dical on nasal the Branch spray morning. fluticasone 0 Yes 2{spray Use 2 [facility] propionate 8-23 } Sprays in ity of 50 00:00: each [place] mcg/actuati 00 nostril in Me dical on nasal the Branch spray morning. fluticasone 0 Yes 2{spray Use 2 [facility] propionate 8-23 } Sprays in ity of 50 00:00: each [place] mcg/actuati 00 nostril in Me dical on nasal the Branch spray morning. fluticasone 0 Yes 2{spray Use 2 [facility] propionate 8-23 } Sprays in ity of 50 00:00: each [place] mcg/actuati 00 nostril in Me dical on nasal the Branch spray morning. fluticasone 0 Yes 2{spray Use 2 [facility] propionate 8-23 } Sprays in ity of 50 00:00: each [place] mcg/actuati 00 nostril in Me dical on nasal the Branch spray morning. fluticasone 0 Yes 2{spray Use 2 [facility] propionate 8-23 } Sprays in ity of 50 00:00: each [place] mcg/actuati 00 nostril in Me dical on nasal the Branch spray morning. fluticasone 0 Yes 2{spray Use 2 [facility] propionate 8-23 } Sprays in ity of 50 00:00: each [place] mcg/actuati 00 nostril in Me dical on nasal the Branch spray morning. fluticasone 2021-0 Yes 2{spray Use 2 [facility] propionate 8-23 } Sprays in ity of 50 00:00: each [place] mcg/actuati 00 nostril in Me dical on nasal the Branch spray morning. fluticasone 2021-0 Yes 2{spray Use 2 [facility] propionate 8-23 } Sprays in ity of 50 00:00: each [place] mcg/actuati 00 nostril in Me dical on nasal the Branch spray morning. fluticasone Yes 2{spray Use 2 [facility] propionate 8-23 } Sprays in ity of 50 00:00: each [place] mcg/actuati 00 nostril in Me dical on nasal the Branch spray morning. fluticasone Yes 2{spray Use 2 [facility] propionate 8-23 } Sprays in ity of 50 00:00: each [place] mcg/actuati 00 nostril in Me dical on nasal the Branch spray morning. SERTraline 2021- No 25mg Take 25 mg [facility] 25 mg 06-12-03 by mouth ity of tablet 00:00: 00:[place] :[place] breakfast. [facility] SERTraline 2021- No 25mg Take 25 mg [facility] 25 mg 06-12- by mouth ity of tablet 00:00: 00:[place] 00 :00 breakfast. [facility] SERTraline 2021- No 25mg Take 25 mg [facility] 25 mg 06-12- by mouth ity of tablet 00:00: 00:[place] 00 :00 breakfast. [facility] SERTraline 2021- No 25mg Take 25 mg [facility] 25 mg 06-12- by mouth ity of tablet 00:00: 00:[place] 00 :[place] breakfast. [facility] SERTraline 2021- No 25mg Take 25 mg [facility] 25 mg 06-12- by mouth ity of tablet 00:00: 00:[place] 00 :[place] breakfast. [facility] diazePAM 2020-10 Yes [id number] 5mg Take 1 [facility] mg tablet 2-01 tablet by ity o f 00:00: mouth as [place] 00 needed for Medical Anxiety Branch (take on tablet 30 minutes before procedure and then 1 tablet, if needed, when waiting to have procedure) . diazePAM 2020-10 Yes [id number] 5mg Take 1 [facility] mg tablet 2-01 tablet by ity o f 00:00: mouth as [place] 00 needed for Medical Anxiety Branch (take on tablet 30 minutes before procedure and then 1 tablet, if needed, when waiting to have procedure) . diazePAM 2020-10 Yes [id number] 5mg Take 1 [facility] mg tablet 2-01 tablet by ity o f 00:00: mouth as [place] 00 needed for Medical Anxiety Branch (take on tablet 30 minutes before procedure and then 1 tablet, if needed, when waiting to have procedure) . diazePAM 2020-10 Yes [id number] 5mg Take 1 [facility] mg tablet 2-01 tablet by ity o f 00:00: mouth as [place] 00 needed for Medical Anxiety Branch (take on tablet 30 minutes before procedure and then 1 tablet, if needed, when waiting to have procedure) . diazePAM 2020-10 Yes [id number] 5mg Take 1 [facility] mg tablet 2-01 tablet by ity o f 00:00: mouth as [place] 00 needed for Medical Anxiety Branch (take on tablet 30 minutes before procedure and then 1 tablet, if needed, when waiting to have procedure) . diazePAM 2020-10 Yes [id number] 5mg Take 1 [facility] mg tablet 2-01 tablet by ity o f 00:00: mouth as [place] 00 needed for Medical Anxiety Branch (take on tablet 30 minutes before procedure and then 1 tablet, if needed, when waiting to have procedure) . diazePAM 2020-10 Yes [id number] 5mg Take 1 [facility] mg tablet 2-01 tablet by ity o f 00:00: mouth as [place] 00 needed for Medical Anxiety Branch (take on tablet 30 minutes before procedure and then 1 tablet, if needed, when waiting to have procedure) . diazePAM 2020-10 Yes [id number] 5mg Take 1 [facility] mg tablet 2-01 tablet by ity o f 00:00: mouth as [place] 00 needed for Medical Anxiety Branch (take on tablet 30 minutes before procedure and then 1 tablet, if needed, when waiting to have procedure) . diazePAM 2020-10 Yes [id number] 5mg Take 1 [facility] mg tablet 2-01 tablet by ity o f 00:00: mouth as [place] 00 needed for Medical Anxiety Branch (take on tablet 30 minutes before procedure and then 1 tablet, if needed, when waiting to have procedure) . diazePAM 2020-10 Yes [id number] 5mg Take 1 [facility] mg tablet 2-01 tablet by ity o f 00:00: mouth as [place] 00 needed for Medical Anxiety Branch (take on tablet 30 minutes before procedure and then 1 tablet, if needed, when waiting to have procedure) . diazePAM 2020-10 Yes [id number] 5mg Take 1 [facility] mg tablet 2-01 tablet by ity o f 00:00: mouth as [place] 00 needed for Medical Anxiety Branch (take on tablet 30 minutes before procedure and then 1 tablet, if needed, when waiting to have procedure) . diazePAM 2020-10 Yes [id number] 5mg Take 1 [facility] mg tablet 2-01 tablet by ity o f 00:00: mouth as [place] 00 needed for Medical Anxiety Branch (take on tablet 30 minutes before procedure and then 1 tablet, if needed, when waiting to have procedure) . diazePAM 2020-10 Yes [id number] 5mg Take 1 [facility] mg tablet 2-01 tablet by ity o f 00:00: mouth as [place] 00 needed for Medical Anxiety Branch (take on tablet 30 minutes before procedure and then 1 tablet, if needed, when waiting to have procedure) . diazePAM 2020-10 Yes [id number] 5mg Take 1 [facility] mg tablet 2-01 tablet by ity o f 00:00: mouth as [place] 00 needed for Medical Anxiety Branch (take on tablet 30 minutes before procedure and then 1 tablet, if needed, when waiting to have procedure) . diazePAM 2020-10 Yes [id number] 5mg Take 1 [facility] mg tablet 2-01 tablet by ity o f 00:00: mouth as [place] 00 needed for Medical Anxiety Branch (take on tablet 30 minutes before procedure and then 1 tablet, if needed, when waiting to have procedure) . diazePAM 2020-10 Yes [id number] 5mg Take 1 [facility] mg tablet 2-01 tablet by ity o f 00:00: mouth as [place] 00 needed for Medical Anxiety Branch (take on tablet 30 minutes before procedure and then 1 tablet, if needed, when waiting to have procedure) . diazePAM 2020-10 Yes [id number] 5mg Take 1 [facility] mg tablet 2-01 tablet by ity o f 00:00: mouth as [place] 00 needed for Medical Anxiety Branch (take on tablet 30 minutes before procedure and then 1 tablet, if needed, when waiting to have procedure) . diazePAM 2020-10- No [id number] 5mg Take 1 [facility] mg tablet 2- 10-13 tablet by ity of 00:00: 00:00 mouth as [place] 00 :00 needed for Medical Anxiety Branch (take on tablet 30 minutes before procedure and then 1 tablet, if needed, when waiting to have procedure) . diazePAM 5 2020-10- No [id number] 5mg Take 1 [facility] mg tablet 11-21 tablet by ity of 00:00: 00:00 mouth as [place] 00 :00 needed for Medical Anxiety Branch (take on tablet 30 minutes before procedure and then 1 tablet, if needed, when waiting to have procedure) . diazePAM 5 2020-10- No [id number] 5mg Take 1 [facility] mg tablet 11-21 tablet by ity of 00:00: 00:00 mouth as [place] 00 :00 needed for Medical Anxiety Branch (take on tablet 30 minutes before procedure and then 1 tablet, if needed, when waiting to have procedure) . aspirin 81 2020-10 Yes 81mg Take 81 mg U nivers mg chewable 0-12 by mouth. ity of tablet 08:16: [address] tamsulosin 2020-10 Yes Take by Univ ers 0.4 mg 24 0-12 mouth ity of hr capsule 08:16: daily. [address] aspirin 81 2020-10 Yes 81mg Take 81 mg U nivers mg chewable 0-12 by mouth. ity of tablet 08:16: [address] tamsulosin 2020-10 Yes Take by Univ ers 0.4 mg 24 0-12 mouth ity of hr capsule 08:16: daily. [address] aspirin 81 2020- Yes 81mg Take 81 mg U nivers mg chewable 0-12 by mouth. ity of tablet 08:16: [address] tamsulosin 2020-10 Yes Take by Univ ers 0.4 mg 24 0-12 mouth ity of hr capsule 08:16: daily. [address] aspirin 81 2020- Yes 81mg Take 81 mg U nivers mg chewable 0-12 by mouth. ity of tablet 08:16: [address] tamsulosin 2020- Yes Take by Univ ers 0.4 mg 24 0-12 mouth ity of hr capsule 08:16: daily. [address] aspirin 81 2020- Yes 81mg Take 81 mg U nivers mg chewable 0-12 by mouth. ity of tablet 08:16: [address] tamsulosin 2020-1 Yes Take by Univ ers 0.4 mg 24 0-12 mouth ity of hr capsule 08:16: daily. [address] aspirin 81 2020- Yes 81mg Take 81 mg U nivers mg chewable 0-12 by mouth. ity of tablet 08:16: [address] tamsulosin 2020- Yes Take by Univ ers 0.4 mg 24 0-12 mouth ity of hr capsule 08:16: daily. [address] aspirin 81 2020- Yes 81mg Take 81 mg U nivers mg chewable 0-12 by mouth. ity of tablet 08:16: [address] tamsulosin 2020- Yes Take by Univ ers 0.4 mg 24 0-12 mouth ity of hr capsule 08:16: daily. [address] aspirin 81 2020- Yes 81mg Take 81 mg U nivers mg chewable 0-12 by mouth. ity of tablet 08:16: [address] tamsulosin 2020- Yes Take by Univ ers 0.4 mg 24 0-12 mouth ity of hr capsule 08:16: daily. [address] aspirin 81 2020- Yes 81mg Take 81 mg U nivers mg chewable 0-12 by mouth. ity of tablet 08:16: [address] tamsulosin 2020- Yes Take by Univ ers 0.4 mg 24 0-12 mouth ity of hr capsule 08:16: daily. [address] aspirin 81 2020- Yes 81mg Take 81 mg U nivers mg chewable 0-12 by mouth. ity of tablet 08:16: [address] tamsulosin 2020- Yes Take by Univ ers 0.4 mg 24 0-12 mouth ity of hr capsule 08:16: daily. [address] aspirin 81 2020- Yes 81mg Take 81 mg U nivers mg chewable 0-12 by mouth. ity of tablet 08:16: [address] tamsulosin 2020- Yes Take by Univ ers 0.4 mg 24 0-12 mouth ity of hr capsule 08:16: daily. [address] aspirin 81 2020- Yes 81mg Take 81 mg U nivers mg chewable 0-12 by mouth. ity of tablet 08:16: [address] tamsulosin 2020-10 Yes Take by Univ ers 0.4 mg 24 0-12 mouth ity of hr capsule 08:16: daily. [address] aspirin 81 2020- Yes 81mg Take 81 mg U nivers mg chewable 0-12 by mouth. ity of tablet 08:16: [address] tamsulosin 2020- Yes Take by Univ ers 0.4 mg 24 0-12 mouth ity of hr capsule 08:16: daily. [address] aspirin 81 2020- Yes 81mg Take 81 mg U nivers mg chewable 0-12 by mouth. ity of tablet 08:16: [address] tamsulosin 2020- Yes Take by Univ ers 0.4 mg 24 0-12 mouth ity of hr capsule 08:16: daily. [address] aspirin 81 2020- Yes 81mg Take 81 mg U nivers mg chewable 0-12 by mouth. ity of tablet 08:16: [address] tamsulosin 2020- Yes Take by Univ ers 0.4 mg 24 0-12 mouth ity of hr capsule 08:16: daily. [address] aspirin 81 2020- Yes 81mg Take 81 mg U nivers mg chewable 0-12 by mouth. ity of tablet 08:16: [address] tamsulosin 2020- Yes Take by Univ ers 0.4 mg 24 0-12 mouth ity of hr capsule 08:16: daily. [address] aspirin 81 2020- Yes 81mg Take 81 mg U nivers mg chewable 0-12 by mouth. ity of tablet 08:16: [address] tamsulosin 2020- Yes Take by Univ ers 0.4 mg 24 0-12 mouth ity of hr capsule 08:16: daily. [address] tamsulosin 2020- Yes Take by Univ ers 0.4 mg 24 0-12 mouth ity of hr capsule 08:16: daily. [address] tamsulosin 2020- Yes Take by Univ ers 0.4 mg 24 0-12 mouth ity of hr capsule 08:16: daily. [address] tamsulosin 2020- Yes Take by Univ ers 0.4 mg 24 0-12 mouth ity of hr capsule 08:16: daily. [place] 28 [facility] tamsulosin 2020-10 Yes Take by Univ ers 0.4 mg 24 0-12 mouth ity of hr capsule 08:16: daily. [place] [facility] amLODIPine 2020-10 Yes 5mg Take 5 mg [facility] 5 mg tablet 0-06 by mouth 2 it y of 00:00: (two) times Medical daily. Branch clopidogreL 2020- Yes 75mg Take 75 mg [facility] 75 mg 0-06 by mouth ity of tablet 00:00: daily. [facility] amLODIPine 2020-10 Yes 5mg Take 5 mg [facility] 5 mg tablet 0-06 by mouth 2 it y of 00:00: (two) 00 times Medical daily. Branch clopidogreL 2020- Yes 75mg Take 75 mg [facility] 75 mg 0-06 by mouth ity of tablet 00:00: daily. [facility] amLODIPine 2020-10 Yes 5mg Take 5 mg [facility] 5 mg tablet 0-06 by mouth 2 it y of 00:00: (two) [place] [facility] daily. Branch clopidogreL 2020- Yes 75mg Take 75 mg [facility] 75 mg 0-06 by mouth ity of tablet 00:00: daily. [facility] amLODIPine 2020-10 Yes 5mg Take 5 mg [facility] 5 mg tablet 0-06 by mouth 2 it y of 00:00: (two) Medical daily. Branch clopidogreL 2020- Yes 75mg Take 75 mg [facility] 75 mg 0-06 by mouth ity of tablet 00:00: daily. [facility] amLODIPine 2020-10 Yes 5mg Take 5 mg [facility] 5 mg tablet 0-06 by mouth 2 it y of 00:00: (two) Medical daily. Branch clopidogreL 2020- Yes 75mg Take 75 mg [facility] 75 mg 0-06 by mouth ity of tablet 00:00: daily. [facility] amLODIPine 2020- Yes 5mg Take 5 mg [facility] 5 mg tablet 0-06 by mouth 2 it y of 00:00: (two) [place] 00 times Medical daily. Branch clopidogreL 2020- Yes 75mg Take 75 mg [facility] 75 mg 0-06 by mouth ity of tablet 00:00: daily. [facility] amLODIPine 2020- Yes 5mg Take 5 mg [facility] 5 mg tablet 0-06 by mouth 2 it y of 00:00: (two) [place] 00 times Medical daily. Branch clopidogreL 2020-1 Yes 75mg Take 75 mg [facility] 75 mg 0-06 by mouth ity of tablet 00:00: daily. [facility] amLODIPine 2020-1 Yes 5mg Take 5 mg [facility] 5 mg tablet 0-06 by mouth 2 it y of 00:00: (two) [place] 00 times Medical daily. Branch clopidogreL 1-1 Yes 75mg Take 75 mg [facility] 75 mg 0-06 by mouth ity of tablet 00:00: daily. [facility] amLODIPine 2020-1 Yes 5mg Take 5 mg [facility] 5 mg tablet 0-06 by mouth 2 it y of 00:00: (two) [place] 00 times Medical daily. Branch clopidogreL 1-1 Yes 75mg Take 75 mg [facility] 75 mg 0-06 by mouth ity of tablet 00:00: daily. [facility] amLODIPine 2020-1 Yes 5mg Take 5 mg [facility] 5 mg tablet 0-06 by mouth 2 it y of 00:00: (two) [place] 00 times Medical daily. Branch clopidogreL 2020-1 Yes 75mg Take 75 mg [facility] 75 mg 0-06 by mouth ity of tablet 00:00: daily. [facility] amLODIPine 2020- Yes 5mg Take 5 mg [facility] 5 mg tablet 0-06 by mouth 2 it y of 00:00: (two) [place] 00 times Medical daily. Branch clopidogreL 1-1 Yes 75mg Take 75 mg [facility] 75 mg 0-06 by mouth ity of tablet 00:00: daily. [facility] amLODIPine 2020-1 Yes 5mg Take 5 mg [facility] 5 mg tablet 0-06 by mouth 2 it y of 00:00: (two) [place] 00 times Medical daily. Branch clopidogreL 1-1 Yes 75mg Take 75 mg [facility] 75 mg 0-06 by mouth ity of tablet 00:00: daily. [facility] amLODIPine 1-1 Yes 5mg Take 5 mg [facility] 5 mg tablet 0-06 by mouth 2 it y of 00:00: (two) [place] 00 times Medical daily. Branch clopidogreL 1-1 Yes 75mg Take 75 mg [facility] 75 mg 0-06 by mouth ity of tablet 00:00: daily. Medical [facility] amLODIPine 2021-1 Yes 5mg Take 5 mg [facility] 5 mg tablet 0-06 by mouth 2 it y of 00:00: (two) [place] 00 times Medical daily. Branch clopidogreL 2020-1 Yes 75mg Take 75 mg [facility] 75 mg 0-06 by mouth ity of tablet 00:00: daily. [facility] amLODIPine 2020-1 Yes 5mg Take 5 mg [facility] 5 mg tablet 0-06 by mouth 2 it y of 00:00: (two) [place] 00 times Medical daily. Branch clopidogreL 1-1 Yes 75mg Take 75 mg [facility] 75 mg 0-06 by mouth ity of tablet 00:00: daily. Medical Branch amLODIPine 2020-1 Yes 5mg Take 5 mg [facility] 5 mg tablet 0-06 by mouth 2 it y of 00:00: (two) [place] 00 times Medical daily. Branch clopidogreL 1-1 Yes 75mg Take 75 mg [facility] 75 mg 0-06 by mouth ity of tablet 00:00: daily. [facility] amLODIPine 2020-1 Yes 5mg Take 5 mg [facility] 5 mg tablet 0-06 by mouth 2 it y of 00:00: (two) [place] 00 times Medical daily. Branch clopidogreL 2020-1 Yes 75mg Take 75 mg [facility] 75 mg 0-06 by mouth ity of tablet 00:00: daily. Medical Branch amLODIPine 2020-1 Yes 5mg Take 5 mg [facility] 5 mg tablet 0-06 by mouth 2 it y of 00:00: (two) [place] 00 times Medical daily. Branch clopidogreL 1-1 Yes 75mg Take 75 mg [facility] 75 mg 0-06 by mouth ity of tablet 00:00: daily. Medical Branch amLODIPine 1-1 Yes 5mg Take 5 mg [facility] 5 mg tablet 0-06 by mouth 2 it y of 00:00: (two) [place] 00 times Medical daily. Branch clopidogreL 1-1 Yes 75mg Take 75 mg [facility] 75 mg 0-06 by mouth ity of tablet 00:00: daily. Medical Branch amLODIPine 1-1 Yes 5mg Take 5 mg [facility] 5 mg tablet 0-06 by mouth 2 it y of 00:00: (two) [place] 00 times Medical daily. Branch clopidogreL 1-1 Yes 75mg Take 75 mg [facility] 75 mg 0-06 by mouth ity of tablet 00:00: daily. [place] 00 [facility] amLODIPine 2020- Yes 5mg Take 5 mg Un [facility] 5 mg tablet 0-06 by mouth 2 it y of 00:00: (two) 00 times Medical daily. Branch clopidogreL 2020- Yes 75mg Take 75 mg [facility] 75 mg 0-06 by mouth ity of tablet 00:00: daily. 00 Medical Branch traMADoL Yes TAKE ONE [facility] rs 100 mg Tab 8-23 TABLET BY ity of 00:00: MOUTH EVERY 4 TO Medical 6 HOURS Branch NEEDED FOR PAIN traMADoL Yes TAKE ONE [facility] rs 100 mg Tab 8-23 TABLET BY ity of 00:00: MOUTH EVERY 4 TO Medical 6 HOURS Branch NEEDED FOR PAIN traMADoL Yes TAKE ONE Un[facility] rs 100 mg Tab 8-23 TABLET BY ity of 00:00: MOUTH EVERY 4 TO Medical 6 HOURS Branch NEEDED FOR PAIN traMADoL Yes TAKE ONE Unive rs 100 mg Tab 8-23 TABLET BY ity of 00:00: MOUTH EVERY 4 TO Medical 6 HOURS Branch NEEDED FOR PAIN traMADoL Yes TAKE ONE Unive rs 100 mg Tab 8-23 TABLET BY ity of 00:00: MOUTH EVERY 4 TO Medical 6 HOURS Branch NEEDED FOR PAIN traMADoL Yes TAKE ONE Unive rs 100 mg Tab 8-23 TABLET BY ity of 00:00: MOUTH EVERY 4 TO Medical 6 HOURS Branch NEEDED FOR PAIN traMADoL Yes TAKE ONE Unive rs 100 mg Tab 8-23 TABLET BY ity of 00:00: MOUTH EVERY 4 TO Medical 6 HOURS Branch NEEDED FOR PAIN traMADoL Yes TAKE ONE Unive rs 100 mg Tab 8-23 TABLET BY ity of 00:00: MOUTH EVERY 4 TO Medical 6 HOURS Branch NEEDED FOR PAIN traMADoL Yes TAKE ONE Unive rs 100 mg Tab 8-23 TABLET BY ity of 00:00: MOUTH EVERY 4 TO Medical 6 HOURS Branch NEEDED FOR PAIN traMADoL Yes TAKE ONE Unive rs 100 mg Tab 8-23 TABLET BY ity of 00:00: MOUTH EVERY 4 TO Medical 6 HOURS Branch NEEDED FOR PAIN traMADoL 2021-0 Yes TAKE ONE Unive rs 100 mg Tab 8-23 TABLET BY ity of 00:00: MOUTH EVERY 4 TO Medical 6 HOURS Branch NEEDED FOR PAIN traMADoL Yes TAKE ONE Unive rs 100 mg Tab 8-23 TABLET BY ity of 00:00: MOUTH 00 EVERY 4 TO Medical 6 HOURS Branch NEEDED FOR PAIN traMADoL Yes TAKE ONE Unive rs 100 mg Tab 8-23 TABLET BY ity of 00:00: MOUTH EVERY 4 TO Medical 6 HOURS Branch NEEDED FOR PAIN traMADoL Yes TAKE ONE Unive rs 100 mg Tab 8-23 TABLET BY ity of 00:00: MOUTH EVERY 4 TO Medical 6 HOURS Branch NEEDED FOR PAIN traMADoL Yes TAKE ONE Unive rs 100 mg Tab 8-23 TABLET BY ity of 00:00: MOUTH EVERY 4 TO Medical 6 HOURS Branch NEEDED FOR PAIN traMADoL Yes TAKE ONE Unive rs 100 mg Tab 8-23 TABLET BY ity of 00:00: MOUTH EVERY 4 TO Medical 6 HOURS Branch NEEDED FOR PAIN traMADoL Yes TAKE ONE Unive rs 100 mg Tab 8-23 TABLET BY ity of 00:00: MOUTH EVERY 4 TO Medical 6 HOURS Branch NEEDED FOR PAIN traMADoL Yes TAKE ONE Unive rs 100 mg Tab 8-23 TABLET BY ity of 00:00: MOUTH EVERY 4 TO Medical 6 HOURS Branch NEEDED FOR PAIN traMADoL Yes TAKE ONE Unive rs 100 mg Tab 8-23 TABLET BY ity of 00:00: MOUTH EVERY 4 TO Medical 6 HOURS Branch NEEDED FOR PAIN traMADoL Yes TAKE ONE Unive rs 100 mg Tab 8-23 TABLET BY ity of 00:00: MOUTH EVERY 4 TO Medical 6 HOURS Branch NEEDED FOR PAIN traMADoL Yes TAKE ONE Unive rs 100 mg Tab 8-23 TABLET BY ity of 00:00: MOUTH 00 EVERY 4 TO Medical 6 HOURS Branch NEEDED FOR PAIN Vital Signs Vital Name Observation Time Observation Value Comments Source Systolic blood 2022-08-02 19:52:00 157 mm[Hg] [facility] sity of pressure [place] [facility] Diastolic blood 2022-08-02 19:52:00 78 mm[Hg] Unive rsity of pressure [place] [facility] Heart rate 2022-08-02 19:52:00 83 /min [facility] [place] [facility] Body temperature 2022-08-02 19:52:00 36.5 Nina [facility] [place] [facility] Respiratory rate 2022-08-02 19:52:00 16 /min [facility] [place] [facility] Body height 2022-08-02 19:52:00 190.5 cm [facility] [place] [facility] Body weight 2022-08-02 19:52:00 82.101 kg [facility] [place] [facility] BMI 2022-08-02 19:52:00 22.62 kg/m2 [facility] [place] [facility] Oxygen saturation in 2022-08-02 19:52:00 98 /min [facility] of Arterial blood by [facility] jamaal Pulse oximetry Branch Systolic blood 2022-08-01 01:50:00 166 mm[Hg] Univer sity of pressure [place] [facility] Diastolic blood 2022-08-01 01:50:00 71 mm[Hg] Unive rsity of pressure [place] [facility] Heart rate 2022-08-01 01:50:00 80 /min [facility] [place] [facility] Respiratory rate 2022-08-01 01:50:00 20 /min [facility] ers[facility] [place] [facility] Oxygen saturation in 2022-08-01 01:50:00 100 /min University of Arterial blood by [facility] Pulse oximetry Branch Body temperature 2022-07-31 20:52:00 36.72 Nina [facility] [place] [facility] Body weight 2022-07-31 20:52:00 78.472 kg [facility] [place] [facility] BMI 2022-07-31 20:52:00 21.62 kg/m2 [facility] [place] [facility] Systolic blood 2022-07-20 18:31:00 146 mm[Hg] Univer sity of pressure [place] [facility] Diastolic blood 2022-07-20 18:31:00 77 mm[Hg] Unive rsity of pressure [place] [facility] Body height 2022-07-20 18:31:00 190.5 cm [facility] [place] [facility] Body weight 2022-07-20 18:31:00 81.194 kg [facility] [place] [facility] BMI 2022-07-20 18:31:00 22.37 kg/m2 [facility] Procedures Procedure Date / Time Performed Performing Clinician Cody e EXTERNAL PROVIDER 2022-08-13 05:01:00 Doctor Unasswilbur, No [facility] RECORDS Name [facility] CT ABDOMEN PELVIS W 2022-08-01 00:20:00 Purnima Christiansen [facility] CONTRAST [facility] URINALYSIS 2022-07-31 23:17:00 [facility] XR CHEST 1 VW 2022-07-31 22:22:00 [facility] LIPASE 2022-07-31 22:02:00 [facility] TROPONIN I 2022-07-31 22:02[facility]00 [facility] 2022-07-31 22:02:00 Purnima Christiansen [facility] ([id number]) Medical [place] (ALB,T.PRO,BILI T,BU/BC,ALT,AST,ALK PHOS) BASIC METABOLIC PANEL 2022-07-31 22:02:00 Purnima Christiansen [facility] (NA, K, CL, CO2, Medical Branch GLUCOSE, BUN, CREATININE, CA) LIPID PANEL 2022-07-31 22:02:00 Helena Purnima [facility] ([id number])(TOTAL Medical Branch CHOLESTEROL, TRIGLYCERIDES, HDL) CBC WITH DIFF 2022-07-31 22:02:00 [facility] CONSENT/REFUSAL FOR 2022-07-31 20:52:52 Doctor Unassigned, No [facility] DIAGNOSIS AND Name [facility] TREATMENT Encounters Start End Encounter Admission Attending Care Care Encounter Source Date/Time Date/Time Type Type Clinicians Facility Department ID 2021-10-27 Outpatient Corie SIMEON [facility] [place] [id number] Univers 15:53:41 CRISTOBAL [place] jayme [facility] 2022-08-31 2022-08-31 Outpatient R PABLO DUNBAR [facility] [id number] Univers 14:20:00 14:20:00 PABLO DUNBAR [facility] 2022-08-13 2022-08-13 Orders Doctor FELTON 1.2.840.114 [id number] Univers 00:00:00 00:00:00 Only Unassigned, NICHELLE 350.1.13.10 ity of [place] [facility] 4.2.7.2.686 Michael as [id number] [facility] [address] [place] 2022-08-02 2022-08-02 Office Everardo, [facility] 1.2.840.114 [id number] Univers 15:00:00 15:20:00 [facility] 350.1.13.10 it y of [facility] 4.2.7.2.686 [place] [id number] [address] E CLINIC 2022-08-02 2022-08-02 Outpatient R [facility] [id number] Univers 15:00:00 15:00:00 ity of [facility] 2022-08-02 2022-08-02 Telephone [facility] 1.2.840.114 [id number] Univers 00:00:00 00:00:00 [facility] 350.1.13.10 ity of [place] 4.2.7.2.686 Michael as CHAD?BLEA [id number] [address] MEDICAL OFFICE [facility] 2022-07-31 2022-07-31 Emergency X [facility] ERT [id number] Univers 15:55:00 21:12:00 PURNIMA ity of [facility] 2022-07-31 2022-07-31 Emergency Beverlin, TRAUMA 1.2.840.114 [id number] Univers 15:55:00 21:12:00 [facility] 350.1.13.10 [place] [id number] [facility] [address] [place] 2022-07-31 2022-07-31 Telephone [facility] 1.2.840.114 [id number] Univers 00:00:00 00:00:00 [facility] 350.1.13.10 ity of [place] 4.2.7.2.686 Michael as CHAD?BLEA [id number] [address] MEDICAL OFFICE [facility] 2022-07-30 2022-07-30 Telephone [facility] 1.2.840.114 [id number] [id number] Univers 00:00:00 00:00:00 [facility] 350.1.13.10 ity of [place] 4.2.7.2.686 Michael as CHAD?BLEA [id number] [address] 2022-07-27 2022-07-27 Outpatient [facility] [id number] Univers 13:00:00 13:00:00 PABLO DUNBAR ity [facility] 2022-07-26 2022-07-26 [facility] 1.2.840.114 [id number] Univers 00:00:00 00:00:00 [facility] 350.1.13.10 ity of [place] 4.2.7.2.686 Michael as CHAD?BLEA [id number] [address] 2022-07-25 2022-07-25 [facility]phone [facility] 1.2.840.114 [id number] Univers 00:00:00 00:00:00 [facility] 350.1.13.10 ity of [place] 4.2.7.2.686 Michael as CHAD?BLEA [id number] [address] 2022-07-25 2022-07-25 [facility] 1.2.840.114 [id number] Univers 00:00:00 00:00:00 [facility] 350.1.13.10 ity of [place] 4.2.7.2.686 Michael as CHAD?BLEA [id number] [address] 2022-07-23 2022-07-23 [facility] 1.2.840.114 [id number] [id number] Univers 00:00:00 00:00:00 [facility] 350.1.13.10 ity of [place] 4.2.7.2.686 Michael as CHAD?BLEA [id number] [address] 2022-07-20 2022-07-20 Outpatient [facility] [id number] Univers 14:00:00 14:19:59 PABLO DUNBAR ity [facility] 2022-07-20 2022-07-20 Office [facility] 1.2.840.114 [id number] Univers 14:00:00 14:19:[address] [facility] 350.1.13.10 ity of [place] 4.2.7.2.686 Michael as CHAD?BLEA [id number] [address] OFFICE [facility] 2021-11-07 2021-11-07 Outpatient R [facility] [id number] Univers 08:30:00 08:30:00 CRISTOBAL [place] [facility] 2021-09-21 2021-09-21 Outpatient MARY Dm [facility] [id number] [facility] 08:45:00 08:45:00 Angel Kwok [facility] 2021-09-11 2021-09-11 Telephone [facility] 1.2.840.114 [id number] Univers 00:00:00 00:00:00 [facility] 350.1.13.10 ity of [place] 4.2.7.2.686 Michael as CHAD?BLEA [id number] [address] OFFICE [facility] 2021-08-15 2021-08-15 Telephone [facility] 1.2.840.114 [id number] Univers 00:00:00 00:00:00 [facility] 350.1.13.10 ity of [place] 4.2.7.2.686 Michael as CHAD?BLEA [id number] [address] OFFICE [facility] 2021-08-08 2021-08-08 Telephone [facility] 1.2.840.114 [id number] Univers 00:00:00 00:00:00 [facility] 350.1.13.10 ity of [place] 4.2.7.2.686 Michael as Chad?Blea [id number] [address] Office [facility] 2021-08-01 2021-08-01 Office [facility] 1.2.840.114 [id number] 006 [facility] 07:39:53 09:30:32 Visit Pablo [facility] 350.1.13.10 ity of [place] 4.2.7.2.686 Michael as Chad?Blea [id number] Sc dical [place] [address]452 [place] [facility] 2021-08-01 2021-08-01 Outpatient [facility] [id number] [facility] 08:00:00 08:00:00 PABLO DUNBAR ity [facility] 2021-08-01 2021-08-01 Orders Doctor PURNIMA 1.2.840.114 [id number] Univers 00:00:00 00:00:00 Only Unassigned, NICHELLE 350.1.13.10 ity of [facility] 4.2.7.2.686 Michael as [id number] [address] 2020-09-26 2020-09-26 Outpatient LEV ChaidezTO RADI [id number] 199 [facility] 08:30:00 08:30:00 Angel 00 [place] [facility] 2020-08-22 2020-08-22 Outpatient JOHNNY Chaidez RADI [id number] [facility] 10:00:00 10:00:00 Angel 75 [place] [facility] Results Test Description Test Time Test Comments Results Result [facility] e Comments - XR L-SPINE 2021-09-25 W/BEND VIEW 19:48:00 [facility] : 1955 Sex: M Patient Name: TAMIKA OBREGON Unit No: [id number] EXAMS: CPT CODE: [id number] XR L-SPINE W/BEND VIEW 80765 COMPARISON: Concurrent MRI. IMAGES PROVIDED: 8 views [...] M.D. CC: Angel Chaidez M.D. Technologist: RT Neetu.(R) Transcribed D/ (1947) Astrid [facility] NAME: TAMIKA OBREGON [address] [facility] PHYS: Angel Shah MD : 1955 AGE: 65 SEX: M [place], [place] [address] LOC: Y.MRI PHONE #: [phone] EXAM DATE: 09/21/2021 STATUS: DEP CLI FAX #: [phone] RAD #: D/C DT PAGE 1 Signed Report Patient Name: TAMIKA OBREGON Unit No: [id number] EXAMS: CPT CODE: [id number] XR L-SPINE W/BEND VIEW 05415 (Continued) Orig Print D/T: S: 09/25/2021 (1950) [facility] NAME: TAMIKA OBREGON [address] [place] [address] PHYS: Angel Shah MD : 1955 AGE: 65 SEX: M [place], [place] [address] LOC: Y.MRI PHONE #: [phone] EXAM DATE: 09/21/2021 STATUS: DEP CLI FAX #: [phone] RAD #: D/C DT PAGE 2 Signed Report - MRI L-SPINE W WO 2021-09-21 CON 13:12:00 [facility] : 1955 Sex: M Patient Name: TAMIKA OBREGON Unit No: [id number] EXAMS: CPT CODE: [id number] MRI [place] 96385 DIAGNOSIS: 1. At L1-2 there is no [...] disc bulging foramina with moderate right and smbz-tb-feyegpws left foraminal narrowing. Moderate central canal stenosis [...] EDGARDO SANCHEZ MRI Transcribed D/ (1312) Susan [facility] NAME: TAMIKA OBREGON [address] [facility] PHYS: Angel Shah MD : 1955 AGE: 65 SEX: M [place], [place] [address] LOC: Y.MRI PHONE #: [phone] EXAM DATE: 09/21/2021 STATUS: REG CLI FAX #: [phone] RAD #: D/C DT PAGE 1 Signed Report Patient Name: TAMIKA OBREGON Unit No: [id number] EXAMS: CPT CODE: [id number] MRI L-SPINE W WO CON 19435 (Continued) Orig Print D/T: S: 09/21/2021 (131) [facility] NAME: TAMIKA OBREGON [address] [place] [address] PHYS: Angel Shah MD : 1955 AGE: 65 SEX: M [place], [place] [address] LOC: Y.MRI PHONE #: [phone] EXAM DATE: 09/21/2021 STATUS: REG CLI FAX #: [phone] RAD #: D/C DT PAGE 2 Signed Report - CT L-SPINE W/O 2020-09-26 CONTRAST 10:23:00 [facility] : 1955 Sex: M Patient Name: TAMIKA OBREGON Unit No: [id number] EXAMS: CPT CODE: [id number] CT L-SPINE W/O CONTRAST 32600 DIAGNOSIS: 1. At L1-2 there is a [...] RT Mike(R) CTDI: DLP: Trnscrpt: 09/26/2020 (1023) [facility]: TAMIKA OBREGON [address] [facility] PHYS: Angel Shah MD : 1955 AGE: 64 SEX: M [place], [place] [address] LOC: Y.RAD PHONE #: [phone] EXAM DATE: 09/26/2020 STATUS: REG CLI FAX #: [phone] RAD #: D/C DT PAGE 1 Signed Report Patient Name: TAMIKA OBREGON Unit No: [id number] EXAMS: CPT CODE: [id number] CT L-SPINE W/O CONTRAST 01413 (Continued) Orig Print D/T: S: 09/26/2020 (1026) [facility] NAME: TAMIKA OBREGON [address] [facility] PHYS: Angel Shah MD : 1955 AGE: 64 SEX: M [place], [place] [address] LOC: Y.RAD PHONE #: [phone] EXAM DATE: 09/26/2020 STATUS: REG CLI FAX #: [phone] RAD #: D/C DT PAGE 2 Signed Report - XR L-SPINE 2020-08-22 W/BEND VIEW 11:44:00 [facility] : 1955 Sex: M Patient Name: TAMIKA OBREGON Unit No: [id number] EXAMS: CPT CODE: [id number] XR L-SPINE W/BEND VIEW 58969 MRI OF THE LUMBAR SPINE WITH AND [...] Reported and signed by: Gonzalo Silvestre MD [facility] NAME: TAMIKA OBREGON [address] [place] [address] PHYS: Angel Shah MD : 1955 AGE: 64 SEX: M [place], [place] [address] LOC: Y.MRI PHONE #: [phone] EXAM DATE: 08/22/2020 STATUS: REG CLI FAX #: [phone] RAD #: D/C DT PAGE 1 Signed Report (CONTINUED) Patient Name: TAMIKA OBREGON Unit No: [id number] EXAMS: CPT CODE: [id number] XR L-SPINE W/BEND VIEW 81143 (Continued) CC: Angel Chaidez M.D. Technologist: RT. Neetu(R) Transcribed D/ (1144) JanetGVG [facility] NAME: TAMIKA OBREGON [address] [place] [address] PHYS: Angel Shah MD : 1955 AGE: 64 SEX: M [place], [place] [address] LOC: Y.MRI PHONE #: [phone] EXAM DATE: 08/22/2020 STATUS: REG CLI FAX #: [phone] RAD #: D/C DT PAGE 2 Signed Report Patient Name: TAMIKA OBREGON Unit No: [id number] EXAMS: CPT CODE: [id number] XR L-SPINE W/BEND VIEW 16670 (Continued) Orig Print D/T: S: 08/22/2020 (1148) [facility] NAME: TAMIKA OBREGON [address] [facility] PHYS: Angel Shah MD : 1955 AGE: 64 SEX: M [place], [place] [address] LOC: Y.MRI PHONE #: [phone] EXAM DATE: 08/22/2020 STATUS: REG CLI FAX #: [phone] RAD #: D/C DT PAGE 3 Signed Report - MRI L-SPINE W WO 2020-08-22 CON 11:44:00 [facility] : 1955 Sex: M Patient Name: TAMIKA OBREGON Unit No: [id number] EXAMS: CPT CODE: [id number] MRI L-SPINE W WO CON 63189 MRI OF THE LUMBAR SPINE WITH AND [...] Reported and signed by: Gonzalo Silvestre MD [facility] NAME: TAMIKA OBREGON [address] [facility] PHYS: Angel Shah MD : 1955 AGE: 64 SEX: M [place], [place] [address] LOC: Y.MRI PHONE #: [phone] EXAM DATE: 08/22/2020 STATUS: REG CLI FAX #: [phone] RAD #: D/C DT PAGE 1 Signed Report (CONTINUED) Patient Name: TAMIKA OBREGON Unit No: [id number] EXAMS: CPT CODE: [id number] MRI L-SPINE W WO CON 90882 (Continued) CC: Angel Chaidez M.D. Technologist: Jennifer Woodard(R) Transcribed D/ (1146) JanetGVG [facility] NAME: TAMIKA OBREGON [address] [place] [address] PHYS: Angel Shah MD : 1955 AGE: 64 SEX: M [place] [address] LOC: Y.MRI PHONE #: [phone] EXAM DATE: 08/22/2020 STATUS: REG CLI FAX #: [phone] RAD #: D/C DT PAGE 2 Signed Report Patient Name: TAMIKA OBREGON Unit No: [id number] EXAMS: CPT CODE: [id number] MRI L-SPINE W WO CON 20586 (Continued) Orig Print D/T: S: 08/22/2020 (1148) [facility] NAME: TAMIKA OBREGON [address] [place] [address] PHYS: Anegl Shah MD : 1955 AGE: 64 SEX: M [place] [address] LOC: Y.MRI PHONE #: [phone] EXAM DATE: 08/22/2020 STATUS: REG CLI FAX #: [phone] RAD #: D/C DT PAGE 3 Signed Report BLOOD UREA NITROGEN 2020-08-22 10:40:00 Test Item Value Reference Range Interpretation Comme nts BLOOD UREA NITROGEN (test code = BUN) 17 mg/dL 7-18 N SPECIMEN COMMENT: STATCREATININE W ESTIMATED [id number] 10:40:00 Test Item Value Reference Range Interpretation Comments GLOMERULAR FILTRATION 70.9 >60 Unit o f measure: RATE (test code = GFR) mL/mi n/1.73 n8Mpppjlrud Range:Healthy A dults >90 mL/min/1.73 m2 For Chronic Kid alfonso Disease: Stage II Mild Decrease i n GFR 60-90 Stage III Moderate Decrea se in GFR 30-59 Stage IV Severe Decrease in GFR 15-29 Stage V Kidney Failure <15 CREATININE (test code = 1.05 mg/dL 0.55-1.30 N CREAT) SPECIMEN COMMENT: STAT- MRI L-SPINE W WO [id number] 09:33:00 Patient Name: TAMIKA OBREGON Unit No: [id number] EXAMS: CPT CODE: [id number] MRI L-SPINE W WO CON 02455 MRI OF THE LUMBAR SPINE WITH AND [...] CC: Angel Chaidez M.D. Technologist: Karolyn Garza, (R) Transcribed D/ (0933) tBRENGVG [facility] NAME: TAMIKA OBREGON [address] [facility] PHYS: Angel Shah MD : 1955 AGE: 63 SEX: M [place], [place] [address] LOC: Y.MRI PHONE #: [phone] EXAM DATE: 04/30/2019 STATUS: DEP CLI FAX #: [phone] RAD #: D/C DT PAGE 1 Signed Report Patient Name: TAMIKA OBREGON Unit No: [id number] EXAMS: CPT CODE: [id number] MRI L- SPINE W WO CON 49430 (Continued) Orig Print D/T: S: 05/01/2019 (0936) [facility] NAME: TAMIKA OBREGON [address] [facility] PHYS: Angel Shah MD : 1955 AGE: 63 SEX: M [place], [place] [address] LOC: Y.MRI PHONE #: [phone] EXAM DATE: 04/30/2019 STATUS: DEP CLI FAX #: [phone] RAD #: D/C DT PAGE 2 Signed ReportBLOOD UREA [id number] 11:19:00 Test Item Value Reference Range Interpretation Comments BLOOD UREA NITROGEN (test code = 13 mg/dL 7-18 N BUN) CREATININE W ESTIMATED [id number] 11:19:00 Test Item Value Reference Range Interpretation Comments GLOMERULAR FILTRATION 70.3 >60 Unit o f measure: RATE (test code = GFR) mL/mi n/1.73 g1Gepknnjnv Range:Healthy A dults >90 mL/min/1.7 3 m2 For Chronic Kid alfonso Disease: Stage II Mild Decrease i n GFR 60-90 Stage III Moderate Decrea se in GFR 30-59 Stage IV Severe Decrease in GFR 15-29 Stage V Kidney Failure <15 CREATININE (test code = 1.06 mg/dL 0.55-1.30 N CREAT) - CT L-SPINE W/O [id number] 09:53:00 Patient Name: TAMIKA OBREGON Unit No: [id number] EXAMS: CPT CODE: [id number] CT L-SPINE W/O CONTRAST 29472 CT SCAN OF THE LUMBAR SPINE WITH [...] stenosis. Pedicle screws are in good position. 5.At L5-S1,mild disc degeneration. The L5- S1 disc is partially calcified. 2 mm disc bulge. No central canal stenosis. Mild facet arthropathy. Mild right foraminal stenosis. COMMENT: COMPARISON: No prior exams available. 3 mm axial slices are obtained of the lumbar spine with reconstruction. Findings areas above. at 0953 Reported and signed by: Gonzalo Silvestre MD CC: Angel Chaidez M.D. Technologist: Ammon Kelsey,RT(R) CTDI: DLP: Trnscrpt: 03/27/2019 (0953) BrindaG [facility] NAME: TAMIKA OBREGON [address] [place] [address] PHYS: Angel Shah MD : 1955 AGE: 63 SEX: M [place] [address] LOC: Y.RAD PHONE #: [phone] EXAM DATE: 03/26/2019 STATUS: DEP CLI FAX #: [phone] RAD #: D/C DT PAGE 1 Signed Report Patient Name: TAMIKA OBREGON Unit No: [id number] EXAMS: CPT CODE: [id number] CT L-SPINE W/O CONTRAST 66787 (Continued) Orig Print D/T: S: 03/27/2019 (0956) [facility] NAME: TAMIKA OBREGON [address] [place] [address] PHYS: Angel Shah MD : 1955 AGE: 63 SEX: M [place] [address] LOC: Y.RAD PHONE #: [phone] EXAM DATE: 03/26/2019 STATUS: DEP CLI FAX #: [phone] RAD #: D/C DT PAGE 2 Signed ReportURINALYSIS [id number] 07:16:00 Test Item Value Reference Range Interpretation [...] /LPF NONE SEEN code = AMORU) HGB [id number] 05:50:00 Test Item Value Reference Range Interpretation Comments HEMOGLOBIN (test code = HGB) 12.0 g/dL 12-16 N HEMATOCRIT (test code = HCT) 34.8 % 37-47 L CBC W/AUTO [id number] 05:49:00 Test Item Value Reference Range Interpretation [...] NRBC) - XR SPINE 1 V SPEC [id number] 11:33:00 Patient Name: TAMIKA OBREGON Unit No: [id number] EXAMS: CPT CODE: [id number] XR SPINE 1 V SPEC LEVEL 14050 3 LATERAL INTRAOPERATIVE VIEWS OF THE LUMBAR [...] M.D. Technologist: RT MARCO ANTONIO(R) Transcribed D/ (4863) Astrid [facility] NAME: TAMIKA OBREGON [address] [facility] PHYS: Angel Shah MD : 1955 AGE: 63 SEX: M [place], [place] [address] LOC: Y.505 A PHONE #: [phone] EXAM DATE: 12/30/2018 STATUS: ADM IN FAX #: [phone] RAD #: D/C DT PAGE 1 Signed Report Patient Name: TAMIKA OBREGON Unit No: [id number] EXAMS: CPT CODE: [id number] XR SPINE 1 V SPEC LEVEL 23097 (Continued) Orig Print D/T: S: 12/31/2018 (1136) [facility] NAME: TAMKIA OBREGON [address] [facility] PHYS: Angel Shah MD : 1955 AGE: 63 SEX: M [place] [address] : Y.505 A PHONE #: [phone] EXAM DATE: 12/30/2018 STATUS: ADM IN FAX #: [phone] RAD #: D/C DT PAGE 2 Signed Report- XR SPINE 1 V SPEC [id number] 11:33:00 Patient Name: TAMIKA OBREGON Unit No: [id number] EXAMS: CPT CODE: [id number] XR SPINE 1 V SPECLEVEL 90870 3 LATERAL INTRAOPERATIVE VIEWS OF THE LUMBAR [...] M.D. Technologist: SHARATH CIFUENTES (RT.R) Transcribed D/ (1133) Astrid [facility] NAME: TAMIKA OBREGON [address] [facility] PHYS: Angel Shah MD : 1955 AGE: 63 SEX: M [place] [address] LOC: Y.505 A PHONE #: [phone] EXAM DATE: 12/30/2018 STATUS: ADM IN FAX #: [phone] RAD #: D/C DT PAGE 1 Signed Report Patient Name: TAMIKA OBREGON Unit No: [id number] EXAMS: CPT CODE: [id number] XR SPINE 1 V SPEC LEVEL 14612 (Continued) Orig Print D/T: S: 12/31/2018 (5917) [facility] NAME: TAMIKA OBREGON [address] [facility] PHYS: Angel Shah MD : 1955 AGE: 63 SEX: M [place], [place] [address] LOC: Y.505 A PHONE #: [phone] EXAM DATE: 12/30/2018 STATUS: ADM IN FAX #: [phone] RAD #: D/C DT PAGE 2 Signed Report- XR SPINE 1 V SPEC [id number] 11:33:00 Patient Name: TAMIKA OBREGON Unit No: [id number] EXAMS: CPT CODE: [id number] XR SPINE 1 V SPECLEVEL 64030 3 LATERAL INTRAOPERATIVE VIEWS OF THE LUMBAR [...] M.D. Technologist: SHARATH CIFUENTES (RT.R) Transcribed D/ (5353) Astrid [facility] NAME: TAMIKA OBREGON [address] [facility] PHYS: Angel Shah MD : 1955 AGE: 63 SEX: M [place], [place] [address] LOC: Y.505 A PHONE #: [phone] EXAM DATE: 12/30/2018 STATUS: ADM IN FAX #: [phone] RAD #: D/C DT PAGE 1 Signed Report Patient Name: TAMIKA OBREGON UnitNo: [id number] EXAMS: CPT CODE: [id number] XR SPINE 1 V SPEC LEVEL 16218 (Continued) Orig Print D/T:S: 12/31/2018 (1136) [facility] NAME: TAMIKA OBREGON [address] [facility] PHYS: Angel Shah MD : 1955 AGE: 63 SEX: M [place], [place] [address] LOC: Y.505 A PHONE #: [phone] EXAM DATE: 12/30/2018 STATUS: ADM IN FAX #: [phone] RAD #: D/C DT PAGE 2 Signed [id number] 10:43:00 Test Item Value Reference Range Interpretation Comments PLT (test code = PLT) 119 K/mm3 130-400 L BASIC METABOLIC [id number] 06:35:00 Test Item Value Reference Range Interpretation [...] RATE (test code = GFR) mL/mi n/1.73 x6Mkdyovgaw Range:Healthy Adults >90 mL/min/1.73 m2 For Chronic Kidney Disease: Stage II Mild Decrease i n GFR 60-90 Stage III Moderate Decrea se in GFR 30-59 St age IV Severe Decre ase in GFR 15-29 S tage V Kidney Failur e <15 CREATININE (test code 0.84 mg/dL 0.55-1.30 N = CREAT) CALCIUM (test code = 9.2 mg/dL 8.2-10.1 N CA) HGB [id number] 05:40:00 Test Item Value Reference Range Interpretation Comments HEMOGLOBIN (test code = HGB) 12.7 g/dL 12-16 N HEMATOCRIT (test code = HCT) 36.0 % 37-47 L ACUTE HEPATITIS [id number] 17:53:00 Test Item Value Reference Range Interpretation [...] 1 (test code NONREACTIVE NONREACTIVE Done by [employer] = HIV1AB) 4th Gen HIV Ag/ Ab Combo Screen ACUTE HEPATITIS [id number] 17:52:00 Test Item Value Reference Range Interpretation [...] 1 2 (test NONREACTIVE NONREACTIVE Done by [employer] code = CJT12DB) Gen HIV Ag/Ab Combo Screen ACUTE HEPATITIS [id number] 17:52:00 Test Item Value Reference Range Interpretation [...] 1 (test code NONREACTIVE NONREACTIVE Done by [employer] = HIV1AB) 4th Gen HIV Ag/ Ab Combo Screen ACUTE HEPATITIS [id number] 17:51:00 Test Item Value Reference Range Interpretation [...] 1 2 (test NONREACTIVE NONREACTIVE Done by [employer] code = [id number]) 4th Gen HIV Ag/Ab Combo Screen CBC W/AUTO [id number] 09:49:00 Test Item Value Reference Range Interpretation [...] N CELL (test code = NRBC) PROTHROMBIN [id number] 09:32:00 Test Item Value Reference Range Interpretation Comments PROTHROMBIN TIME 12.4 secs 10.1-12.5 N PATIENT (test code = PTP) INTERNATIONAL NORMAL 1.10 <2.0 RECOMME NDED THERAPEUTIC RATIO (test code = RANGE FOR ORAL INR) ANTICOAGULANTTR EATMENT: CONDITION INRProphylaxis of venous thrombosis in 2 .0 - 3.0 high-risk medic al or surgical [...] BLOOD, PT every other day NTHROMBOPLASTIN TIME [id number] 09:32:00 Test Item Value Reference Range Interpretation Comments PTT ACTIVATED (test code = APTT) 28.7 secs 24.9-37.0 N IS PATIENT ON ANTICOAGULANTS ? NHas Lab been notified if Patient is on Heparin Drip? NOIf Yes, orderCBC, OCCULT BLOOD, PT every other day NBASIC METABOLIC [id number] 09:32:00 Test Item Value Reference Range Interpretation [...] RATE (test code = GFR) mL/mi n/1.73 l2Sgaxujptz Range:Healthy Adults >90 mL/min/1.73 m2 For Chronic [...]
[2022-08-30] MEDS ORDERED: NA CHLORIDE 0.9% 500 ML ONE (21:06)
[2022-08-30 21:44] LABS: Urine Blood Negative (Negative); Urine Glucose Negative (Negative); Urine Protein Negative (Negative)
[2022-08-30 21:53] LABS: Absolute Lymphocytes (CBC) 1.2 K/uL (0.7-4.9); Hematocrit 38.5 % (39.6-49.0); Lymphocytes % 20.8 % (15.3-44.8); MCV 89.1 fL (80-100); MPV 8.4 fL (7.6-11.3); RBC Red Blood Cell Count 4.32 M/uL (4.33-5.43)
--- NOTE | 2022-08-30 21:55 | ER ---
Nurse's Notes [facility] Name: William Osuna Age: 66 yrs Sex: Male : 1955 Arrival Date: 08/30/2022 Time: 20:34 Bed 3 Private MD: Marquis Mackenzie C Diagnosis: Major depressive disorder, recurrent, moderate-psychosis;Insomnia;Anxiety disorder due to known physiological condition;Unspecified kidney failure-mild renal insufficency Presentation: 08/30 20:40 Chief complaint: Patient states: Patient reports anxiety x several months and "I just kb3 can't get any help." Pt states nothing happened today to make the symptoms worse. Pt reports feeling jittery and experiencing insomnia. Coronavirus screen: Vaccine status: Patient reports receiving the 2nd dose of the covid vaccine. Client denies travel out of the [place] in the last 14 days. Ebola Screen: Patient negative for fever greater than or equal to 101.5 degrees Fahrenheit, and additional compatible Ebola Virus Disease symptoms Patient denies exposure to infectious person. Patient denies travel to an Ebola-affected area in the 21 days before illness onset. Initial Sepsis Screen: Does the patient meet any 2 criteria? No. Patient's initial sepsis screen is negative. Does the patient have a suspected source of infection? No. Patient's initial sepsis screen is negative. Risk Assessment: Do you want to hurt yourself or someone else? Patient reports no desire to harm self or others. Onset of symptoms is unknown. 20:40 Method Of Arrival: Ambulatory kb3 20:40 Acuity: FARHAD 3 kb3 Triage Assessment: 20:44 General: Appears distressed, Behavior is calm, cooperative. Pain: Denies pain. Neuro: kb3 No deficits noted. Historical: - Allergies: 20:44 Codeine; kb3 20:44 PENICILLINS; kb3 - PMHx: 20:44 cardiac stent; Hypertensive disorder; Anxiety; kb3 - PSHx: 20:44 CABG; Back x2; Cholecystectomy; brain aneurysm; kb3 - Immunization history:: Adult Immunizations up to date, Client reports receiving the 2nd dose of the Covid vaccine, Last tetanus immunization: up to date. - Social history:: Smoking status: Patient denies any tobacco usage or history of. Screenin:44 Abuse screen: Denies threats or abuse. Denies injuries from another. Nutritional as6 screening: No deficits noted. Tuberculosis screening: No symptoms or risk factors identified. Fall Risk None identified. Assessment: 21:43 General: Appears in no apparent distress. Behavior is calm, cooperative, Reports as6 fatigue for. Pain: Denies pain. Neuro: Level of Consciousness is awake, alert, obeys commands. Respiratory: Respiratory effort is even, unlabored. Vital Signs: 20:40 BP 158 / 79; Pulse 70; Resp 10; Temp 98.7; Pulse Ox 99% ; Weight 81.65 kg; Height 6 ft. kb3 3 in. (190.50 cm); Pain 0/10; 21:44 BP 117 / 54; Pulse 70; Resp 18 S; Pulse Ox 99% on R/A; as6 23:00 BP 122 / 61; Pulse 64; Resp 19 S; Pulse Ox 100% on R/A; as6 08/31 01:43 BP 145 / 61; Pulse 64; Resp 17 S; Pulse Ox 100% on R/A; as6 08/30 20:40 Body Mass Index 22.50 (81.65 kg, 190.50 cm) kb3 ED Course: 08/30 20:34 Patient arrived in ED. mr 20:34 Marquis Mackenzie MD is Private Physician. mr 20:40 Devaughn Avila MD is Attending Physician. [facility] 20:44 Triage completed. kb3 20:44 Arm band placed on right wrist. kb3 20:50 Nicholas Ortez, BRADLY is Primary Nurse. as6 21:40 faxed patient clinicals to [facility]. mw2 21:40 Inserted saline lock: 20 gauge in right forearm, using aseptic technique. Blood as6 collected. 21:43 SARS RAPID Sent. as6 21:43 Acetaminophen Sent. as6 21:43 Basic Metabolic Panel Sent. as6 21:43 CBC with Diff Sent. as6 21:43 ETOH Level Sent. as6 21:43 Hepatic Function Sent. as6 21:43 PT-INR Sent. as6 21:43 Ptt, Activated Sent. as6 21:43 Salicylate Sent. as6 21:43 Urine Drug Screen Sent. as6 21:44 Bed in low position. Call light in reach. Side rails up X 1. Adult w/ patient. as6 23:[address] Avila with the Doctor from [facility]. mw2 23:56 attempted to initiate a transfer with [facility] . They asked for me to call [facility] back in 30 minutes. 08/31 00:25 faxed patient clinicals to all available psych facility. mw2 01:06 Nurse to Nurse from [facility]. mw2 01:44 Nurse to Nurse from [facility]. mw2 01:52 Icalled [facility] back said they will call us back. mw2 02:13 administrative approval given by Trell Braun/ patient has been accepted to [place] [id number] / Dr. Kirby accepted the patient in transfer. 02:54 No provider procedures requiring assistance completed. IV discontinued, intact, as6 bleeding controlled, No redness/swelling at site. Pressure dressing applied. Administered Medications: 08/30 21:43 Drug: NS 0.9% 500 ml Route: IV; Rate: bolus; Site: right forearm; as6 08/31 01:44 Follow up: Response: No adverse reaction; IV Status: Completed infusion; IV Intake: as6 500ml 08/30 22:11 CANCELLED (Duplicate Order): Ketorolac 15 mg IVP once [facility] 22:30 Drug: NS 0.9% 1000 ml Route: IV; Rate: 1 bolus; Site: right forearm; as6 08/31 01:44 Follow up: Response: No adverse reaction; IV Status: Completed infusion; IV Intake: as6 1000ml 08/30 22:31 Drug: Ativan (LORazepam) 1 mg Route: IVP; Site: right forearm; as6 08/31 01:44 Follow up: Response: No adverse reaction as6 02:49 Drug: Ativan (LORazepam) 1 mg Route: IVP; Site: right forearm; as6 02:54 Follow up: Response: No adverse reaction as6 Medication: 08/30 21:44 VIS not applicable for this client. as6 Intake: 08/31 01:44 IV: 500ml; Total: 500ml. as6 01:44 IV: 1000ml; Total: 1500ml. as6 Outcome: 08/30 21:55 ER care complete, transfer ordered by MD. jenkins 08/31 02:54 Transferred by ground EMS to other acute care facility: [facility] . Transfer as6 form completed. X-rays sent w/ patient. Condition: stable Instructed on the need for transfer. 02:55 Patient left the ED. as6 Signatures: Devaughn Avila MD MD cha Rivera Sharon mr Blackmon, Zoila mw2 Nicholas Ortez RN RN as6 Disha Jimenez RN RN kb3
[2022-08-30 21:56] LABS: Protime INR 1.05
--- NOTE | 2022-08-30 21:56 | EDPHYS ---
Physician Documentation [facility] Name: William Osuna Age: 66 yrs Sex: Male : 1955 Arrival Date: 08/30/2022 Time: 20:34 Bed 3 Private MD: Marquis Mackenzie C ED Physician Devaughn Avila HPI: 08/30 21:49 This 66 yrs old Male presents to ER via Ambulatory with complaints of Anxiety.gregory 21:49 The patient presents to the emergency department with anxiety, depression, psychosis, gregory has delusions. Onset: The symptoms/episode began/occurred 30 day(s) ago. Past psychiatric history: Prior diagnosis: depression, Psychiatric medications include: Wellbutrin. Associated signs and symptoms: The patient has no apparent associated signs or symptoms. Severity of symptoms: At their worst the symptoms were mild moderate in the emergency department the symptoms are unchanged. The patient has experienced similar episodes in the past, multiple times. Historical: - Allergies: 20:44 Codeine; kb3 20:44 PENICILLINS; kb3 - PMHx: 20:44 cardiac stent; Hypertensive disorder; Anxiety; kb3 - PSHx: 20:44 CABG; Back x2; Cholecystectomy; brain aneurysm; kb3 - Immunization history:: Adult Immunizations up to date, Client reports receiving the 2nd dose of the Covid vaccine, Last tetanus immunization: up to date. - Social history:: Smoking status: Patient denies any tobacco usage or history of. ROS: 21:50 Constitutional: Negative for fever, chills, and weight loss, Eyes: Negative for injury, gregory pain, redness, and discharge, ENT: Negative for injury, pain, and discharge, Neck: Negative for injury, pain, and swelling, Cardiovascular: Negative for chest pain, palpitations, and edema, Respiratory: Negative for shortness of breath, cough, wheezing, and pleuritic chest pain, Abdomen/GI: Negative for abdominal pain, nausea, vomiting, diarrhea, and constipation, Back: Negative for injury and pain, : Negative for injury, bleeding, discharge, and swelling, MS/Extremity: Negative for injury and deformity, Skin: Negative for injury, rash, and discoloration, Psych: Negative for depression, anxiety, suicide ideation, homicidal ideation, and hallucinations, Allergy/Immunology: Negative for hives, rash, and allergies, Endocrine: Negative for neck swelling, polydipsia, polyuria, polyphagia, and marked weight changes, Hematologic/Lymphatic: Negative for swollen nodes, abnormal bleeding, and unusual bruising. 21:50 Neuro: Positive for altered mental status, weakness. 21:50 Psych: Positive for anxiety, depression, insomnia. Exam: 21:50 Constitutional: This is a well developed, well nourished patient who is awake, alert, gregory and in no acute distress. Head/Face: Normocephalic, atraumatic. Eyes: Pupils equal round and reactive to light, extra-ocular motions intact. Lids and lashes normal. Conjunctiva and sclera are non-icteric and not injected. Cornea within normal limits. Periorbital areas with no swelling, redness, or edema. ENT: Nares patent. No nasal discharge, no septal abnormalities noted. Tympanic membranes are normal and external auditory canals are clear. Oropharynx with no redness, swelling, or masses, exudates, or evidence of obstruction, uvula midline. Mucous membranes moist. Neck: Trachea midline, no thyromegaly or masses palpated, and no cervical lymphadenopathy. Supple, full range of motion without nuchal rigidity, or vertebral point tenderness. No Meningismus. Chest/axilla: Normal chest wall appearance and motion. Nontender with no deformity. No lesions are appreciated. Cardiovascular: Regular rate and rhythm with a normal S1 and S2. No gallops, murmurs, or rubs. Normal PMI, no JVD. No pulse deficits. Respiratory: Lungs have equal breath sounds bilaterally, clear to auscultation and percussion. No rales, rhonchi or wheezes noted. No increased work of breathing, no retractions or nasal flaring. Abdomen/GI: Soft, non-tender, with normal bowel sounds. No distension or tympany. No guarding or rebound. No evidence of tenderness throughout. Back: No spinal tenderness. No costovertebral tenderness. Full range of motion. Male : Normal genitalia with no discharge or lesions. Skin: Warm, dry with normal turgor. Normal color with no rashes, no lesions, and no evidence of cellulitis. MS/ Extremity: Pulses equal, no cyanosis. Neurovascular intact. Full, normal range of motion. Neuro: Awake and alert, GCS 15, oriented to person, place, time, and situation. Cranial nerves II-XII grossly intact. Motor strength 5/5 in all extremities. Sensory grossly intact. Cerebellar exam normal. Normal gait. 21:50 ECG was reviewed by the Attending Physician. 21:50 Psych: Behavior/mood is anxious, Affect is animated, Oriented to person, place, time, Patient has no thoughts/intents to harm self or others. Judgement / Insight is normal. Recent memory is Delusions/hallucinations are not present. Vital Signs: 20:40 BP 158 / 79; Pulse 70; Resp 10; Temp 98.7; Pulse Ox 99% ; Weight 81.65 kg; Height 6 ft. kb3 3 in. (190.50 cm); Pain 0/10; 21:44 BP 117 / 54; Pulse 70; Resp 18 S; Pulse Ox 99% on R/A; as6 23:00 BP 122 / 61; Pulse 64; Resp 19 S; Pulse Ox 100% on R/A; as6 08/31 01:43 BP 145 / 61; Pulse 64; Resp 17 S; Pulse Ox 100% on R/A; as6 08/30 20:40 Body Mass Index 22.50 (81.65 kg, 190.50 cm) kb3 MDM: 08/30 20:52 Patient medically screened. gregory 21:52 Differential diagnosis: acute psychotic break, depression, psychosis secondary to gregory non-compliance. Data reviewed: vital signs, nurses notes, lab test result(s), EKG. 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 Test interpretation: by ED physician or midlevel provider: ECG. Counseling: I had a detailed discussion with the patient and/or guardian regarding: the historical points, exam findings, and any diagnostic results supporting the discharge/admit diagnosis, lab results, the need to transfer to another facility, for higher level of care, [facility] does not immediately have the required specialist. 08/30 20:41 Order name: Acetaminophen [facility] 08/30 20:41 Order name: Basic Metabolic Panel [facility] 08/30 20:41 Order name: CBC with Diff; Complete Time: 21:55 [facility] 08/30 20:41 Order name: ETOH Level; Complete Time: 22:10 [facility] 08/30 20:41 Order name: Hepatic Function [facility] 08/30 20:41 Order name: PT-INR; Complete Time: 22:10 [facility] 08/30 20:41 Order name: Ptt, Activated; Complete Time: 22:10 [facility] 08/30 20:41 Order name: Salicylate; Complete Time: 22:10 [facility] 08/30 20:41 Order name: Urine Drug Screen; Complete Time: 22:10 [facility] 08/30 20:41 Order name: SARS RAPID; Complete Time: 22:10 [facility] 08/30 21:44 Order name: Urine Dipstick-Ancillary; Complete Time: 21:55 EDMS 08/30 20:41 Order name: EKG; Complete Time: 20:42 [facility] 08/30 20:41 Order name: EKG - Nurse/Tech; Complete Time: 21:43 [facility] 08/30 20:41 Order name: IV Saline Lock; Complete Time: 21:43 [facility] 08/30 20:41 Order name: Labs collected and sent; Complete Time: 21:43 [facility] 08/30 20:41 Order name: Suicide Screening ([place]); Complete Time: 21:43 [facility] 08/30 20:41 Order name: Urine Dipstick-Ancillary (obtain specimen); Complete Time: 21:43 [facility] EC:50 Rate is 75 beats/min. Rhythm is regular. QRS [place] is Normal. [place] interval is normal. QRS gregory interval is normal. QT interval is normal. No Q waves. T waves are Normal. No ST changes noted. Clinical impression: NSR w/ Non-specific ST/T Changes and No evidence of ischemia. Interpreted by me. Reviewed by me. Administered Medications: 21:43 Drug: NS 0.9% 500 ml Route: IV; Rate: bolus; Site: right forearm; 08/31 01:44 Follow up: Response: No adverse reaction; IV Status: Completed infusion; IV Intake: as6 500ml 08/30 22:11 CANCELLED (Duplicate Order): Ketorolac 15 mg IVP once [facility] 22:30 Drug: NS 0.9% 1000 ml Route: IV; Rate: 1 bolus; Site: right forearm; 08/31 01:44 Follow up: Response: No adverse reaction; IV Status: Completed infusion; IV Intake: as6 1000ml 08/30 22:31 Drug: Ativan (LORazepam) 1 mg Route: IVP; Site: right forearm; 08/31 01:44 Follow up: Response: No adverse reaction as6 02:49 Drug: Ativan (LORazepam) 1 mg Route: IVP; Site: right forearm; as6 02:54 Follow up: Response: No adverse reaction as6 Disposition Summary: 08/30/22 21:55 Transfer Ordered Reason: Higher level of care gregory Condition: Stable gregory Problem: new gregory Symptoms: have improved gregory Transfer Location: Psych Facility(08/31/22 00:01) gregory Accepting Physician: to PSYCH(08/31/22 02:55) as6 Diagnosis - Major depressive disorder, recurrent, moderate - psychosis gregory - Insomnia gregory - Anxiety disorder due to known physiological condition gregory - Unspecified kidney failure - mild renal insufficency gregory Forms: - Medication Reconciliation Form gregory - SBAR form gregory Signatures: Dispatcher [employer] EDMS Devaughn Avila MD MD cha Wood, Tiffany tw5 Nicholas Ortez RN RN as6 Disha Jimenez RN RN kb3 Corrections: (The following items were deleted from the chart) 08/30 22:11 22:10 Ketorolac 15 mg IVP once ordered. gregory gregory 22:17 21:55 to [facility], psych gregory gregory 08/31 00:01 08/30 21:55 [employer] gregory gregory 08/31 00:01 08/30 22:17 to [facility], psych gregory gregory 08/31 00:01 00:01 to PSYCH gregory gregory 02:55 00:01 to [facility] as6
[2022-08-30 22:00] LABS: SARS-CoV-2 Antigen Rapid Res Negative (Negative)
[2022-08-30 22:02] LABS: Barbiturates NEGATIVE (NEGATIVE); Benzodiazepines NEGATIVE (NEGATIVE); Cocaine NEGATIVE (NEGATIVE); METHAMPHETAM NEGATIVE (NEGATIVE); Methadone NEGATIVE (NEGATIVE); Opiates NEGATIVE (NEGATIVE); Phencyclidine NEGATIVE (NEGATIVE); THC Cannibis POSITIVE (NEGATIVE)
[2022-08-30 22:09] LABS: ALT/SGPT 23 U/L (12-78); AST/SGOT 15 U/L (15-37); Albumin 3.9 g/dL (3.4-5.0); Alkaline Phosphatase 84 U/L (45-117); BUN Blood Urea Nitrogen 22 mg/dL (7-18); Bicarbonate 29 mmol/L (21-32); Bilirubin Direct 0.1 mg/dL (0-0.2); Bilirubin Total 0.4 mg/dL (0.2-1.0); Glomerular Filtration Rate 47 ml/min (=/>90); Glucose Level 120 mg/dL (74-106); Protein, Total 7.1 g/dL (6.4-8.2)
[2022-08-30 22:28] LABS: Potassium 3.4 mmol/L (3.5-5.1); Sodium Level 138 mmol/L (136-145)
[2022-08-30] MEDS ORDERED: LORazepam 2 MG/ML VIAL ONE (22:28)
[2022-08-30] MEDS ORDERED: NA CHLORIDE 0.9% 1,000 ML ONE (22:28)
[2022-08-31] MEDS ORDERED: LORazepam 2 MG/ML VIAL ONE (02:48)
[2022-08-31 03:26] VITALS: TEMP 98.7
[2022-08-31 03:27] VITALS: O2SAT 100
[2022-08-31 03:29] VITALS: BP 145/61
--- NOTE | 2022-08-31 15:57 | EKG ---
Test Date: 2022-08-30 Test Time: 21:21:55 Criminal Justice Instructor: MEASUREMENT RESULTS: Intervals: Rate: 75 NV: 144 QRSD: 102 QT: 390 QTc: 435 [place]: P: 75 NV: 144 QRS: 47 T: 70 INTERPRETIVE STATEMENTS: Normal sinus rhythm Normal ECG Compared to ECG 07/08/2022 19:40:23 No significant changes Electronically Signed On 08-31-22 15:55:21 TEST SPECIALIST by Aristeo Guillermo
== END 2022-08-31 02:55 ==
LOC: ER 20:30
DX: F33.1 Major depressive disorder, recurrent, moderate (principal); G47.00 Insomnia, unspecified; F41.9 Anxiety disorder, unspecified; I10 Essential (primary) hypertension; Z95.818 Presence of other cardiac implants and grafts; Z95.1 Presence of aortocoronary bypass graft; Z88.0 Allergy status to penicillin; Z88.5 Allergy status to narcotic agent; Z20.822 Contact with and (suspected) exposure to COVID-19
CPT/HCPCS: 96361; 93005; 85025; 80048; 36415; 80320; 80329 ×2; 85610; 80076; 85730; 81003; 80307; 96374; 99285; 87811; J7040; J7030

== ENCOUNTER 2022-09-29 06:37 | Emergency (ER) | payer OTHER, BC ==
--- OUTSIDE RECORDS SUMMARY | 2022-09-29 06:44 | XMS REPORT | Continuity of Care Document ---
:1955 Author Organization [facility] t Address [address] [place] [address] Care Team Providers Name Role Phone Mackenzie Aiden Daigle Primary Care Physician CRISTOBAL READ Attending Clinician Unavailable PABLO DUNBAR Attending Clinician Unavailable PABLO DUNBAR Attending Clinician Unavailable Doctor Unassigned, [place] Attending Clinician Unavailable Roni Mcgee MD Attending [...] Policy Number Effective Date Expiration Date S [facility] [id number] 2021 2024 00:00:00 00:00:00 MEDICARE PART A \T\ [id number] 2019 B 00:00:00 [facility] [id number] 2019 00:00:00 Problems Condition Condition Condition Status Onset Resolution Last Treating Co mments Source Name Details Category Date Date Treatment Clinician Date No known No known Disease Unive rs active active ity of problems problems [place] [facility] Allergies, Adverse Reactions, Alerts Allergy Allergy Status Severity Reaction(s) Onset Inactive Treating Comm ents Source Name Type Date Date Clinician CODEINE DRUG Active Low N/V 2021-10 [facility] INGREDI 0-11 ity of 00:00: [place] 00 Medical [facility] Codeine Propensi Active Nausea 2021-10 [facility] ty to and/or 0 ity of adverse Vomiting 00:00: [place] reaction 00 Medical s Branch Penicill DA Active SV RASHES 2020-10 [facility] ins 11-22 [place] 00:[facility] codeine DA Active [place] RASHES, 2020-10 [facility] NAUSE[place] [facility] codeine DA Active OK RASHES, [facility] NA[facility] [facility] levoflox DA Active [place] NAUSEA 2018-0 [facility] acin 7-11 [place] 00:00: [facility] Penicill DA Active SV 2018-0 [facility] ins 7-11 [place] 00:00[facility] codeine DA Active OK 2018-0 [facility] 7-11 [place] 00:00: [facility] 00 [facility] levoflox DA Active OK 2018-0 [facility] acin 7-11 [place] 00:00: [facility] Penicill DA Active SV RASHES 2018-0 [facility] ins 7-11 [place] 00:00: [facility] Penicill DA Active SV 2019-0 [facility] ins 3-12 [facility] [place] codeine DA Active OK 2019-0 [facility] 3-12 [facility] [place] levoflox DA Active OK 2019-0 [facility] acin 3-12 [facility] [place] Penicill DA Active SV 2019-0 [facility] ins 3-11 [facility] [place] codeine DA Active OK 2019-0 [facility] 3-11 [facility] [place] Penicill DA Active SV 2018-1 [facility] ins 1-27 [place] 00:00: [facility] codeine DA Active OK 2018-1 [facility] 1-27 [place] 00:00: [facility] 00 [facility] levoflox DA Active OK 2018-1 [facility] acin 1-27 [facility] [place] LEVOFLOX DRUG Active N/V 2018-0 Univers ACIN INGREDI 8- ity of 00:00: [place] 00 Medical Branch PENICILL Drug Active Rash 2018-0 Univers INS Class 8- ity of 00:00: [place] 00 [facility] Branch Penicill Propensi Active Rash 2018-0 Univer s ins ty to 05-23 ity of adverse 00:00: [place] reaction 00 Medical s Branch Levoflox Propensi Active Nausea 2018-0 Univer s acin ty to and/or 05-23 ity of adverse Vomiting 00:00: [place] reaction Medical s Branch Penicill Propensi Active Rash 2018-0 Univer s ins ty to 05-23 ity of adverse 00:00: [place] reaction 00 Medical s Branch Penicill DA Active SV 2017-0 [facility] ins 1-12 [place] 00:00: [facility] 00 [facility] codeine DA Active OK 2017-0 [facility] 1-12 [place] 00:00: [facility] 00 [facility] levoflox DA Active OK 2017-0 [facility] acin 1-12 [place] 00:00: [facility] 00 [facility] Social History Social Habit Start Date Stop Date Quantity Comments Source Tobacco use and 2022-08-02 2022-08-02 Smokeless tobacco Un iversity of exposure 00:00:00 00:00:00 non-user [facility] Exposure to 2022-07-21 2022-07-31 Not sure [facility] SARS-CoV-2 00:00:00 15:51:00 [facility] [place] [facility] (event) Branch Sex Ass[birth year] Univers[facility] of 00:00:00 00:00:00 [facility] Smoking Status Start Date Stop Date Source Tobacco smoking consumption [facility] Branch Never smoked tobacco [facility] Medications Ordered Filled Start Stop Current Ordering Indication Dosage Frequency Signature Comments Components Source Medication Medication Date Date Medication? Clinician (SIG) Name Name aspirin 81 2021-10 Yes 81mg Take 81 mg U nivers mg chewable 0-13 by mouth. ity of tablet 14:59: [address] aspirin 81 2021-10 Yes 81mg Take 81 mg U nivers mg chewable 0-13 by mouth. ity of tablet 14:59: [address] aspirin 81 2021-10 Yes 81mg Take 81 mg U nivers mg chewable 0-13 by mouth. ity of tablet 14:59: [address] aspirin 81 2021-10 Yes 81mg Take 81 mg U nivers mg chewable 0-13 by mouth. ity of tablet 14:59: [address] aspirin 81 2021-10 Yes 81mg Take 81 mg U nivers mg chewable 0-13 by mouth. ity of tablet 14:59: [address] aspirin 81 2021-10 Yes 81mg Take 81 mg U nivers mg chewable 0-13 by mouth. ity of tablet 14:59: [address] busPIRone 5 2021-10 Yes [id number] Take 1 Univers mg tablet 0-13 tablet by ity o f 00:00: mouth [place] 00 daily x 1 Medical week and Branch then increase to 1 tab twice per day. dicyclomine 2021-10 Yes [id number] 20mg Take 2 [facility] 10 mg 0-13 capsules it[facility] of capsule 00:00: [place] 4 [place] (four) Medical times Branch daily. ondansetron 2021-10 Yes [id number] 8mg Take 1 Univers 8 mg tablet 0-13 tablet by ity of 00:00: mouth [place] 00 every 8 Medical (eight) Branch hours. busPIRone 5 2021-10 Yes [id number] Take 1 Univers mg tablet 0-13 tablet by ity o f 00:00: mouth [place] 00 daily x 1 Medical week and Branch then increase to 1 tab twice per day. dicyclomine 2021-10 Yes [id number] 20mg Take 2 [facility] 10 mg 0-13 capsules [facility]y of capsule 00:00: [place] 4 [place] (four) Medical times Branch daily. ondansetron 2021-10 Yes [id number] 8mg Take 1 [facility] 8 mg tablet 0-13 tablet by ity of 00:00: mouth [place] 00 every 8 Medical (eight) Branch hours. busPIRone 5 2021-10 Yes [id number] Take 1 Univers mg tablet 0-13 tablet by ity o f 00:00: mouth [place] 00 daily x 1 Medical week and Branch then increase to 1 tab twice per day. dicyclomine 2021-10 Yes [id number] 20mg Take 2 Univers 10 mg 0-13 capsules ity of capsule 00:00: [place] 4 [place] (four) Medical times Branch daily. ondansetron 2021-10 Yes [id number] 8mg Take 1 [facility] 8 mg tablet 0-13 tablet by ity of 00:00: mouth [place] 00 every 8 Medical (eight) Branch hours. ondansetron 2021-10- No 4mg 4 mg, Slow Univers (ZOFRAN 0-09 29-12 IV Push, ity of (PF)) 01:45: 01:40 ONCE, 1 [place] injection 4 00 :00 dose, On Medi jamaal mg [facility] 07/31/22 at 2045, CHAS iopamidol 2021-10- No [id number] 70mL 70 mL, U nivers (ISOVUE 0-12 -12 Intravenou ity o f 300-500 mL) 01:15: 01:15 s, ONCE, 1 [place] injection 00 :00 dose, On Medica l 70 mL [facility] Branch 07/31/22 at 2015, Routine pantoprazol 2021-10 Yes 40mg 40 mg, Univ ers e 0-12 Slow IV ity of (PROTONIX) 01:00: Push, [place] injection 00 Q12H, Medical 40 mg First dose Branch on 07/31/22 at 2000, Until Discontinu ed traMADoL 2021-10- No 50mg 50 mg, Univer s (ULTRAM) 0-12 -12 Oral, ity of tablet 50 00:45: 00:02 ONCE, 1 [place] mg 00 :[place] dose, On [facility] Branch 07/31/22 at 1945, Routine morpHINE (4 2021-10- No 4mg 4 mg, Slow Univers mg/mL) 011 -12 IV Push, ity of injection 4 22:00: 01:40 [place]CE[place] 1 [place] :[place] dose, On [facility] Branch 07/31/22 at 1700, STAT ondansetron 2021-10- No 4mg 4 mg, Slow Univers (ZOFRAN 0-11 10-11 IV Push, ity of (PF)) 22:00: 22:00 ONCE, 1 [place] injection 4 00 :00 dose, On Medi jamaal mg e Branch 07/31/22 at 1700, CHAS SERTraline 2021-10 Yes Univers 50 mg 0-05 ity of tablet 00:00: [place] [facility] Branch SERTraline 2021-10 Yes Univers 50 mg 0-05 ity of tablet 00:00: [place] [facility] SERTraline 2021-10 Yes Univers 50 mg 0-05 ity of tablet 00:00: [place] [facility] SERTraline 2021-10 Yes Univers 50 mg 0-05 ity of tablet 00:00: [address] SERTraline 2021-10 Yes Univers 50 mg 0-05 ity of tablet 00:00: [address] SERTraline 2021-10 Yes Univers 50 mg 0-05 ity of tablet 00:00: [address] SERTraline 2021-10 Yes Univers 50 mg 0-05 ity of tablet 00:00: [place] [address] Medical Branch SERTraline 2021-10- No Univer s 50 mg 0-05 10-13 ity of tablet 00:00: 00:00 [place] 00 :00 Medical Branch SERTraline 2021-10- No Univer s 50 mg 0-05 10-13 ity of tablet 00:00: 00:00 [place] 00 :00 Medical Branch SERTraline 2021-10- No Univer s 50 mg 0-05 10-13 ity of tablet 00:00: 00:00 [place] 00 :00 Medical Branch SERTraline 2021-10- No Univer s 50 mg 0-05 10-13 ity of tablet 00:00: 00:00 [place] 00 :00 Medical Branch SERTraline 2021-10- No Univer s 50 mg 0-05 10-13 ity of tablet 00:00: 00:00 [place] 00 :00 [facility] Branch mirtazapine 0 Yes [id number] 7.5mg Take 1 Univers 7.5 mg 9-30 tablet by ity of tablet 00:00: mouth at [place] 00 bedtime. Medical After 10 Branch days, take 2 in the evening. mirtazapine 2022-0 Yes [id number] 7.5mg Take 1 Univers 7.5 mg 9-30 tablet by ity of tablet 00:00: mouth at [place] 00 bedtime. Medical After 10 Branch days, take 2 in the evening. mirtazapine 2022-0 Yes [id number] 7.5mg Take 1 Univers 7.5 mg 9-30 tablet by ity of tablet 00:00: mouth at [place] 00 bedtime. Medical After 10 Branch days, take 2 in the evening. mirtazapine 2022-0 Yes [id number] 7.5mg Take 1 Univers 7.5 mg 9-30 tablet by ity of tablet 00:00: mouth at [place] 00 bedtime. Medical After 10 Branch days, take 2 in the evening. mirtazapine 2022-0 Yes [id number] 7.5mg Take 1 Univers 7.5 mg 9-30 tablet by ity of tablet 00:00: mouth at [place] 00 bedtime. Medical After 10 Branch days, take 2 in the evening. mirtazapine 2022-0 Yes [id number] 7.5mg Take 1 Univers 7.5 mg 9-30 tablet by ity of tablet 00:00: mouth at [place] 00 bedtime. Medical After 10 Branch days, take 2 in the evening. mirtazapine 2022-0 Yes [id number] 7.5mg Take 1 Univers 7.5 mg 9-30 tablet by ity of tablet 00:00: mouth at [place] 00 bedtime. Medical After 10 Branch days, take 2 in the evening. mirtazapine 2022-0 Yes [id number] 7.5mg Take 1 Univers 7.5 mg 9-30 tablet by ity of tablet 00:00: mouth at [place] 00 bedtime. Medical After 10 Branch days, take 2 in the evening. mirtazapine 2022-0 Yes [id number] 7.5mg Take 1 Univers 7.5 mg 9-30 tablet by ity of tablet 00:00: mouth at [place] 00 bedtime. Medical After 10 Branch days, take 2 in the evening. mirtazapine 2022-0 Yes [id number] 7.5mg Take 1 Univers 7.5 mg 9-30 tablet by ity of tablet 00:00: mouth at [place] 00 bedtime. Medical After 10 Branch days, take 2 in the evening. mirtazapine 2-0 Yes [id number] 7.5mg Take 1 Univers 7.5 mg 9-30 tablet by ity of tablet 00:00: mouth at [place] 00 bedtime. Medical After 10 Branch days, take 2 in the evening. mirtazapine 2-0 Yes [id number] 7.5mg Take 1 Univers 7.5 mg 9-30 tablet by ity of tablet 00:00: mouth at [place] 00 bedtime. Medical After 10 Branch days, take 2 in the evening. mirtazapine 2-0 Yes [id number] 7.5mg Take 1 Univers 7.5 mg 9-30 tablet by ity of tablet 00:00: mouth at [place] 00 bedtime. Medical After 10 Branch days, take 2 in the evening. mirtazapine 2-0 Yes [id number] 7.5mg Take 1 Univers 7.5 mg 9-30 tablet by ity of tablet 00:00: mouth at [place] 00 bedtime. Medical After 10 Branch days, take 2 in the evening. mirtazapine 2-0 Yes [id number] 7.5mg Take 1 Univers 7.5 mg 9-30 tablet by ity of tablet 00:00: mouth at [place] 00 bedtime. Medical After 10 Branch days, take 2 in the evening. mirtazapine 2-0 Yes [id number] 7.5mg Take 1 Univers 7.5 mg 9-30 tablet by ity of tablet 00:00: mouth at [place] 00 bedtime. Medical After 10 Branch days, take 2 in the evening. mirtazapine 2022-0 2022- No [id number] 7.5mg Take 1 Univers 7.5 mg 9-30 10-13 tablet by ity of tablet 00:00: 00:00 mouth at [place] 00 :00 bedtime. Medical After 10 Branch days, take 2 in the evening. mirtazapine 2022-0 2022- No [id number] 7.5mg Take 1 Univers 7.5 mg 9-30 10-13 tablet by ity of tablet 00:00: 00:00 mouth at [place] 00 :00 bedtime. Medical After 10 Branch days, take 2 in the evening. mirtazapine 2022-0 2022- No [id number] 7.5mg Take 1 Univers 7.5 mg 9-30 10-13 tablet by ity of tablet 00:00: 00:00 mouth at [place] 00 :00 bedtime. Medical After 10 Branch days, take 2 in the evening. mirtazapine 2022-0 2022- No [id number] 7.5mg Take 1 Univers 7.5 mg 9-30 10-13 tablet by ity of tablet 00:00: 00:00 mouth at [place] 00 :00 bedtime. Medical After 10 Branch days, take 2 in the evening. mirtazapine 2022-0 2022- No [id number] 7.5mg Take 1 Univers 7.5 mg 9-30 10-13 tablet by ity of tablet 00:00: 00:00 mouth at [place] 00 :00 bedtime. Medical After 10 Branch days, take 2 in the evening. ondansetron 2022-0 Yes 4mg Take 4 mg U nivers 4 mg tablet 9-29 by mouth ity of 00:00: every 8 [place] 00 (eight) Medical hours. Branch ondansetron 2022-0 Yes 4mg Take 4 mg U nivers 4 mg tablet 9-29 by mouth ity of 00:00: every 8 [place] 00 (eight) Medical hours. Branch ondansetron 2022-0 Yes 4mg Take 4 mg U nivers 4 mg tablet 9-29 by mouth ity of 00:00: every 8 [place] 00 (eight) Medical hours. Branch ondansetron 2022-0 Yes 4mg Take 4 mg U nivers 4 mg tablet 9-29 by mouth ity of 00:00: every 8 [place] 00 (eight) Medical hours. Branch ondansetron 2022-0 Yes 4mg Take 4 mg U nivers 4 mg tablet 9-29 by mouth ity of 00:00: every 8 [place] 00 (eight) Medical hours. Branch ondansetron 2022-0 Yes 4mg Take 4 mg U nivers 4 mg tablet 9-29 by mouth ity of 00:00: every 8 [place] 00 (eight) Medical hours. Branch ondansetron 2022-0 Yes 4mg Take 4 mg U nivers 4 mg tablet 9-29 by mouth ity of 00:00: every 8 [place] 00 (eight) Medical hours. Branch ondansetron 2022-0 2022- No 4mg Take 4 mg Univers 4 mg tablet 07-19-13 by mouth ity of 00:00: 00:00 every 8 [place] 00 :00 (eight) Medical hours. Branch ondansetron 2-0 2- No 4mg Take 4 mg Univers 4 mg tablet 07-19-13 by mouth ity of 00:00: 00:00 every 8 [place] 00 :00 (eight) Medical hours. Branch ondansetron 2-0 2022- No 4mg Take 4 mg Univers 4 mg tablet 07-19-13 by mouth ity of 00:00: 00:00 every 8 [place] 00 :00 (eight) Medical hours. Branch ondansetron 2-0 2022- No 4mg Take 4 mg Univers 4 mg tablet 07-19- by mouth ity of 00:00: 00:00 every 8 [place] 00 :00 (eight) Medical hours. Branch ondansetron 2-0 2- No 4mg Take 4 mg Univers 4 mg tablet 07-19- by mouth ity of 00:00: 00:00 every 8 [place] 00 :00 (eight) Medical hours. Branch dicyclomine 2022-0 Yes Univer s 10 mg 9-24 ity of capsule 00:00: [place] 00 Medical Branch dicyclomine 2022-0 Yes Univer s 10 mg 9-24 ity of capsule 00:00: [place] 00 Medical Branch dicyclomine 2022-0 Yes Univer s 10 mg 9-24 ity of capsule 00:00: [place] 00 Medical Branch dicyclomine 2022-0 Yes Univer s 10 mg 9-24 ity of capsule 00:00: [place] 00 Medical Branch dicyclomine 2022-0 Yes Univer s 10 mg 9-24 ity of capsule 00:00: [place] 00 Medical Branch dicyclomine 2022-0 Yes Univer s 10 mg 9-24 ity of capsule 00:00: [place] 00 Medical Branch dicyclomine 2022-0 Yes Univer s 10 mg 9-24 ity of capsule 00:00: [place] 00 Medical Branch dicyclomine 2022-0 Yes Univer s 10 mg 9-24 ity of capsule 00:00: [place] 00 Medical Branch dicyclomine 2022-0 Yes Univer s 10 mg 9-24 ity of capsule 00:00: [place] 00 Medical Branch dicyclomine 2021-0 Yes Univer s 10 mg 9-24 ity of capsule 00:00: [place] 00 Medical Branch dicyclomine 2-0 Yes Univer s 10 mg 9-24 ity of capsule 00:00: [place] 00 Medical Branch dicyclomine 2021-0 Yes Univer s 10 mg 9-24 ity of capsule 00:00: [place] 00 Medical Branch dicyclomine 2021-0 Yes Univer s 10 mg 9-24 ity of capsule 00:00: [place] 00 Medical Branch dicyclomine 2021-0 Yes Univer s 10 mg 9-24 ity of capsule 00:00: [place] [address] Medical Branch dicyclomine 2021-0 Yes Univer s 10 mg 9-24 ity of capsule 00:00: [place] [address] Medical Branch dicyclomine 2021-0 Yes Univer s 10 mg 9-24 ity of capsule 00:00: [place] 00 Medical Branch dicyclomine 2021-0 2022- No Unive rs 10 mg 9-24 10-13 ity of capsule 00:00: 00:00 [place] 00 :00 Medical Branch dicyclomine 2-0 2022- No Unive rs 10 mg 9-24 10-13 ity of capsule 00:00: 00:00 [place] 00 :00 Medical Branch dicyclomine 2-0 2022- No Unive rs 10 mg 9-24 10-13 ity of capsule 00:00: 00:00 [place] 00 :00 Medical Branch dicyclomine 2022-0 2022- No Unive rs 10 mg 9-24 10-13 ity of capsule 00:00: 00:00 [place] 00 :00 Medical Branch dicyclomine 2-0 2022- No Unive rs 10 mg 9-24 10-13 ity of capsule 00:00: 00:00 [place] 00 :00 Medical Branch temazepam 2021-0 Yes TAKE 2 Univer s 7.5 mg 9-19 CAPSULE BY ity of capsule 00:00: MOUTH AT [place] 00 BEDTIME Medical NEEDED FOR Branch SLEEP propranoloL 2021-0 Yes 10mg Take 10 mg Univers 10 mg 9-19 by mouth ity of tablet 00:00: in the [place] 00 morning Medical and 10 mg Branch in the evening. temazepam 2022-0 Yes TAKE 2 Univer s 7.5 mg 9-19 CAPSULE BY ity of capsule 00:00: MOUTH AT [place] [address] BEDTIME Medical NEEDED FOR Branch SLEEP propranoloL 2-0 Yes 10mg Take 10 mg Univers 10 mg 9-19 by mouth ity of tablet 00:00: in the [place] morning Medical and 10 mg Branch in the evening. temazepam 2021-0 Yes TAKE 2 Univer s 7.5 mg 9-19 CAPSULE BY ity of capsule 00:00: MOUTH AT [place] [address] BEDTIME Medical NEEDED FOR Branch SLEEP propranoloL 2-0 Yes 10mg Take 10 mg Univers 10 mg 9-19 by mouth ity of tablet 00:00: in the [place] morning Medical and 10 mg Branch in the evening. temazepam 2021-0 Yes TAKE 2 Univer s 7.5 mg 9-19 CAPSULE BY ity of capsule 00:00: MOUTH AT [place] [address] BEDTIME Medical NEEDED FOR Branch SLEEP propranoloL 2021-0 Yes 10mg Take 10 mg Univers 10 mg 9-19 by mouth ity of tablet 00:00: in the [place] morning Medical and 10 mg Branch in the evening. temazepam 2021-0 Yes TAKE 2 Univer s 7.5 mg 9-19 CAPSULE BY ity of capsule 00:00: MOUTH AT [place] [address] BEDTIME Medical NEEDED FOR Branch SLEEP temazepam 2021-0 Yes TAKE 2 Univer s 7.5 mg 9-19 CAPSULE BY ity of capsule 00:00: MOUTH AT [place] [address] BEDTIME Medical NEEDED FOR Branch SLEEP temazepam 2-0 Yes TAKE 2 Univer s 7.5 mg 9-19 CAPSULE BY ity of capsule 00:00: MOUTH AT [place] [address] BEDTIME Medical NEEDED FOR Branch SLEEP propranoloL 2-0 Yes 10mg Take 10 mg Univers 10 mg 9-19 by mouth ity of tablet 00:00: in the [place] morning Medical and 10 mg Branch in the evening. temazepam 2-0 Yes TAKE 2 Univer s 7.5 mg 9-19 CAPSULE BY ity of capsule 00:00: MOUTH AT [place] [address] BEDTIME Medical NEEDED FOR Branch SLEEP propranoloL 2-0 Yes 10mg Take 10 mg Univers 10 mg 9-19 by mouth ity of tablet 00:00: in the [place] morning Medical and 10 mg Branch in the evening. temazepam 2-0 Yes TAKE 2 Univer s 7.5 mg 9-19 CAPSULE BY ity of capsule 00:00: MOUTH AT [place] [address] BEDTIME Medical NEEDED FOR Branch SLEEP propranoloL 2022-0 Yes 10mg Take 10 mg Univers 10 mg 9-19 by mouth ity of tablet 00:00: in the [place] morning Medical and 10 mg Branch in the evening. temazepam 2022-0 Yes TAKE 2 Univer s 7.5 mg 9-19 CAPSULE BY ity of capsule 00:00: MOUTH AT [place] [address] BEDTIME Medical NEEDED FOR Branch SLEEP propranoloL 2022-0 Yes 10mg Take 10 mg Univers 10 mg 9-19 by mouth ity of tablet 00:00: in the [place] morning Medical and 10 mg Branch in the evening. temazepam 2022-0 Yes TAKE 2 Univer s 7.5 mg 9-19 CAPSULE BY ity of capsule 00:00: MOUTH AT [place] [address] BEDTIME Medical NEEDED FOR Branch SLEEP propranoloL 2-0 Yes 10mg Take 10 mg Univers 10 mg 9-19 by mouth ity of tablet 00:00: in the [place] morning Medical and 10 mg Branch in the evening. temazepam 2022-0 Yes TAKE 2 Univer s 7.5 mg 9-19 CAPSULE BY ity of capsule 00:00: MOUTH AT [place] [address] BEDTIME Medical NEEDED FOR Branch SLEEP propranoloL 2-0 Yes 10mg Take 10 mg Univers 10 mg 9-19 by mouth ity of tablet 00:00: in the [place] [address] morning Medical and 10 mg Branch in the evening. temazepam 2022-0 Yes TAKE 2 Univer s 7.5 mg 9-19 CAPSULE BY ity of capsule 00:00: MOUTH AT [place] [address] BEDTIME Medical NEEDED FOR Branch SLEEP propranoloL 2022-0 Yes 10mg Take 10 mg Univers 10 mg 9-19 by mouth ity of tablet 00:00: in the [place] morning Medical and 10 mg Branch in the evening. temazepam 2022-0 Yes TAKE 2 Univer s 7.5 mg 9-19 CAPSULE BY ity of capsule 00:00: MOUTH AT [place] [address] BEDTIME Medical NEEDED FOR Branch SLEEP propranoloL 2022-0 Yes 10mg Take 10 mg Univers 10 mg 9-19 by mouth ity of tablet 00:00: in the [place] morning Medical and 10 mg Branch in the evening. temazepam 2022-0 Yes TAKE 2 Univer s 7.5 mg 9-19 CAPSULE BY ity of capsule 00:00: MOUTH AT [place] [address] BEDTIME Medical NEEDED FOR Branch SLEEP propranoloL Yes 10mg Take 10 mg Univers 10 mg 9-19 by mouth ity of tablet 00:00: in the [place] [address] morning Medical and 10 mg Branch in the evening. temazepam Yes TAKE 2 Univer s 7.5 mg 9-19 CAPSULE BY ity of capsule 00:00: MOUTH AT [place] [address] BEDTIME Medical NEEDED FOR Branch SLEEP propranoloL 0 Yes 10mg Take 10 mg Univers 10 mg 9-19 by mouth ity of tablet 00:00: in the [place] [address] morning Medical and 10 mg Branch in the evening. temazepam 2021-2021- No TAKE 2 Unive rs 7.5 mg 9-19 10-13 CAPSULE BY ity of capsule 00:00: 00:00 MOUTH AT [place] 00 :00 BEDTIME Medical NEEDED FOR Branch SLEEP propranoloL 2021-0 2021- No 10mg Take 10 mg Univers 10 mg 9-19 10-13 by mouth ity of tablet 00:00: 00:00 in the [place] 00 :00 morning Medical and 10 mg Branch in the evening. temazepam 2021-2021- No TAKE 2 Unive rs 7.5 mg 9-19 10-13 CAPSULE BY ity of capsule 00:00: 00:00 MOUTH AT [place] 00 :00 BEDTIME Medical NEEDED FOR Branch SLEEP propranoloL 2021-0 2021- No 10mg Take 10 mg Univers 10 mg 9-19 10-13 by mouth ity of tablet 00:00: 00:00 in the [place] 00 :00 morning Medical and 10 mg Branch in the evening. temazepam 2021-2021- No TAKE 2 Unive rs 7.5 mg 9-19 10-13 CAPSULE BY ity of capsule 00:00: 00:00 MOUTH AT [place] 00 :00 BEDTIME Medical NEEDED FOR Branch SLEEP propranoloL 2021-0 2021- No 10mg Take 10 mg Univers 10 mg 9-19 10-13 by mouth ity of tablet 00:00: 00:00 in the [place] 00 :00 morning Medical and 10 mg Branch in the evening. temazepam 2021-2021- No TAKE 2 Unive rs 7.5 mg 9-19 10-13 CAPSULE BY ity of capsule 00:00: 00:00 MOUTH AT [place] 00 :00 BEDTIME Medical NEEDED FOR Branch SLEEP propranoloL 2021- No 10mg Take 10 mg Univers 10 mg 9-19 10-13 by mouth ity of tablet 00:00: 00:00 in the [place] 00 :00 morning Medical and 10 mg Branch in the evening. temazepam 2021- No TAKE 2 Unive rs 7.5 mg 9- 10-13 CAPSULE BY ity of capsule 00:00: 00:00 MOUTH AT [place] 00 :00 BEDTIME Medical NEEDED FOR Branch SLEEP propranoloL 2021- No 10mg Take 10 mg Univers 10 mg 9-19 10-13 by mouth ity of tablet 00:00: 00:00 in the [place] 00 :00 morning Medical and 10 mg Branch in the evening. pantoprazol Yes 40mg Take 40 mg Univers e 40 mg EC 9-18 by mouth ity o f tablet 00:00: every [place] 00 morning. Medical Branch pantoprazol Yes 40mg Take 40 mg Univers e 40 mg EC 9-18 by mouth ity o f tablet 00:00: every [place] 00 morning. Medical Branch pantoprazol Yes 40mg Take 40 mg Univers e 40 mg EC 9-18 by mouth ity o f tablet 00:00: every [place] 00 morning. Medical Branch hydrALAZINE Yes TAKE 1 Univ ers 50 mg 9-08 TABLET BY ity of tablet 00:00: MOUTH WITH [place] 00 FOOD TWICE Medical DAILY Branch hydrALAZINE 0 Yes TAKE 1 Univ ers 50 mg 9-08 TABLET BY ity of tablet 00:00: MOUTH WITH [place] 00 FOOD TWICE Medical DAILY Branch hydrALAZINE 0 Yes TAKE 1 Univ ers 50 mg 9-08 TABLET BY ity of tablet 00:00: MOUTH WITH [place] 00 FOOD TWICE Medical DAILY Branch hydrALAZINE 0 Yes TAKE 1 Univ ers 50 mg 9-08 TABLET BY ity of tablet 00:00: MOUTH WITH [place] 00 FOOD TWICE Medical DAILY Branch hydrALAZINE 0 Yes TAKE 1 Univ ers 50 mg 9-08 TABLET BY ity of tablet 00:00: MOUTH WITH [place] 00 FOOD TWICE Medical DAILY Branch hydrALAZINE 0 Yes TAKE 1 Univ ers 50 mg 9-08 TABLET BY ity of tablet 00:00: MOUTH WITH [place] FOOD TWICE Medical DAILY Branch hydrALAZINE 2021-0 [...] BY ity of tablet 00:00: MOUTH WITH [place] 00 FOOD TWICE Medical DAILY Branch hydrALAZINE Yes TAKE 1 Univ ers 50 mg 9-08 TABLET BY ity of tablet 00:00: MOUTH WITH [place] 00 FOOD TWICE Medical DAILY Branch hydrALAZINE 0 Yes TAKE 1 Univ ers 50 mg 9-08 TABLET BY ity of tablet 00:00: MOUTH WITH [place] 00 FOOD TWICE Medical DAILY Branch SERTraline 2021- No 50mg Take 50 mg Univers 50 mg 06-18- by mouth ity of [place] 00:00: [place]. [place] Branch SERTraline 2021-2021- No 50mg Take 50 mg Univers 50 mg 06-18- by mouth ity of tablet 00:00: 00:[place] :[place] breakfast. [facility] Branch SERTraline 2021-2021- No 50mg Take 50 mg Univers 50 mg 06-18 by mouth ity of tablet 00:00: 00:[place] breakfast. [facility] SERTraline 2021-2021- No 50mg Take 50 mg Univers 50 mg 06-18- by mouth ity of tablet 00:00: 00:00 [place] breakfast. Medical [facility] SERTraline 2021-2021- No 50mg Take 50 mg Univers 50 [...] Yes 2{spray Use 2 Un jagdeep propionate 06-12 } Sprays in ity of 50 00:00: each [place] mcg/actuati 00 nostril in Me dical on nasal the Branch spray morning. SERTraline 2021- No 25mg Take 25 mg Univers 25 mg 06-12 by mouth ity of tablet 00:00: 00:[place] breakfast. Medical Branch SERTraline 2021- No 25mg Take 25 mg Univers 25 mg 06-12 by mouth ity of tablet 00:00: 00:00 [place] 00 :[place] breakfast. Medical Branch SERTraline 2021- No 25mg Take 25 mg Univers 25 mg 06-12 by mouth ity of tablet 00:00: 00:[place] 00 :[place] breakfast. Medical Branch SERTraline 2021- No 25mg Take 25 mg Univers 25 mg 06-12 by mouth ity of tablet 00:00: 00:[place] 00 :[place] breakfast. Medical Branch SERTraline 2021- No 25mg Take 25 mg Univers 25 mg 06-12 by mouth ity of tablet 00:00: 00:[place] 00 :[place] breakfast. Medical Branch diazePAM 2020-10 Yes [id number] 5mg Take 1 Univers mg tablet 2-01 tablet by ity o f 00:00: mouth as [place] 00 needed for Medical Anxiety Branch (take on tablet 30 minutes before procedure and then 1 tablet, if needed, when waiting to have procedure) . diazePAM 2020-10 Yes [id number] 5mg Take 1 Univers mg tablet 2-01 tablet by ity o f 00:00: mouth as [place] 00 needed for Medical Anxiety Branch (take on tablet 30 minutes before procedure and then 1 tablet, if needed, when waiting to have procedure) . diazePAM 2020-10 Yes [id number] 5mg Take 1 Univers mg tablet 2-01 tablet by ity o f 00:00: mouth as [place] 00 needed for Medical Anxiety Branch (take on tablet 30 minutes before procedure and then 1 tablet, if needed, when waiting to have procedure) . diazePAM 2020-10 Yes [id number] 5mg Take 1 Univers mg tablet 2-01 tablet by ity o f 00:00: mouth as [place] 00 needed for Medical Anxiety Branch (take on tablet 30 minutes before procedure and then 1 tablet, if needed, when waiting to have procedure) . diazePAM 2020-10 Yes [id number] 5mg Take 1 Univers mg tablet 2-01 tablet by ity o f 00:00: mouth as [place] 00 needed for Medical Anxiety Branch (take on tablet 30 minutes before procedure and then 1 tablet, if needed, when waiting to have procedure) . diazePAM 2020-10 Yes [id number] 5mg Take 1 Univers mg tablet 2-01 tablet by ity o f 00:00: mouth as [place] 00 needed for Medical Anxiety Branch (take on tablet 30 minutes before procedure and then 1 tablet, if needed, when waiting to have procedure) . diazePAM 2020-10 Yes [id number] 5mg Take 1 Univers mg tablet 2-01 tablet by ity o f 00:00: mouth as [place] 00 needed for Medical Anxiety Branch (take on tablet 30 minutes before procedure and then 1 tablet, if needed, when waiting to have procedure) . diazePAM 2020-10 Yes [id number] 5mg Take 1 Univers mg tablet 2-01 tablet by ity o f 00:00: mouth as [place] 00 needed for Medical Anxiety Branch (take on tablet 30 minutes before procedure and then 1 tablet, if needed, when waiting to have procedure) . diazePAM 2020-10 Yes [id number] 5mg Take 1 Univers mg tablet 2-01 tablet by ity o f 00:00: mouth as [place] 00 needed for Medical Anxiety Branch (take on tablet 30 minutes before procedure and then 1 tablet, if needed, when waiting to have procedure) . diazePAM 2020-10 Yes [id number] 5mg Take 1 Univers mg tablet 2-01 tablet by ity o f 00:00: mouth as [place] 00 needed for Medical Anxiety Branch (take on tablet 30 minutes before procedure and then 1 tablet, if needed, when waiting to have procedure) . diazePAM 2020-10 Yes [id number] 5mg Take 1 Univers mg tablet 2-01 tablet by ity o f 00:00: mouth as [place] 00 needed for Medical Anxiety Branch (take on tablet 30 minutes before procedure and then 1 tablet, if needed, when waiting to have procedure) . diazePAM 2020-10 Yes [id number] 5mg Take 1 Univers mg tablet 2-01 tablet by ity o f 00:00: mouth as [place] 00 needed for Medical Anxiety Branch (take on tablet 30 minutes before procedure and then 1 tablet, if needed, when waiting to have procedure) . diazePAM 2020-10 Yes [id number] 5mg Take 1 Univers mg tablet 2-01 tablet by ity o f 00:00: mouth as [place] 00 needed for Medical Anxiety Branch (take on tablet 30 minutes before procedure and then 1 tablet, if needed, when waiting to have procedure) . diazePAM 2020-10 Yes [id number] 5mg Take 1 Univers mg tablet 2-01 tablet by ity o f 00:00: mouth as [place] 00 needed for Medical Anxiety Branch (take on tablet 30 minutes before procedure and then 1 tablet, if needed, when waiting to have procedure) . diazePAM 2020-10 Yes [id number] 5mg Take 1 Univers mg tablet 2-01 tablet by ity o f 00:00: mouth as [place] 00 needed for Medical Anxiety Branch (take on tablet 30 minutes before procedure and then 1 tablet, if needed, when waiting to have procedure) . diazePAM 2020-10 Yes [id number] 5mg Take 1 Univers mg tablet 2-01 tablet by ity o f 00:00: mouth as [place] 00 needed for Medical Anxiety Branch (take on tablet 30 minutes before procedure and then 1 tablet, if needed, when waiting to have procedure) . diazePAM 2020-10 Yes [id number] 5mg Take 1 Univers mg tablet 2-01 tablet by ity o f 00:00: mouth as [place] 00 needed for Medical Anxiety Branch (take on tablet 30 minutes before procedure and then 1 tablet, if needed, when waiting to have procedure) . diazePAM 2020-10 No [id number] 5mg Take 1 Univers mg tablet 2- 10- tablet by ity of 00:00: 00:00 mouth as [place] 00 :00 needed for Medical Anxiety Branch (take on tablet 30 minutes before procedure and then 1 tablet, if needed, when waiting to have procedure) . diazePAM 2020-10 No [id number] 5mg Take 1 Univers mg tablet 2- 10- tablet by ity of 00:00: 00:00 mouth as [place] 00 :00 needed for Medical Anxiety Branch (take on tablet 30 minutes before procedure and then 1 tablet, if needed, when waiting to have procedure) . diazePAM 5 2020-10- No [id number] 5mg Take 1 Univers mg tablet 11-21 tablet by ity of 00:00: 00:00 mouth as [place] 00 :00 needed for Medical Anxiety Branch (take on tablet 30 minutes before procedure and then 1 tablet, if needed, when waiting to have procedure) . diazePAM 5 2020-10- No [id number] 5mg Take 1 Univers mg tablet 11-21 tablet by ity of 00:00: 00:00 mouth as [place] 00 :00 needed for Medical Anxiety Branch (take on tablet 30 minutes before procedure and then 1 tablet, if needed, when waiting to have procedure) . diazePAM 5 2020-10- No [id number] 5mg Take 1 Univers mg tablet 11-21 tablet by ity of 00:00: 00:00 mouth as [place] 00 :00 needed for Medical Anxiety Branch (take on tablet 30 minutes before procedure and then 1 tablet, if needed, when waiting to have procedure) . aspirin 81 2020-10 Yes 81mg Take 81 mg U nivers mg chewable 0-12 by mouth. ity of tablet 08:16: [address] tamsulosin 2020-10 Yes Take by Univ ers 0.4 mg 24 0-12 mouth ity of hr capsule 08:16: daily. [address] aspirin 81 2020- Yes 81mg Take 81 mg U nivers mg chewable 0-12 by mouth. ity of tablet 08:16: [address] tamsulosin 2020-10 Yes Take by Univ ers 0.4 mg 24 0-12 mouth ity of hr capsule 08:16: daily. [address] aspirin 81 2020-10 Yes 81mg Take 81 mg U nivers mg chewable 0-12 by mouth. ity of tablet 08:16: [address] tamsulosin 2020-10 Yes Take by Univ ers 0.4 mg 24 0-12 mouth ity of hr capsule 08:16: daily. [address] aspirin 81 2020-10 Yes 81mg Take 81 mg U nivers mg chewable 0-12 by mouth. ity of tablet 08:16: [address] tamsulosin 2020-10 Yes Take by Univ ers 0.4 mg 24 0-12 mouth ity of hr capsule 08:16: daily. [address] aspirin 81 2020- Yes 81mg Take 81 mg U nivers mg chewable 0-12 by mouth. ity of tablet 08:16: [address] tamsulosin 2020- Yes Take by Univ ers 0.4 mg 24 0-12 mouth ity of hr capsule 08:16: daily. [address] Branch aspirin 81 2020- Yes 81mg Take 81 mg U nivers mg chewable 0-12 by mouth. ity of tablet 08:16: [address] Branch tamsulosin 2020- Yes Take by Univ ers 0.4 mg 24 0-12 mouth ity of hr capsule 08:16: daily. [address] Branch aspirin 81 2020- Yes 81mg Take 81 mg U nivers mg chewable 0-12 by mouth. ity of tablet 08:16: [address] tamsulosin 2020- Yes Take by Univ ers 0.4 mg 24 0-12 mouth ity of hr capsule 08:16: daily. [address] aspirin 81 2020- Yes 81mg Take 81 mg U nivers mg chewable 0-12 by mouth. ity of tablet 08:16: [address] tamsulosin 2020- Yes Take by Univ ers 0.4 mg 24 0-12 mouth ity of hr capsule 08:16: daily. [address] aspirin 81 2020- Yes 81mg Take 81 mg U nivers mg chewable 0-12 by mouth. ity of tablet 08:16: [address] tamsulosin 2020- Yes Take by Univ ers 0.4 mg 24 0-12 mouth ity of hr capsule 08:16: daily. [address] aspirin 81 2020- Yes 81mg Take 81 mg U nivers mg chewable 0-12 by mouth. ity of tablet 08:16: [address] tamsulosin 2020- Yes Take by Univ ers 0.4 mg 24 0-12 mouth ity of hr capsule 08:16: daily. [address] aspirin 81 2020- Yes 81mg Take 81 mg U nivers mg chewable 0-12 by mouth. ity of tablet 08:16: [address] tamsulosin 2020- Yes Take by Univ ers 0.4 mg 24 0-12 mouth ity of hr capsule 08:16: daily. [address] aspirin 81 2020- Yes 81mg Take 81 mg U nivers mg chewable 0-12 by mouth. ity of tablet 08:16: [address] tamsulosin 2020- Yes Take by Univ ers 0.4 mg 24 0-12 mouth ity of hr capsule 08:16: daily. [address] aspirin 81 2020- Yes 81mg Take 81 mg U nivers mg chewable 0-12 by mouth. ity of tablet 08:16: [address] tamsulosin 2020- Yes Take by Univ ers 0.4 mg 24 0-12 mouth ity of hr capsule 08:16: daily. [address] Branch aspirin 81 2020- Yes 81mg Take 81 mg U nivers mg chewable 0-12 by mouth. ity of tablet 08:16: [address] tamsulosin 2020- Yes Take by Univ ers 0.4 mg 24 0-12 mouth ity of hr capsule 08:16: daily. [address] aspirin 81 2020- Yes 81mg Take 81 mg U nivers mg chewable 0-12 by mouth. ity of tablet 08:16: [address] tamsulosin 2020- Yes Take by Univ ers 0.4 mg 24 0-12 mouth ity of hr capsule 08:16: daily. [address] aspirin 81 2020- Yes 81mg Take 81 mg U nivers mg chewable 0-12 by mouth. ity of tablet 08:16: [address] tamsulosin 2020- Yes Take by Univ ers 0.4 mg 24 0-12 mouth ity of hr capsule 08:16: daily. [address] aspirin 81 2020- Yes 81mg Take 81 mg U nivers mg chewable 0-12 by mouth. ity of tablet 08:16: [address] tamsulosin 2020- Yes Take by Univ ers 0.4 mg 24 0-12 mouth ity of hr capsule 08:16: daily. [address] tamsulosin 2020- Yes Take by Univ ers 0.4 mg 24 0-12 mouth ity of hr capsule 08:16: daily. [address] tamsulosin 2020-1 Yes Take by Univ ers 0.4 mg 24 0-12 mouth ity of hr capsule 08:16: daily. [place] [address] Medical Branch tamsulosin 2020- Yes Take by Univ ers 0.4 mg 24 0-12 mouth ity of hr capsule 08:16: daily. [place] [address] Medical Branch tamsulosin 2020- Yes Take by Univ ers 0.4 mg 24 0-12 mouth ity of hr capsule 08:16: daily. [place] [address] Medical Branch tamsulosin 2020- Yes Take by Univ ers 0.4 mg 24 0-12 mouth ity of hr capsule 08:16: daily. [place] [address] Medical Branch tamsulosin 2020-10 Yes Take by Univ ers 0.4 mg 24 0-12 mouth ity of hr capsule 08:16: daily. [place] [address] Medical Branch amLODIPine 2020-10 Yes 5mg Take 5 mg Un jagdeep 5 mg tablet 0-06 by mouth 2 it y of 00:00: (two) [place] times Medical daily. Branch clopidogreL 2020- Yes 75mg Take 75 mg Univers 75 mg 0-06 by mouth ity of tablet 00:00: daily. [place] [facility] Branch amLODIPine 2020- Yes 5mg Take 5 mg Un jagdeep 5 mg tablet 0-06 by mouth 2 it y of 00:00: (two) [place] Medical daily. Branch clopidogreL 2020- Yes 75mg Take 75 mg Univers 75 mg 0-06 by mouth ity of tablet 00:00: daily. [place] Medical Branch amLODIPine 2020- Yes 5mg Take 5 mg Un jagdeep 5 mg tablet 0-06 by mouth 2 it y of 00:00: (two) [place] Medical daily. Branch clopidogreL 2020- Yes 75mg Take 75 mg Univers 75 mg 0-06 by mouth ity of tablet 00:00: daily. [place] Medical Branch amLODIPine 2020- Yes 5mg Take 5 mg Un jag[facility] 5 mg tablet 0-06 by mouth 2 it y of 00:00: (two) [place] times Medical daily. Branch clopidogreL 2020-1 Yes 75mg Take 75 mg Univers 75 mg 0-06 by mouth ity of tablet 00:00: daily. [place] Medical Branch amLODIPine 2020- Yes 5mg Take 5 mg Un jag[facility] 5 mg tablet 0-06 by mouth 2 it y of 00:00: (two) [place] 00 times Medical daily. Branch clopidogreL 2020-1 [...] (two) 00 times Medical daily. Branch clopidogreL 1-1 Yes 75mg Take 75 mg Univers 75 mg 0-06 by mouth ity of tablet 00:00: daily. Medical Branch amLODIPine 2020-1 Yes 5mg Take 5 mg Un jag[facility] 5 mg tablet 0-06 by mouth 2 it y of 00:00: (two) Medical daily. Branch clopidogreL 2020-1 Yes 75mg Take 75 mg Univers 75 mg 0-06 by mouth ity of tablet 00:00: daily. Medical Branch amLODIPine 2020-1 Yes 5mg Take 5 mg Un jagdeep 5 mg tablet 0-06 by mouth 2 it y of 00:00: (two) 00 Medical daily. Branch clopidogreL 1-1 Yes 75mg Take 75 mg Univers 75 mg 0-06 by mouth ity of tablet 00:00: daily. Medical Branch amLODIPine 2020-1 Yes 5mg Take 5 mg Un jagdeep 5 mg tablet 0-06 by mouth 2 it y of 00:00: (two) Medical daily. Branch clopidogreL 1-1 Yes 75mg [...] 8-23 TABLET BY ity of 00:00: MOUTH [place] EVERY 4 TO Medical 6 HOURS Branch NEEDED FOR PAIN traMADoL Yes TAKE ONE Unive rs 100 mg Tab 8-23 TABLET BY ity of 00:00: MOUTH [place] EVERY 4 TO Medical 6 HOURS Branch [...] 8-23 TABLET BY ity of 00:00: MOUTH [place] 00 EVERY 4 TO Medical 6 HOURS Branch NEEDED FOR PAIN traMADoL Yes TAKE ONE Unive rs 100 mg Tab 8-23 TABLET BY ity of 00:00: MOUTH [place] 00 EVERY 4 TO Medical 6 HOURS Branch NEEDED FOR PAIN traMADoL Yes TAKE ONE Unive rs 100 mg Tab 8-23 TABLET BY ity of 00:00: MOUTH [place] 00 EVERY 4 TO Medical 6 HOURS Branch NEEDED FOR PAIN traMADoL Yes TAKE ONE Unive rs 100 mg Tab 8-23 TABLET BY ity of 00:00: MOUTH [place] 00 EVERY 4 TO Medical 6 HOURS Branch NEEDED FOR PAIN traMADoL Yes TAKE ONE Unive rs 100 mg Tab 8-23 TABLET BY ity of 00:00: MOUTH [place] 00 EVERY 4 TO Medical 6 HOURS Branch NEEDED FOR PAIN traMADoL Yes TAKE ONE Unive rs 100 mg Tab 8-23 TABLET BY ity of 00:00: MOUTH [place] 00 EVERY 4 TO Medical 6 HOURS Branch NEEDED FOR PAIN traMADoL Yes TAKE ONE Unive rs 100 mg Tab 8-23 TABLET BY ity of 00:00: MOUTH [place] 00 EVERY 4 TO Medical 6 HOURS Branch NEEDED FOR PAIN traMADoL Yes TAKE ONE Unive rs 100 mg Tab 8-23 TABLET BY ity of 00:00: MOUTH [place] 00 EVERY 4 TO Medical 6 HOURS Branch NEEDED FOR PAIN Vital Signs Vital Name Observation Time Observation Value Comments Source Systolic blood 2022-08-02 19:52:00 157 mm[Hg] Univer sity of pressure [facility] Diastolic blood 2022-08-02 19:52:00 78 mm[Hg] Unive rsity of [facility] Heart rate 2022-08-02 19:52:00 83 /min [facility] Body temperature 2022-08-02 19:52:00 36.5 Nina [facility] Respiratory rate 2022-08-02 19:52:00 16 /min [facility] Body height 2022-08-02 19:52:00 190.5 cm [facility] Body weight 2022-08-02 19:52:00 82.101 kg [facility] BMI 2022-08-02 19:52:00 22.62 kg/m2 [facility]i ty of [place] [facility] Oxygen saturation in 2022-08-02 19:52:00 98 /min University of Arterial blood by [facility] Pulse oximetry Branch Systolic blood 2022-08-01 01:50:00 166 mm[Hg] Univer sity of pressure [facility] [place] [facility] Diastolic blood 2022-08-01 01:50:00 71 mm[Hg] Unive rsity of [facility] Heart rate 2022-08-01 01:50:00 80 /min Universi ty of [place] [facility] Respiratory rate 2022-08-01 01:50:00 20 /min Univ ersity of [facility] [place] [facility] Oxygen saturation in 2022-08-01 01:50:00 100 /min University of Arterial blood by [facility] Pulse oximetry Branch Body temperature 2022-07-31 20:52:00 36.72 [facility] Body weight 2022-07-31 20:52:00 78.472 kg [facility] [place] [facility] BMI 2022-07-31 20:52:00 21.62 kg/m2 [facility] [place] [facility] Body height 2022-07-27 17:50:00 190.5 cm [facility] [place] [facility] Body weight 2022-07-27 17:50:00 81.194 kg [facility] [place] [facility] BMI 2022-07-27 17:50:00 22.37 kg/m2 [facility] [place] [facility] Systolic blood 2022-07-20 18:31:00 146 mm[Hg] Univer sity of [facility] Medical Branch Diastolic blood 2022-07-20 18:31:00 77 mm[Hg] Unive rsity of [facility] Medical Branch Body height 2022-07-20 18:31:00 190.5 cm [facility] [place] [facility] Body weight 2022-07-20 18:31:00 81.194 kg [facility] [place] [facility] BMI 2022-07-20 18:31:00 22.37 kg/m2 [facility] [place] [facility] Procedures Procedure Date / Time Performed Performing Clinician Sourc e EXTERNAL PROVIDER 2022-08-13 05:01:00 Doctor Unassigned, No Univ [facility] RECORDS Name Medical Branch [place] ABDOMEN PELVIS W 2022-08-01 00:20:00 Purnima Christiansen [facility] CONTRAST [facility] Branch URINALYSIS 2022-07-31 23:17:00 Purnima Christiansen [facility] XR CHEST 1 VW 2022-07-31 22:22:00 Helena [facility] LIPASE 2022-07-31 22:02:00 Helena [facility] TROPONIN I 2022-07-31 22:02:00 Helena [facility] HEPATIC FUNCTION PANEL 2022-07-31 22:02:00 Helena Purnima [facility] ([id number]) Medical [place] (ALB,T.PRO,BILI T,BU/BC,ALT,AST,ALK PHOS) BASIC METABOLIC PANEL 2022-07-31 22:02:00 Helena Purnima [facility] (NA, K, CL, CO2, Medical Branch GLUCOSE, BUN, CREATININE, CA) LIPID PANEL 2022-07-31 22:02:00 Helena Purnima [facility] ([id number])(TOTAL Medical Branch CHOLESTEROL, TRIGLYCERIDES, HDL) CBC WITH DIFF 2022-07-31 22:02:00 Helena [facility] CONSENT/REFUSAL FOR 2022-07-31 20:52:52 Doctor Bridgett, Mindy [facility] DIAGNOSIS AND Name [facility] TREATMENT Encounters Start End Encounter Admission Attending Care Care Encounter Source Date/Time Date/Time Type Type Clinicians Facility Department ID 2022-08-31 Outpatient [facility] [id number] [place] 01:34:07 [id number] Health 2021-10-27 Outpatient Corie SIMEON [facility] [id number] Univers 15:53:41 CRISTOBAL Medina [facility] 2022-08-31 2022-08-31 Outpatient R PABLO DUNBAR [facility] [id number] Univers 14:20:00 14:20:00 PABLO DUNBAR [facility] 2022-08-13 2022-08-13 Orders Doctor [place] 1.2.840.114 [id number] Univers 00:00:00 00:00:00 Only UnassNICHELLE bowles [id number] ity of [place] [facility] [id number] Michael as [id number] [facility] 009 [place] 2022-08-02 2022-08-02 Office Everardo [facility] 1.2.840.114 [id number] Univers 15:00:00 15:20:00 Visit HEIDI [id number] it y of [facility] [id number] [place] P[place]IC [id number] [address] E CLINIC 2022-08-02 2022-08-02 Outpatient R EVERARDO, [facility] [id number] Univers 15:00:00 15:00:00 ity of [facility] 2022-08-02 2022-08-02 Telephone [facility] 1.2.840.114 [id number] Univers 00:00:00 00:00:00 [facility] [id number] ity of [place] [id number] Michael as CHAD?BLEA [id number] [address] MEDICAL OFFICE [facility] 2022-07-31 2022-07-31 Emergency X [facility] ERT [id number] Univers 15:55:00 21:12:00 PURNIMA ity [facility] 2022-07-31 2022-07-31 Emergency [facility], [place] 1.2.840.114 [id number] Univers 15:55:00 21:12:00 [facility] [id number] it [id number] [id number] [facility] 014 [place] 2022-07-31 2022-07-31 Telephone [facility] 1.2.840.114 [id number] Univers 00:00:00 00:00:00 [facility] [id number] ity of [place] 4.2.7.2.686 Michael as CHAD?BLEA [id number] Md boo [address] MEDICAL OFFICE [facility] 2022-07-30 2022-07-30 Telephone [facility] 1.2.840.114 [id number] Univers 00:00:00 00:00:00 [facility] [id number] ity of [place] 4.2.7.2.686 Michael as CHAD?BLEA [id number] [address] OFFICE [facility] 2022-07-27 2022-07-27 Office Bettina [facility] 1.2.840.114 [id number] Univers 13:00:00 13:20:00 Visit [facility] [id number] ity of [place] [id number] Michael as CHAD?BLEA [id number] [address] 2022-07-27 2022-07-27 Outpatient R PABLO DUNBAR [facility] [id number] Univers 13:00:00 13:00:00 PABLO DUNBAR ity [facility] 2022-07-26 2022-07-26 [facility] 1.2.840.114 [id number] Univers 00:00:00 00:00:00 [facility] [id number] ity of [place] [id number] Michael as CHAD?BLEA [id number] [address] 2022-07-25 2022-07-25 [facility]phone [facility] 1.2.840.114 [id number] Univers 00:00:00 00:00:00 [facility] [id number] ity of [place] [id number] Michael as CHAD?BLEA [id number] [address] 2022-07-25 2022-07-25 [facility]phone [facility] 1.2.840.114 [id number] Univers 00:00:00 00:00:00 [facility] [id number] ity of [place] [id number] Michael as CHAD?BLEA [id number] [address] 2022-07-23 2022-07-23 Telephone [facility] 1.2.840.114 [id number] Univers 00:00:00 00:00:00 [facility] [id number] ity of [place] [id number] Michael as CHAD?BLEA [id number] [address] OFFICE [facility] 2022-07-20 2022-07-20 Outpatient R PABLO DUNBAR [facility] [id number] Univers 14:00:00 14:19:59 PABLO DUNBAR itjayme [facility] 2022-07-20 2022-07-20 Office Bettina [facility] 1.2.840.114 [id number] Univers 14:00:00 14:19:59 Visit [facility] [id number] ity of [place] [id number] Michael as CHAD?BLEA [id number] [address] 2021-11-07 2021-11-07 Outpatient R CAILIN [facility] [id number] Univers 08:30:00 08:30:00 CRISTOBAL Medina f [facility] 2021-09-21 2021-09-21 Outpatient MARY DmJOHNNY RADI [id number] [facility] 08:45:00 08:45:00 Angel Kwok [place] [facility] 2021-09-11 2021-09-11 Telephone [facility] 1.2.840.114 [id number] Univers 00:00:00 00:00:00 [facility] [id number] ity of [place] [id number] Michael as CHAD?BLEA [id number] [address] 2021-08-15 2021-08-15 Telephone [facility] 1.2.840.114 [id number] Univers 00:00:00 00:00:00 [facility] [id number] ity of [place] 4.2.7.2.686 Michael as CHAD?BLEA [phone] [address] 2021-08-08 2021-08-08 Telephone [facility] [id number] [id number] Univers 00:00:00 00:00:00 [facility] [id number] ity of Romance 4.2.7.2.686 Michael as Chad?Blea [phone] [address] Office [facility] 2021-08-01 2021-08-01 Office Bettina [facility] [id number] [facility] 07:39:53 09:30:32 Visit Pablo [facility] [id number] ity of Romance 4.2.7.2.686 Michael as Chad?Blea [phone] [address] Office [facility] 2021-08-01 2021-08-01 Outpatient R PABLO DUNBAR [facility] [id number] [facility] 08:00:00 08:00:00 PABLO DUNBAR itjayme [facility] 2021-08-01 2021-08-01 Orders Doctor [place] 1.2.840.114 [id number] [facility] 00:00:00 00:00:00 Only Unassigned, [place] 350.1.13.10 [facility] 4.2.7.2.686 Michael as [phone] [address] 2020-09-26 2020-09-26 Outpatient LEV ChaidezTO RADI [id number] [facility] 08:30:00 08:30:00 Angel 00 [facility] 2020-08-22 2020-08-22 Outpatient LEV ChaidezANTOINE RADI [id number] [facility] 10:00:00 10:00:00 Angel 75 [facility] Results Test Description Test Time Test Comments Results Result [facility] Comments - XR L-SPINE 2021-09-25 W/BEND VIEW 19:48:00 [facility] : 1955 Sex: M Patient Name: TAMIKA OBREGON Unit No: [id number] EXAMS: CPT CODE: [id number] XR L-SPINE W/BEND VIEW 72051 COMPARISON: Concurrent MRI. IMAGES PROVIDED: 8 views [...] Technologist: RT. Neetu(R) Transcribed D/ (1947) JanetJ [facility] NAME: TAMIKA OBREGON [address] [place] [address] PHYS: Angel Shah MD : 1955 AGE: 65 SEX: M [place] [address] LOC: Y.MRI PHONE #: [phone] EXAM DATE: 09/21/2021 STATUS: DEP CLI FAX #: [phone] RAD #: D/C DT PAGE 1 Signed Report Patient Name: TAMIKA OBREGON Unit No: [id number] EXAMS: CPT CODE: [id number] XR L-SPINE W/BEND VIEW 06033 (Continued) Orig Print D/T: S: 09/25/2021 (1950) [facility] NAME: TAMIKA OBREGON Leyla [facility] PHYS: Angel Shah MD : 1955 AGE: 65 SEX: M [place] [address] LOC: Y.MRI PHONE #: [phone] EXAM DATE: 09/21/2021 STATUS: DEP CLI FAX #: [phone] RAD #: D/C DT PAGE 2 Signed Report - MRI L-SPINE W WO 2021-09-21 [facility]:12:00 [facility] 1955 Sex: M Patient Name: TAMIKA OBREGON Unit No: [id number] EXAMS: CPT CODE: [id number] MRI L-SPINE W [place] CON 91705 DIAGNOSIS: 1. At L1-2 there is no [...] disc bulging foramina with moderate right and ewir-jw-kpbcilqe left foraminal narrowing. Moderate central canal stenosis [...] EDGARDO SANCHEZ MRI Transcribed D/ (1312) Susan [facility] NAME: TAMIKA OBREGON [address] [facility] PHYS: Angel Shah MD : 1955 AGE: 65 SEX: M [place] [address] LOC: Y.MRI PHONE #: [phone] EXAM DATE: 09/21/2021 STATUS: REG CLI FAX #: [phone] RAD #: D/C DT PAGE 1 Signed Report Patient Name: TAMIKA OBREGON Unit No: [id number] EXAMS: CPT CODE: [id number] MRI L-SPINE W WO CON 40555 (Continued) Orig Print D/T: S: 09/21/2021 (1315) [facility] NAME: TAMIKA OBREGON [address] [place] [address] PHYS: Angel Shah MD : 1955 AGE: 65 SEX: M [place] [address] LOC: Y.MRI PHONE #: [phone] EXAM DATE: 09/21/2021 STATUS: REG CLI FAX #: [phone] RAD #: D/C DT PAGE 2 Signed Report - CT L-SPINE W/O 2020-09-26 CONTRAST 10:23:00 [facility] : 1955 Sex: M Patient Name: TAMIKA OBREGON Unit No: [id number] EXAMS: CPT CODE: [id number] CT L-SPINE W/O CONTRAST 76820 DIAGNOSIS: 1. At L1-2 there is a [...] RT Mike(R) CTDI: DLP: Trnscrpt: 09/26/2020 (1023) t.DANIELLER.JCL [facility] NAME: TAMIKA OBREGON [address] [facility] PHYS: Angel Shah MD : 1955 AGE: 64 SEX: M [place], [place] [address] LOC: Y.RAD PHONE #: [phone] EXAM DATE: 09/26/2020 STATUS: REG CLI FAX #: [phone] RAD #: D/C DT PAGE 1 Signed Report Patient Name: TAMIKA OBREGON Unit No: [id number] EXAMS: CPT CODE: [id number] CT L-SPINE W/O CONTRAST 73201 (Continued) Orig Print D/T: S: 09/26/2020 (1026) [facility] NAME: TAMIKA OBREGON [address] [facility] PHYS: Angel Shah MD : 1955 AGE: 64 SEX: M [place], [place] [address] LOC: Y.RAD PHONE #: [phone] EXAM DATE: 09/26/2020 STATUS: REG CLI FAX #: [phone] RAD #: D/C DT PAGE 2 Signed Report - XR L-SPINE 2020-08-22 W/BEND VIEW 11:44:00 [facility] : 1955 Sex: M Patient Name: TAMIKA OBREGON Unit No: [id number] EXAMS: CPT CODE: [id number] XR L-SPINE W/BEND VIEW 12815 MRI OF THE LUMBAR SPINE WITH AND [...] Reported and signed by: Gonzalo Silvestre MD [facility] NAME: TAMIKA OBREGON [address] [facility] PHYS: Angel Shah MD : 1955 AGE: 64 SEX: M [place], [place] [address] LOC: Y.MRI PHONE #: [phone] EXAM DATE: 08/22/2020 STATUS: REG CLI FAX #: [phone] RAD #: D/C DT PAGE 1 Signed Report (CONTINUED) Patient Name: TAMIKA OBREGON Unit No: [id number] EXAMS: CPT CODE: [id number] XR L-SPINE W/BEND VIEW 04398 (Continued) CC: Angel Chaidez M.D. Technologist: RT. Neetu(R) Transcribed D/ (1141) Tai [facility] NAME: TAMIKA OBREGON [address] [facility] PHYS: Angel Shah MD : 1955 AGE: 64 SEX: M [place] [address] LOC: Y.MRI PHONE #: [phone] EXAM DATE: 08/22/2020 STATUS: REG CLI FAX #: [phone] RAD #: D/C DT PAGE 2 Signed Report Patient Name: TAMIKA OBREGON Unit No: [id number] EXAMS: CPT CODE: [id number] XR L-SPINE W/BEND VIEW 55303 (Continued) Orig Print D/T: S: 08/22/2020 (1149) [facility] NAME: TAMIKA OBREGON [address] [facility] PHYS: Angel Shah MD : 1955 AGE: 64 SEX: M [place] [address] LOC: Y.MRI PHONE #: [phone] EXAM DATE: 08/22/2020 STATUS: REG CLI FAX #: [phone] RAD #: D/C DT PAGE 3 Signed Report - MRI L-SPINE W WO 2020-08-22 CON 11:44:00 [facility] 1955 Sex: M Patient Name: TAMIKA OBREGON Unit No: [id number] EXAMS: CPT CODE: [id number] MRI L-SPINE W WO CON 81117 MRI OF THE LUMBAR SPINE WITH AND [...] Reported and signed by: Gonzalo Silvestre MD [facility] NAME: TAMIKA OBREGON [address] [facility] PHYS: Angel Shah MD : 1955 AGE: 64 SEX: M [place], [place] [address] LOC: Y.MRI PHONE #: [phone] EXAM DATE: 08/22/2020 STATUS: REG CLI FAX #: [phone] RAD #: D/C DT PAGE 1 Signed Report (CONTINUED) Patient Name: TAMIKA OBREGON Unit No: [id number] EXAMS: CPT CODE: [id number] MRI L-SPINE W WO CON 44886 (Continued) CC: Angel Chaidez M.D. Technologist: Jennifer Woodard(R) Transcribed D/ (1144) JanetGVG [facility] NAME: TAMIKA OBREGON [address] [place] [address] PHYS: Angel Shah MD : 1955 AGE: 64 SEX: M [place] [address] LOC: Y.MRI PHONE #: [phone] EXAM DATE: 08/22/2020 STATUS: REG CLI FAX #: [phone] RAD #: D/C DT PAGE 2 Signed Report Patient Name: TAMIKA OBREGON Unit No: [id number] EXAMS: CPT CODE: [id number] MRI L-SPINE W WO CON 28921 (Continued) Orig Print D/T: S: 08/22/2020 (1148) [facility] NAME: TAMIKA OBREGON [address] [place] [address] PHYS: Angel Shah MD : 1955 AGE: 64 SEX: M [place] [address] LOC: Y.MRI PHONE #: [phone] EXAM DATE: 08/22/2020 STATUS: REG CLI FAX #: [phone] RAD #: D/C DT PAGE 3 Signed Report BLOOD UREA NITROGEN 2020-08-22 10:40:00 Test Item Value Reference Range Interpretation Comme nts BLOOD UREA NITROGEN (test code = BUN) 17 mg/dL 7-18 N SPECIMEN COMMENT: STATCREATININE W ESTIMATED [id number] 10:40:00 Test Item Value Reference Range Interpretation Comments GLOMERULAR FILTRATION 70.9 >60 Unit o f measure: RATE (test code = GFR) mL/mi n/1.73 [id number] Range:Healthy A dults >90 mL/min/1.73 m2 For Chronic Kid alfonso Disease: Stage II Mild Decrease i n GFR 60-90 Stage III Moderate Decrea se in GFR 30-59 Stage IV Severe Decrease in GFR 15-29 Stage V Kidney Failure <15 CREATININE (test code = 1.05 mg/dL 0.55-1.30 N CREAT) SPECIMEN COMMENT: STAT- MRI L-SPINE W WO [id number] 09:33:00 Patient Name: TAMIKA OBREGON Unit No: [id number] EXAMS: CPT CODE: [id number] MRI L-SPINE W WO CON 73101 MRI OF THE LUMBAR SPINE WITH AND [...] 4. At L4-5, patient status post anterior discectomyand laminectomy. Mild enhancing epidural fibrosis. Moderate bilateral [...] Karolyn Garza, RT(R) Transcribed D/ (0933) JanetGVG [facility] NAME: TAMKIA OBREGON [address] [facility] PHYS: Angel Shah MD : 1955 AGE: 63 SEX: M [place], [place] [address] LOC: Y.MRI PHONE #: [phone] EXAM DATE: 04/30/2019 STATUS: DEP CLI FAX #: [phone] RAD #: D/C DT PAGE 1 Signed Report Patient Name: TAMIKA OBREGON Unit No: [id number] EXAMS: CPT CODE: [id number] MRI L- SPINE W WO CON 90766 (Continued) Orig Print D/T: S: 05/01/2019 (0936) [facility] NAME: TAMIKA OBREGON[address] [facility] PHYS: Angel Shah MD : 1955 AGE: 63 SEX: M [place], [place] [address]UWCH NO: [id number] LOC: Y.MRI PHONE #: [phone] EXAM DATE: 04/30/2019 STATUS: ANASTASIIA BIANI FAX #: [phone] RAD #: D/C DT PAGE 2 Signed ReportBLOOD UREA NITROGEN 2019-04-30 11:19:00 Test Item Value Reference Range Interpretation Comments BLOOD UREA NITROGEN (test code = 13 mg/dL 7-18 N BUN) CREATININE W ESTIMATED [id number] 11:19:00 Test Item Value Reference Range Interpretation Comments GLOMERULAR FILTRATION 70.3 >60 Unit o f measure: RATE (test code = GFR) mL/mi n/1.73 [id number] Range:Healthy A dults >90 mL/min/1.73 m2 For Chronic Kid alfonso Disease: Stage II Mild Decrease i n GFR 60-90 Stage III Moderate Decrea se in GFR 30-59 Stage IV Severe Decrease in GFR 15-29 Stage V Kidney Failure <15 CREATININE (test code = 1.06 mg/dL 0.55-1.30 N CREAT) - CT L-SPINE W/O [id number] 09:53:00 Patient Name: TAMIKA OBREGON Unit No: [id number] EXAMS: CPT CODE: [id number] CT L-SPINE W/O CONTRAST 75247 CT SCAN OF THE LUMBAR SPINE WITH [...] RT Mike(R) CTDI: DLP: Trnscrpt: 03/27/2019 (0953) t.SUSAN.GVG [facility] NAME: TAMIKA OBREGON [address] [place] [address] PHYS: Angel Shah MD : 1955 AGE: 63 SEX: M [place], [place] [address] LOC: Y.RAD PHONE #: [phone] EXAM DATE: 03/26/2019 STATUS: DEP CLI FAX #: [phone] RAD #: D/C DT PAGE 1 Signed Report Patient Name: TAMIKA OBREGON Unit No: [id number] EXAMS: CPT CODE: [id number] CT L-SPINE W/O CONTRAST 78013 (Continued) Orig Print D/T: S: 03/27/2019 (0956) [facility] NAME: TAMIKA OBREGON [address] [place] [address] PHYS: Angel Shah MD : 1955 AGE: 63 SEX: M [place], [place] [address] LOC: Y.RAD PHONE #: [phone] EXAM DATE: 03/26/2019 STATUS: DEP CLI FAX #: [phone] RAD #: D/C DT PAGE 2 Signed ReportURINALYSIS [id number] 07:16:00 Test Item Value Reference Range Interpretation [...] /LPF NONE SEEN code = AMORU) HGB [id number] 05:50:00 Test Item Value Reference Range Interpretation Comments HEMOGLOBIN (test code = HGB) 12.0 g/dL 12-16 N HEMATOCRIT (test code = HCT) 34.8 % 37-47 L CBC W/AUTO [id number] 05:49:00 Test Item Value Reference Range Interpretation [...] NRBC) - XR SPINE 1 V SPEC [id number] 11:33:00 Patient Name: TAMIKA OBREGON Unit No: [id number] EXAMS: CPT CODE: [id number] XR SPINE 1 V SPEC LEVEL 12962 3 LATERAL INTRAOPERATIVE VIEWS OF THE LUMBAR SPINE Image 1: Surgical markers are at the L3-L4 and L4-L5 levels. Image 2: Surgical instrumentation is at the L4 level Image 3: In progress L4-L5 posterior instrumented fusion without evidence of immediate complication. Interbody graft is well-positioned on lateral view. at 1133 Reported and signed by: Patric Garcia M.D. CC: Angel Cahidez M.D. Technologist: RT MARCO ANTONIO(R) Transcribed D/ (5986) Astrid [facility] NAME: TAMIKA OBREGON [address] [facility] PHYS: Angel Shah MD : 1955 AGE: 63 SEX: M [place], [place] [address] LOC: Y.505 A PHONE #: [phone] EXAM DATE: 12/30/2018 STATUS: ADM IN FAX #: [phone] RAD #: D/C DT PAGE 1 Signed Report Patient Name: TAMIKA OBREGON Unit No: [id number] EXAMS: CPT CODE: [id number] XR SPINE 1 V SPEC LEVEL 64463 (Continued) Orig Print D/T: S: 12/31/2018 (6735) [facility] NAME: TAMIKA OBREGON [facility] PHYS: Angel Shah MD : 1955 AGE: 63 SEX: M [place], [place] [address] : Y.505 A PHONE #: [phone] EXAM DATE: 12/30/2018 STATUS: ADM IN FAX #: [phone] RAD #: D/C DT PAGE 2 Signed Report- XR SPINE 1 V SPEC [id number] 11:33:00 Patient Name: TAMIKA OBREGON Unit No: [id number] EXAMS: CPT CODE: [id number] XR SPINE 1 V SPEC LEVEL 61273 3 LATERAL INTRAOPERATIVE VIEWS OF THE LUMBAR SPINE Image 1: Surgical markers are at the L3-L4 and L4-L5 levels. Image 2: Surgical instrumentation is at the L4 level Image 3: In progress L4-L5 posterior instrumented fusion without evidence of immediate complication. Interbody graft is well-positioned on lateral view. at 1133 Reported and signed by: Patric Garcia M.D. CC: Angel Cahidez M.D. Technologist: STEVEN (RT.R) Transcribed D/ (1459) Astrid [facility] NAME: TAMIKA OBREGON [address] [facility] PHYS: Angel Shah MD : 1955 AGE: 63 SEX: M [place], [place] [address] LOC: Y.505 A PHONE #: [phone] EXAM DATE: 12/30/2018 STATUS: ADM IN FAX #: [phone] RAD #: D/C DT PAGE 1 Signed Report Patient Name: TAMIKA OBREGON Unit No: [id number] EXAMS: CPT CODE: [id number] XR SPINE 1 V SPEC LEVEL 42848 (Continued) Orig Print D/T: S: 12/31/2018 (1128) [facility] NAME: TAMIKA OBREGON [facility] PHYS: Angel Shah MD : 1955 AGE: 63 SEX: M [place], [place] [address] LOC: Y.505 A PHONE #: [phone] EXAM DATE: 12/30/2018 STATUS: ADM IN FAX #: [phone] RAD #: D/C DT PAGE 2 Signed Report- XR SPINE 1 V SPEC [id number] 11:33:00 Patient Name: TAMIKA OBREGON Unit No: [id number] EXAMS: CPT CODE: [id number] XR SPINE 1 V SPEC LEVEL 77325 3 LATERAL INTRAOPERATIVE VIEWS OF THE LUMBAR [...] Chaidez M.D. Technologist: STEVEN (RT.R) Transcribed D/ (2179) Jori.CHER [facility] NAME: TAMIKA OBREGON [facility] PHYS: Angel Shah MD : 1955 AGE: 63 SEX: M [place], [place] [address] LOC: Y.505 A PHONE #: [phone] EXAM DATE: 12/30/2018 STATUS: ADM IN FAX #: [phone] RAD #: D/C DT PAGE 1 Signed Report Patient Name: TAMIKA OBREGON Unit No: [id number] EXAMS: CPT CODE: [id number] XR SPINE 1 V SPEC LEVEL 64210 (Continued) Orig Print D/T: S: 12/31/2018 (1136) [facility] NAME: TAMIKA OBREGON [address] [facility] PHYS: Angel Shah MD : 1955 AGE: 63 SEX: M [place], [place] [address] LOC: Y.505 A PHONE #: [phone] EXAM DATE: 12/30/2018 STATUS: ADM IN FAX #: [phone] RAD #: D/CDT PAGE 2 Signed [id number] 10:43:00 Test Item Value Reference Range Interpretation Comments PLT (test code = PLT) 119 K/mm3 130-400 L BASIC METABOLIC [id number] 06:35:00 Test Item Value Reference Range Interpretation [...] RATE (test code = GFR) mL/mi n/1.73 [id number] Range:Healthy Adults >90 mL/min/1.73 m2 For Chronic Kidney Disease: Stage II Mild Decrease i n GFR 60-90 Stage III Moderate Decrea se in GFR 30-59 St age IV Severe Decre ase in GFR 15-29 St age V Kidney Failur e <15 CREATININE (test code 0.84 mg/dL 0.55-1.30 N = CREAT) CALCIUM (test code = 9.2 mg/dL 8.2-10.1 N CA) HGB [id number] 05:40:00 Test Item Value Reference Range Interpretation Comments HEMOGLOBIN (test code = HGB) 12.7 g/dL 12-16 N HEMATOCRIT (test code = HCT) 36.0 % 37-47 L ACUTE HEPATITIS [id number] 17:53:00 Test Item Value Reference Range Interpretation [...] 1 (test code NONREACTIVE NONREACTIVE Done by xiao qu wu youaur = HIV1AB) 4th Gen HIV Ag/ Ab Combo Screen ACUTE HEPATITIS [id number] 17:52:00 Test Item Value Reference Range Interpretation [...] 1 2 (test NONREACTIVE NONREACTIVE Done by [employer] code = [id number]) 4th Gen HIV Ag/Ab Combo Screen ACUTE HEPATITIS [id number] 17:52:00 Test Item Value Reference Range Interpretation [...] 1 (test code NONREACTIVE NONREACTIVE Done by xiao qu wu youaur = HIV1AB) 4th Gen HIV Ag/ Ab Combo Screen ACUTE HEPATITIS [id number] 17:51:00 Test Item Value Reference Range Interpretation [...] 1 2 (test NONREACTIVE NONREACTIVE Done by [employer] code = OAU17FT) 4th Gen HIV Ag/Ab Combo Screen CBC W/AUTO [id number] 09:49:00 Test Item Value Reference Range Interpretation [...] N CELL (test code = NRBC) PROTHROMBIN [id number] 09:32:00 Test Item Value Reference Range Interpretation [...] v nickerson IS PATIENT ON ANTICOAGULANTS ? INas Lab been notified if Patient is on Heparin Drip? NOIf Yes, orderCBC, OCCULT BLOOD, PT every other day NTHROMBOPLASTIN TIME [id number] 09:32:00 Test Item Value Reference Range Interpretation Comments PTT ACTIVATED (test code = APTT) 28.7 secs 24.9-37.0 N IS PATIENT ON ANTICOAGULANTS ? NHas Lab been notified if Patient is on Heparin Drip? NOIf Yes, orderCBC, OCCULT BLOOD, PT every other day NBASIC METABOLIC [id number] 09:32:00 Test Item Value Reference Range Interpretation [...] RATE (test code = GFR) mL/mi n/1.73 [id number] Range:Healthy Adults >90 mL/min/1.73 m2 For Chronic Kidney Disease: Stage II Mild Decrease i n GFR 60-90 Stage III Moderate Decrea se in GFR 30-59 St age IV Severe Decre ase in GFR 15-29 St age V Kidney Failu re <15 CREATININE (test code 1.00 mg/dL 0.55-1.30 N = CREAT) CALCIUM (test code = 9.1 mg/dL 8.2-10.1 N CA)
[2022-09-29] MEDS ORDERED: ACETAMINOPHEN 325 MG TABLET ONE (07:52)
--- NOTE | 2022-09-29 07:52 | RAD REPORT ---
EXAM DESCRIPTION: RAD - Knee Left 3 View - 09/29/2022 7:39 am CLINICAL HISTORY: PAIN COMPARISON: <Comparisons> FINDINGS/IMPRESSION: No acute fracture. No malalignment. Mild tricompartmental degenerative changes. Vascular clips.
--- NOTE | 2022-09-29 07:52 | RAD REPORT ---
EXAM DESCRIPTION: RAD - Pelvis - 09/29/2022 7:39 am CLINICAL HISTORY: hip pain COMPARISON: <Comparisons> FINDINGS/IMPRESSION: No acute fracture. No malalignment. Bilateral acetabular degenerative changes. Fusion hardware in the lower spine.
--- NOTE | 2022-09-29 07:53 | RAD REPORT ---
EXAM DESCRIPTION: RAD - Shoulder Left 2 View - 09/29/2022 7:39 am CLINICAL HISTORY: PAIN COMPARISON: None FINDINGS/IMPRESSION: No acute fracture. No malalignment. Mild left AC joint and glenohumeral joint d egenerative changes. Sternotomy .
[2022-09-29] MEDS ORDERED: FENTANYL CITR 100 MCG/2 ML ONE (08:45)
[2022-09-29 09:14] LABS: Urine Blood Negative (Negative); Urine Glucose Trace (Negative); Urine Protein 1+ (Negative); Urine Specific Gravity 1.025 (1.005-1.030); Urine pH 6.5 (5.0-7.0)
--- NOTE | 2022-09-29 09:23 | ER ---
Nurse's Notes [facility] Name: William Osuna Age: 66 yrs Sex: Male : 1955 Arrival Date: 09/29/2022 Time: 06:38 Bed 7 Private MD: Diagnosis: Fall on same level, unspecified;Contusion of left shoulder Presentation: 09/29 06:39 Chief complaint: Patient states: Pt fell this morning at 0300, family called reporting jb4 that he fell and reported ongoing hip pain. He had multiple falls since yesterday morning. Pt reports he may have hit his head. Pt is altered aswell. Coronavirus screen: At this time, the client does not indicate any symptoms associated with coronavirus-19. Ebola Screen: No symptoms or risks identified at this time. Initial Sepsis Screen: Does the patient meet any 2 criteria? Altered Mental Status. Yes Does the patient have a suspected source of infection? No. Patient's initial sepsis screen is negative. Risk Assessment: Do you want to hurt yourself or someone else? Patient reports no desire to harm self or others. Onset of symptoms was September 29, 2022. Transition of care: patient was not received from another setting of care. 06:39 Method Of Arrival: EMS: [facility] jb4 06:39 Acuity: FARHAD 3 jb4 Historical: - Allergies: 06:49 Codeine; jb4 06:49 PENICILLINS; jb4 - PMHx: 06:49 Anxiety; cardiac stent; Hypertensive disorder; jb4 - PSHx: 06:49 brain aneurysm; Back x2; CABG; Cholecystectomy; jb4 - Immunization history:: Adult Immunizations unknown. - Social history:: Smoking status: unknown. Screenin:30 Abuse screen: Denies threats or abuse. Denies injuries from another. Nutritional jl7 screening: No deficits noted. Tuberculosis screening: No symptoms or risk factors identified. Fall Risk Fall in past 12 months (25 points). No secondary diagnosis (0 pts). No IV (0 pts). Gait- Weak (10 pts.). Mental Status- Overestimates/Forgets Limitations (15 pts.). Total Chavez Fall Scale indicates High Risk Score (45 or more points). Fall prevention measures have been instituted. Side Rails Up X 2 Placed Close to Nursing Station Frequent Obs/Assessments Occuring Family Present and informed to notify staff if the need to leave the bedside As available patient and family educated on Fall Prevention Program and Strategies. Assessment: 06:49 General: Appears in no apparent distress. uncomfortable, Behavior is calm, cooperative, jb4 appropriate for age. Pain: Complains of pain in Left hip, Left knee. 07:30 Reassessment: Patient appears in no apparent distress at this time. Patient and/or jl7 family updated on plan of care and expected duration. Pain level reassessed. Patient is alert, oriented x 3, equal unlabored respirations, skin warm/dry/pink. Reports pain to left hip and knee, rated 7/10. 09:00 Reassessment: Patient appears in no apparent distress at this time. No changes from jl7 previously documented assessment. Patient and/or family updated on plan of care and expected duration. Pain level reassessed. Patient is alert, oriented x 3, equal unlabored respirations, skin warm/dry/pink. Reports minor decrease in pain level. Vital Signs: 06:39 BP 151 / 74; Pulse 85; Resp 16; Temp 99.0(TE); Pulse Ox 98% on R/A; Weight 77 kg (M); jb4 Height 6 ft. 3 in. (190.50 cm); Pain 7/10; 07:33 BP 154 / 68; Pulse 83; Resp 16; Pulse Ox 98% on R/A; mm9 08:17 BP 155 / 74; Pulse 74; Resp 16; Pulse Ox 100% on R/A; mm9 09:00 BP 134 / 63; Pulse 88; Resp 15; Pulse Ox 97% ; jl7 06:39 Body Mass Index 21.22 (77.00 kg, 190.50 cm) jb4 ED Course: 06:38 Patient arrived in ED. jb4 06:40 Jayson Bell MD is Attending Physician. kdr 06:49 Triage completed. jb4 06:49 Arm band placed on right wrist. jb4 07:06 Attending Physician role handed off by Jayson Bell MD rt 07:06 Parviz Mendenhall MD is Attending Physician. rt 07:30 Patient has correct armband on for positive identification. Bed in low position. Call 7 light in reach. Side rails up X2. 07:36 Abi Willson, BRADLY is Primary Nurse. iw 07:40 Pelvis XRAY In Process Unspecified. EDMS 07:40 Knee Left 3 View XRAY In Process Unspecified. EDMS 07:40 Shoulder Left (2 View) XRAY In Process Unspecified. EDMS 09:47 No provider procedures requiring assistance completed. Patient did not have IV access jl7 during this emergency room visit. Administered Medications: 07:58 Drug: Tylenol 650 mg Route: PO; iw 08:50 Follow up: Response: No adverse reaction; No change in condition jl7 08:50 Drug: fentaNYL (PF) 100 mcg Route: IM; Site: right vastus lateralis; jl7 09:00 Follow up: Response: No adverse reaction; Pain is decreased jl7 Medication: 07:30 VIS not applicable for this client. jl7 Outcome: 09:23 Discharge ordered by . rt 09:47 Discharged to home via wheelchair, with family. jl7 09:47 Condition: stable 09:47 Discharge instructions given to patient, family, Instructed on discharge instructions, follow up and referral plans. medication usage, Demonstrated understanding of instructions, follow-up care, medications, Prescriptions given X 1. 09:48 Patient left the ED. jl7 Signatures: Dispatcher [employer] EDMS Jayson Bell MD MD kdr Abi Willson RN RN iw Stephen Jimenez, BRADLY juan4 Lluvia Da Silva RN RN jl7 Martinez, Maria mmParviz Izquierdo MD MD rt
--- NOTE | 2022-09-29 09:23 | EDPHYS ---
Physician Documentation [facility] Name: William Osuna Age: 66 yrs Sex: Male : 1955 Arrival Date: 09/29/2022 Time: 06:38 Bed 7 Private MD: ED Physician Parviz Mendenhall HPI: 09/29 09:27 This 66 yrs old Male presents to ER via EMS with complaints of fall. rt 09:27 Severity of symptoms: At their worst the symptoms were mild. Patient presents to the ED rt with falls. Patient states that he has stumbled over his feet. Patient states that the most recent fall was today and he landed on his left side. Complains of left shoulder, left hip pain. The patient does report a weight loss over the past 6 months that is being managed by his physician. Denies other acute complaints at this time including head trauma. Patient's symptoms are mild in severity, aching nature, nonradiating, no other aggravating or alleviating factors.. Historical: - Allergies: 06:49 Codeine; jb4 06:49 PENICILLINS; jb4 - PMHx: 06:49 Anxiety; cardiac stent; Hypertensive disorder; jb4 - PSHx: 06:49 brain aneurysm; Back x2; CABG; Cholecystectomy; jb4 - Immunization history:: Adult Immunizations unknown. - Social history:: Smoking status: unknown. ROS: 09:27 Eyes: Negative for injury, pain, redness, and discharge, ENT: Negative for injury, rt pain, and discharge, Neck: Negative for injury, pain, and swelling, Cardiovascular: Negative for chest pain, palpitations, and edema, Respiratory: Negative for shortness of breath, cough, wheezing, and pleuritic chest pain, Abdomen/GI: Negative for abdominal pain, nausea, vomiting, diarrhea, and constipation, Back: Negative for injury and pain, Skin: Negative for injury, rash, and discoloration, Neuro: Negative for headache, weakness, numbness, tingling, and seizure, Psych: Negative for depression, anxiety, suicide ideation, homicidal ideation, and hallucinations. 09:27 Constitutional: Positive for weight loss, Negative for fever, poor PO intake. 09:27 MS/extremity: Positive for Left hip, left shoulder pain. Exam: 09:27 Constitutional: This is a well developed, well nourished patient who is awake, alert, rt and in no acute distress. Head/Face: Normocephalic, atraumatic. Eyes: Pupils equal round and reactive to light, extra-ocular motions intact. Lids and lashes normal. Conjunctiva and sclera are non-icteric and not injected. Cornea within normal limits. Periorbital areas with no swelling, redness, or edema. ENT: Nares patent. No nasal discharge, no septal abnormalities noted. Tympanic membranes are normal and external auditory canals are clear. Oropharynx with no redness, swelling, or masses, exudates, or evidence of obstruction, uvula midline. Mucous membranes moist. Neck: Trachea midline, no thyromegaly or masses palpated, and no cervical lymphadenopathy. Supple, full range of motion without nuchal rigidity, or vertebral point tenderness. No Meningismus. Chest/axilla: Normal chest wall appearance and motion. Nontender with no deformity. No lesions are appreciated. Cardiovascular: Regular rate and rhythm with a normal S1 and S2. No gallops, murmurs, or rubs. Normal PMI, no JVD. No pulse deficits. Respiratory: Lungs have equal breath sounds bilaterally, clear to auscultation and percussion. No rales, rhonchi or wheezes noted. No increased work of breathing, no retractions or nasal flaring. Abdomen/GI: Soft, non-tender, with normal bowel sounds. No distension or tympany. No guarding or rebound. No evidence of tenderness throughout. Neuro: Awake and alert, GCS 15, oriented to person, place, time, and situation. Cranial nerves II-XII grossly intact. Motor strength 5/5 in all extremities. Sensory grossly intact. Cerebellar exam normal. Normal gait. Psych: Awake, alert, with orientation to person, place and time. Behavior, mood, and affect are within normal limits. 09:27 Musculoskeletal/extremity: There is to the left hip, left shoulder, full range of motion, pulses, motor, sensation intact. Vital Signs: 06:39 BP 151 / 74; Pulse 85; Resp 16; Temp 99.0(TE); Pulse Ox 98% on R/A; Weight 77 kg (M); jb4 Height 6 ft. 3 in. (190.50 cm); Pain 7/10; 07:33 BP 154 / 68; Pulse 83; Resp 16; Pulse Ox 98% on R/A; mm9 08:17 BP 155 / 74; Pulse 74; Resp 16; Pulse Ox 100% on R/A; mm9 09:00 BP 134 / 63; Pulse 88; Resp 15; Pulse Ox 97% ; jl7 06:39 Body Mass Index 21.22 (77.00 kg, 190.50 cm) jb4 MDM: 07:06 Patient medically screened. rt 09:27 Differential Diagnosis falls, fx, contusion. Data reviewed: vital signs, nurses notes, rt lab test result(s), radiologic studies. ED course: Presents to the ED with falls. Patient states that he stumbles, denies any syncopal event. X-rays are unremarkable for fracture. Urinalysis is unremarkable. Patient is adamant that he did not hit his head, declines head CT. Patient states that he is desirous of discharge at this time. Believe this is reasonable, patient to follow-up as an outpatient, strict return precautions were given.. 09/29 09:15 Order name: Urine Dipstick-Ancillary; Complete Time: 09:15 EDMS 09/29 09:28 Order name: Glucose, Ancillary Testing EDMS 09/29 06:48 Order name: Pelvis XRAY; Complete Time: 08:10 kdr 09/29 06:48 Order name: Knee Left 3 View XRAY; Complete Time: 08:10 kdr 09/29 07:12 Order name: Shoulder Left (2 View) XRAY; Complete Time: 08:10 kdr 09/29 06:48 Order name: Urine Dipstick-Ancillary (obtain specimen); Complete Time: 09:18 kdr Administered Medications: 07:58 Drug: Tylenol 650 mg Route: PO; iw 08:50 Follow up: Response: No adverse reaction; No change in condition jl7 08:50 Drug: fentaNYL (PF) 100 mcg Route: IM; Site: right vastus lateralis; jl7 09:00 Follow up: Response: No adverse reaction; Pain is decreased jl7 Disposition Summary: 09/29/22 09:23 Discharge Ordered Location: Home rt Problem: an ongoing problem rt Symptoms: have improved rt Condition: Stable rt Diagnosis - Fall on same level, unspecified rt - Contusion of left shoulder rt Followup: rt - With: Private Physician - When: 2 - 3 days - Reason: Discharge Instructions: - Discharge Summary Sheet rt - Fall Prevention in the Home, Adult rt Forms: - Medication Reconciliation Form rt - Thank You Letter rt - Antibiotic Education rt - Prescription Opioid Use rt Prescriptions: - Tramadol 50 mg Oral Tablet - take 1 tablet by ORAL route every 8 hours as needed; 12 tablet; Refills: 0, rt Product Selection Permitted Signatures: 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 EDMS EDMS
[2022-09-29 18:20] VITALS: TEMP 99
[2022-09-29 18:23] VITALS: BP 134/63; O2SAT 97
== END 2022-09-29 09:48 | disposition home or self-care (01) ==
LOC: ER 06:37
DX: S40.012A Contusion of left shoulder, initial encounter (principal); W18.30XA Fall on same level, unspecified, initial encounter; I10 Essential (primary) hypertension; Z95.1 Presence of aortocoronary bypass graft; Z88.0 Allergy status to penicillin; Z88.5 Allergy status to narcotic agent; Z95.818 Presence of other cardiac implants and grafts
CPT/HCPCS: 82947; 81003; 72170; 73030; 73562; 96372; 99284; J3010

== ENCOUNTER 2022-10-01 10:58 | Inpatient (IN) | payer OTHER, BC ==
--- OUTSIDE RECORDS SUMMARY | 2022-10-01 11:04 | XMS REPORT | Continuity of Care Document ---
:1955 Author Organization [facility] t Address [address] [place] [address] Care Team Providers Name Role Phone Mackenzie Aiden Daigle Primary Care Physician CRISTOBAL READ Attending Clinician Unavailable PABLO DUNBAR Attending Clinician Unavailable PABLO DUNBAR Attending Clinician Unavailable Doctor Unassigned, [place] Attending Clinician Unavailable Roni Mcgee MD Attending [...] Policy Number Effective Date Expiration Date S [facility] [id number] 2021 2024 00:00:00 00:00:00 MEDICARE PART A \T\ [id number] 2019 B 00:00:00 [facility] [id number] 2019 00:00:00 Problems Condition Condition Condition Status Onset Resolution Last Treating Co mments Source Name Details Category Date Date Treatment Clinician Date No known No known Disease Unive rs active active ity of problems problems [place] [facility] Allergies, Adverse Reactions, Alerts Allergy [...] Active SV RASHES 2020-10 [facility] ins 11-22 [place] [facility] codeine DA Active [facility] RASHES, 2020-10 [facility] [facility] Penicill DA Active SV 2018-0 [facility] ins 04-30 [place] 00:[facility]: [facility] codeine DA Active CT 2018-0 [facility] 7-11 [place] 00:[facility] levoflox DA Active CT 2018-0 [facility] acin 7 [place] 00:00: [facility] Penicill DA Active SV RASHES 2018-0 [facility] ins 7 [place] 00:00: [facility] codeine DA Active CT RASHES, [facility] [facility] levoflox DA Active CT NAUSEA 2018-0 [facility] acin 7-11 [place] 00:00: [facility] 00 [facility] Penicill DA Active SV 2019-0 [facility] 3[facility]12 [facility] [place] codeine DA Active CT 2019-0 [facility] 3[facility]12 [facility] [place] levoflox DA Active CT 2019-0 [facility] acin 3-12 [facility] [place] Penicill DA Active SV 2019-0 [facility] ins 3-11 [facility] [place] codeine DA Active CT 2019-0 [facility] 3-11 [facility] [place] levoflox DA Active CT 2018- [facility] acin 1-27 [facility] [place] Penicill DA Active SV 2018-1 [facility] ins 1-27 [place] 00:00: [facility] codeine DA Active CT 2018- [facility] 1-27 [place] 00:00: [facility] 00 [facility] LEVOFLOX DRUG Active N/V 2018-0 Univers ACIN INGREDI 8- ity of 00:00: [place] 00 Medical Branch PENICILL Drug Active Rash 2018-0 Univers INS Class 8- ity of 00:00: [place] 00 Medical Branch Penicill Propensi Active Rash 2018-0 Univer s ins ty to 05-23 ity of adverse 00:00: [place] reaction 00 Medical s Branch Levoflox Propensi Active Nausea 2017-0 Univer s acin ty to and/or 05-23 ity of adverse Vomiting 00:00: [place] reaction Medical s Branch Penicill Propensi Active Rash 2018-0 Univer s ins ty to 05-23 ity of adverse 00:00: [place] reaction 00 Medical s Branch Penicill DA Active SV 2017-0 [facility] ins 1-12 [place] 00:00: [facility] 00 [facility] codeine DA Active CT 2017-0 [facility] 1-12 [place] 00:00: [facility] 00 [facility] levoflox DA Active CT 2017-0 [facility] acin 1-12 [place] 00:00: [facility] 00 [facility] Social History Social Habit Start Date Stop Date Quantity Comments Source Tobacco use and 2022-08-02 2022-08-02 Smokeless tobacco Un iversity of exposure 00:00:00 00:00:[address] [facility] Exposure to 2022-07-21 2022-07-31 Not sure [facility] SARS-CoV-2 00:00:00 15:51:00 [place] [facility] (event) Branch Sex Ass[birth year] [facility] 00:00:00 00:00:00 [facility] Smoking Status Start Date Stop Date Source [facility] Medications Ordered Filled Start Stop Current Ordering Indication Dosage Frequency Signature Comments Components Source Medication Medication Date Date Medication? Clinician (SIG) Name Name aspirin 81 2021-10 Yes 81mg Take 81 mg U nivers mg chewable 0-13 by mouth. ity of tablet 14:59: [address] aspirin 81 2021-10 Yes 81mg Take 81 mg U nivers mg chewable 0-13 by mouth. ity of tablet 14:59: [address] aspirin 81 2021-10 Yes 81mg Take 81 mg U nivers mg chewable 0-13 by mouth. ity of tablet 14:59: [address] aspirin 81 2021-10 Yes 81mg Take 81 mg U nivers mg chewable 0-13 by mouth. ity of tablet 14:59: [address] aspirin 81 2021-10 Yes 81mg Take 81 mg U nivers mg chewable 0-13 by mouth. ity of tablet 14:59: [address] aspirin 81 2021-10 Yes 81mg Take 81 mg U nivers mg chewable 0-13 by mouth. ity of tablet 14:59: [address] busPIRone 5 2021-10 Yes [id number] Take 1 Univers mg tablet 0-13 tablet by ity o f 00:00: mouth [place] 00 daily x 1 Medical week and Branch then increase to 1 tab twice per day. dicyclomine 2021-10 Yes [id number] 20mg Take 2 Univers 10 mg 0-13 capsules it[facility] of capsule 00:00: [place] 4 [place] (four) Medical times Branch daily. ondansetron 2021-10 Yes [id number] 8mg Take 1 Univers 8 mg tablet 0-13 tablet by ity of 00:00: mouth [place] 00 every 8 Medical (eight) Branch hours. busPIRone 5 2021-10 Yes [id number] Take 1 Univers mg tablet 0-13 tablet by ity o f 00:00: mouth [place] 00 daily x 1 Medical week and Branch then increase to 1 tab twice per day. dicyclomine 2021-10 Yes [id number] 20mg Take 2 [facility] 10 mg 0-13 capsules [place]y of capsule 00:00: [place] 4 [place] (four) Medical times Branch daily. ondansetron 2021-10 Yes [id number] 8mg Take 1 [facility] 8 mg tablet 0-13 tablet by ity of 00:00: mouth [place] 00 every 8 Medical (eight) Branch hours. busPIRone 5 2021-10 Yes [id number] Take 1 Univers mg tablet 0-13 tablet by ity o f 00:00: mouth [place] 00 daily x 1 Medical week and Branch then increase to 1 tab twice per day. dicyclomine 2021-10 Yes [id number] 20mg Take 2 Univers 10 mg 0-13 capsules ity of capsule 00:00: [place] (four) Medical times Branch daily. ondansetron 2021-10 Yes [id number] 8mg Take 1 [facility] 8 mg tablet 0-13 tablet by ity of 00:00: mouth [place] 00 every 8 Medical (eight) Branch hours. ondansetron 2021-10- No 4mg 4 mg, Slow Univers (ZOFRAN 0-09 29-12 IV Push, ity of (PF)) 01:45: 01:40 ONCE, 1 [place] injection 4 00 :00 dose, On Medi jamaal mg [facility] 07/31/22 at 2045, CHAS iopamidol 2021-10- No [id number] 70mL 70 mL, U nivers (ISOVUE 0-12 -12 Intravenou ity o f 300-500 mL) 01:15: 01:15 s, ONCE, 1 [place] injection 00 :00 dose, On Medica l 70 mL [facility] Branch 07/31/22 at 2015, Routine pantoprazol [...] [place] mg [place] :00 dose, On [facility] 07/31/22 at 1945, Routine morpHINE (4 2021-10- No 4mg 4 mg, Slow Univers mg/mL) 011 -12 IV Push, ity of injection 4 22:00: 01:40 [place]CE, 1 [place] :[place] dose, On [facility] Branch 07/31/22 at 1700, STAT ondansetron 2021-10- No 4mg 4 mg, Slow Univers (ZOFRAN 0-11 10-11 IV Push, ity of (PF)) 22:00: 22:00 ONCE, 1 [place] injection 4 00 :00 dose, On Medi jamaal mg e Branch 07/31/22 at 1700, CHAS SERTraline 2021-10 Yes Univers 50 mg 0-05 ity of tablet 00:00: [place] [facility] SERTraline 2021-10 Yes Univers 50 mg 0-05 ity of tablet 00:00: [place] [facility] SERTraline 2021-10 Yes Univers 50 mg 0-05 ity of tablet 00:00: [place] [facility] SERTraline 2021-10 Yes Univers 50 mg 0-05 ity of tablet 00:00: [address] SERTraline 2021-10 Yes Univers 50 mg 0-05 ity of tablet 00:00: [address] SERTraline 2021-10 Yes Univers 50 mg 0-05 ity of tablet 00:00: [address] SERTraline 2021-10 Yes Univers 50 mg 0-05 ity of tablet 00:00: [place] [address] Medical Branch SERTraline 2021-10- No Univer s 50 mg 0-05 10-13 ity of tablet 00:00: 00:00 [place] 00 :00 Medical Branch SERTraline 2021-10- No Univer s 50 mg 0-05 10-13 ity of tablet 00:00: 00:00 [place] 00 :00 Medical Branch SERTraline 2021-10- No Univer s 50 mg 0-05 10-13 ity of tablet 00:00: 00:00 [place] 00 :00 Medical Branch SERTraline 2021-10- No Univer s 50 mg 0-05 10-13 ity of tablet 00:00: 00:00 [place] 00 :00 Medical Branch SERTraline 2021-10- No Univer s 50 mg 0-05 10-13 ity of tablet 00:00: 00:00 [place] 00 :00 [facility] mirtazapine 0 Yes [id number] 7.5mg Take 1 Univers 7.5 mg 9-30 tablet by ity of tablet 00:00: mouth at [place] 00 bedtime. Medical After 10 Branch days, take 2 in the evening. mirtazapine 2022-0 Yes [id number] 7.5mg Take 1 Univers 7.5 mg 9-30 tablet by ity of tablet 00:00: mouth at [place] 00 bedtime. Medical After 10 Branch days, take 2 in the evening. mirtazapine 2022-0 Yes [id number] 7.5mg Take 1 Univers 7.5 mg 9-30 tablet by ity of tablet 00:00: mouth at [place] 00 bedtime. Medical After 10 Branch days, take 2 in the evening. mirtazapine 2022-0 Yes [id number] 7.5mg Take 1 Univers 7.5 mg 9-30 tablet by ity of tablet 00:00: mouth at [place] 00 bedtime. Medical After 10 Branch days, take 2 in the evening. mirtazapine 2022-0 Yes [id number] 7.5mg Take 1 Univers 7.5 mg 9-30 tablet by ity of tablet 00:00: mouth at [place] 00 bedtime. Medical After 10 Branch days, take 2 in the evening. mirtazapine 2022-0 Yes [id number] 7.5mg Take 1 Univers 7.5 mg 9-30 tablet by ity of tablet 00:00: mouth at [place] 00 bedtime. Medical After 10 Branch days, take 2 in the evening. mirtazapine 2022-0 Yes [id number] 7.5mg Take 1 Univers 7.5 mg 9-30 tablet by ity of tablet 00:00: mouth at [place] 00 bedtime. Medical After 10 Branch days, take 2 in the evening. mirtazapine 2022-0 Yes [id number] 7.5mg Take 1 Univers 7.5 mg 9-30 tablet by ity of tablet 00:00: mouth at [place] 00 bedtime. Medical After 10 Branch days, take 2 in the evening. mirtazapine 2022-0 Yes [id number] 7.5mg Take 1 Univers 7.5 mg 9-30 tablet by ity of tablet 00:00: mouth at [place] 00 bedtime. Medical After 10 Branch days, take 2 in the evening. mirtazapine 2022-0 Yes [id number] 7.5mg Take 1 Univers 7.5 mg 9-30 tablet by ity of tablet 00:00: mouth at [place] 00 bedtime. Medical After 10 Branch days, take 2 in the evening. mirtazapine 2-0 Yes [id number] 7.5mg Take 1 Univers 7.5 mg 9-30 tablet by ity of tablet 00:00: mouth at [place] 00 bedtime. Medical After 10 Branch days, take 2 in the evening. mirtazapine 2-0 Yes [id number] 7.5mg Take 1 Univers 7.5 mg 9-30 tablet by ity of tablet 00:00: mouth at [place] 00 bedtime. Medical After 10 Branch days, take 2 in the evening. mirtazapine 2-0 Yes [id number] 7.5mg Take 1 Univers 7.5 mg 9-30 tablet by ity of tablet 00:00: mouth at [place] 00 bedtime. Medical After 10 Branch days, take 2 in the evening. mirtazapine 2-0 Yes [id number] 7.5mg Take 1 Univers 7.5 mg 9-30 tablet by ity of tablet 00:00: mouth at [place] 00 bedtime. Medical After 10 Branch days, take 2 in the evening. mirtazapine 2-0 Yes [id number] 7.5mg Take 1 Univers 7.5 mg 9-30 tablet by ity of tablet 00:00: mouth at [place] 00 bedtime. Medical After 10 Branch days, take 2 in the evening. mirtazapine 2-0 Yes [id number] 7.5mg Take 1 Univers 7.5 mg 9-30 tablet by ity of tablet 00:00: mouth at [place] 00 bedtime. Medical After 10 Branch days, take 2 in the evening. mirtazapine 2022-0 2022- No [id number] 7.5mg Take 1 Univers 7.5 mg 9-30 10-13 tablet by ity of tablet 00:00: 00:00 mouth at [place] 00 :00 bedtime. Medical After 10 Branch days, take 2 in the evening. mirtazapine 2022-0 2022- No [id number] 7.5mg Take 1 Univers 7.5 mg 9-30 10-13 tablet by ity of tablet 00:00: 00:00 mouth at [place] 00 :00 bedtime. Medical After 10 Branch days, take 2 in the evening. mirtazapine 2022-0 2022- No [id number] 7.5mg Take 1 Univers 7.5 mg 9-30 10-13 tablet by ity of tablet 00:00: 00:00 mouth at [place] 00 :00 bedtime. Medical After 10 Branch days, take 2 in the evening. mirtazapine 2022-0 2022- No [id number] 7.5mg Take 1 Univers 7.5 mg 9-30 10-13 tablet by ity of tablet 00:00: 00:00 mouth at [place] 00 :00 bedtime. Medical After 10 Branch days, take 2 in the evening. mirtazapine 2022-0 2022- No [id number] 7.5mg Take 1 Univers 7.5 mg 9-30 10-13 tablet by ity of tablet 00:00: 00:00 mouth at [place] 00 :00 bedtime. Medical After 10 Branch days, take 2 in the evening. ondansetron 2022-0 Yes 4mg Take 4 mg U nivers 4 mg tablet 9-29 by mouth ity of 00:00: every 8 [place] 00 (eight) Medical hours. Branch ondansetron 2022-0 Yes 4mg Take 4 mg U nivers 4 mg tablet 9-29 by mouth ity of 00:00: every 8 [place] 00 (eight) Medical hours. Branch ondansetron 2022-0 Yes 4mg Take 4 mg U nivers 4 mg tablet 9-29 by mouth ity of 00:00: every 8 [place] 00 (eight) Medical hours. Branch ondansetron 2022-0 Yes 4mg Take 4 mg U nivers 4 mg tablet 9-29 by mouth ity of 00:00: every 8 [place] 00 (eight) Medical hours. Branch ondansetron 2022-0 Yes 4mg Take 4 mg U nivers 4 mg tablet 9-29 by mouth ity of 00:00: every 8 [place] 00 (eight) Medical hours. Branch ondansetron 2022-0 Yes 4mg Take 4 mg U nivers 4 mg tablet 9-29 by mouth ity of 00:00: every 8 [place] 00 (eight) Medical hours. Branch ondansetron 2022-0 Yes 4mg Take 4 mg U nivers 4 mg tablet 9-29 by mouth ity of 00:00: every 8 [place] 00 (eight) Medical hours. Branch ondansetron 2022-0 2022- No 4mg Take 4 mg Univers 4 mg tablet 07-19-13 by mouth ity of 00:00: 00:00 every 8 [place] 00 :00 (eight) Medical hours. Branch ondansetron 2-0 2- No 4mg Take 4 mg Univers 4 mg tablet 07-19-13 by mouth ity of 00:00: 00:00 every 8 [place] 00 :00 (eight) Medical hours. Branch ondansetron 2-0 2022- No 4mg Take 4 mg Univers 4 mg tablet 07-19-13 by mouth ity of 00:00: 00:00 every 8 [place] 00 :00 (eight) Medical hours. Branch ondansetron 2-0 2022- No 4mg Take 4 mg Univers 4 mg tablet 07-19- by mouth ity of 00:00: 00:00 every 8 [place] 00 :00 (eight) Medical hours. Branch ondansetron 2-0 2- No 4mg Take 4 mg Univers 4 mg tablet 07-19- by mouth ity of 00:00: 00:00 every 8 [place] 00 :00 (eight) Medical hours. Branch dicyclomine 2022-0 Yes Univer s 10 mg 9-24 ity of capsule 00:00: [place] 00 Medical Branch dicyclomine 2022-0 Yes Univer s 10 mg 9-24 ity of capsule 00:00: [place] 00 Medical Branch dicyclomine 2022-0 Yes Univer s 10 mg 9-24 ity of capsule 00:00: [place] 00 Medical Branch dicyclomine 2022-0 Yes Univer s 10 mg 9-24 ity of capsule 00:00: [place] 00 Medical Branch dicyclomine 2022-0 Yes Univer s 10 mg 9-24 ity of capsule 00:00: [place] 00 Medical Branch dicyclomine 2022-0 Yes Univer s 10 mg 9-24 ity of capsule 00:00: [place] 00 Medical Branch dicyclomine 2022-0 Yes Univer s 10 mg 9-24 ity of capsule 00:00: [place] 00 Medical Branch dicyclomine 2022-0 Yes Univer s 10 mg 9-24 ity of capsule 00:00: [place] 00 Medical Branch dicyclomine 2022-0 Yes Univer s 10 mg 9-24 ity of capsule 00:00: [place] 00 Medical Branch dicyclomine 2021-0 Yes Univer s 10 mg 9-24 ity of capsule 00:00: [place] 00 Medical Branch dicyclomine 2-0 Yes Univer s 10 mg 9-24 ity of capsule 00:00: [place] 00 Medical Branch dicyclomine 2021-0 Yes Univer s 10 mg 9-24 ity of capsule 00:00: [place] 00 Medical Branch dicyclomine 2021-0 Yes Univer s 10 mg 9-24 ity of capsule 00:00: [place] 00 Medical Branch dicyclomine 2021-0 Yes Univer s 10 mg 9-24 ity of capsule 00:00: [place] [address] Medical Branch dicyclomine 2021-0 Yes Univer s 10 mg 9-24 ity of capsule 00:00: [place] [address] Medical Branch dicyclomine 2021-0 Yes Univer s 10 mg 9-24 ity of capsule 00:00: [place] 00 Medical Branch dicyclomine 2021-0 2022- No Unive rs 10 mg 9-24 10-13 ity of capsule 00:00: 00:00 [place] 00 :00 Medical Branch dicyclomine 2-0 2022- No Unive rs 10 mg 9-24 10-13 ity of capsule 00:00: 00:00 [place] 00 :00 Medical Branch dicyclomine 2-0 2022- No Unive rs 10 mg 9-24 10-13 ity of capsule 00:00: 00:00 [place] 00 :00 Medical Branch dicyclomine 2022-0 2022- No Unive rs 10 mg 9-24 10-13 ity of capsule 00:00: 00:00 [place] 00 :00 Medical Branch dicyclomine 2-0 2022- No Unive rs 10 mg 9-24 10-13 ity of capsule 00:00: 00:00 [place] 00 :00 Medical Branch temazepam 2021-0 Yes TAKE 2 Univer s 7.5 mg 9-19 CAPSULE BY ity of capsule 00:00: MOUTH AT [place] 00 BEDTIME Medical NEEDED FOR Branch SLEEP propranoloL 2021-0 Yes 10mg Take 10 mg Univers 10 mg 9-19 by mouth ity of tablet 00:00: in the [place] 00 morning Medical and 10 mg Branch in the evening. temazepam 2022-0 Yes TAKE 2 Univer s 7.5 mg 9-19 CAPSULE BY ity of capsule 00:00: MOUTH AT [place] [address] BEDTIME Medical NEEDED FOR Branch SLEEP propranoloL 2-0 Yes 10mg Take 10 mg Univers 10 mg 9-19 by mouth ity of tablet 00:00: in the [place] morning Medical and 10 mg Branch in the evening. temazepam 2021-0 Yes TAKE 2 Univer s 7.5 mg 9-19 CAPSULE BY ity of capsule 00:00: MOUTH AT [place] [address] BEDTIME Medical NEEDED FOR Branch SLEEP propranoloL 2-0 Yes 10mg Take 10 mg Univers 10 mg 9-19 by mouth ity of tablet 00:00: in the [place] morning Medical and 10 mg Branch in the evening. temazepam 2021-0 Yes TAKE 2 Univer s 7.5 mg 9-19 CAPSULE BY ity of capsule 00:00: MOUTH AT [place] [address] BEDTIME Medical NEEDED FOR Branch SLEEP propranoloL 2021-0 Yes 10mg Take 10 mg Univers 10 mg 9-19 by mouth ity of tablet 00:00: in the [place] morning Medical and 10 mg Branch in the evening. temazepam 2021-0 Yes TAKE 2 Univer s 7.5 mg 9-19 CAPSULE BY ity of capsule 00:00: MOUTH AT [place] [address] BEDTIME Medical NEEDED FOR Branch SLEEP temazepam 2021-0 Yes TAKE 2 Univer s 7.5 mg 9-19 CAPSULE BY ity of capsule 00:00: MOUTH AT [place] [address] BEDTIME Medical NEEDED FOR Branch SLEEP temazepam 2-0 Yes TAKE 2 Univer s 7.5 mg 9-19 CAPSULE BY ity of capsule 00:00: MOUTH AT [place] [address] BEDTIME Medical NEEDED FOR Branch SLEEP propranoloL 2-0 Yes 10mg Take 10 mg Univers 10 mg 9-19 by mouth ity of tablet 00:00: in the [place] morning Medical and 10 mg Branch in the evening. temazepam 2-0 Yes TAKE 2 Univer s 7.5 mg 9-19 CAPSULE BY ity of capsule 00:00: MOUTH AT [place] [address] BEDTIME Medical NEEDED FOR Branch SLEEP propranoloL 2-0 Yes 10mg Take 10 mg Univers 10 mg 9-19 by mouth ity of tablet 00:00: in the [place] morning Medical and 10 mg Branch in the evening. temazepam 2-0 Yes TAKE 2 Univer s 7.5 mg 9-19 CAPSULE BY ity of capsule 00:00: MOUTH AT [place] [address] BEDTIME Medical NEEDED FOR Branch SLEEP propranoloL 2022-0 Yes 10mg Take 10 mg Univers 10 mg 9-19 by mouth ity of tablet 00:00: in the [place] morning Medical and 10 mg Branch in the evening. temazepam 2022-0 Yes TAKE 2 Univer s 7.5 mg 9-19 CAPSULE BY ity of capsule 00:00: MOUTH AT [place] [address] BEDTIME Medical NEEDED FOR Branch SLEEP propranoloL 2022-0 Yes 10mg Take 10 mg Univers 10 mg 9-19 by mouth ity of tablet 00:00: in the [place] morning Medical and 10 mg Branch in the evening. temazepam 2022-0 Yes TAKE 2 Univer s 7.5 mg 9-19 CAPSULE BY ity of capsule 00:00: MOUTH AT [place] [address] BEDTIME Medical NEEDED FOR Branch SLEEP propranoloL 2-0 Yes 10mg Take 10 mg Univers 10 mg 9-19 by mouth ity of tablet 00:00: in the [place] morning Medical and 10 mg Branch in the evening. temazepam 2022-0 Yes TAKE 2 Univer s 7.5 mg 9-19 CAPSULE BY ity of capsule 00:00: MOUTH AT [place] [address] BEDTIME Medical NEEDED FOR Branch SLEEP propranoloL 2-0 Yes 10mg Take 10 mg Univers 10 mg 9-19 by mouth ity of tablet 00:00: in the [place] [address] morning Medical and 10 mg Branch in the evening. temazepam 2022-0 Yes TAKE 2 Univer s 7.5 mg 9-19 CAPSULE BY ity of capsule 00:00: MOUTH AT [place] [address] BEDTIME Medical NEEDED FOR Branch SLEEP propranoloL 2022-0 Yes 10mg Take 10 mg Univers 10 mg 9-19 by mouth ity of tablet 00:00: in the [place] morning Medical and 10 mg Branch in the evening. temazepam 2022-0 Yes TAKE 2 Univer s 7.5 mg 9-19 CAPSULE BY ity of capsule 00:00: MOUTH AT [place] [address] BEDTIME Medical NEEDED FOR Branch SLEEP propranoloL 2022-0 Yes 10mg Take 10 mg Univers 10 mg 9-19 by mouth ity of tablet 00:00: in the [place] morning Medical and 10 mg Branch in the evening. temazepam 2022-0 Yes TAKE 2 Univer s 7.5 mg 9-19 CAPSULE BY ity of capsule 00:00: MOUTH AT [place] [address] BEDTIME Medical NEEDED FOR Branch SLEEP propranoloL Yes 10mg Take 10 mg Univers 10 mg 9-19 by mouth ity of tablet 00:00: in the [place] [address] morning Medical and 10 mg Branch in the evening. temazepam Yes TAKE 2 Univer s 7.5 mg 9-19 CAPSULE BY ity of capsule 00:00: MOUTH AT [place] [address] BEDTIME Medical NEEDED FOR Branch SLEEP propranoloL 0 Yes 10mg Take 10 mg Univers 10 mg 9-19 by mouth ity of tablet 00:00: in the [place] [address] morning Medical and 10 mg Branch in the evening. temazepam 2021-2021- No TAKE 2 Unive rs 7.5 mg 9-19 10-13 CAPSULE BY ity of capsule 00:00: 00:00 MOUTH AT [place] 00 :00 BEDTIME Medical NEEDED FOR Branch SLEEP propranoloL 2021-0 2021- No 10mg Take 10 mg Univers 10 mg 9-19 10-13 by mouth ity of tablet 00:00: 00:00 in the [place] 00 :00 morning Medical and 10 mg Branch in the evening. temazepam 2021-2021- No TAKE 2 Unive rs 7.5 mg 9-19 10-13 CAPSULE BY ity of capsule 00:00: 00:00 MOUTH AT [place] 00 :00 BEDTIME Medical NEEDED FOR Branch SLEEP propranoloL 2021-0 2021- No 10mg Take 10 mg Univers 10 mg 9-19 10-13 by mouth ity of tablet 00:00: 00:00 in the [place] 00 :00 morning Medical and 10 mg Branch in the evening. temazepam 2021-2021- No TAKE 2 Unive rs 7.5 mg 9-19 10-13 CAPSULE BY ity of capsule 00:00: 00:00 MOUTH AT [place] 00 :00 BEDTIME Medical NEEDED FOR Branch SLEEP propranoloL 2021-0 2021- No 10mg Take 10 mg Univers 10 mg 9-19 10-13 by mouth ity of tablet 00:00: 00:00 in the [place] 00 :00 morning Medical and 10 mg Branch in the evening. temazepam 2021-2021- No TAKE 2 Unive rs 7.5 mg 9-19 10-13 CAPSULE BY ity of capsule 00:00: 00:00 MOUTH AT [place] 00 :00 BEDTIME Medical NEEDED FOR Branch SLEEP propranoloL 2021- No 10mg Take 10 mg Univers 10 mg 9-19 10-13 by mouth ity of tablet 00:00: 00:00 in the [place] 00 :00 morning Medical and 10 mg Branch in the evening. temazepam 2021- No TAKE 2 Unive rs 7.5 mg 9- 10-13 CAPSULE BY ity of capsule 00:00: 00:00 MOUTH AT [place] 00 :00 BEDTIME Medical NEEDED FOR Branch SLEEP propranoloL 2021- No 10mg Take 10 mg Univers 10 mg 9-19 10-13 by mouth ity of tablet 00:00: 00:00 in the [place] 00 :00 morning Medical and 10 mg Branch in the evening. pantoprazol Yes 40mg Take 40 mg Univers e 40 mg EC 9-18 by mouth ity o f tablet 00:00: every [place] 00 morning. Medical Branch pantoprazol Yes 40mg Take 40 mg Univers e 40 mg EC 9-18 by mouth ity o f tablet 00:00: every [place] 00 morning. Medical Branch pantoprazol Yes 40mg Take 40 mg Univers e 40 mg EC 9-18 by mouth ity o f tablet 00:00: every [place] 00 morning. Medical Branch hydrALAZINE Yes TAKE 1 Univ ers 50 mg 9-08 TABLET BY ity of tablet 00:00: MOUTH WITH [place] 00 FOOD TWICE Medical DAILY Branch hydrALAZINE 0 Yes TAKE 1 Univ ers 50 mg 9-08 TABLET BY ity of tablet 00:00: MOUTH WITH [place] 00 FOOD TWICE Medical DAILY Branch hydrALAZINE 0 Yes TAKE 1 Univ ers 50 mg 9-08 TABLET BY ity of tablet 00:00: MOUTH WITH [place] 00 FOOD TWICE Medical DAILY Branch hydrALAZINE 0 Yes TAKE 1 Univ ers 50 mg 9-08 TABLET BY ity of tablet 00:00: MOUTH WITH [place] 00 FOOD TWICE Medical DAILY Branch hydrALAZINE 0 Yes TAKE 1 Univ ers 50 mg 9-08 TABLET BY ity of tablet 00:00: MOUTH WITH [place] 00 FOOD TWICE Medical DAILY Branch hydrALAZINE 0 Yes TAKE 1 Univ ers 50 mg 9-08 TABLET BY ity of tablet 00:00: MOUTH WITH [place] FOOD TWICE Medical DAILY Branch hydrALAZINE 2021-0 [...] :00 breakfast. Medical Branch diazePAM 2020-10 Yes [id number] 5mg Take 1 Univers mg tablet 2-01 tablet by ity o f 00:00: mouth as [place] 00 needed for Medical Anxiety Branch (take on tablet 30 minutes before procedure and then 1 tablet, if needed, when waiting to have procedure) . diazePAM 2020-10 Yes [id number] 5mg Take 1 Univers mg tablet 2-01 tablet by ity o f 00:00: mouth as [place] 00 needed for Medical Anxiety Branch (take on tablet 30 minutes before procedure and then 1 tablet, if needed, when waiting to have procedure) . diazePAM 2020-10 Yes [id number] 5mg Take 1 Univers mg tablet 2-01 tablet by ity o f 00:00: mouth as [place] 00 needed for Medical Anxiety Branch (take on tablet 30 minutes before procedure and then 1 tablet, if needed, when waiting to have procedure) . diazePAM 2020-10 Yes [id number] 5mg Take 1 Univers mg tablet 2-01 tablet by ity o f 00:00: mouth as [place] 00 needed for Medical Anxiety Branch (take on tablet 30 minutes before procedure and then 1 tablet, if needed, when waiting to have procedure) . diazePAM 2020-10 Yes [id number] 5mg Take 1 Univers mg tablet 2-01 tablet by ity o f 00:00: mouth as [place] 00 needed for Medical Anxiety Branch (take on tablet 30 minutes before procedure and then 1 tablet, if needed, when waiting to have procedure) . diazePAM 2020-10 Yes [id number] 5mg Take 1 Univers mg tablet 2-01 tablet by ity o f 00:00: mouth as [place] 00 needed for Medical Anxiety Branch (take on tablet 30 minutes before procedure and then 1 tablet, if needed, when waiting to have procedure) . diazePAM 2020-10 Yes [id number] 5mg Take 1 Univers mg tablet 2-01 tablet by ity o f 00:00: mouth as [place] 00 needed for Medical Anxiety Branch (take on tablet 30 minutes before procedure and then 1 tablet, if needed, when waiting to have procedure) . diazePAM 2020-10 Yes [id number] 5mg Take 1 Univers mg tablet 2-01 tablet by ity o f 00:00: mouth as [place] 00 needed for Medical Anxiety Branch (take on tablet 30 minutes before procedure and then 1 tablet, if needed, when waiting to have procedure) . diazePAM 2020-10 Yes [id number] 5mg Take 1 Univers mg tablet 2-01 tablet by ity o f 00:00: mouth as [place] 00 needed for Medical Anxiety Branch (take on tablet 30 minutes before procedure and then 1 tablet, if needed, when waiting to have procedure) . diazePAM 2020-10 Yes [id number] 5mg Take 1 Univers mg tablet 2-01 tablet by ity o f 00:00: mouth as [place] 00 needed for Medical Anxiety Branch (take on tablet 30 minutes before procedure and then 1 tablet, if needed, when waiting to have procedure) . diazePAM 2020-10 Yes [id number] 5mg Take 1 Univers mg tablet 2-01 tablet by ity o f 00:00: mouth as [place] 00 needed for Medical Anxiety Branch (take on tablet 30 minutes before procedure and then 1 tablet, if needed, when waiting to have procedure) . diazePAM 2020-10 Yes [id number] 5mg Take 1 Univers mg tablet 2-01 tablet by ity o f 00:00: mouth as [place] 00 needed for Medical Anxiety Branch (take on tablet 30 minutes before procedure and then 1 tablet, if needed, when waiting to have procedure) . diazePAM 2020-10 Yes [id number] 5mg Take 1 Univers mg tablet 2-01 tablet by ity o f 00:00: mouth as [place] 00 needed for Medical Anxiety Branch (take on tablet 30 minutes before procedure and then 1 tablet, if needed, when waiting to have procedure) . diazePAM 2020-10 Yes [id number] 5mg Take 1 Univers mg tablet 2-01 tablet by ity o f 00:00: mouth as [place] 00 needed for Medical Anxiety Branch (take on tablet 30 minutes before procedure and then 1 tablet, if needed, when waiting to have procedure) . diazePAM 2020-10 Yes [id number] 5mg Take 1 Univers mg tablet 2-01 tablet by ity o f 00:00: mouth as [place] 00 needed for Medical Anxiety Branch (take on tablet 30 minutes before procedure and then 1 tablet, if needed, when waiting to have procedure) . diazePAM 2020-10 Yes [id number] 5mg Take 1 Univers mg tablet 2-01 tablet by ity o f 00:00: mouth as [place] 00 needed for Medical Anxiety Branch (take on tablet 30 minutes before procedure and then 1 tablet, if needed, when waiting to have procedure) . diazePAM 2020-10 Yes [id number] 5mg Take 1 Univers mg tablet 2-01 tablet by ity o f 00:00: mouth as [place] 00 needed for Medical Anxiety Branch (take on tablet 30 minutes before procedure and then 1 tablet, if needed, when waiting to have procedure) . diazePAM 2020-10 No [id number] 5mg Take 1 Univers mg tablet 2- 10- tablet by ity of 00:00: 00:00 mouth as [place] 00 :00 needed for Medical Anxiety Branch (take on tablet 30 minutes before procedure and then 1 tablet, if needed, when waiting to have procedure) . diazePAM 2020-10 No [id number] 5mg Take 1 Univers mg tablet 2- 10- tablet by ity of 00:00: 00:00 mouth as [place] 00 :00 needed for Medical Anxiety Branch (take on tablet 30 minutes before procedure and then 1 tablet, if needed, when waiting to have procedure) . diazePAM 5 2020-10- No [id number] 5mg Take 1 Univers mg tablet 11-21 tablet by ity of 00:00: 00:00 mouth as [place] 00 :00 needed for Medical Anxiety Branch (take on tablet 30 minutes before procedure and then 1 tablet, if needed, when waiting to have procedure) . diazePAM 5 2020-10- No [id number] 5mg Take 1 Univers mg tablet 11-21 tablet by ity of 00:00: 00:00 mouth as [place] 00 :00 needed for Medical Anxiety Branch (take on tablet 30 minutes before procedure and then 1 tablet, if needed, when waiting to have procedure) . diazePAM 5 2020-10- No [id number] 5mg Take 1 Univers mg tablet 11-21 tablet by ity of 00:00: 00:00 mouth as [place] 00 :00 needed for Medical Anxiety Branch (take on tablet 30 minutes before procedure and then 1 tablet, if needed, when waiting to have procedure) . aspirin 81 2020-10 Yes 81mg Take 81 mg U nivers mg chewable 0-12 by mouth. ity of tablet 08:16: [address] tamsulosin 2020-10 Yes Take by Univ ers 0.4 mg 24 0-12 mouth ity of hr capsule 08:16: daily. [address] aspirin 81 2020- Yes 81mg Take 81 mg U nivers mg chewable 0-12 by mouth. ity of tablet 08:16: [address] tamsulosin 2020-10 Yes Take by Univ ers 0.4 mg 24 0-12 mouth ity of hr capsule 08:16: daily. [address] aspirin 81 2020-10 Yes 81mg Take 81 mg U nivers mg chewable 0-12 by mouth. ity of tablet 08:16: [address] tamsulosin 2020-10 Yes Take by Univ ers 0.4 mg 24 0-12 mouth ity of hr capsule 08:16: daily. [address] aspirin 81 2020-10 Yes 81mg Take 81 mg U nivers mg chewable 0-12 by mouth. ity of tablet 08:16: [address] tamsulosin 2020-10 Yes Take by Univ ers 0.4 mg 24 0-12 mouth ity of hr capsule 08:16: daily. [address] aspirin 81 2020- Yes 81mg Take 81 mg U nivers mg chewable 0-12 by mouth. ity of tablet 08:16: [address] tamsulosin 2020- Yes Take by Univ ers 0.4 mg 24 0-12 mouth ity of hr capsule 08:16: daily. [address] Branch aspirin 81 2020- Yes 81mg Take 81 mg U nivers mg chewable 0-12 by mouth. ity of tablet 08:16: [address] Branch tamsulosin 2020- Yes Take by Univ ers 0.4 mg 24 0-12 mouth ity of hr capsule 08:16: daily. [address] Branch aspirin 81 2020- Yes 81mg Take 81 mg U nivers mg chewable 0-12 by mouth. ity of tablet 08:16: [address] tamsulosin 2020- Yes Take by Univ ers 0.4 mg 24 0-12 mouth ity of hr capsule 08:16: daily. [address] aspirin 81 2020- Yes 81mg Take 81 mg U nivers mg chewable 0-12 by mouth. ity of tablet 08:16: [address] tamsulosin 2020- Yes Take by Univ ers 0.4 mg 24 0-12 mouth ity of hr capsule 08:16: daily. [address] aspirin 81 2020- Yes 81mg Take 81 mg U nivers mg chewable 0-12 by mouth. ity of tablet 08:16: [address] tamsulosin 2020- Yes Take by Univ ers 0.4 mg 24 0-12 mouth ity of hr capsule 08:16: daily. [address] aspirin 81 2020- Yes 81mg Take 81 mg U nivers mg chewable 0-12 by mouth. ity of tablet 08:16: [address] tamsulosin 2020- Yes Take by Univ ers 0.4 mg 24 0-12 mouth ity of hr capsule 08:16: daily. [address] aspirin 81 2020- Yes 81mg Take 81 mg U nivers mg chewable 0-12 by mouth. ity of tablet 08:16: [address] tamsulosin 2020- Yes Take by Univ ers 0.4 mg 24 0-12 mouth ity of hr capsule 08:16: daily. [address] aspirin 81 2020- Yes 81mg Take 81 mg U nivers mg chewable 0-12 by mouth. ity of tablet 08:16: [address] tamsulosin 2020- Yes Take by Univ ers 0.4 mg 24 0-12 mouth ity of hr capsule 08:16: daily. [address] aspirin 81 2020- Yes 81mg Take 81 mg U nivers mg chewable 0-12 by mouth. ity of tablet 08:16: [address] tamsulosin 2020- Yes Take by Univ ers 0.4 mg 24 0-12 mouth ity of hr capsule 08:16: daily. [address] Branch aspirin 81 2020- Yes 81mg Take 81 mg U nivers mg chewable 0-12 by mouth. ity of tablet 08:16: [address] tamsulosin 2020- Yes Take by Univ ers 0.4 mg 24 0-12 mouth ity of hr capsule 08:16: daily. [address] aspirin 81 2020- Yes 81mg Take 81 mg U nivers mg chewable 0-12 by mouth. ity of tablet 08:16: [address] tamsulosin 2020- Yes Take by Univ ers 0.4 mg 24 0-12 mouth ity of hr capsule 08:16: daily. [address] aspirin 81 2020- Yes 81mg Take 81 mg U nivers mg chewable 0-12 by mouth. ity of tablet 08:16: [address] tamsulosin 2020- Yes Take by Univ ers 0.4 mg 24 0-12 mouth ity of hr capsule 08:16: daily. [address] aspirin 81 2020- Yes 81mg Take 81 mg U nivers mg chewable 0-12 by mouth. ity of tablet 08:16: [address] tamsulosin 2020- Yes Take by Univ ers 0.4 mg 24 0-12 mouth ity of hr capsule 08:16: daily. [address] tamsulosin 2020- Yes Take by Univ ers 0.4 mg 24 0-12 mouth ity of hr capsule 08:16: daily. [address] tamsulosin 2020-1 Yes Take by Univ ers 0.4 mg 24 0-12 mouth ity of hr capsule 08:16: daily. [place] [address] Medical Branch tamsulosin 2020- Yes Take by Univ ers 0.4 mg 24 0-12 mouth ity of hr capsule 08:16: daily. [place] [address] Medical Branch tamsulosin 2020- Yes Take by Univ ers 0.4 mg 24 0-12 mouth ity of hr capsule 08:16: daily. [place] [address] Medical Branch tamsulosin 2020- Yes Take by Univ ers 0.4 mg 24 0-12 mouth ity of hr capsule 08:16: daily. [place] [address] Medical Branch tamsulosin 2020-10 Yes Take by Univ ers 0.4 mg 24 0-12 mouth ity of hr capsule 08:16: daily. [place] [address] Medical Branch amLODIPine 2020-10 Yes 5mg Take 5 mg Un jagdeep 5 mg tablet 0-06 by mouth 2 it y of 00:00: (two) [place] times Medical daily. Branch clopidogreL 2020- Yes 75mg Take 75 mg Univers 75 mg 0-06 by mouth ity of tablet 00:00: daily. [place] [facility] amLODIPine 2020- Yes 5mg Take 5 mg Un jagdeep 5 mg tablet 0-06 by mouth 2 it y of 00:00: (two) [place] Medical daily. Branch clopidogreL 2020- Yes 75mg Take 75 mg Univers 75 mg 0-06 by mouth ity of tablet 00:00: daily. [place] [facility] amLODIPine 2020- Yes 5mg Take 5 mg Un jagdeep 5 mg tablet 0-06 by mouth 2 it y of 00:00: (two) [place] Medical daily. Branch clopidogreL 2020- Yes 75mg Take 75 mg Univers 75 mg 0-06 by mouth ity of tablet 00:00: daily. [place] [facility] amLODIPine 2020- Yes 5mg Take 5 mg Un jagdeep 5 mg tablet 0-06 by mouth 2 it y of 00:00: (two) [place] times Medical daily. Branch clopidogreL 2020-1 Yes 75mg Take 75 mg Univers 75 mg 0-06 by mouth ity of tablet 00:00: daily. [place] [facility] amLODIPine 2020- Yes 5mg Take 5 mg Un jagdeep 5 mg tablet 0-06 by mouth 2 it y of 00:00: (two) [place] 00 times Medical daily. Branch clopidogreL 2020-1 [...] 8-23 TABLET BY ity of 00:00: MOUTH [place] EVERY 4 TO Medical 6 HOURS Branch NEEDED FOR PAIN traMADoL Yes TAKE ONE Unive rs 100 mg Tab 8-23 TABLET BY ity of 00:00: MOUTH [place] EVERY 4 TO Medical 6 HOURS Branch [...] 19:52:00 157 mm[Hg] Univer sity of pressure [facility] Diastolic blood 2022-08-02 19:52:00 78 mm[Hg] Unive rsity of [facility] Heart rate 2022-08-02 19:52:00 83 /min [facility] Body temperature 2022-08-02 19:52:[address] [facility] Respiratory rate 2022-08-02 19:52:00 16 /min [facility] Body height 2022-08-02 19:52:00 190.5 cm [facility] Body weight 2022-08-02 19:52:00 82.101 kg [facility] BMI 2022-08-02 19:52:00 22.62 kg/m2 Universi ty of [place] [facility] Oxygen saturation in 2022-08-02 19:52:00 98 /min University of Arterial blood by [facility] Pulse oximetry Branch Systolic blood 2022-08-01 01:50:00 166 mm[Hg] Univer sity of pressure [facility] Branch Diastolic blood 2022-08-01 01:50:00 71 mm[Hg] Unive rsity of [facility] Heart rate 2022-08-01 01:50:00 80 /min Universi ty of [place] [facility] Respiratory rate 2022-08-01 01:50:00 20 /min Univ ersity of [facility] Branch Oxygen saturation in 2022-08-01 01:50:00 100 /min University of Arterial blood by [facility] Pulse oximetry Branch Body temperature 2022-07-31 20:52:00 36.72 Nina [facility] Body weight 2022-07-31 20:52:00 78.472 kg [facility] [place] [facility] BMI 2022-07-31 20:52:00 21.62 kg/m2 [facility] [place] [facility] Body height 2022-07-27 17:50:00 190.5 cm [facility] [place] [facility] Body weight 2022-07-27 17:50:00 81.194 kg [facility] [place] [facility] BMI 2022-07-27 17:50:00 22.37 kg/m2 [facility] [place] [facility] Systolic blood 2022-07-20 18:31:00 146 mm[Hg] Univer sity of [facility] Diastolic blood 2022-07-20 18:31:00 77 mm[Hg] Unive rsity of [facility] Medical [facility] Body height 2022-07-20 18:31:00 190.5 cm [facility] [place] [facility] Body weight 2022-07-20 18:31:00 81.194 kg [facility] [place] [facility] BMI 2022-07-20 18:31:00 22.37 kg/m2 [facility] [place] [facility] Procedures Procedure Date / Time Performed Performing Clinician Sourc e EXTERNAL PROVIDER 2022-08-13 05:01:00 Doctor Unassigned, No Univ [facility] RECORDS Name Medical Branch CT ABDOMEN PELVIS W 2022-08-01 00:20:00 Purnima Christiansen [facility] CONTRAST [facility] URINALYSIS 2022-07-31 23:17:00 Purnima [facility] XR CHEST 1 VW 2022-07-31 22:22:00 [facility] LIPASE 2022-07-31 22:02:00 [facility] TROPONIN I 2022-07-31 22:02:00 [facility] HEPATIC FUNCTION PANEL 2022-07-31 22:02:00 Helena Purnima [facility] ([id number]) Medical [place] (ALB,T.PRO,BILI T,BU/BC,ALT,AST,ALK PHOS) BASIC METABOLIC PANEL 2022-07-31 22:02:00 Helena Purnima [facility] (NA, K, CL, CO2, Medical Branch GLUCOSE, BUN, CREATININE, CA) LIPID PANEL 2022-07-31 22:02:00 Helena Purnima [facility] ([id number])(TOTAL Medical Branch CHOLESTEROL, TRIGLYCERIDES, HDL) CBC WITH DIFF 2022-07-31 22:02:00 Helena [facility] CONSENT/REFUSAL FOR 2022-07-31 20:52:52 Doctor Bridgett, Mindy [facility] DIAGNOSIS AND Name [facility] TREATMENT Encounters Start End Encounter Admission Attending Care Care Encounter Source Date/Time Date/Time Type Type Clinicians Facility Department ID 2022-08-[address] [facility] [id number] [place] 01:34:07 [id number] Health 2021-10-27 Outpatient Corie SIMEON [facility] [id number] Univers 15:53:41 CRISTOBAL Medina [facility] 2022-08-31 2022-08-31 Outpatient R PABLO DUNBAR [facility] [id number] Univers 14:20:00 14:20:00 PABLO DUNBAR [facility] 2022-08-13 2022-08-13 Orders Doctor FELTON 1.2.840.114 [id number] Univers 00:00:00 00:00:00 Only UnassNICHELLE bowles [id number] ity of [place] [facility] 4.2.7.2.686 Michael as [phone] [facility] 009 [place] 2022-08-02 2022-08-02 Office Everardo [facility] 1.2.840.114 [id number] Univers 15:00:00 15:20:00 Visit HEIDI [id number] it y of [facility] 4.2.7.2.686 [place] [id number] [address] E CLINIC 2022-08-02 2022-08-02 Outpatient R EVERARDO, [facility] [id number] Univers 15:00:00 15:00:[address] [facility] 2022-08-02 2022-08-02 Telephone [facility] 1.2.840.114 [id number] Univers 00:00:00 00:00:00 [facility] [id number] ity of [place] 4.2.7.2.686 Michael as CHAD?BLEA [id number] [address] MEDICAL OFFICE [facility] 2022-07-31 2022-07-31 Emergency X [facility] ERT [id number] Univers 15:55:00 21:12:00 PURNIMA ity [facility] [place] [facility] 2022-07-31 2022-07-31 Emergency [facility], TRAUMA 1.2.840.114 [id number] Univers 15:55:00 21:12:00 [facility] [id number] [place] [id number] [facility] 014 [place] 2022-07-31 2022-07-31 Telephone [facility] 1.2.840.114 [id number] Univers 00:00:00 00:00:00 [facility] [id number] ity of [place] 4.2.7.2.686 Michael as CHAD?BLEA [id number] Wy boo [address] MEDICAL OFFICE [facility] 2022-07-30 2022-07-30 Telephone [facility] 1.2.840.114 [id number] Univers 00:00:00 00:00:00 [facility] [id number] ity of [place] 4.2.7.2.686 Michael as CHAD?BLEA [id number] [address] OFFICE [facility] 2022-07-27 2022-07-27 Office Bettina [facility] 1.2.840.114 [id number] Univers 13:00:00 13:20:00 Visit [facility] [id number] ity of [place] 4.2.7.2.686 Michael as CHAD?BLEA [id number] [address] 2022-07-27 2022-07-27 Outpatient R PABLO DUNBAR [facility] [id number] Univers 13:00:00 13:00:00 PABLO DUNBAR ity [facility] 2022-07-26 2022-07-26 [facility] 1.2.840.114 [id number] Univers 00:00:00 00:00:00 [facility] [id number] ity of [place] 4.2.7.2.686 Michael as CHAD?BLEA [id number] [address] 2022-07-25 2022-07-25 [facility] 1.2.840.114 [id number] Univers 00:00:00 00:00:00 [facility] [id number] ity of [place] 4.2.7.2.686 Michael as CHAD?BLEA [id number] [address] 2022-07-25 2022-07-25 [facility] 1.2.840.114 [id number] Univers 00:00:00 00:00:00 [facility] [id number] ity of [place] 4.2.7.2.686 Michael as CHAD?BLEA [id number] [address] 2022-07-23 2022-07-23 [facility] 1.2.840.114 [id number] Univers 00:00:00 00:00:00 [facility] 350.1.13.10 ity of [place] 4.2.7.2.686 Michael as CHAD?BLEA [id number] [address] OFFICE [facility] 2022-07-20 2022-07-20 Outpatient R PABLO DUNBAR [facility] [id number] Univers 14:00:00 14:19:59 PABLO DUNBAR itjayme [facility] 2022-07-20 2022-07-20 Office Bettina [facility] 1.2.840.114 [id number] Univers 14:00:00 14:19:59 Visit [facility] 350.1.13.10 ity of [place] 4.2.7.2.686 Michael as CHAD?BLEA [id number] [address] 2021-11-07 2021-11-07 Outpatient R CAILIN [facility] [id number] Univers 08:30:00 08:30:[address] [facility] 2021-09-21 2021-09-21 Outpatient MARY DmJOHNNY RADI [id number] [facility] 08:45:00 08:45:00 Angel Kwok [place] [facility] 2021-09-11 2021-09-11 Telephone [facility] 1.2.840.114 [id number] Univers 00:00:00 00:00:00 [facility] 350.1.13.10 ity of [place] 4.2.7.2.686 Michael as CHAD?BLEA [id number] [address] 2021-08-15 2021-08-15 Telephone [facility] 1.2.840.114 [id number] Univers 00:00:00 00:00:00 [facility] 350.1.13.10 ity of [place] 4.2.7.2.686 Michael as CHAD?BLEA [id number] [address] 2021-08-08 2021-08-08 Telephone [facility] 1.2.840.114 [id number] Univers 00:00:00 00:00:00 [facility] 350.1.13.10 ity of [place] 4.2.7.2.686 Michael as Chad?Blea [id number] [address] [facility] 2021-08-01 2021-08-01 Office Bettina [facility] 1.2.840.114 [id number] [facility] 07:39:53 09:30:32 Visit Pablo [facility] 350.1.13.10 ity of [place] 4.2.7.2.686 Michael as Chad?Blea [id number] [address] [facility] 2021-08-01 2021-08-01 Outpatient R PABLO DUNBAR [facility] [id number] [facility] 08:00:00 08:00:00 PABLO DUNBAR itjayme [facility] 2021-08-01 2021-08-01 Orders Doctor FELTON 1.2.840.114 [id number] Univers 00:00:00 00:00:00 Only Unassigned, ARECIBO 350.1.13.10 [facility] 4.2.7.2.686 Michael as [id number] [address] 2020-09-26 2020-09-26 Outpatient LEV ChaidezTO RADI [id number] [facility] 08:30:00 08:30:00 Angel 00 [place] [facility] 2020-08-22 2020-08-22 Outpatient LEV ChaidezANTOINE RADI [id number] [facility] 10:00:00 10:00:00 Angel 75 [place] [facility] Results Test Description Test Time Test Comments Results Result [facility] e Comments - XR L-SPINE 2021-09-25 W/BEND VIEW 19:48:00 [facility] : 1955 Sex: M Patient Name: TAMIKA OBREGON Unit No: [id number] EXAMS: CPT CODE: [id number] XR L-SPINE W/BEND VIEW 32976 COMPARISON: Concurrent MRI. IMAGES PROVIDED: 8 views [...] Technologist: RT. Neetu(R) Transcribed D/ (1947) JanetJ [facility] NAME: TAMIKA OBREGON [address] [place] [address] PHYS: Angel Shah MD : 1955 AGE: 65 SEX: M [place] [address] LOC: Y.MRI PHONE #: [phone] EXAM DATE: 09/21/2021 STATUS: DEP CLI FAX #: [phone] RAD #: D/C DT PAGE 1 Signed Report Patient Name: TAMIKA OBREGON Unit No: [id number] EXAMS: CPT CODE: [id number] XR L-SPINE W/BEND VIEW 50207 (Continued) Orig Print D/T: S: 09/25/2021 (1950) [facility] NAME: TAMIKA OBREGON Leyla [facility] PHYS: Angel Shah MD : 1955 AGE: 65 SEX: M [place] [address] LOC: Y.MRI PHONE #: [phone] EXAM DATE: 09/21/2021 STATUS: DEP CLI FAX #: [phone] RAD #: D/C DT PAGE 2 Signed Report - MRI L-SPINE W WO 2021-09-21 CON 13:12:00 [facility] : 1955 Sex: M Patient Name: TAMIKA OBREGON Unit No: [id number] EXAMS: CPT CODE: [id number] MRI L-SPINE W WO CON 10187 DIAGNOSIS: 1. At L1-2 there is no [...] disc bulging foramina with moderate right and dqno-za-gkdjgovp left foraminal narrowing. Moderate central canal stenosis [...] EDGARDO SANCHEZ MRI Transcribed D/ (1312) Susan [facility] NAME: TAMIKA OBREGON [address] [facility] PHYS: Angel Shah MD : 1955 AGE: 65 SEX: M [place] [address] LOC: Y.MRI PHONE #: [phone] EXAM DATE: 09/21/2021 STATUS: REG CLI FAX #: [phone] RAD #: D/C DT PAGE 1 Signed Report Patient Name: TAMIKA OBREGON Unit No: [id number] EXAMS: CPT CODE: [id number] MRI L-SPINE W WO CON 22924 (Continued) Orig Print D/T: S: 09/21/2021 (1315) [facility] NAME: TAMIKA OBREGON [address] [place] [address] PHYS: Angel Shah MD : 1955 AGE: 65 SEX: M [place] [address] LOC: Y.MRI PHONE #: [phone] EXAM DATE: 09/21/2021 STATUS: REG CLI FAX #: [phone] RAD #: D/C DT PAGE 2 Signed Report - CT L-SPINE W/O 2020-09-26 CONTRAST 10:23:00 [facility] : 1955 Sex: M Patient Name: TAMIKA OBREGON Unit No: [id number] EXAMS: CPT CODE: [id number] CT L-SPINE W/O CONTRAST 34034 DIAGNOSIS: 1. At L1-2 there is a [...] Mike(R) CTDI: DLP: Trnscrpt: 09/26/2020 (1023) t.DANIELLER.JCL [facility] NAME: TAMIKA OBREGON [address] [facility] PHYS: Angel Shah MD : 1955 AGE: 64 SEX: M [place], [place] [address] LOC: Y.RAD PHONE #: [phone] EXAM DATE: 09/26/2020 STATUS: REG CLI FAX #: [phone] RAD #: D/C DT PAGE 1 Signed Report Patient Name: TAMIKA OBREGON Unit No: [id number] EXAMS: CPT CODE: [id number] CT L-SPINE W/O CONTRAST 24389 (Continued) Orig Print D/T: S: 09/26/2020 (1026) [facility] NAME: TAMIKA OBREGON [address] [facility] PHYS: Angel Shah MD : 1955 AGE: 64 SEX: M [place], [place] [address] LOC: Y.RAD PHONE #: [phone] EXAM DATE: 09/26/2020 STATUS: REG CLI FAX #: [phone] RAD #: D/C DT PAGE 2 Signed Report - XR L-SPINE 2020-08-22 W/BEND VIEW 11:44:00 [facility] OBREGON : 1955 Sex: M Patient Name: TAMIKA OBREGON Unit No: [id number] EXAMS: CPT CODE: [id number] XR L-SPINE W/BEND VIEW 96345 MRI OF THE LUMBAR SPINE WITH AND [...] Reported and signed by: Gonzalo Silvestre MD [facility] NAME: TAMIKA OBREGON [address] [facility] PHYS: Angel Shah MD : 1955 AGE: 64 SEX: M [place], [place] [address] LOC: Y.MRI PHONE #: [phone] EXAM DATE: 08/22/2020 STATUS: REG CLI FAX #: [phone] RAD #: D/C DT PAGE 1 Signed Report (CONTINUED) Patient Name: TAMIKA OBREGON Unit No: [id number] EXAMS: CPT CODE: [id number] XR L-SPINE W/BEND VIEW 48747 (Continued) CC: Angel Chaidez M.D. Technologist: RT. Neetu(R) Transcribed D/ (1141) [facility] NAME: TAMIKA OBREGON [address] [facility] PHYS: Angel Shah MD : 1955 AGE: 64 SEX: M [place] [address] LOC: Y.MRI PHONE #: [phone] EXAM DATE: 08/22/2020 STATUS: REG CLI FAX #: [phone] RAD #: D/C DT PAGE 2 Signed Report Patient Name: TAMIKA OBREGON Unit No: [id number] EXAMS: CPT CODE: [id number] XR L-SPINE W/BEND VIEW 83515 (Continued) Orig Print D/T: S: 08/22/2020 (1143) [facility] NAME: TAMIKA OBREGON [address] [facility] PHYS: Angel Shah MD : 1955 AGE: 64 SEX: M [place] [address] LOC: Y.MRI PHONE #: [phone] EXAM DATE: 08/22/2020 STATUS: REG CLI FAX #: [phone] RAD #: D/C DT PAGE 3 Signed Report - MRI L-SPINE W WO 2020-08-22 [facility] 11:44:00 [facility] 1955 Sex: M Patient Name: TAMIKA OBREGON Unit No: [id number] EXAMS: CPT CODE: [id number] MRI L-SPINE W WO CON 92684 MRI OF THE LUMBAR SPINE WITH AND [...] Reported and signed by: Gonzalo Silvestre MD [facility] NAME: TAMIKA OBREGON [address] [facility] PHYS: Angel Shah MD : 1955 AGE: 64 SEX: M [place], [place] [address] LOC: Y.MRI PHONE #: [phone] EXAM DATE: 08/22/2020 STATUS: REG CLI FAX #: [phone] RAD #: D/C DT PAGE 1 Signed Report (CONTINUED) Patient Name: TAMIKA OBREGON Unit No: [id number] EXAMS: CPT CODE: [id number] MRI L-SPINE W WO CON 22527 (Continued) CC: Angel Chaidez M.D. Technologist: Jennifer Woodard(R) Transcribed D/ (1144) [facility]GV[facility] NAME: TAMIKA OBREGON [address] [place] [address] PHYS: Angel Shah MD : 1955 AGE: 64 SEX: M [place] [address] LOC: Y.MRI PHONE #: [phone] EXAM DATE: 08/22/2020 STATUS: REG CLI FAX #: [phone] RAD #: D/C DT PAGE 2 Signed Report Patient Name: TAMIKA OBREGON Unit No: [id number] EXAMS: CPT CODE: [id number] MRI L-SPINE W WO CON 10337 (Continued) Orig Print D/T: S: 08/22/2020 (1148) [facility] NAME: TAMIKA OBREGON [address] [place] [address] PHYS: Angel Shah MD : 1955 AGE: 64 SEX: M [place] [address] LOC: Y.MRI PHONE #: [phone] EXAM DATE: 08/22/2020 STATUS: REG CLI FAX #: [phone] RAD #: D/C DT PAGE 3 Signed Report BLOOD UREA NITROGEN 2020-08-22 10:40:00 Test Item Value Reference Range Interpretation Comme nts BLOOD UREA NITROGEN (test code = BUN) 17 mg/dL 7-18 N SPECIMEN COMMENT: STATCREATININE W ESTIMATED [id number] 10:40:00 Test Item Value Reference Range Interpretation Comments GLOMERULAR FILTRATION 70.9 >60 Unit o f measure: RATE (test code = GFR) mL/mi n/1.73 [id number] Range:Healthy A dults >90 mL/min/1.73 m2 For Chronic Kid alfonso Disease: Stage II Mild Decrease i n GFR 60-90 Stage III Moderate Decrea se in GFR 30-59 Stage IV Severe Decrease in GFR 15-29 Stage V Kidney Failure <15 CREATININE (test code = 1.05 mg/dL 0.55-1.30 N CREAT) SPECIMEN COMMENT: STAT- MRI L-SPINE W WO [id number] 09:33:00 Patient Name: TAMIKA OBREGON Unit No: [id number] EXAMS: CPT CODE: [id number] MRI L-SPINE W WO CON 33278 MRI OF THE LUMBAR SPINE WITH AND [...] Karolyn Garza, RT(R) Transcribed D/ (0933) JanetGVG [facility] NAME: TAMIKA OBREGON [address] [facility] PHYS: Angel Shah MD : 1955 AGE: 63 SEX: M [place], [place] [address] LOC: Y.MRI PHONE #: [phone] EXAM DATE: 04/30/2019 STATUS: DEP CLI FAX #: [phone] RAD #: D/C DT PAGE 1 Signed Report Patient Name: TAMIKA OBREGON Unit No: [id number] EXAMS: CPT CODE: [id number] MRI L- SPINE W WO CON 04640 (Continued) Orig Print D/T: S: 05/01/2019 (0936) [facility] NAME: TAMIKA OBREGON[address] [facility] PHYS: Angel Shah MD : 1955 AGE: 63 SEX: M [place], [place] [address]OYYV NO: [id number] LOC: Y.MRI PHONE #: [phone] EXAM DATE: 04/30/2019 STATUS: ANASTASIIA BAINI FAX #: [phone] RAD #: D/C DT PAGE 2 Signed ReportBLOOD UREA NITROGEN 2019-04-30 11:19:00 Test Item Value Reference Range Interpretation Comments BLOOD UREA NITROGEN (test code = 13 mg/dL 7-18 N BUN) CREATININE W ESTIMATED [id number] 11:19:00 Test Item Value Reference Range Interpretation Comments GLOMERULAR FILTRATION 70.3 >60 Unit o f measure: RATE (test code = GFR) mL/mi n/1.73 [id number] Range:Healthy A dults >90 mL/min/1.73 m2 For Chronic Kid alfonso Disease: Stage II Mild Decrease i n GFR 60-90 Stage III Moderate Decrea se in GFR 30-59 Stage IV Severe Decrease in GFR 15-29 Stage V Kidney Failure <15 CREATININE (test code = 1.06 mg/dL 0.55-1.30 N CREAT) - CT L-SPINE W/O [id number] 09:53:00 Patient Name: TAMIKA OBREGON Unit No: [id number] EXAMS: CPT CODE: [id number] CT L-SPINE W/O CONTRAST [address] CT SCAN OF THE LUMBAR SPINE WITH [...] Mike(R) CTDI: DLP: Trnscrpt: 03/27/2019 (0953) t.SUSAN.GVG [facility] NAME: TAMIKA OBREGON [address] [place] [address] PHYS: Angel Shah MD : 1955 AGE: 63 SEX: M [place], [place] [address] LOC: Y.RAD PHONE #: [phone] EXAM DATE: 03/26/2019 STATUS: DEP CLI FAX #: [phone] RAD #: D/C DT PAGE 1 Signed Report Patient Name: TAMIKA OBREGON Unit No: [id number] EXAMS: CPT CODE: [id number] CT L-SPINE W/O CONTRAST 86566 (Continued) Orig Print D/T: S: 03/27/2019 (0956) [facility] NAME: TAMIKA OBREGON [address] [place] [address] PHYS: Angel Shah MD : 1955 AGE: 63 SEX: M [place], [place] [address] LOC: Y.RAD PHONE #: [phone] EXAM DATE: 03/26/2019 STATUS: DEP CLI FAX #: [phone] RAD #: D/C DT PAGE 2 Signed ReportURINALYSIS [id number] 07:16:00 Test Item Value Reference Range Interpretation [...] /LPF NONE SEEN code = AMORU) HGB [id number] 05:50:00 Test Item Value Reference Range Interpretation Comments HEMOGLOBIN (test code = HGB) 12.0 g/dL 12-16 N HEMATOCRIT (test code = HCT) 34.8 % 37-47 L CBC W/AUTO [id number] 05:49:00 Test Item Value Reference Range Interpretation [...] NRBC) - XR SPINE 1 V SPEC [id number] 11:33:00 Patient Name: TAMIKA OBREGON Unit No: [id number] EXAMS: CPT CODE: [id number] XR SPINE 1 V SPEC LEVEL 91790 3 LATERAL INTRAOPERATIVE VIEWS OF THE LUMBAR [...] M.D. Technologist: RT MARCO ANTONIO(R) Transcribed D/ (6585) Astrid [facility] NAME: TAMIKA OBREGON [address] [facility] PHYS: Angel Shah MD : 1955 AGE: 63 SEX: M [place], [place] [address] LOC: Y.505 A PHONE #: [phone] EXAM DATE: 12/30/2018 STATUS: ADM IN FAX #: [phone] RAD #: D/C DT PAGE 1 Signed Report Patient Name: TAMIKA OBREGON Unit No: [id number] EXAMS: CPT CODE: [id number] XR SPINE 1 V SPEC LEVEL 09584 (Continued) Orig Print D/T: S: 12/31/2018 (9546) [facility] NAME: TAMIKA OBREGON [facility] PHYS: Angel Shah MD : 1955 AGE: 63 SEX: M [place], [place] [address] : Y.505 A PHONE #: [phone] EXAM DATE: 12/30/2018 STATUS: ADM IN FAX #: [phone] RAD #: D/C DT PAGE 2 Signed Report- XR SPINE 1 V SPEC [id number] 11:33:00 Patient Name: TAMIKA OBREGON Unit No: [id number] EXAMS: CPT CODE: [id number] XR SPINE 1 V SPEC LEVEL 92967 3 LATERAL INTRAOPERATIVE VIEWS OF THE LUMBAR [...] Chaidez M.D. Technologist: STEVEN (RT.R) Transcribed D/ (9484) Astrid [facility] NAME: TAMIKA OBREGON [address] [facility] PHYS: Angel Shah MD : 1955 AGE: 63 SEX: M [place], [place] [address] LOC: Y.505 A PHONE #: [phone] EXAM DATE: 12/30/2018 STATUS: ADM IN FAX #: [phone] RAD #: D/C DT PAGE 1 Signed Report Patient Name: TAMIKA OBREGON Unit No: [id number] EXAMS: CPT CODE: [id number] XR SPINE 1 V SPEC LEVEL 25263 (Continued) Orig Print D/T: S: 12/31/2018 (2460) [facility] NAME: TAMIKA OBREGON [facility] PHYS: Angel Shah MD : 1955 AGE: 63 SEX: M [place], [place] [address] LOC: Y.505 A PHONE #: [phone] EXAM DATE: 12/30/2018 STATUS: ADM IN FAX #: [phone] RAD #: D/C DT PAGE 2 Signed Report- XR SPINE 1 V SPEC [id number] 11:33:00 Patient Name: TAMIKA OBREGON Unit No: [id number] EXAMS: CPT CODE: [id number] XR SPINE 1 V SPEC LEVEL 28743 3 LATERAL INTRAOPERATIVE VIEWS OF THE LUMBAR [...] Chaidez M.D. Technologist: STEVEN (RT.R) Transcribed D/ (8015) Jori.CHER [facility] NAME: TAMIKA OBREGON [facility] PHYS: Angel Shah MD : 1955 AGE: 63 SEX: M [place], [place] [address] LOC: Y.505 A PHONE #: [phone] EXAM DATE: 12/30/2018 STATUS: ADM IN FAX #: [phone] RAD #: D/C DT PAGE 1 Signed Report Patient Name: TAMIKA OBREGON Unit No: [id number] EXAMS: CPT CODE: [id number] XR SPINE 1 V SPEC LEVEL 20694 (Continued) Orig Print D/T: S: 12/31/2018 (1136) [facility] NAME: TAMIKA OBREGON [address] [facility] PHYS: Angel Shah MD : 1955 AGE: 63 SEX: M [place], [place] [address] LOC: Y.505 A PHONE #: [phone] EXAM DATE: 12/30/2018 STATUS: ADM IN FAX #: [phone] RAD #: D/CDT PAGE 2 Signed [id number] 10:43:00 Test Item Value Reference Range Interpretation Comments PLT (test code = PLT) 119 K/mm3 130-400 L BASIC METABOLIC [id number] 06:35:00 Test Item Value Reference Range Interpretation [...] RATE (test code = GFR) mL/mi n/1.73 [id number] Range:Healthy Adults >90 mL/min/1.73 m2 For Chronic Kidney Disease: Stage II Mild Decrease i n GFR 60-90 Stage III Moderate Decrea se in GFR 30-59 St age IV Severe Decre ase in GFR 15-29 St age V Kidney Failur e <15 CREATININE (test code 0.84 mg/dL 0.55-1.30 N = CREAT) CALCIUM (test code = 9.2 mg/dL 8.2-10.1 N CA) HGB [id number] 05:40:00 Test Item Value Reference Range Interpretation Comments HEMOGLOBIN (test code = HGB) 12.7 g/dL 12-16 N HEMATOCRIT (test code = HCT) 36.0 % 37-47 L ACUTE HEPATITIS [id number] 17:53:00 Test Item Value Reference Range Interpretation [...] 1 (test code NONREACTIVE NONREACTIVE Done by [employer] = HIV1AB) 4th Gen HIV Ag/ Ab Combo Screen ACUTE HEPATITIS [id number] 17:52:00 Test Item Value Reference Range Interpretation [...] 1 2 (test NONREACTIVE NONREACTIVE Done by [employer] code = [id number]) 4th Gen HIV Ag/Ab Combo Screen ACUTE HEPATITIS [id number] 17:52:00 Test Item Value Reference Range Interpretation [...] 1 (test code NONREACTIVE NONREACTIVE Done by [employer] = HIV1AB) 4th Gen HIV Ag/ Ab Combo Screen ACUTE HEPATITIS [id number] 17:51:00 Test Item Value Reference Range Interpretation [...] 1 2 (test NONREACTIVE NONREACTIVE Done by [employer] code = RMS19SO) 4th Gen HIV Ag/Ab Combo Screen CBC W/AUTO [id number] 09:49:00 Test Item Value Reference Range Interpretation [...] N CELL (test code = NRBC) PROTHROMBIN [id number] 09:32:00 Test Item Value Reference Range Interpretation [...] v nickerson IS PATIENT ON ANTICOAGULANTS ? MEas Lab been notified if Patient is on Heparin Drip? NOIf Yes, orderCBC, OCCULT BLOOD, PT every other day NTHROMBOPLASTIN TIME [id number] 09:32:00 Test Item Value Reference Range Interpretation Comments PTT ACTIVATED (test code = APTT) 28.7 secs 24.9-37.0 N IS PATIENT ON ANTICOAGULANTS ? NHas Lab been notified if Patient is on Heparin Drip? NOIf Yes, orderCBC, OCCULT BLOOD, PT every other day NBASIC METABOLIC [id number] 09:32:00 Test Item Value Reference Range Interpretation [...] RATE (test code = GFR) mL/mi n/1.73 [id number] Range:Healthy Adults >90 mL/min/1.73 m2 For Chronic [...]
[2022-10-01 11:59] LABS: Absolute Lymphocytes (CBC) 0.6 K/uL (0.7-4.9); Hematocrit 36.4 % (39.6-49.0); Lymphocytes % 14.1 % (15.3-44.8); MCV 89.7 fL (80-100); MPV 8.3 fL (7.6-11.3); RBC Red Blood Cell Count 4.06 M/uL (4.33-5.43)
[2022-10-01 12:19] LABS: Albumin 3.6 g/dL (3.4-5.0); Bilirubin Direct 0.2 mg/dL (0-0.2); Bilirubin Total 0.8 mg/dL (0.2-1.0); Magnesium 2.2 mg/dL (1.6-2.4); Troponin High Sensitivity 11.6 pg/mL (<58.9)
[2022-10-01 12:29] LABS: Platelet Estimate DECR; White Blood Cell Scan OK (OK)
[2022-10-01 12:30] LABS: Blood Morphology Comment NOT SEEN (NOT SEEN)
--- NOTE | 2022-10-01 12:48 | RAD REPORT ---
EXAM DESCRIPTION: CT - CTHCSPWOC - 10/01/2022 12:32 pm CLINICAL HISTORY: Trauma, head and neck injury. fall COMPARISON: Neck Angio dated 07/02/2022; Head C Spine Mpr Wo Con dated 07/02/2022; Soft Tissue Neck Wo Contr dated 04/25/2022 TECHNIQUE: Axial 5 mm thick images of the head were obtained. Axial 2 mm thick images of the cervical spine were obtained with sagittal and coronal reconstruction images generated and reviewed. All CT scans are performed using dose optimization technique as appropriate and may include automated exposure control or mA/KV adjustment according to patient size. FINDINGS: CT HEAD WITHOUT CONTRAST: No acute hemorrhage, hydrocephalus or extra-axial collection is identified.No areas of brain edema or midline shift. Remote left cerebellar infarct. Chronic small vessel ischemic changes. Cerebral atrop hy. Prior left pterional craniotomy and aneurysm clipping. The paranasal sinuses and mastoids are clear.The calvarium is intact. CT CERVICAL SPINE WITHOUT CONTRAST: No fracture or subluxation.No prevertebral soft tissues swelling is identified. Mild multilevel cervi jamaal spondylosis. Right ICA stent. IMPRESSION: No acute intracranial or cervical spine findings.
--- NOTE | 2022-10-01 13:09 | RAD REPORT ---
EXAM DESCRIPTION: CT - Pelvis Wo Cont - 10/01/2022 12:45 pm CLINICAL HISTORY: pain COMPARISON: Pelvis dated 09/29/2022 FINDINGS: No pelvic or hip fractures identified. Fusion hardware is present in the lower spine. Both femoral heads are located. Mild acetabular degenerative changes are present. Atherosclerosis is pres ent. Injection site granuloma in the left buttocks. IMPRESSION: No pelvic or hip fracture identified.
--- NOTE | 2022-10-01 13:35 | ER ---
Nurse's Notes [facility] Name: William Osuna Age: 66 yrs Sex: Male : 1955 Arrival Date: 10/01/2022 Time: 11:05 Bed 13 Private MD: Diagnosis: Altered mental status, unspecified;Pain in left hip;Generalized anxiety disorder Presentation: 10/01 11:09 Chief complaint: EMS states: patient had multiple falls since being released from the hospital 2 days ago. fell today. denies pain. Coronavirus screen: Vaccine status: Patient reports receiving the 2nd dose of the covid vaccine. Client denies travel out of the [place] in the last 14 days. At this time, the client does not indicate any symptoms associated with coronavirus-19. Ebola Screen: Patient negative for fever greater than or equal to 101.5 degrees Fahrenheit, and additional compatible Ebola Virus Disease symptoms Patient denies exposure to infectious person. Patient denies travel to an Ebola-affected area in the 21 days before illness onset. No symptoms or risks identified at this time. Initial Sepsis Screen: Does the patient meet any 2 criteria? No. Patient's initial sepsis screen is negative. Does the patient have a suspected source of infection? No. Patient's initial sepsis screen is negative. Risk Assessment: Do you want to hurt yourself or someone else? Patient reports no desire to harm self or others. Onset of symptoms was October 01, 2022. 11:09 Method Of Arrival: EMS: [facility] 11:09 Acuity: FARHAD 3 db Triage Assessment: 11:26 General: Appears in no apparent distress. comfortable, Behavior is calm, cooperative, db appropriate for age, quiet. Pain: Denies pain. EENT: No deficits noted. No signs and/or symptoms were reported regarding the EENT system. Neuro: No deficits noted. Level of Consciousness is awake, alert, obeys commands, Oriented to person, place, time, Appropriate for age Speech is normal, Facial symmetry appears normal. Respiratory: No deficits noted. Airway is patent Respiratory effort is even, unlabored, Respiratory pattern is regular, symmetrical. Historical: - Allergies: 11:26 Codeine; db 11:26 PENICILLINS; db - PMHx: 11:26 Anxiety; cardiac stent; Hypertensive disorder; db - PSHx: 11:26 Back x2; brain aneurysm; CABG; Cholecystectomy; db - Immunization history:: Adult Immunizations unknown, Client reports receiving the 2nd dose of the Covid vaccine. - Social history:: Smoking status: unknown. Screenin:03 Abuse screen: Denies threats or abuse. Denies injuries from another. Nutritional db screening: No deficits noted. Tuberculosis screening: No symptoms or risk factors identified. Fall Risk Fall in past 12 months (25 points). No secondary diagnosis (0 pts). IV access (20 points). Ambulatory Aid- Furniture (30 pts.). Gait- Weak (10 pts.). Mental Status- Overestimates/Forgets Limitations (15 pts.). Total Chavez Fall Scale indicates High Risk Score (45 or more points). Fall prevention measures have been instituted. Side Rails Up X 2 Placed Close to Nursing Station Family Present and informed to notify staff if the need to leave the bedside. Assessment: 12:02 Reassessment: Patient appears in no apparent distress at this time. Patient and/or db family updated on plan of care and expected duration. Pain level reassessed. Patient is alert, oriented x 3, equal unlabored respirations, skin warm/dry/pink. see triage for initial assessment. General: Appears in no apparent distress. comfortable. Musculoskeletal: Reports pain in hip. 14:59 Reassessment: patient given Phenergan 25mg IVP notified Dr. Sanabria. db 16:30 Reassessment: Patient appears in no apparent distress at this time. Patient and/or db family updated on plan of care and expected duration. Pain level reassessed. Patient is alert, oriented x 3, equal unlabored respirations, skin warm/dry/pink. 18:34 Reassessment: Patient appears in no apparent distress at this time. Patient and/or db family updated on plan of care and expected duration. Pain level reassessed. Patient is alert, oriented x 3, equal unlabored respirations, skin warm/dry/pink. patient is resting no complaints dinner at bedside. family at bedside. Vital Signs: 11:09 BP 134 / 68; Pulse 78; Resp 17; Temp 99(O); Pulse Ox 100% on R/A; Weight 81.65 kg; db Height 6 ft. 3 in. (190.50 cm); Pain 0/10; 12:00 BP 119 / 75; Pulse 76; Resp 16; Pulse Ox 99% on R/A; db 14:43 BP 151 / 70; Pulse 81; Resp 18; Pulse Ox 99% on R/A; db 15:30 BP 135 / 68; Pulse 68; Resp 18; Pulse Ox 100% on R/A; db 16:30 BP 136 / 68; Pulse 64; Resp 16; Pulse Ox 95% on R/A; db 17:43 BP 146 / 72; Pulse 86; Resp 18; Pulse Ox 95% on R/A; db 11:09 Body Mass Index 22.50 (81.65 kg, 190.50 cm) db ED Course: 11:05 Patient arrived in ED. bd 11:14 Kenneth Sanabria DO is Attending Physician. ms3 11:21 Vangie Armenta, RN is Primary Nurse. db 11:26 Triage completed. db 11:26 Arm band placed on right wrist. db 11:55 Inserted saline lock: 20 gauge in right antecubital area, using aseptic technique. db Blood collected. 12:06 Note: pt's family member wanted to hold off on the chest x-ray until his hip is mh1 evaluated . 12:34 Head C Spine Mpr Wo Con In Process Unspecified. EDMS 12:48 Pelvis Wo Cont In Process Unspecified. EDMS 13:33 Marquis Mackenzie MD is Hospitalizing Provider. ms3 15:29 Note: pt is asleep, family member wants to wait.. mh1 17:48 Straight cath inserted, using sterile technique, 16 Fr. Specimen obtained. Returned jd3 bloody urine. Patient tolerated well. 18:23 Patient has correct armband on for positive identification. Placed in gown. Bed in low db position. Call light in reach. Side rails up X2. Client placed on continuous cardiac and pulse oximetry monitoring. NIBP monitoring applied. 20:13 No provider procedures requiring assistance completed. Patient admitted, IV remains in pf1 place. 21:21 Attending Physician role handed off by Kenneth Sanabria DO bb 21:21 Primary Nurse role handed off by Vangie Armenta, RN bb Administered Medications: 13:41 Not Given (Physician Discretion): Phenergan (promethazine) 25 mg IVP once iw 14:40 Drug: traMADol 100 mg Route: PO; db 18:35 Follow up: Response: No adverse reaction db 14:40 Drug: NS 0.9% 500 ml Route: IV; Rate: 1000 ml; Site: right antecubital; db 18:35 Follow up: Response: No adverse reaction; IV Status: Completed infusion; IV Intake: db 500ml 20:12 Not Given (Patient sleeping): Ativan (LORazepam) 0.5 mg IVP once pf1 21:22 Drug: Ativan (LORazepam) 0.5 mg Route: IVP; Site: right antecubital; bb Medication: 13:11 VIS not applicable for this client. db Intake: 18:35 IV: 500ml; Total: 500ml. db Output: 18:00 Urine: 900ml (Straight Cath); Total: 900ml. db Outcome: 13:35 Decision to Hospitalize by Provider. ms3 20:13 Condition: stable pf1 20:31 Admitted to Med/surg accompanied by tech, via stretcher, with chart, Report called to pf1 BRADLY Chin 20:31 Instructed on the need for admit, Demonstrated understanding of instructions. 21:04 Patient left the ED. pf1 21:22 Patient left the ED. bb 21:32 Patient left the ED. bb Signatures: Dispatcher [employer] EDMS Orquidea Ward Martha 1 Maggie Mendoza RN BRADLY bb Randy Negron RN Kenneth Cabrera DO DO ms3 Vangie Armenta RN RN db Rosy parry RN RN pf1 Abi Willson RN iw Corrections: (The following items were deleted from the chart) 14:16 12:00 BP 119 / 75; Pulse 16bpm; Resp 76bpm; Pulse Ox 99% RA; db db
--- NOTE | 2022-10-01 13:35 | EDPHYS ---
Physician Documentation [facility] Name: William Osuna Age: 66 yrs Sex: Male : 1955 Arrival Date: 10/01/2022 Time: 11:05 Bed 13 Private MD: ED Physician HPI: 10/01 12:10 This 66 yrs old Male presents to ER via EMS with complaints of fall. ms3 12:10 Details of fall: The patient fell from an upright position, while standing. Onset: The ms3 symptoms/episode began/occurred acutely, 2 day(s) ago. Associated injuries: The patient sustained no obvious injury. Severity of symptoms: At their worst the symptoms were moderate, in the emergency department the symptoms are unchanged. Presents via [facility] for multiple falls and weakness after starting Clonazepam for anxiety. Historical: - Allergies: 11:26 Codeine; db 11:26 PENICILLINS; db - PMHx: 11:26 Anxiety; cardiac stent; Hypertensive disorder; db - PSHx: 11:26 Back x2; brain aneurysm; CABG; Cholecystectomy; db - Immunization history:: Adult Immunizations unknown, Client reports receiving the 2nd dose of the Covid vaccine. - Social history:: Smoking status: unknown. ROS: 12:10 Constitutional: Negative for fever, and chills. Neck: Negative for injury, pain, and ms3 swelling, Cardiovascular: Negative for chest pain, and palpitations. Respiratory: Negative for shortness of breath, cough, wheezing, and pleuritic chest pain, Abdomen/GI: Negative for abdominal pain, nausea, vomiting, diarrhea, and constipation, MS/Extremity: Negative for injury and deformity, Skin: Negative for injury, rash, and discoloration. 12:10 All other systems are negative. Exam: 12:10 Constitutional: This is a well developed, well nourished patient who is awake, alert, ms3 and in no acute distress. Head/Face: Normocephalic, atraumatic. Neck: Trachea midline, no cervical lymphadenopathy. Supple, full range of motion without nuchal rigidity, or vertebral point tenderness. No Meningismus. Chest/axilla: Normal chest wall appearance and motion. Nontender with no deformity. Cardiovascular: Regular rate and rhythm with a normal S1 and S2. No gallops, murmurs, or rubs. Normal PMI, no JVD. No pulse deficits. Respiratory: Lungs have equal breath sounds bilaterally, clear to auscultation and percussion. No rales, rhonchi or wheezes noted. No increased work of breathing, no retractions or nasal flaring. Abdomen/GI: Soft, non-tender, with normal bowel sounds. No distension or tympany. No guarding or rebound. No evidence of tenderness throughout. Skin: Warm, dry with normal turgor. Normal color with no rashes, no lesions, and no evidence of cellulitis. MS/ Extremity: Pulses equal, no cyanosis. Neurovascular intact. Full, normal range of motion. 12:10 ECG was reviewed by the Attending Physician. Vital Signs: 11:09 BP 134 / 68; Pulse 78; Resp 17; Temp 99(O); Pulse Ox 100% on R/A; Weight 81.65 kg; db Height 6 ft. 3 in. (190.50 cm); Pain 0/10; 12:00 BP 119 / 75; Pulse 76; Resp 16; Pulse Ox 99% on R/A; db 14:43 BP 151 / 70; Pulse 81; Resp 18; Pulse Ox 99% on R/A; db 15:30 BP 135 / 68; Pulse 68; Resp 18; Pulse Ox 100% on R/A; db 16:30 BP 136 / 68; Pulse 64; Resp 16; Pulse Ox 95% on R/A; db 17:43 BP 146 / 72; Pulse 86; Resp 18; Pulse Ox 95% on R/A; db 11:09 Body Mass Index 22.50 (81.65 kg, 190.50 cm) db MDM: 11:14 Patient medically screened. ms3 13:35 Data reviewed: vital signs, nurses notes, lab test result(s), EKG, radiologic studies, ms3 and as a result, I will admit patient. Counseling: I had a detailed discussion with the patient and/or guardian regarding: the historical points, exam findings, and any diagnostic results supporting the discharge/admit diagnosis, lab results, radiology results, the need for further work-up and treatment in the hospital. ED course: Discussed case with Dr. Mackenzie and he would like patient placed in inpatient. He would like a psychiatry consulted as well as Dr. Posey neurology consulted. 10/01 11:16 Order name: Basic Metabolic Panel; Complete Time: 12:27 ms3 10/01 11:16 Order name: CBC with Diff; Complete Time: 12:36 ms3 10/01 11:16 Order name: LFT's; Complete Time: 12:27 ms3 10/01 11:16 Order name: Magnesium; Complete Time: 12:27 ms3 10/01 11:16 Order name: NT PRO-BNP; Complete Time: 12:27 ms3 10/01 11:16 Order name: Troponin HS; Complete Time: 12:27 ms3 10/01 11:16 Order name: XRAY Chest (1 view) ms3 10/01 11:16 Order name: CT Head C Spine ms3 10/01 12:30 Order name: CBC Smear Scan; Complete Time: 12:36 EDMS 10/01 12:50 Order name: Urinalysis ms3 10/01 13:22 Order name: AMMONIA; Complete Time: 17:32 ms3 10/01 13:46 Order name: SARS-COV-2 Antigen Rapid bd 10/01 14:28 Order name: SARS-COV-2 Antigen Rapid; Complete Time: 17:32 EDMS 10/01 18:01 Order name: Urine Dipstick-Ancillary EDMS 10/01 11:16 Order name: EKG; Complete Time: 11:16 ms3 10/01 11:16 Order name: Cardiac monitoring; Complete Time: 11:30 ms3 10/01 11:16 Order name: EKG - Nurse/Tech; Complete Time: 12:02 ms3 10/01 11:16 Order name: IV Saline Lock; Complete Time: 12:02 ms3 10/01 11:16 Order name: Labs collected and sent; Complete Time: 12:02 ms3 10/01 11:16 Order name: O2 Per Protocol; Complete Time: 11:30 ms3 10/01 11:16 Order name: O2 Sat Monitoring; Complete Time: 11:30 ms3 10/01 12:18 Order name: Head C Spine Mpr Wo Con; Complete Time: 12:50 EDMS 10/01 12:31 Order name: CT Pelvis wo Cont ms3 10/01 12:37 Order name: Pelvis Wo Cont; Complete Time: 13:17 EDMS 10/01 17:06 Order name: RAD; Complete Time: 17:32 EDMS 10/01 12:50 Order name: Urine Dipstick-Ancillary (obtain specimen); Complete Time: 18:34 ms3 EC:10 Rate is 74 beats/min. Rhythm is regular. QRS Collins is Normal. MO interval is normal. QRS ms3 interval is normal. Clinical impression: Normal ECG. Interpreted by me. Reviewed by me. Administered Medications: 13:41 Not Given (Physician Discretion): Phenergan (promethazine) 25 mg IVP once iw 14:40 Drug: traMADol 100 mg Route: PO; db 18:35 Follow up: Response: No adverse reaction db 14:40 Drug: NS 0.9% 500 ml Route: IV; Rate: 1000 ml; Site: right antecubital; db 18:35 Follow up: Response: No adverse reaction; IV Status: Completed infusion; IV Intake: db 500ml 20:12 Not Given (Patient sleeping): Ativan (LORazepam) 0.5 mg IVP once pf1 21:22 Drug: Ativan (LORazepam) 0.5 mg Route: IVP; Site: right antecubital; bb Disposition Summary: 10/01/22 13:35 Hospitalization Ordered Hospitalization Status: Inpatient Admission ms3 Provider: Marquis Mackenzie ms3 Location: Telemetry/MedSurg (Inpatient) ms3 Condition: Stable ms3 Problem: new ms3 Symptoms: are unchanged ms3 Bed/Room Type: Standard ms3 Room Assignment: 408(10/01/22 19:16) cg Diagnosis - Altered mental status, unspecified ms3 - Pain in left hip ms3 - Generalized anxiety disorder ms3 Forms: - Medication Reconciliation Form ms3 - SBAR form ms3 Signatures: Dispatcher [employer] Maggie Duran RN RN bb Garcia, Cindy, RN RN cg Kenneth Sanabria DO DO ms3 Vangie Armenta RN RN db Williams, Irene RN iw Rosy parry RN pf1 Corrections: (The following items were deleted from the chart) 19:16 13:35 ms3 cg
[2022-10-01] MEDS ORDERED: ACETAMINOPHEN 500 MG TAB PO PRN (13:40)
[2022-10-01] MEDS ORDERED: ONDANSETRON 4 MG (ODT) TAB PO PRN (13:45)
[2022-10-01 14:28] LABS: SARS-CoV-2 Antigen Rapid Res Negative (Negative)
[2022-10-01] MEDS ORDERED: PROMETHAZINE INJ 25 MG/ML AMP ONE (14:32)
[2022-10-01] MEDS ORDERED: TRAMADOL HCL 50 MG TAB ONE (14:33)
[2022-10-01] MEDS ORDERED: NA CHLORIDE 0.9% 500 ML ONE (14:33)
--- NOTE | 2022-10-01 17:06 | RAD REPORT ---
EXAM DESCRIPTION: RAD - Chest Single View - 10/01/2022 4:52 pm CLINICAL HISTORY: generalized weakness, fall COMPARISON: Chest Single View dated 07/08/2022; Chest Single View dated 07/02/2022; Chest Single View dated 07/01/2022; Chest Pa And Lat (2 Views) dated 04/18/2022 FINDINGS: Lines: None. Lungs: No evidence of edema or pneumonia. Pleural: No significant pleural effusions or pneumothorax. Cardiac: The heart size is within normal limits. Mediastinum: Within normal limits. Bones: No acute fractures. Sternotomy. Other: None IMPRESSION: No acute cardiopulmonary disease.
[2022-10-01 18:01] LABS: Urine Blood 2+ (Negative); Urine Glucose Negative (Negative); Urine Protein Negative (Negative); Urine Specific Gravity 1.015 (1.005-1.030); Urine pH 6.5 (5.0-7.0)
[2022-10-01 18:16] LABS: Specific Gravity 1.013 (1.005-1.030); Urine Bilirubin NEGATIVE (Negative); Urine Blood 2+ (Negative); Urine Clarity Clear (Clear); Urine Color Light-Yellow (Yellow); Urine Crystals Unidentified Few /HPF (None Seen); Urine Glucose NEGATIVE (Negative); Urine Mucus Slight /HPF (None Seen); Urine Protein TRACE (Negative); Urine RBC >50 /HPF (None Seen); Urine Urobilinogen Normal (Normal); Urine pH 6.5 (5.0-7.0)
[2022-10-01] MEDS ORDERED: LORazepam 2 MG/ML VIAL ONE (21:26)
[2022-10-01] MEDS ORDERED: PROMETHAZINE INJ 25 MG/ML AMP IV ONE (23:04)
[2022-10-02 00:13] VITALS: BMI 22.5
[2022-10-02] MEDS ORDERED: LORazepam 2 MG/ML VIAL IV PRN (01:00)
[2022-10-02] MEDS ORDERED: PROMETHAZINE INJ 25 MG/ML AMP IV ONE (03:15)
--- NOTE | 2022-10-02 07:16 | HP ---
Date of Admission: 10/01/2022 Chief Complaint: Confusion, hallucination, multiple falls. History Of Present Illness: This is a 66-year-old male patient, who was seen last time at office on July 09, 2022, and at that time, he was asked to see a psychiatrist and after that he did not ke ep his further office followup appointments until today when I saw him as tells me that after he saw me last time, took him to [facility] for what she describes as a second opinion and aft er all the tests that they did, they did not find anything wrong. She had to wait for appointment wi th psychiatrist that she wanted to see, someone in [facility], and he started seeing this psych iatrist who has started some medications and she will provide us with the list of medications. The p dora's says that he is having lot of anxiety problem and normally he walks in the neighborhood , but lately he stopped walking, and in last few days, he is having reduced oral intake of food and l iquids. His memory over period of time seems to be getting worse and she took him to [facility] on a mini-mental state exam at his office, what she describes as, he answered only 11 questions ou t of 30 questions, so he did not do quite as well on this exam, but she is not aware of any diagnosis of dementia or any other specific diagnosis given by Dr. Xiao. In any case, in last few days, h is condition has deteriorated where he is having generalized weakness, confusion, hallucination. Has had multiple falls at least 4 falls in last few days and with all this today, he was brought into [facility] emergency room and after he was evaluated, he was admitted to the hospital. No fever or chills. N o vomiting. No diarrhea. Has had some constipation problem, which is nothing new. Allergies: TO PENICILLIN CAUSING RASH; LEVAQUIN CAUSING NAUSEA, VOMITING; CODEINE CAUSING NAUSEA, VO MITING. Medications: According to office report: Amlodipine 5 mg 2 times a day, aspirin 81 mg daily, clopid ogrel 75 mg daily, Colace 2 tablets 2 times a day, pantoprazole daily, MiraLAX 2 times a day, tamsulo sin 0.4 mg daily at bedtime, and not sure whether he is still taking tramadol, which was prescribed b y Pain Management or some other physician, but not by me. 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 Constitutional: As mentioned above. All other systems reviewed and negative. Past Medical History: Significant for cerebral aneurysm, allergic rhinitis, hypertension, hyperlipid emia, coronary artery disease, carotid artery stenosis, bilateral gastroesophageal reflux disease, co nstipation, benign prostatic hypertrophy, and is not sure about the diagnosis given by psychiatr ist, but she thinks the only diagnosis to her knowledge is anxiety. Past Surgical History: Surgery for cerebral aneurysm and he has aneurysm clip, coronary artery angio plasty with stent placement, coronary artery bypass surgery in 1992, carotid artery stent, cholecyste ctomy, back surgery. Family History: Father had stroke. Brother with coronary artery disease and hypertension. Social History: Prior history of smoking. Use of alcohol, negative. Physical Examination: VITAL SIGNS: Temperature 99, pulse 78, respiratory rate 17, blood pressure 134/68, oxygen saturation 100%. Height 6 feet 3 inches, weight 180 pounds. The patient's weight when he was at office on Jun, was also 180 pounds. General: Patient was sleeping because of the medication given to him in emergency room for agitation . So, when I saw him, he was sleeping and the is the one who provided all the information. HEENT: Head atraumatic, normocephalic. Conjunctivae nonerythematous. Sclerae white. Mouth, no thr ush or edema noted. Ears/Nose, no mass, lesion, discharge noted. Neck: Supple. No JVD, lymph nodes, bruit, thyromegaly noted. Lungs: Bilateral good equal air entry. Clear to auscultation. No rhonchi. No rales. Heart: Normal heart sounds, no murmur or gallop. Abdomen: Soft, bowel sounds normal. No guarding, rigidity, tenderness, mass, hepatosplenomegaly, dis tention, or bruit noted. Extremities: No leg edema. No calf tenderness. Skin: No rash, ulcer, cellulitis. Lymphatics: No lymph node enlargement in neck, supraclavicular, infraclavicular region. AERIAL SURVEY TECHNICIAN: Detailed AERIAL SURVEY TECHNICIAN exam not possible because the patient is sleeping right now. Chest: Unremarkable. External Genitalia: Deferred. Rectal: Deferred. Laboratory Data: White count 4.3, hemoglobin 12.6, platelets 83. Sodium 136, potassium 4, chloride 103, bicarb 28, BUN 25, creatinine 1.05, glucose 93. Liver function tests normal. Serum ammonia lev el less than 15. Troponin 11.6. Urinalysis; 2+ blood, more than 50 rbc's, 10 to 20 wbc's, leukocyte esterase negative. The patient had urinary retention with approximately 900 cc of urine that was co llected when he had a Virk catheter placed in the ER and there was some blood in the urine also as r eported by patient's . COVID-19 test negative. Chest x-ray negative. No acute cardiopulmonary changes. CAT scan of the head and cervical spine, no acute intracranial or cervical spine findings a nd CAT scan of the pelvis was negative for any fracture. Impression: 1.Altered mental status. 2.Metabolic encephalopathy. 3.Anxiety. 4.Hypertension. 5.Hyperlipidemia. 6.Coronary artery disease. 7.Carotid artery stenosis, bilateral. 8.Gastroesophageal reflux disease. 9.Benign prostatic hypertrophy. 10.Diverticulosis. 11.Allergic rhinitis. Plan: Admit patient to hospital for further evaluation and management of this problem. The patient is appropriate for inpatient and is expected to spend 2 midnights in hospital. We will consult neuro logist and consult psychiatrist. Ativan 1 mg IV q.4 hours will be ordered p.r.n. for agitation. Sta rting tomorrow, we will go ahead and consult Physical Therapy, Occupational Therapy, and we will not give any new medications if recently has been initiated by psychiatrist at least at this point until we find out if any of his symptoms could be medication side effect or not. I will try to communicate with patient's psychiatrist as well, who has seen him on outpatient basis. For hypertension, we jamaal l continue antihypertensive medication per order. The patient is not on any cholesterol-reducing med ication, as I have recommended in the past for him to take it, but he does not want to take it. So f ar, he has refused it, so that is why, he is not on any statin therapy. For his gastroesophageal ref lux disease, we will continue his proton pump inhibitor therapy and for benign prostatic hypertrophy, we will continue tamsulosin. We will also continue medication for his chronic constipation problem as per order. Details and plan of treatment discussed with the patient's , who was at bedside. I will see him tomorrow for followup. DVT prophylaxis will be given using Lovenox per order starting tomorrow. SELAM/MODL Voice ID: [id number]
[2022-10-02] MEDS: ENOXAPARIN 40 MG/0.4 ML SQ SCH (09:04)
[2022-10-02] MEDS: D5 0.9 NS 1,000 ML IV SCH ×2 (09:04→20:20)
[2022-10-02] MEDS ORDERED: DICYCLOMINE HCL 10 MG CAP PO PRN (10:06)
[2022-10-02] MEDS: HYDRALAZINE HCL 25 MG TABLET PO SCH ×2 (10:50→20:37)
[2022-10-02] MEDS: AMLODIPINE 5 MG TAB PO SCH ×2 (10:50→20:38)
[2022-10-02] MEDS: ASPIRIN EC 81 MG TAB PO SCH (10:50)
[2022-10-02] MEDS ORDERED: TRAMADOL HCL 50 MG TAB PO PRN (10:59)
[2022-10-02 11:06] LABS: Absolute Lymphocytes (CBC) 0.7 K/uL (0.7-4.9); Hematocrit 36.2 % (39.6-49.0); Lymphocytes % 13.7 % (15.3-44.8); MCV 88.4 fL (80-100); MPV 8.1 fL (7.6-11.3)
[2022-10-02] MEDS ORDERED: QUETIAPINE 25 MG TAB PO PRN (11:10)
[2022-10-02 11:22] LABS: Potassium 3.5 mmol/L (3.5-5.1)
[2022-10-02] MEDS ORDERED: DIVALPROEX DR 250 MG TAB PO SCH (13:00)
[2022-10-02] MEDS ORDERED: DIVALPROEX DR 250 MG TAB PO ONE (13:15)
--- NOTE | 2022-10-02 14:37 | EKG ---
Test Date: 2022-10-01 Test Time: 11:42:11 Oracle Manager: GINETTE MEASUREMENT RESULTS: Intervals: Rate: 74 SC: 130 QRSD: 88 QT: 384 QTc: 426 [place]: P: 86 SC: 130 QRS: 39 T: 60 INTERPRETIVE STATEMENTS: Normal sinus rhythm with sinus arrhythmia Normal ECG Compared to ECG 08/30/2022 21:21:55 No significant changes Electronically Signed On 10-02-22 14:34:46 SETTER OUT by Aristeo Guillermo
[2022-10-02] MEDS ORDERED: WATER FOR INJ,STERILE 10 ML IM PRN (15:13)
[2022-10-02] MEDS ORDERED: ZIPRASIDONE MESYLA 20 MG/VIAL IM PRN (15:13)
[2022-10-02] MEDS ORDERED: PROMETHAZINE INJ 25 MG/ML AMP IV PRN (16:41)
[2022-10-02] MEDS: DIPHENHYDRAMINE 50 MG/ML VIAL IV PRN (17:10)
[2022-10-02] MEDS ORDERED: HALOPERIDOL LACT 5 MG/ML INJ IM PRN (18:06)
[2022-10-02] MEDS ORDERED: BENZTROPINE 2 MG/2 ML VIAL IM ONE (19:00)
[2022-10-02] MEDS: TRAZODONE 50 MG TABLET PO SCH (20:37)
[2022-10-02] MEDS: DOCUSATE NA 100 MG CAP PO SCH (20:38)
[2022-10-02] MEDS: DIVALPROEX DR 250 MG TAB PO SCH (20:38)
--- NOTE | 2022-10-02 22:07 | CON ---
Reason For Consultation: Consultation called by Dr. Mackenzie, primary care physician for confusion and p sychotic behavior. History Of Present Illness: Mr. Osuna is a 66-year-old patient whom I had seen once in clinic on August 08, 2022 for memory loss and that time his family said he had memory loss slowly progressive over a year and his family experienced significant losses including loss of a brother, sister, and ne phew and he worsened. He apparently lost about 70 pounds due to poor appetite in the last year. He also had 4-vessel cardiac bypass and carotid stents as contributing factors. At the time of my evalu ation on August 08, his [place] Cognitive Assessment Test total was 13/30 with the inability to r ecall 5 words after 5 minutes. The family said he was able to go back home, but had fluctuating abil ity to recall and his mood also fluctuated. He came back to the office and had a routine EEG and eduardo t was in July and that study showed a mildly slow background without epileptiform discharges. He did follow up also with his primary care physician; however, his direct reason for hospitalization on the 01 of October was reportedly a fall as he has had worsening unsteady gait. He fell from an u pright position 2 days actually prior to him coming into the hospital. There were no reported injuri es. The patient's family noted that he had been put on clonazepam for anxiety and they felt it was a contributing factor to his poor balance and falls. His head and C-spine survey after the fall showe d no acute intracranial or cervical spine abnormal findings. There was chronic cerebral atrophy, duc dence of a craniotomy in the left parietal region with aneurysm clipping. There was chronic small ve ssel ischemic disease. His complete blood count with differential showed no evidence of an infection . Very mild anemia. Basic metabolic panel was essentially unremarkable. Ammonia level was less eduardo n 15. Creatinine normal. Liver function studies otherwise normal. His urinalysis did show negative esterases and nitrites with greater than 50 red blood cells, 10 to 20 white blood cells, trace prote in, 1+ ketones, and 2+ blood. COVID testing was negative. His chest x-ray identified no acute cardi opulmonary abnormalities and as he reportedly fell on the tail bone area, a pelvic CT scan was done, which showed no pelvic or hip fracture identified. The patient did complain of some pain in the lowe r back and again no etiology for that pain is ascribed to any bone fractures. Since his hospitalization, he has had episodes of hallucinations, delusions, aggressive behavior and pulling at staff and his daughters in the room and as well. He has received Geodon intramuscula rly, Seroquel, Depakote, and Demerol with Phenergan, which eventually has led him to be somewhat more calm. 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 Past Surgical History: Back surgery and aneurysm clipping. Family History: Cancer in mother. Social History: The patient is a smoker. He is and employed. Denies alcohol use. Medications: Current medications in hospital: Extra-strength Tylenol 500 mg every 6 hours, Norvasc 5 mg twice daily, aspirin 81 mg daily, Bentyl 10 mg 3 times daily, Benadryl 25 mg IV daily, Depakote 250 mg twice daily, Colace 100 mg at bedtime, Lovenox 40 mg subcutaneously daily, Apresoline 50 mg tw ice daily, Ativan 0.1 mg every 4 hours as needed, Zofran 4 mg every 6 hours as needed, Protonix 40 mg daily, Phenergan 12.5 mg as needed, Seroquel 25 mg b.i.d., tramadol 50 mg 3 times daily, and Geodon 10 mg IM every 4 hours as needed. Note, the patient's family says that he had been on tramadol for m any years and when that medication was discontinued, they believe some of his symptoms worsened. Allergies: PENICILLIN, CODEINE, AND LEVOFLOXACIN. Review of Systems: No recent fevers or chills. There is pain in the lower back and lower extremities. No vomiting. Mi ld nausea. There is mild muscle tenderness and back pain. He does have some anxiety, depression, an d hallucinations. Physical Examination: Vital Signs: Blood pressure 135/73, pulse 90 to 100, temperature 98.3, respiratory rate 18, and oxyg en saturation 98%. Weight 180 pounds, height 6 feet 3, BMI 22.5. General: Mr. Osuna is resting in bed. He was mildly agitated at the time of my evaluation. HEENT: He was normocephalic and atraumatic. He does have poor dentition. His sclerae are anicteric . Oropharynx is moist. Neck: Supple. Chest: Clear. Abdomen: Soft. He does say there is some mild abdominal pain. Extremities: No significant edema or cyanosis. Neurologic: Alert and oriented to person, but at times very tangential in his speech and indicates angely jensen wants to go home, but also wants medication for pain and is difficult to redirect and to have him s fernando on task. His cranial nerves show no focal deficits. On motor examination, he has no focal weakn ess noted in the upper and lower extremities. Difficult to assess his full strength as he is not ful ly cooperative, but at least 4+/5 proximally and distally in the upper and lower extremities. Sensat ion appeared intact in upper and lower extremities with a stocking-glove loss. Reflexes 1+ upper and lower extremities. Assessment: Mr. Osuna is a 66-year-old patient with a [id number] cognitive impairment wit h superimposed psychiatric features of psychosis, which may be related to depression due to his signi ficant losses in the family and his recent cardiac bypass surgery and carotid stent placement. There is no clear evidence of an infection either in urine, blood, or brain. The brain imaging does not s how evidence of an acute ischemic or hemorrhagic stroke or significant atrophy. He did have an EEG d one prior to his hospitalization that showed a mildly slow background without epileptiform discharges . He does have some evidence of delirium, especially with the tachycardia to 100 and elevated blood pressure, highest of 177/81. Plan: 1.An EEG was ordered and the patient actually refused EEG. 2.He has scheduled Geodon, Depakote, and benzodiazepine along with medication for insomnia. His blo od work prior to admission did include an apolipoprotein E screening, which showed he had genotype AP OE 3++. Otherwise, the blood work showed unremarkable thyroid stimulating hormone level, vitamin D l evel also normal and no abnormalities were clearly identified in his blood work for an etiology for h is dementia. The more likely reason for dementia is likely multifactorial, possibly mild vascular de mentia, aggravated by his depression with anxiety and psychotic features and the EEG did reflect a sl ow background consistent, but nonspecific, but again consistent with a mild diffuse disturbance in ce rebral function. 3.The patient may benefit from a psychiatric evaluation and intervention as appropriate. 4.At this point, may consider trying memantine or donepezil. 5.Depakote perhaps 250 mg twice daily may be continued to help with mood stabilization. 6.He is at risk of stroke given the blood pressures being elevated as it is with systolic of 177 and aspirin 81 mg should be continued. 7.Consider low dosage of Ultram, currently he is at 50 mg 3 times daily and would suggest once daily or twice daily at the most. VENICE/PRASANNA Voice ID: [id number] Report ID: [id number]
--- NOTE | 2022-10-02 23:03 | PN ---
Date of Progress Note: 10/02/2022 Subjective: The patient was seen this morning for followup. He had some agitation and restlessness last night, and slept for about 4 hours as reported by patient's daughter and this morning. Whe n I saw him, he appeared somewhat restless, little agitated, disoriented, able to recognize , but not able to recognize me and not able to recognize his daughter. Objective: Vital Signs: Reviewed. HEENT: Unremarkable. Lungs: Clear to auscultation. Heart: Sounds normal. Abdomen: Soft. Bowel sounds normal. No guarding, rigidity, tenderness, distention. Extremities: No leg edema. Impression: 1.Altered mental status. 2.Dementia. 3.Hypertension. 4.Coronary artery disease. 5.Carotid artery stenosis. 6.Anxiety. Medications: Home medications list: I have reviewed his home medications with his and he takes following medications: 1.Aspirin 81 mg daily. 2.Clopidogrel 75 mg daily. 3.Tramadol 50 mg 3 times a day as needed. 4.Pantoprazole 40 mg daily. 5.Amlodipine 5 mg 2 times a day. 6.Hydralazine 50 mg 2 times a day. 7.Dicyclomine 10 mg, he takes 2 capsules 4 times a day as needed and this are his ongoing chronic me dications. As of August 29, 2022 when he saw his psychiatrist, Dr. Anson Gordon for the first time, he started him on: 1.Buspirone 10 mg 2 times a day. 2.Escitalopram 5 mg daily. 3.Clonazepam 1 mg tablet to take half a tablet 2 times a day. So, these three medications are new as of September 18, 2022. Plan: The way I saw the patient this morning, I have never seen him like that. Obviously, last time I saw him at office was in June and the way he appeared today was totally different. The patie nt's family tells me that the symptoms that he is having with impaired memory, some agitation, loss o f appetite, confusion has been going on for last few months, but it is lot worse in last 4 to 5 days or so. I did try to reach out to his psychiatrist at [phone], and he was not available. I did talk to Dr. Xiao, and he has evaluated the patient today. He has [facility] the [facility] and on basis of his mini-mental state exam, his impression is that the patient has at least mode rate dementia and etiology could be multifactorial as Dr. Xiao is thinking. At this point, Dr. Keon reyes thinks that the patient has psychosis and does not believe there is any kind of MORTGAGE ORIGINATOR infection to worry about, so he is going to try to get his medication and we will continue his home medication s per order. It will be best not to give any medication recently introduced by psychiatrist because we do not know if those medications are causing any side effects or not. I did talk to patient's wif e and daughter regarding this and also discussed these details with Dr. Xiao. We will continue h is antihypertensive medications per order. Continue his aspirin and clopidogrel per order. I will s ee him tomorrow for followup and plan of treatment was discussed with the patient's and daughter . SELAM/MODL Voice ID: [id number] Report ID: [id number]
[2022-10-03] MEDS ORDERED: HALOPERIDOL LACT 5 MG/ML INJ IV PRN (08:11)
[2022-10-03] MEDS: DIVALPROEX DR 250 MG TAB PO SCH ×2 (09:00→21:33)
[2022-10-03] MEDS: ASPIRIN EC 81 MG TAB PO SCH (09:00)
[2022-10-03] MEDS: ENOXAPARIN 40 MG/0.4 ML SQ SCH (09:00)
[2022-10-03] MEDS: PANTOPRAZOLE 40MG TABLET PO SCH (09:00)
[2022-10-03] MEDS: AMLODIPINE 5 MG TAB PO SCH ×2 (09:00→21:33)
[2022-10-03] MEDS: HYDRALAZINE HCL 25 MG TABLET PO SCH ×2 (09:00→21:32)
[2022-10-03] MEDS ORDERED: BENZTROPINE 1 MG TAB PO SCH (09:00)
[2022-10-03] MEDS: TRAMADOL HCL 50 MG TAB PO SCH ×3 (09:18→21:33)
[2022-10-03] MEDS: D5 0.9 NS 1,000 ML IV SCH ×2 (09:40→23:00)
[2022-10-03] MEDS ORDERED: WATER FOR INJ,STERILE 10 ML IM PRN (11:18)
[2022-10-03] MEDS: ZIPRASIDONE MESYLA 20 MG/VIAL IM PRN (16:34)
--- NOTE | 2022-10-03 20:25 | PN ---
Date of Progress Note: 10/03/2022 Subjective: Mr. Osuna is resting in bed. He does have restraints on the arms. He did listen to my conversation with him and participated appropriately. At the time of my evaluation, he is not att empting to physically grab or harm anyone nearby as he had done earlier in the day. He did not have a complaint aside from wanting to leave to home. Objective: Vital Signs: Blood pressure 121/53, pulse 82, respiratory rate 18, temperature 98, oxyge n saturation 96% on room air. General: Mr. Osuna is sitting in bed. He does have a disheveled look. HEENT: Oropharynx pink and moist. Neck: Supple. Chest: Air movement. Abdomen: Soft. Extremities: No significant edema or cyanosis. Neurologic: His cranial nerves do not show any focal deficits. A good expression without dysarthria ; however, is tangential in speech. In terms of his motor examination, upper and lower extremities, no focal weakness. No obvious sensory deficits noted as well. Laboratory Studies: From yesterday, white blood cell count 5.3, hemoglobin 12.5, platelets 93. His sodium 137, potassium 3.5, chloride 105, BUN 21, creatinine 0.95, calcium 9.3. Ammonia was less than 15. Assessment: Mr. Osuna is a 66-year-old patient, who was having likely an episode related to charanjit more than any specific neurological etiology for his issues. I suggest the patient be evaluated by Psychiatry and potentially be treated with lithium for acute charanjit. He has had multiple antipsychoti c medications including Haldol and Geodon and he has been on Depakote as well, but still has the aggr essive behavior with tendency to pull and punch those and to shout at those nearby. At this point, angely jensen does not likely have a clear neurological etiology for his actions and behaviors and perhaps would be best cared for in the [facility], where available our psychiatrist, Dr. Avendaño will be helpful in management of the patient. VENICE/MINALL Voice ID: [id number] Report ID: [id number]
[2022-10-03] MEDS: HALOPERIDOL LACT 5 MG/ML INJ IV SCH (21:31)
[2022-10-03] MEDS: BENZTROPINE 2 MG/2 ML VIAL IV SCH (21:32)
[2022-10-03] MEDS: DOCUSATE NA 100 MG CAP PO SCH (21:32)
[2022-10-03] MEDS: TRAZODONE 50 MG TABLET PO SCH (21:33)
--- NOTE | 2022-10-04 08:04 | EKG ---
Test Date: 2022-10-03 Test Time: 14:32:22 Cloth Calender: ALYSIA MEASUREMENT RESULTS: Intervals: Rate: 89 [place]: 130 QRSD: 100 QT: 376 QTc: 457 [place]: P: 48 [place]: 130 QRS: 72 T: 84 INTERPRETIVE STATEMENTS: Sinus rhythm with premature supraventricular complexes Otherwise normal ECG Compared to ECG 10/01/2022 11:42:11 Atrial premature complex(es) now present Sinus arrhythmia no longer present Electronically Signed On 10-04-22 08:01:48 [employer] by Talib Grover
[2022-10-04] MEDS: ASPIRIN EC 81 MG TAB PO SCH (09:00)
[2022-10-04] MEDS: TRAMADOL HCL 50 MG TAB PO SCH ×3 (09:00→21:00)
[2022-10-04] MEDS: ENOXAPARIN 40 MG/0.4 ML SQ SCH (09:00)
[2022-10-04] MEDS: PANTOPRAZOLE 40MG TABLET PO SCH (09:00)
[2022-10-04] MEDS: AMLODIPINE 5 MG TAB PO SCH ×2 (09:00→21:00)
[2022-10-04] MEDS: HYDRALAZINE HCL 25 MG TABLET PO SCH ×2 (09:00→21:00)
[2022-10-04] MEDS: DIVALPROEX DR 250 MG TAB PO SCH ×2 (09:00→21:00)
[2022-10-04] MEDS: BENZTROPINE 2 MG/2 ML VIAL IV SCH ×2 (09:50→21:00)
[2022-10-04] MEDS: HALOPERIDOL LACT 5 MG/ML INJ IV SCH ×2 (09:50→20:00)
--- NOTE | 2022-10-04 10:22 | PN ---
Date of Progress Note: 10/03/2022 Subjective: The patient was seen this morning for followup and the patient's and daughter were present with him at bedside. He did sleep for few hours last night. Has had restlessness and some a gitation off and on throughout the day yesterday. Objective: Vital Signs: Reviewed. HEENT: Unremarkable. Lungs: Clear to auscultation. Heart: Sounds normal. Abdomen: Soft. Bowel sounds normal. No guarding rigidity tenderness distention. Extremities: No leg edema. Impression: 1.Dementia with behavioral disturbances. 2.Psychosis. 3.Hypertension. 4.Coronary artery disease. Plan: We will continue to follow up with neurologist and psychiatrist for further assistance with ma nagement of current behavior problem and psychosis. Continue antihypertensive medication per order. The patient did require restraint, ordered today because of safety concerns as he was trying to get out of the bed to avoid risk of fall and injury. SELAM/MODL Voice ID: [id number] Report ID: [id number]
--- NOTE | 2022-10-04 10:34 | RAD REPORT ---
EXAM DESCRIPTION: CT - Ct Stroke Brain Wo Cont - 10/04/2022 10:26 am CLINICAL HISTORY: Stroke Protocol COMPARISON: Head C Spine Mpr Wo Con dated 07/02/2022 TECHNIQUE: Axial 5 millimeter thick images of the head were obtained without IV contrast. All CT scans are performed using dose optimization technique as appropriate and may include automated exposure control or mA/KV adjustment according to patient size. FINDINGS: No intracranial hemorrhage, mass, or cerebral edema. No acute cortical based infarction. E ncephalomalacia changes are present in the parenchyma adjacent to the left sylvian fissure. Aneurysm clip is present in the sylvian fissure. Hays matter-white matter differentiation is preserved.No sign ificant atrophy or chronic ischemic change. Ventricles are normal. Visualized portions of the mastoid air cells, paranasal sinuses, and orbits are unremarkable. Findings telephoned to the referring physician 10:30 a.m.. IMPRESSION: No CT evidence of acute intracranial process.
[2022-10-04 10:45] LABS: Absolute Lymphocytes (CBC) 0.4 K/uL (0.7-4.9); Hematocrit 35.5 % (39.6-49.0); Lymphocytes % 11.7 % (15.3-44.8); MCV 88.7 fL (80-100); MPV 7.7 fL (7.6-11.3); RBC Red Blood Cell Count 4.01 M/uL (4.33-5.43)
[2022-10-04 10:46] LABS: Protime INR 1.25
[2022-10-04 10:56] LABS: Potassium 3.7 mmol/L (3.5-5.1)
[2022-10-04] MEDS: D5 0.9 NS 1,000 ML IV SCH ×2 (12:20→22:24)
--- NOTE | 2022-10-04 14:25 | CON ---
Date of Consultation: 10/04/2022 The patient was on the 4th floor at [facility]. Reason For Visit: Psychiatrist was consulted for evaluation of the patient, who was severely agitated and combative due to altered mental status History Of Present Illness: Mr. Trotter is a 66-year-old male with a psychiatric history significant for anxiety and depressive disorder with back history of neurocognitive disorder, unspecified. History was presented by and daughter whom I met by bedside. The patient was unable to participate in this evaluation, due to the decree of his confusion. states that the patient's progressively deteriorated since January this year initially starting with severe abdominal discomfort and chronic constipation, was evaluated by GI and with no significant findings, then treated for skin cancer. Patient's states he continued to deteriorate as he he was not eating due to the abdominal pain, lost significant weight and became weak and needing care from family as he was having repeated falls at least 4 falls in last few days prior to presentation.She states she was seen at the ER and had imaging done which revealed no significant findings from the falls. Patient was brought back to the ER on 10/01/2022 by his family as a result of worsening confusion, combativeness, hallucination, and insomnia. She states these symptoms started suddenly and has progressively gotten worse. 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 She endorsed worsening memory hence he is no longer driving and other executive functioning such as managing there finances are now been handled by her. She reports patient's 3 siblings and parent had dementia. However patient has not been diagnosed with dementia but has been showing similar symptoms. She states patient has been evaluated by a neurologist as well as a Psychiatrist and was on medications for anxiety, insomnia and depression. She states patient has lost multiple family members recently and she thinks that is also weighing on him. No history of significant Alcohol or substance abuse, no history of Bipolar disorder or OCD. She states patient had a brain aneurysm but no other significant brain injuries despite numerous falls. Patient started on Depakote 1000 mg PO stat and 250 mg PO Bid by Neurologist. Geodon 10 mg IV p.r.n. for agitation as well as Seroquel. Promethazine, none of which has been able to manage patient's agitation. He continues to be restless making attempts to get out of his bed without support. Trying to hit any staff that comes close to him. MENTAL STATUS EXAMINATION: Patient is acutely ill looking, trashing about on the bed and making making multiple attempts to get out of his bed or reaching for imaginary things in the air. He is alert to name only, rambling about wanting to get out. Patient was not able to participate with this exam. Diagnoses: 1. Delirium. 2. Neurocognitive disorder, unspecified. 3. Anxiety Disorder unspecified 4. Depressive disorder, unspecified. 5. Disappearance and of a family member. Plan: Recommend discontinuing current prescription of Seroquel, Recommend discontinuing Geodon 10 mg IV prn Recommend discontinuing all benzodiazepines as this will prolong patients delirium Recommend starting patient on Haldol 2 mg p.o. b.i.d. Recommend starting Trazodone 100 mg p.o. at bedtime for sleep. Recommend continue Depakote 250 mg p.o. b.i.d. for aggressive behavior Recommend Haloperidol 5 mg IM/IV 12hrly with Cogentin 0.5 mg IM/IV 12hrly with each haloperidol dose as needed for Combative and physical aggression KO/MODL Voice ID: [id number] Report ID: [id number] MUKESH
--- NOTE | 2022-10-04 20:22 | PN ---
Date of Progress Note: 10/04/2022 Time Of Service: 1:00 p.m. Subjective: Mr. Osuna is now in ICU bed. There was a code stroke called earlier today. However, as the patient was evaluated initially, there was only the finding of possible left eye ptosis. He was last known well around 7:45 in the morning and his evaluation around 10:00 was done by the staff locally, and he apparently was improving at that time. His head CT scan was negative. However, prio r to receiving any TNK days, he returned to his baseline level of movement of the face. He did not h ave arm or leg numbness or weakness or any nasolabial fold drooping. He did not receive TNKs where angely jensen was moved to the unit. He has also had a multiple antipsychotic medications and medications that m ay be contributing to drowsiness, which may be a factor in the patient's presentation. Objective: Vital Signs: Blood pressure 151/84, pulse 94, respiratory rate 15, temperature 99.6, O2 saturation 100%. Neuro: Mr. Osuna is resting in the ICU bed. He did alert and turned to me. He did attempt to fo llow instructions such as to show his thumbs up sign with the right hand and the victory sign with th e left hand. He did move his feet when asked but barely so, but there were symmetric movement. His face did appear symmetric. He was somewhat tangential in terms of responses. Laboratory Studies: White blood cell count 3.8, hemoglobin 12.1, platelets 113. INR 1.25. Sodium 1 40, potassium 3.7, chloride 108, carbon dioxide 29, BUN 20, creatinine 0.81, glucose 105, calcium 9.[address] scan done earlier today showed no evidence of an acute intracranial process. There is an aneurysm clip in the sylvian fissure. Hays-white matter differentiation is preserved. No atroph y or chronic ischemic changes identified. Ventricles are normal in size. There is no area of cortic al based infarction. There is the area where the aneurysm clip is in place. Encephalomalacia that i s in the parenchyma adjacent to the left sylvian fissure. Assessment: Mr. Osuna is a 66-year-old patient who was evaluated by psychiatry and has a diagnosi s of delirium and is being treated according to that diagnosis. He does have a baseline cognitive dy sfunction. At this point, his psychiatrist is managing his medications including him receiving Benty l, Cogentin, Haldol, and he was also placed on Geodon. He did receive Depakote and he is on 250 mg t wice daily. He also has DVT prophylaxis with Lovenox 40 mg subcutaneously daily. He has Norvasc for blood pressure control. Plan: At this point, he does not have evidence of an acute stroke and again did not receive TNKs. H is condition is more likely related to his psychiatric etiology and delirium is possibly more likely than charanjit. He is now managed by psychiatry. VENICE/PRASANNA Voice ID: [id number] Report ID: [id number]
[2022-10-04] MEDS: DOCUSATE NA 100 MG CAP PO SCH (21:00)
[2022-10-04] MEDS: TRAZODONE 50 MG TABLET PO SCH (21:00)
[2022-10-04] MEDS ORDERED: ACETAMINOPHEN 650MG/RECT SUPP PR PRN (21:03)
[2022-10-04 21:59] LABS: Absolute Lymphocytes (CBC) 0.4 K/uL (0.7-4.9); Hematocrit 31.9 % (39.6-49.0); Lymphocytes % 7.4 % (15.3-44.8); MCV 87.7 fL (80-100); MPV 7.9 fL (7.6-11.3); RBC Red Blood Cell Count 3.63 M/uL (4.33-5.43)
[2022-10-04] MEDS ORDERED: NA CHLORIDE 0.9% 250 ML ONE (22:09)
[2022-10-04 22:15] LABS: Albumin 2.9 g/dL (3.4-5.0); Bilirubin Total 0.5 mg/dL (0.2-1.0); Potassium 3.8 mmol/L (3.5-5.1); Protein, Total 5.9 g/dL (6.4-8.2)
[2022-10-04] MEDS ORDERED: NA CHLORIDE 0.9% 250 ML IV ONE (22:20)
[2022-10-05] MEDS: CEFTRIAXONE 1,000 MG in NA CHLORIDE 0.9% 50 ML IVPB SCH ×3 (00:05→20:25)
[2022-10-05] MEDS: TRAMADOL HCL 50 MG TAB PO SCH ×3 (05:14→20:07)
[2022-10-05] MEDS: HALOPERIDOL LACT 5 MG/ML INJ IV SCH ×2 (05:14→20:03)
[2022-10-05] MEDS: ENOXAPARIN 40 MG/0.4 ML SQ SCH (08:54)
[2022-10-05] MEDS: PANTOPRAZOLE 40MG TABLET PO SCH (08:54)
[2022-10-05] MEDS: HYDRALAZINE HCL 25 MG TABLET PO SCH ×2 (08:55→20:07)
[2022-10-05] MEDS: ASPIRIN EC 81 MG TAB PO SCH (08:55)
[2022-10-05] MEDS: AMLODIPINE 5 MG TAB PO SCH ×2 (08:55→20:14)
[2022-10-05] MEDS: DIVALPROEX DR 250 MG TAB PO SCH ×2 (08:56→20:14)
[2022-10-05] MEDS: BENZTROPINE 2 MG/2 ML VIAL IV SCH ×2 (10:00→20:46)
--- NOTE | 2022-10-05 12:55 | EKG ---
Test Date: 2022-10-04 Test Time: 10:42:37 Cupola Worker: ALYSIA MEASUREMENT RESULTS: Intervals: Rate: 77 [place]: 138 QRSD: 88 QT: 390 QTc: 441 [place]: P: 75 VT: 138 QRS: 63 T: 77 INTERPRETIVE STATEMENTS: Normal sinus rhythm Normal ECG Compared to ECG 10/03/2022 14:32:22 Atrial premature complex(es) no longer present Electronically Signed On 10-05-22 12:52:12 [employer] by Aristeo Guillermo
[2022-10-05] MEDS: D5 0.9 NS 1,000 ML IV SCH (15:00)
--- NOTE | 2022-10-05 18:46 | PN ---
Date of Progress Note: 10/04/2022 Subjective: Patient was seen this morning for followup. No new complaints or problems reported by f godwiny member. He was sleeping this morning and did not get a good night sleep until late this kenyanin g. He started to sleep, so I did not try to wake him up. The patient's daughter and both were present at bedside. Yesterday, he did not eat as well as day before yesterday. He continued to have agitation problem and restlessness, confusion, hallucination yesterday. Objective: Vital Signs: Reviewed. HEENT: Unremarkable. Lungs: Clear to auscultation. Heart: Sounds normal. Abdomen: Soft. Bowel sounds normal. No guarding, rigidity, tenderness, distention. Extremities: No leg edema. Laboratory Data: White count 3.8, hemoglobin 12.1, platelets 113; and later this evening, repeat whi te count 4.8, hemoglobin 11.1, platelets 115. Initial early this morning, chemistry: Sodium 140, po tassium 3.7, chloride 108, bicarb 29, BUN 20, creatinine 0.81, glucose 105. Later, repeat chemistry: Sodium 140, potassium 3.8, chloride 109, bicarb 27, BUN 20, creatinine 0.82, glucose 108. CAT scan of the head was negative for any acute changes. Impression: 1.Delirium. 2.Psychosis. 3.Dementia with behavioral disturbances. 4.Hypertension. 5.Coronary artery disease. 6.Toxic encephalopathy. Plan: After I saw the patient during later part of the morning, the patient was transferred to ICU a s there was possibility and concern about stroke. Dr. Xiao evaluated him and he recommended to t angelsfer the patient to ICU and thrombolytic therapy was ordered by him, but after he was transferred to ICU and before thrombolytic therapy was given, the patient's condition improved and he was back to his normal self again, so thrombolytic therapy treatment was canceled by Dr. Xiao as there was n o definite evidence of stroke. Subsequently, patient was transferred out of ICU to regular room. He started to have fever and in ICU, he had urinary retention, required straight cath placement with 70 0 to 900 cc of urine that was removed from the bladder. We did not leave the Virk catheter in, as r isk of him pulling out the catheter any injury and as a result of that bleeding, type of complication is higher than the benefits, so we did not leave the Virk catheter in. Subsequently when he had fe gaby, we ordered urinalysis, urine culture, blood culture. Nurses tried to do straight cath and were not able to get hardly any urine except maybe 1 or 2 drops of blood-stained urine, so we were not abl e to get a urine specimen and the decision was made that at this point, the patient needs to start an tibiotic as soon as possible instead of waiting on collection of urine specimen as we feel like, like ly reason for fever is possibility of urinary tract infection, and we will start him on ceftriaxone. I will see him tomorrow for followup. SELAM/MODL Voice ID: [id number] Report ID: [id number]
[2022-10-05] MEDS: DIPHENHYDRAMINE 50 MG/ML VIAL IV PRN (20:03)
[2022-10-05] MEDS: DOCUSATE NA 100 MG CAP PO SCH (20:07)
[2022-10-05] MEDS: TRAZODONE 50 MG TABLET PO SCH (20:07)
--- NOTE | 2022-10-05 23:10 | PN ---
Date of Progress Note: 10/05/2022 Subjective: Patient was seen this morning for followup. Overnight his condition has improved after we started him on ceftriaxone last night. He has remained afebrile. This morning when I saw him he was sitting actually in the chair with sitting next to him. Overall, he looks a lot better than he has been throughout this hospitalization. He was still confused and still has some hallucination s, but he is very calm, no agitation at all. His appetite is good and is able to assist him to go to the bathroom so with minimal assist patient is able to ambulate in the room. The patient's wif e also reports that he urinated 3 or 4 times so far this morning and also had a bowel movement. Objective: Vital Signs: Reviewed. HEENT: Unremarkable. Lungs: Clear to auscultation. Heart: Sounds normal. Abdomen: Soft. Bowel sounds normal. No guarding, rigidity, tenderness, or distention. Extremities: No leg edema. Impression: 1.Possible urinary tract infection. 2.Delirium. 3.Psychosis. 4.Toxic encephalopathy. 5.Dementia with behavioral disturbances. 6.Hypertension. 7.Coronary artery disease. Plan: We will go ahead and continue current empiric antibiotic. Follow up on blood culture. We wer e not able to get urine specimen for culture prior to initiation of antibiotics. Empiric antibiotics will be continued at this point. Continue to follow with psychiatrist as well as neurologist. Deta ils were discussed with the hospitalist, who will cover this patient in my absence starting today and details were discussed with also. If the patient's agitation remains under control and if he i s able to ambulate with minimal to no assist then there is a good possibility that he might be able to go home instead of going to a new facility. SELAM/MODL Voice ID: [id number] Report ID: [id number]
[2022-10-06] MEDS: D5 0.9 NS 1,000 ML IV SCH ×2 (04:20→13:21)
[2022-10-06] MEDS: ZIPRASIDONE MESYLA 20 MG/VIAL IM PRN (04:22)
[2022-10-06] MEDS: DIVALPROEX DR 250 MG TAB PO SCH ×2 (08:38→20:01)
[2022-10-06] MEDS: ENOXAPARIN 40 MG/0.4 ML SQ SCH (08:38)
[2022-10-06] MEDS: BENZTROPINE 2 MG/2 ML VIAL IV SCH ×2 (08:38→20:01)
[2022-10-06] MEDS: CEFTRIAXONE 1,000 MG in NA CHLORIDE 0.9% 50 ML IVPB SCH ×2 (08:39→20:02)
[2022-10-06] MEDS: AMLODIPINE 5 MG TAB PO SCH ×2 (08:39→19:59)
[2022-10-06] MEDS: TRAMADOL HCL 50 MG TAB PO SCH ×3 (08:39→19:59)
[2022-10-06] MEDS: ASPIRIN EC 81 MG TAB PO SCH (08:39)
[2022-10-06] MEDS: HALOPERIDOL LACT 5 MG/ML INJ IV SCH ×2 (08:40→19:42)
[2022-10-06] MEDS: HYDRALAZINE HCL 25 MG TABLET PO SCH ×2 (08:40→20:01)
[2022-10-06] MEDS: PANTOPRAZOLE 40MG TABLET PO SCH (08:40)
[2022-10-06] MEDS ORDERED: CEFTRIAXONE 1000 MG/VIAL ONE (19:52)
[2022-10-06] MEDS: DOCUSATE NA 100 MG CAP PO SCH (20:03)
[2022-10-06] MEDS: TRAZODONE 50 MG TABLET PO SCH (20:06)
[2022-10-07] MEDS: D5 0.9 NS 1,000 ML IV SCH ×2 (07:00→20:51)
[2022-10-07] MEDS ORDERED: CEFTRIAXONE 1000 MG/VIAL ONE ×2 (07:30→19:53)
[2022-10-07] MEDS ORDERED: NA CHLORIDE 0.9% 50 ML IV ONE (08:40)
[2022-10-07] MEDS: CEFTRIAXONE 1,000 MG in NA CHLORIDE 0.9% 50 ML IVPB SCH ×2 (08:47→20:51)
[2022-10-07] MEDS: ASPIRIN EC 81 MG TAB PO SCH (08:47)
[2022-10-07] MEDS: ENOXAPARIN 40 MG/0.4 ML SQ SCH (08:47)
[2022-10-07] MEDS: TRAMADOL HCL 50 MG TAB PO SCH ×3 (08:48→20:52)
[2022-10-07] MEDS: BENZTROPINE 2 MG/2 ML VIAL IV SCH ×2 (08:49→20:51)
[2022-10-07] MEDS: PANTOPRAZOLE 40MG TABLET PO SCH (08:49)
[2022-10-07] MEDS: DIVALPROEX DR 250 MG TAB PO SCH ×2 (08:50→20:52)
[2022-10-07] MEDS: HALOPERIDOL LACT 5 MG/ML INJ IV SCH ×2 (08:51→20:51)
[2022-10-07] MEDS: AMLODIPINE 5 MG TAB PO SCH ×2 (08:52→20:53)
[2022-10-07] MEDS: HYDRALAZINE HCL 25 MG TABLET PO SCH ×2 (08:52→20:52)
[2022-10-07] MEDS ORDERED: HALOPERIDOL LACT 5 MG/ML INJ ONE (15:19)
[2022-10-07] MEDS: HALOPERIDOL LACT 5 MG/ML INJ IV PRN (15:28)
[2022-10-07] MEDS ORDERED: HYDROMORPHONE HCL 0.5 MG/0.5 ML INJ IV ONE (16:33)
[2022-10-07] MEDS ORDERED: HYDROMORPHONE HCL 0.5 MG/0.5 ML INJ ONE (16:37)
[2022-10-07] MEDS: DIPHENHYDRAMINE 50 MG/ML VIAL IV PRN (18:36)
[2022-10-07] MEDS: DOCUSATE NA 100 MG CAP PO SCH (20:52)
[2022-10-07] MEDS: TRAZODONE 50 MG TABLET PO SCH (20:52)
--- NOTE | 2022-10-07 22:08 | P.PN ---
Subjective Date of Service: 10/06/22 Subjective: Improving, Demented Review of Systems is unable to be obtained Physical Examination - Vital Signs Temperature: 98.8 F Blood Pressure: 146/72 Pulse: 80 Respirations: 20 Pulse Ox (%): 98 - Physical Exam General: Alert, In no apparent distress Respiratory: Clear to auscultation bilaterally, Normal air movement Cardiovascular: Regular rate/rhythm, Normal S1 S2 Gastrointestinal: Normal bowel sounds, Soft and benign, Non-distended, No tenderness Musculoskeletal: No clubbing, No swelling, No tenderness Neurological: Sensation intact, Cranial nerves 3-12 intact - Studies Medications List Reviewed: Yes Assessment & Plan - Problems (Diagnosis) (1) Alzheimer's dementia with behavioral disturbance Current Visit: Yes Status: Acute (2) HTN (hypertension) Current Visit: Yes Status: Acute - Plan -IV hydration -IV antibiotics -cultures negative -check renal function and electrolytes -check thyroid studies and cortisol studies -bed check in place -physical therapy evaluation once mentation is improved -discuss code status with family - Advance Directives Does patient have a Living Will: Yes Does patient have a Durable POA for Healthcare: No
--- NOTE | 2022-10-07 22:14 | P.PN ---
Date of Service: 10/07/22 Subjective Subjective: Improving, Demented Review of Systems 10-point ROS is otherwise unremarkable Physical Examination - Vital Signs reviewed - Physical Exam General: Alert, In no apparent distress Respiratory: Clear to auscultation bilaterally, Normal air movement Cardiovascular: Regular rate/rhythm, Normal S1 S2 Gastrointestinal: Normal bowel sounds, No tenderness Neurological: Normal speech, Normal tone, Normal affect Assessment & Plan - Problems (Diagnosis) (1) Alzheimer's dementia with behavioral disturbance Current Visit: Yes Status: Acute (2) HTN (hypertension) Current Visit: Yes Status: Acute - Plan -IV hydration -IV antibiotics -cultures negative -check renal function and electrolytes -CT head w/out contrast negative(unable to do MRI because of intracranial clips) -check thyroid studies and cortisol studies -bed check in place -[facility] -discuss code status with family
--- NOTE | 2022-10-08 07:22 | RAD REPORT ---
EXAM DESCRIPTION: RAD - Chest Single View - 10/08/2022 5:58 am CLINICAL HISTORY: pneumonia COMPARISON: Portable 10/01/2022 TECHNIQUE: AP portable chest image was obtained 10/08/2022 5:58 am . FINDINGS: Lung volumes are low. Interstitial pattern is stable from comparison. No new or progressiv e finding. Heart and vasculature are normal. No measurable pleural effusion and no pneumothorax. No acute bony abnormality seen. No acute aortic findings suspected. IMPRESSION: No new or progressive cardiopulmonary finding. Exam is stable from October 01 imaging.
[2022-10-08 07:39] LABS: Specific Gravity 1.012 (1.005-1.030); Urine Bilirubin NEGATIVE (Negative); Urine Blood Negative (Negative); Urine Clarity Clear (Clear); Urine Color Light-Yellow (Yellow); Urine Glucose NEGATIVE (Negative); Urine Protein NEGATIVE (Negative); Urine Urobilinogen Normal (Normal)
[2022-10-08] MEDS: HYDRALAZINE HCL 25 MG TABLET PO SCH (08:38)
[2022-10-08] MEDS: TRAMADOL HCL 50 MG TAB PO SCH ×2 (08:39→14:58)
[2022-10-08] MEDS: AMLODIPINE 5 MG TAB PO SCH (08:39)
[2022-10-08] MEDS: ENOXAPARIN 40 MG/0.4 ML SQ SCH (08:40)
[2022-10-08] MEDS: ASPIRIN EC 81 MG TAB PO SCH (08:40)
[2022-10-08] MEDS: DIVALPROEX DR 250 MG TAB PO SCH (08:40)
[2022-10-08] MEDS: HALOPERIDOL LACT 5 MG/ML INJ IV SCH (08:41)
[2022-10-08] MEDS: PANTOPRAZOLE 40MG TABLET PO SCH (08:41)
[2022-10-08] MEDS: BENZTROPINE 2 MG/2 ML VIAL IV SCH (08:41)
[2022-10-08 09:24] LABS: Absolute Lymphocytes (CBC) 0.9 K/uL (0.7-4.9); Hematocrit 35.4 % (39.6-49.0); Lymphocytes % 19.4 % (15.3-44.8); MCV 88.9 fL (80-100); MPV 8.3 fL (7.6-11.3); RBC Red Blood Cell Count 3.99 M/uL (4.33-5.43)
[2022-10-08] MEDS: D5 0.9 NS 1,000 ML IV SCH ×2 (09:40→11:16)
[2022-10-08 10:47] VITALS: O2SAT 99
[2022-10-08 10:55] LABS: Albumin 3.2 g/dL (3.4-5.0); Bilirubin Total 0.4 mg/dL (0.2-1.0); C-Reactive Protein 63.6 mg/L (<3.00); Folic Acid, (Folate) 15.6 ng/mL (3.1-17.5); Magnesium 2.1 mg/dL (1.6-2.4); Potassium 3.9 mmol/L (3.5-5.1); Protein, Total 6.4 g/dL (6.4-8.2); Thyroid Stimulating Hormone 1.31 uIU/mL (0.358-3.740)
[2022-10-08] MEDS ORDERED: CEFTRIAXONE 1000 MG/VIAL ONE (11:09)
[2022-10-08] MEDS ORDERED: NA CHLORIDE 0.9% 50 ML IV ONE (11:09)
[2022-10-08] MEDS: CEFTRIAXONE 1,000 MG in NA CHLORIDE 0.9% 50 ML IVPB SCH (11:17)
--- NOTE | 2022-10-08 15:40 | P.DS ---
Admission Date: 10/01/22 Discharge Date: 10/08/22 Disposition: TRANSFR TO OTHER-PSY/CD/REHAB Discharge Condition: GOOD Reason for Admission: Altered Mental Status Consultations: 1. Neurology 2. Psychiatry Hospital Course: DIAGNOSES: # Acute Toxic Metabolic Encephalopathy suspected secondary to Dementia with Behavioral Disturbances (Psychotic Features) # History of Left Pterional Craniotomy and Aneurysm Clipping # Generalized Anxiety Disorder # Coronary Artery Disease # Bilateral Carotid Artery Stenosis # Hypertension # Hyperlipidemia # Gastroesophageal Reflux Disease # Benign Prostatic Hyperplasia # Microscopic Hematuria - follow-up with PCP HOSPITAL COURSE: Mr. William Osuna is a 66 year old male with a past medical history significant for coronary artery disease, bilateral carotid artery stenosis, generalized anxiety disorder, hypertension, and hyperlipidemia who was admitted to the [facility] on 10/01/2022 for altered mental status. He was admitted to the Medicine service. His CT head/cervical spine revealed, "no acute intracranial or cervical spine findings." Neurology was consulted and he was evaluated by Dr. Xiao. He recommended obtaining a Psychiatry consultation. Psychiatry was consulted and he was evaluated by Dr. Avendaño. He adjusted his medications, and over the course of his hospitalization, his psychosis and agitated behavior became more controlled. His hospital course was complicated by a Code Stroke, for which his CT head revealed, "no CT evidence of acute intracranial process." An MRI brain was unable to be obtained due to prior intracranial aneurysmal clipping. He was evaluated by Psychiatry and it was recommended that he be admitted to an inpatient Geriatric-Psychiatric witt. He has been accepted to [facility]. I have updated his , who is in agreement with the above plan. On 10/08/2022, he was seen on morning rounds and deemed medically stable for discharge. His was given the opportunity to ask questions and reported no further questions. Furthermore, all questions were answered to the best of my ability. Today, I personally spent 35 minutes on his case, of which greater than 50% of the time was spent in patient education, counseling, and coordination of care as described above. Vital Signs/Physical Exam: Temp Pulse Resp BP Pulse Ox 97.9 F 84 18 150/72 H 100 10/08/22 12:00 10/08/22 12:00 10/08/22 14:58 10/08/22 12:00 10/08/22 14:58 General: Alert, In no apparent distress HEENT: Other (prior craniotomy scar), EOMI, Sclerae nonicteric Neck: JVD not distended Respiratory: Clear to auscultation bilaterally, Normal air movement Cardiovascular: No edema, Regular rate/rhythm, Normal S1 S2, No gallops, No rubs, No murmurs Gastrointestinal: Normal bowel sounds, Soft and benign, Non-distended, No tenderness, No rebound, No guarding Musculoskeletal: No clubbing Integumentary: No rashes Neurological: Normal speech, Normal affect Laboratory Data at Discharge: WBC 4.70 K/uL (4.3-10.9) 10/08/22 08:56 Hgb 11.9 g/dL (13.6-17.9) L 10/08/22 08:56 Hct 35.4 % (39.6-49.0) L 10/08/22 08:56 Plt Count 168 K/uL (152-406) 10/08/22 08:56 PT 13.8 SECONDS (9.5-12.5) H 10/04/22 10:22 INR 1.25 10/04/22 10:22 APTT 29.0 SECONDS (24.3-36.9) 10/04/22 10:22 Sodium 141 mmol/L (136-145) 10/08/22 08:56 Potassium 3.9 mmol/L (3.5-5.1) 10/08/22 08:56 BUN 14 mg/dL (7-18) 10/08/22 08:56 Creatinine 0.81 mg/dL (0.70-1.30) 10/08/22 08:56 Glucose 108 mg/dL (74-106) H 10/08/22 08:56 Magnesium 2.1 mg/dL (1.6-2.4) 10/08/22 08:56 Total Bilirubin 0.4 mg/dL (0.2-1.0) 10/08/22 08:56 AST 26 U/L (15-37) 10/08/22 08:56 ALT 29 U/L (16-61) 10/08/22 08:56 Alkaline Phosphatase 106 U/L (45-117) 10/08/22 08:56 Home Medications: Amlodipine Besylate 5 mg PO BID 07/11/22 Aspirin [Aspirin EC 81 MG] 81 mg PO DAILY 07/11/22 Clopidogrel Bisulfate [Plavix*] 75 mg PO DAILY 07/11/22 Hydralazine HCl 50 mg PO BID 07/11/22 Pantoprazole [Protonix Tab*] 40 mg PO DAILY 07/11/22 Tramadol HCl 100 mg PO TIDP PRN 07/11/22 Buspirone HCl 5 mg PO BID 10/02/22 Dicyclomine [Bentyl*] 10 mg PO TID 10/02/22 Docusate [Colace Cap*] 100 mg PO BEDTIME 10/02/22 Escitalopram Oxalate [Lexapro] 5 mg PO DAILY 10/02/22 Eszopiclone 3 mg PO BEDTIME 10/02/22 Ondansetron HCl 4 mg PO Q8HP PRN 10/02/22 Polyethylene Glycol 3350 [Miralax] 17 gm PO BEDTIME PRN 10/02/22 Prosta Genix 1 cap PO BID 10/02/22 clonazePAM [Clonazepam] 1 mg PO BID 10/02/22 haloperidoL [Haldol*] 2 mg PO BID tab 10/08/22 Diet: Regular Activity: Fall precautions Followup: Aiden Mackenzie MD [Primary Care Provider] - 1 Week (Please call to schedule an appointment. ) Time spent managing pt's care (in minutes): 35
[2022-10-08] MEDS: DIPHENHYDRAMINE 50 MG/ML VIAL IV PRN (16:06)
[2022-10-08] MEDS: HALOPERIDOL LACT 5 MG/ML INJ IV PRN (16:07)
[2022-10-08 16:38] VITALS: BP 145/74; TEMP 98.6
[2022-10-08] MEDS ORDERED: ENSURE ENLIVE 237 ML CAN PO SCH (21:00)
== END 2022-10-08 16:34 | DRG 92 ==
LOC: ER 10:58 → ERHOLD 13:39 → 4TH 19:37 → 3RD-ICU 10-04 11:00 → 4TH 10-04 17:40
PROVIDERS: ADMIT Hospitalist; ATTEND Internal Medicine
DX: G92.8 Other toxic encephalopathy (principal); F02.811 Dementia in other diseases classified elsewhere, unspecified severity, with agitation; F02.82 Dementia in other diseases classified elsewhere, unspecified severity, with psychotic disturbance; F02.84 Dementia in other diseases classified elsewhere, unspecified severity, with anxiety; N39.0 Urinary tract infection, site not specified; G30.9 Alzheimer's disease, unspecified; E78.5 Hyperlipidemia, unspecified; I25.10 Atherosclerotic heart disease of native coronary artery without angina pectoris; I10 Essential (primary) hypertension; K21.9 Gastro-esophageal reflux disease without esophagitis; J30.9 Allergic rhinitis, unspecified; I65.23 Occlusion and stenosis of bilateral carotid arteries; Z95.1 Presence of aortocoronary bypass graft; N40.0 Benign prostatic hyperplasia without lower urinary tract symptoms; Z20.822 Contact with and (suspected) exposure to COVID-19; R29.6 Repeated falls; Z91.81 History of falling; R31.29 Other microscopic hematuria; Z63.4 Disappearance and death of family member; R41.9 Unspecified symptoms and signs involving cognitive functions and awareness
CPT/HCPCS: 36415; 51702; 70450; 71045; 72125; 72170; 72192; 80048; 80053; 80076; 81001; 81003; 82140; 82533; 82607; 82746; 82947; 83735; 83880; 84145; 84439; 84443; 84484; 85025; 85610; 85730; 86140; 87040; 87086; 87088; 87811; 93005; 94760; 96361; 96372; 96374; 97116; 97161; 97530; 99284; 99285; J0515; J1170; J1200; J1630; J1650; J2550; J3010; J3486; J7040; J7042; J7050; U0003